=== PATIENT | male | born 1965 | race Caucasian/White ===

== ENCOUNTER → 2018-01-30 08:31 | Outpatient (CLI) | payer OTHER, SELFPAY ==
[2018-01-30 08:51] LABS: Basophils % 0.4 % (0.1-2.0); Eosinophils # 0.1 K/mm3 (0.0-0.4); Eosinophils % 1.5 % (0.1-12.0); Hematocrit 43.9 % (42.0-52.0); Hemoglobin 14.1 g/dL (14.1-18.0); Lymphocytes # 1.4 K/mm3 (0.7-4.5); Mean Corpuscular HGB Conc 32.1 g/dL (31.8-35.4); Mean Corpuscular Hemoglobin 28.7 pg (27.0-31.2); Mean Corpuscular Volume 89.6 fl (80-94); Mean Platelet Volume 7.7 fl (7.4-10.4); Monocytes # 0.4 K/mm3 (0.1-1.0); Monocytes % 6.4 % (1.7-9.3); Neutrophils # 4.2 K/mm3 (1.8-7.8); Neutrophils % 68.7 % (37.0-80.0); Platelet Count 350 K/mm3 (142-424); White Blood Count 6.1 K/mm3 (4.8-10.8)
[2018-01-30 09:35] LABS: Alanine Aminotransferase 38 U/L (12-78); Albumin Level 3.9 gm/dL (3.4-5.0); Albumin/Globulin Ratio 1.1 (1.1-1.8); Alkaline Phosphatase 102 U/L (46-116); Anion Gap 12.3 mEq/L (5-15); Aspartate Amino Transferase 19 U/L (15-37); Bilirubin,Total 1.1 mg/dL (0.2-1.0); Blood Urea Nitrogen 12 mg/dL (7-18); Calcium 9.1 mg/dL (8.5-10.1); Carbon Dioxide 29 mmol/L (21.0-32.0); Chloride 106 mmol/L (98-107); Creatinine,Serum 1.05 mg/dL (0.70-1.30); Estimated Glomerular Filt Rate 74 ml/min (>60); GFR (African American) 89 ML/MIN (>60); Globulin 3.4 gm/dl (1.3-3.2); Glucose 105 mg/dL (74-106); Potassium 4.3 mmoL/L (3.5-5.1); Sodium 143 mmol/L (136-145); Total Protein,Serum 7.3 gm/dL (6.4-8.2)
== END ==
PROVIDERS: PCP Family Medicine; Visit Provider Dermatology
DX: L13.0 Dermatitis herpetiformis (principal); Z79.899 Other long term (current) drug therapy
CPT/HCPCS: 36415; 80053; 85025

== ENCOUNTER → 2018-07-12 07:49 | Outpatient (CLI) | payer OTHER, SELFPAY ==
[2018-07-12 08:09] LABS: Basophils % 0.3 % (0.1-2.0); Eosinophils # 0.1 K/mm3 (0.0-0.4); Eosinophils % 1.4 % (0.1-12.0); Hematocrit 42.7 % (42.0-52.0); Hemoglobin 13.6 g/dL (14.1-18.0); Lymphocytes # 1.2 K/mm3 (0.7-4.5); Lymphocytes % 21.8 K/mm3 (10-50); Mean Corpuscular HGB Conc 31.8 g/dL (31.8-35.4); Mean Corpuscular Volume 91.1 fl (80-94); Mean Platelet Volume 7.3 fl (7.4-10.4); Monocytes # 0.4 K/mm3 (0.1-1.0); Monocytes % 7.6 % (1.7-9.3); Neutrophils # 3.7 K/mm3 (1.8-7.8); Neutrophils % 68.8 % (37.0-80.0); Platelet Count 340 K/mm3 (142-424); Red Blood Count 4.69 M/mm3 (4.60-6.20); Red Cell Distribution Width 13.5 % (11.5-17.5); White Blood Count 5.3 K/mm3 (4.8-10.8)
[2018-07-12 08:23] LABS: Hemoglobin A1C 5.3 % (0.0-7.0)
[2018-07-12 09:24] LABS: Alanine Aminotransferase 29 U/L (12-78); Albumin Level 3.5 gm/dL (3.4-5.0); Alkaline Phosphatase 101 U/L (46-116); Anion Gap 10.6 mEq/L (5-15); Aspartate Amino Transferase 12 U/L (15-37); Bilirubin,Total 1.1 mg/dL (0.2-1.0); Blood Urea Nitrogen 11 mg/dL (7-18); Calcium 8.9 mg/dL (8.5-10.1); Carbon Dioxide 31 mmol/L (21.0-32.0); Chloride 105 mmol/L (98-107); Chol/HDL Ratio 4.9 (1-3.5); Cholesterol 167 mg/dL (140-200); Creatinine,Serum 1.16 mg/dL (0.70-1.30); Estimated Glomerular Filt Rate 66 ml/min (>60); GFR (African American) 79 ML/MIN (>60); Globulin 3.4 gm/dl (1.3-3.2); Glucose 101 mg/dL (74-106); HDL Cholesterol 34 mg/dL (27-67); LDL Cholesterol 95 mg/dL (0-130); Potassium 4.6 mmoL/L (3.5-5.1); Sodium 142 mmol/L (136-145); Total Protein,Serum 6.9 gm/dL (6.4-8.2); Triglycerides 192 mg/dL (30-200); VLDL Cholesterol 38 mg/dL (0-40)
== END ==
PROVIDERS: PCP Family Medicine; Visit Provider Dermatology
DX: I10 Essential (primary) hypertension (principal); E78.5 Hyperlipidemia, unspecified; R73.9 Hyperglycemia, unspecified
CPT/HCPCS: 36415; 80053; 80061; 83036; 85025

== ENCOUNTER → 2018-08-19 11:38 | Outpatient (CLI) | payer OTHER, SELFPAY ==
--- NOTE | 2018-08-19 11:42 | XR_ITS ---
XR chest 2V HISTORY: ITS.REASON: LT LUNG CRACKLES ORDERING PHYSICIAN: FREDY Adkins PATIENT AGE: 53 years COMPARISON: 08/21/2014 FINDINGS: The cardiomediastinal silhouette and pulmonary vascularity are within normal limits. Increased density is present in the right middle lobe consistent with pneumonia. No effusions. IMPRESSION: Right middle lobe pneumonia
== END ==
PROVIDERS: PCP Family Medicine; Visit Provider Physician Assistant
DX: R09.89 Other specified symptoms and signs involving the circulatory and respiratory systems (principal)
CPT/HCPCS: 71046

== ENCOUNTER → 2018-08-28 08:51 | Outpatient (CLI) | payer OTHER, SELFPAY ==
--- NOTE | 2018-08-28 08:57 | XR_ITS ---
XR chest 2V HISTORY: ITS.REASON: pneumonia of right middle lobe to infectious organism ORDERING PHYSICIAN: FREDY Adkins PATIENT AGE: 53 years Technique: PA lateral chest COMPARISON: PA and lateral chest 08/19/2018 FINDINGS: Lungs are clear with no active disease. The pulmonary infiltrate seen at the right base 08/19/2018 mainly involving RML has shown clearing and near complete resolution. The cardiomediastinal silhouette and pulmonary vascularity are within normal limits. The lungs are clear without infiltrates, suspicious nodules, or pleural effusions. No acute bony abnormalities. IMPRESSION: . Lungs appear clear . The right middle lobe infiltrate is shown interval clearing and near complete resolution. No new findings
== END ==
PROVIDERS: PCP Family Medicine; Visit Provider Physician Assistant
DX: J18.1 Lobar pneumonia, unspecified organism (principal)
CPT/HCPCS: 71046

== ENCOUNTER → 2018-09-23 15:34 | Outpatient (CLI) | payer OTHER, SELFPAY ==
--- NOTE | 2018-09-23 15:59 | MR_ITS ---
MR shoulder RT wo con No comparisons HISTORY: Right shoulder pain with limited range of motion ORDERING PHYSICIAN: FREDY Adkins PATIENT AGE: 53 years TECHNIQUE: Routine multiplanar multiecho sequences are performed without contrast. FINDINGS: Hypertrophic changes are present at the acromioclavicular joint with small inferior spur causing some mild impingement upon the musculotendinous junction of the supraspinatus. There is mild thickening of the supraspinatus tendon with increased T2 signal. There appears to be a partial tear along the posterior and distal aspect of the supraspinatus tendon at the insertion on the greater tuberosity. A full-thickness tear is not present. There is mild thickening of the infraspinatus tendon as well with no evidence of tear. The subscapularis and teres minor tendons are intact. Bicipital tendon is in place. There is also suspected SLAP lesion of the glenoid labrum. This could be confirmed with MR arthrography. No other significant anomalies are evident. No fracture or dislocation evident IMPRESSION: 1. Acromioclavicular arthropathy with mild impingement upon the musculotendinous junction of the supraspinatus muscle and tendon 2. Partial tear of the distal and posterior aspect of the supraspinatus tendon with tendinopathy/tendinosis of both supraspinatus and infraspinatus tendons. No full-thickness tear evident 3. Increased T2 signal at the base of the superior glenoid labrum is somewhat irregular appearance suspicious for a SLAP lesion which can be confirmed with MR arthrography if clinically warranted
== END ==
PROVIDERS: PCP Family Medicine; Visit Provider Physician Assistant
DX: M25.511 Pain in right shoulder (principal)
CPT/HCPCS: 73221

== ENCOUNTER → 2018-10-07 09:09 | Outpatient (CLI) | payer OTHER, SELFPAY ==
--- NOTE | 2018-10-07 09:12 | XR_ITS ---
XR shoulder RT min 2V Ordering Physician: Jyotsna Manriquez MD Patient Age: 53 years: Male HISTORY: ITS.REASON: axillary, scapula and ap views. Patient states his tendon tear right shoulder. TECHNIQUE: 3 view right shoulder: Axillary view, Y view, AP Internal rotation view COMPARISON :MRI right shoulder 09/23/2018 FINDINGS . Only very minimal AC joint arthropathy on today's plain film. There seems to be more pronounced arthropathy at AC joint on recent MRI. The minimal intimal joint is unremarkable. Humeral head and neck appear normal and character in density. The Y view shows normal relationship between humeral head and glenoid.. Today's axillary view is limited appear the patient had difficulty in positioning with axillary view performed in sitting position, unable to lift arm. IMPRESSION....... Minimal AC joint arthropathy on plain film . Glenohumeral joint intact
== END ==
PROVIDERS: PCP Family Medicine; Visit Provider Orthopaedic Surgery
DX: M25.511 Pain in right shoulder (principal)
CPT/HCPCS: 73030

== ENCOUNTER → 2018-11-29 07:55 | Outpatient (POV) | payer OTHER, SELFPAY | PROVIDERS: Visit Provider Specialist | DX: M67.911 Unspecified disorder of synovium and tendon, right shoulder (principal); M79.601 Pain in right arm | CPT/HCPCS: 95886; 95908 ==

== ENCOUNTER → 2018-12-23 07:52 | Outpatient (CLI) | payer OTHER, SELFPAY ==
[2018-12-23 09:17] LABS: Basophils % 0.4 % (0.1-2.0); Eosinophils # 0.1 K/mm3 (0.0-0.4); Eosinophils % 1.8 % (0.1-12.0); Hematocrit 42.2 % (42.0-52.0); Hemoglobin 13.7 g/dL (14.1-18.0); Lymphocytes # 1.6 K/mm3 (0.7-4.5); Lymphocytes % 28.3 % (10-50); Mean Corpuscular HGB Conc 32.5 g/dL (31.8-35.4); Mean Corpuscular Hemoglobin 29.2 pg (27.0-31.2); Mean Corpuscular Volume 89.7 fl (80-94); Mean Platelet Volume 7.8 fl (7.4-10.4); Monocytes # 0.4 K/mm3 (0.1-1.0); Monocytes % 7.7 % (1.7-9.3); Neutrophils # 3.4 K/mm3 (1.8-7.8); Neutrophils % 61.8 % (37.0-80.0); Platelet Count 339 K/mm3 (142-424); Red Blood Count 4.71 M/mm3 (4.60-6.20); Red Cell Distribution Width 13.8 % (11.5-17.5); White Blood Count 5.5 K/mm3 (4.8-10.8)
[2018-12-23 12:18] LABS: Alanine Aminotransferase 30 U/L (12-78); Albumin Level 3.5 gm/dL (3.4-5.0); Albumin/Globulin Ratio 1.1 (1.1-1.8); Alkaline Phosphatase 90 U/L (46-116); Anion Gap 15.4 mEq/L (5-15); Aspartate Amino Transferase 18 U/L (15-37); Bilirubin,Total 0.8 mg/dL (0.2-1.0); Blood Urea Nitrogen 12 mg/dL (7-18); Calcium 9.2 mg/dL (8.5-10.1); Carbon Dioxide 26 mmol/L (21.0-32.0); Chloride 106 mmol/L (98-107); Creatinine,Serum 1.14 mg/dL (0.70-1.30); Estimated Glomerular Filt Rate 67 ml/min (>60); GFR (African American) 81 ML/MIN (>60); Globulin 3.3 gm/dl (1.3-3.2); Glucose 106 mg/dL (74-106); Potassium 4.4 mmoL/L (3.5-5.1); Sodium 143 mmol/L (136-145); Total Protein,Serum 6.8 gm/dL (6.4-8.2)
== END ==
PROVIDERS: Visit Provider Dermatology
DX: L13.0 Dermatitis herpetiformis (principal); Z79.899 Other long term (current) drug therapy
CPT/HCPCS: 36415; 80053; 85025

== ENCOUNTER → 2018-12-24 12:44 | Outpatient (POV) | payer OTHER, SELFPAY | PROVIDERS: Visit Provider Specialist | DX: M67.911 Unspecified disorder of synovium and tendon, right shoulder (principal) ==

== ENCOUNTER 2018-12-27 10:00 | Outpatient (RCR) | payer OTHER, SELFPAY ==
--- NOTE | 2018-10-13 11:52 | HMH.OTOPEV ---
OT Inpatient Evaluation Rehab OT Outpatient Eval Start: 10/13/18 11:36 Freq: Status: Active Protocol: Document 10/13/18 11:36 RMTAMAR (Rec: 10[facility]13[facility]18 11:52 [id number] Electronically Signed By Nasra Singleton OT 10/13/18 11:36 Outpatient Therapy Subjective History Subjective History Pt is a 53 year old male who reports to therapy for initial evaluation to right shoulder. Pt injured shoulder on September 17, 2018 when he reached into the bed of the truck and his shoulder popped and he began having pain. Pt has had an MRI where he was diagnosed with a partical RTC tear of the supraspinatus and a possible SLAP tear. Pt demonstrates with a significant decline in AROM and strength at right shoulder . Pt also complains of constant pain. When patient moves are in flexion or abduction, he has severe winging of the scapula (right side). Pt will continue to be seen twice a week in order to address all deficits. Chief Complaint Pain Weakness Symptom Type Ache Throb Sharp Dull Stabbing Burning Symptoms Relieved By Nothing Symptoms Aggravated By Physical Activity Lifting Prior Functional Limitations None Current Functional Limitations Reaching Lifting Housework Dressing Sleeping Recreation Activity Symptom Description Constant and Continuous Level of pain today (0-10) 6 Pain scale - at its best (0-10) 3 Pain scale - at its worst (0-10) 10 Shoulder/Elbow Eval Shoulder Objective Measurements Shoulder ROM Right Shoulder ROM Limitations Pain Shoulder Abduction Active Range of 80 degrees Motion (degrees) Shoulder Abduction Passive Range of 90 degrees Motion (degrees) Shoulder Flexion Active Range of Motion 65 degrees
--- NOTE | 2018-11-15 10:54 | HMH.RHREAS ---
Rehab Reassessment Rehab OP Re-assessment Start: 11/15/18 10:38 Freq: Status: Active Protocol: Document 11/15/18 10:39 RMARSHALL (Rec: 11/15/18 10:54 [id number] Electronically Signed By Nasra Singleton OT 11/15/18 10:39 Rehab Re-assessment Subjective Subjective It still doesn't look right in the back. Objective Objective Notes Pt returned to therapy today after being at work for 30 days. Pt was given a large HEP to continue while being at work. Pt reports he was faithful with completing the exercises daily. Today pt engaged in right RTC strengthening, parascapular strengthening, and scapular stabilization. AROM/AAROM exercises were also completed. Pt received IFC e-stim to right shoulder and ice to decrease pain. Assessment Progress Assessment Slower Than Expected Assessment Notes Pt's AROM and strength at right shoulder has improved significantly since initial evaluation. However, pt's severe winging of the scapula remains the same. This is the most concerning aspect of patient to therapist. Pt does return to the doctor this coming to be re- evaluated. Pt did voice his frustration and wants the winging to be fixed. Pt also explained that his pain has improved since initial evaluation as well. Current AROM at right shoulder Flex: 125 Abd: 120 ER: 55 IR: 65 Current MMT at Right shoulder Flex: 4+ Abd: 4+ ER: 4+ IR: 4+ Patient goals met N/A Goals Not Met AROM and MMT Revised Goals AROM right Shoulder Goals Flex: 160
== END 2018-12-27 10:05 | disposition home or self-care (01) ==
LOC: OT 10:00
PROVIDERS: Visit Provider Orthopaedic Surgery
DX: M25.511 Pain in right shoulder (principal)
CPT/HCPCS: 97014; 97110; 97140; 97164; 97166; G0283

== ENCOUNTER → 2018-12-30 11:56 | Outpatient (CLI) | payer OTHER, SELFPAY | PROVIDERS: Visit Provider Orthopaedic Surgery | DX: M75.110 Incomplete rotator cuff tear or rupture of unspecified shoulder, not specified as traumatic (principal) | CPT/HCPCS: 36415; 82565; 84520 ==

== ENCOUNTER → 2018-12-30 13:30 | Outpatient (CLI) | payer OTHER, SELFPAY ==
[2018-12-30 12:15] LABS: Blood Urea Nitrogen 9 mg/dL (7-18); Creatinine,Serum 1.12 mg/dL (0.70-1.30); Estimated Glomerular Filt Rate 68 ml/min (>60); GFR (African American) 82 ML/MIN (>60)
== END ==
PROVIDERS: PCP Family Medicine; Visit Provider Orthopaedic Surgery
DX: Z01.818 Encounter for other preprocedural examination (principal); M75.110 Incomplete rotator cuff tear or rupture of unspecified shoulder, not specified as traumatic
CPT/HCPCS: 36415; 82565; 84520

== ENCOUNTER → 2019-01-03 09:41 | Outpatient (CLI) | payer OTHER, SELFPAY ==
--- NOTE | 2019-01-03 09:41 | MR_ITS ---
MR chest wo/w con CLINICAL INDICATION: Pain, ringing of scapula ITS.REASON: shoulder pain ORDERING PHYSICIAN: Jyotsna Manriquez MD PATIENT AGE: 53 years Comparison: None TECHNIQUE: Multiplanar multiecho sequences are performed without and with contrast FINDINGS: The spinal nerves exiting from C4 to C8 appear symmetric without enhancement or mass. Brachial plexus has an unremarkable appearance. No axillary mass, abnormal fluid collection, or other significant anomalies evident. No adenopathy. IMPRESSION: Unremarkable MRI of the brachial plexus
== END ==
PROVIDERS: PCP Family Medicine; Visit Provider Orthopaedic Surgery
DX: M75.110 Incomplete rotator cuff tear or rupture of unspecified shoulder, not specified as traumatic (principal); M95.8 Other specified acquired deformities of musculoskeletal system
CPT/HCPCS: 71552; A9576

== ENCOUNTER → 2019-01-05 07:39 | Outpatient (CLI) | payer OTHER, SELFPAY ==
[2019-01-05 09:19] LABS: Alanine Aminotransferase 32 U/L (12-78); Albumin Level 3.7 gm/dL (3.4-5.0); Albumin/Globulin Ratio 1.1 (1.1-1.8); Alkaline Phosphatase 96 U/L (46-116); Anion Gap 11.6 mEq/L (5-15); Aspartate Amino Transferase 15 U/L (15-37); Bilirubin,Total 0.8 mg/dL (0.2-1.0); Blood Urea Nitrogen 10 mg/dL (7-18); Calcium 9.2 mg/dL (8.5-10.1); Carbon Dioxide 29 mmol/L (21.0-32.0); Chloride 106 mmol/L (98-107); Chol/HDL Ratio 5.2 (1-3.5); Cholesterol 166 mg/dL (140-200); Creatinine,Serum 1.11 mg/dL (0.70-1.30); Estimated Glomerular Filt Rate 69 ml/min (>60); GFR (African American) 83 ML/MIN (>60); Globulin 3.4 gm/dl (1.3-3.2); Glucose 109 mg/dL (74-106); HDL Cholesterol 32 mg/dL (27-67); LDL Cholesterol 93 mg/dL (0-130); Potassium 4.6 mmoL/L (3.5-5.1); Sodium 142 mmol/L (136-145); Total Protein,Serum 7.1 gm/dL (6.4-8.2); Triglycerides 206 mg/dL (30-200); VLDL Cholesterol 41 mg/dL (0-40)
== END ==
PROVIDERS: Visit Provider Family Medicine
DX: I10 Essential (primary) hypertension (principal); E78.5 Hyperlipidemia, unspecified
CPT/HCPCS: 36415; 80053; 80061

== ENCOUNTER → 2019-06-28 08:13 | Outpatient (CLI) | payer OTHER, SELFPAY ==
[2019-06-28 08:53] LABS: Basophils % 0.4 % (0.1-2.0); Eosinophils # 0.1 K/mm3 (0.0-0.4); Eosinophils % 1.8 % (0.1-12.0); Hematocrit 43.6 % (42.0-52.0); Hemoglobin 13.8 g/dL (14.1-18.0); Lymphocytes # 1.4 K/mm3 (0.7-4.5); Mean Corpuscular HGB Conc 31.6 g/dL (31.8-35.4); Mean Corpuscular Hemoglobin 28.8 pg (27.0-31.2); Mean Corpuscular Volume 91.2 fl (80-94); Mean Platelet Volume 7.5 fl (7.4-10.4); Monocytes # 0.4 K/mm3 (0.1-1.0); Monocytes % 7.7 % (1.7-9.3); Neutrophils # 3.7 K/mm3 (1.8-7.8); Neutrophils % 66.1 % (37.0-80.0); Platelet Count 377 K/mm3 (142-424); Red Blood Count 4.78 M/mm3 (4.60-6.20); Red Cell Distribution Width 13.4 % (11.5-17.5); White Blood Count 5.6 K/mm3 (4.8-10.8)
[2019-06-28 10:00] LABS: Alanine Aminotransferase 35 U/L (12-78); Albumin Level 3.8 gm/dL (3.4-5.0); Albumin/Globulin Ratio 1.2 (1.1-1.8); Alkaline Phosphatase 77 U/L (46-116); Anion Gap 12.8 mEq/L (5-15); Aspartate Amino Transferase 19 U/L (15-37); Bilirubin,Total 0.9 mg/dL (0.2-1.0); Blood Urea Nitrogen 10 mg/dL (7-18); Calcium 9.1 mg/dL (8.5-10.1); Carbon Dioxide 30 mmol/L (21.0-32.0); Chloride 106 mmol/L (98-107); Creatinine,Serum 1.16 mg/dL (0.70-1.30); Estimated Glomerular Filt Rate 65 ml/min (>60); GFR (African American) 79 ML/MIN (>60); Globulin 3.1 gm/dl (1.3-3.2); Glucose 101 mg/dL (74-106); Potassium 4.8 mmoL/L (3.5-5.1); Sodium 144 mmol/L (136-145); Total Protein,Serum 6.9 gm/dL (6.4-8.2)
== END ==
PROVIDERS: Visit Provider Dermatology
DX: L13.0 Dermatitis herpetiformis (principal)
CPT/HCPCS: 36415; 80053; 85025

== ENCOUNTER → 2019-10-14 07:58 | Outpatient (CLI) | payer OTHER, SELFPAY ==
--- NOTE | 2019-10-14 08:02 | CA_ITS ---
APPROVED REPORT Family Centered Specialist: CT Laterality: Bilateral Study Quality: Good Indications: Dizziness and Vertigo Risk Factors Hypertension: Hyperlipidemia Doppler Spectral Velocity Analysis dICA (R) 69.30/24.40 cm/s dICA (L) 96.30/38.50 cm/s Adan (R) 93.10/36.00 cm/s Adan (L) 83.80/35.60 cm/s pICA (R) 72.70/27.30 cm/s pICA (L) 95.40/41.40 cm/s dCCA (R) 80.90/21.20 cm/s dCCA (L) 77.10/23.10 cm/s pCCA (R) 154.60/39.00 cm/s pCCA (L) 136.90/37.40 cm/s Vert (R) 48.10/17.10 cm/s Vert (L) 48.10/14.40 cm/s Conclusion Duplex evaluation demonstrates stenosis of the right proximal internal carotid artery <20% with PSV <140 cm/sec, EDV <100 cm/sec, and IC/CC Ratio <4.0. Duplex evaluation demonstrates stenosis of the left proximal internal carotid artery in the range of 20-49% with PSV <140 cm/sec, EDV <100 cm/sec, and IC/CC Ratio <4.0. Duplex evaluation demonstrates antegrade flow of the bilateral Vertebral Arteries. Electronically signed by : Rickey Castaneda MD 10/14/2019 16:42:51
== END ==
PROVIDERS: PCP Family Medicine; Visit Provider Physician Assistant
DX: R42 Dizziness and giddiness (principal)
CPT/HCPCS: 93880

== ENCOUNTER → 2019-12-16 07:35 | Outpatient (CLI) | payer OTHER, SELFPAY ==
[2019-12-16 07:48] LABS: Basophils % 0.5 % (0.1-2.0); Eosinophils # 0.1 K/mm3 (0.0-0.4); Hematocrit 41.4 % (42.0-52.0); Hemoglobin 13.3 g/dL (14.1-18.0); Lymphocytes # 1.6 K/mm3 (0.7-4.5); Mean Corpuscular HGB Conc 32.1 g/dL (31.8-35.4); Mean Corpuscular Volume 90.2 fl (80-94); Mean Platelet Volume 7.6 fl (7.4-10.4); Monocytes # 0.5 K/mm3 (0.1-1.0); Monocytes % 7.7 % (1.7-9.3); Neutrophils # 3.7 K/mm3 (1.8-7.8); Neutrophils % 62.9 % (37.0-80.0); Platelet Count 332 K/mm3 (142-424); Red Blood Count 4.59 M/mm3 (4.60-6.20); Red Cell Distribution Width 13.5 % (11.5-17.5); White Blood Count 5.9 K/mm3 (4.8-10.8)
[2019-12-16 08:18] LABS: Chloride 104 mmol/L (98-107); Potassium 4.5 mmoL/L (3.5-5.1); Sodium 142 mmol/L (136-145)
[2019-12-16 08:21] LABS: Alanine Aminotransferase 22 U/L (12-78); Albumin/Globulin Ratio 1.4 (1.1-1.8); Alkaline Phosphatase 74 U/L (38-126); Anion Gap 13.5 mEq/L (5-15); Aspartate Amino Transferase 24 U/L (17-59); Blood Urea Nitrogen 13 mg/dl (9-20); Calcium 9.2 mg/dl (8.4-10.2); Carbon Dioxide 29 mmol/L (22.0-30.0); Estimated Glomerular Filt Rate 69 ml/min (>60); GFR (African American) 84 ML/MIN (>60); Globulin 2.8 g/dL (1.3-3.2); Glucose 115 mg/dl (74-100); Total Protein,Serum 6.8 g/dl (6.3-8.2)
== END ==
PROVIDERS: Visit Provider Dermatology
DX: L13.0 Dermatitis herpetiformis (principal); Z79.899 Other long term (current) drug therapy
CPT/HCPCS: 36415; 80053; 85025

== ENCOUNTER → 2020-06-29 08:24 | Outpatient (CLI) | payer OTHER, SELFPAY ==
[2020-06-29 08:45] LABS: Basophils # 0.1 K/mm3 (0-0.2); Basophils % 0.6 % (0.1-2.0); Eosinophils # 0.2 K/mm3 (0.0-0.4); Eosinophils % 2.2 % (0.1-12.0); Hematocrit 46.4 % (42.0-52.0); Lymphocytes # 1.5 K/mm3 (0.7-4.5); Lymphocytes % 20.2 % (10-50); Mean Corpuscular HGB Conc 32.4 g/dL (31.8-35.4); Mean Corpuscular Hemoglobin 30.6 pg (27.0-31.2); Mean Corpuscular Volume 94.5 fl (80-94); Mean Platelet Volume 7.6 fl (7.4-10.4); Monocytes # 0.5 K/mm3 (0.1-1.0); Monocytes % 6.3 % (1.7-9.3); Neutrophils # 5.1 K/mm3 (1.8-7.8); Neutrophils % 70.7 % (37.0-80.0); Platelet Count 350 K/mm3 (142-424); Red Blood Count 4.91 M/mm3 (4.60-6.20); Red Cell Distribution Width 13.7 % (11.5-17.5); White Blood Count 7.2 K/mm3 (4.8-10.8)
[2020-06-29 10:01] LABS: Chloride 103 mmol/L (98-107); Potassium 5.1 mmoL/L (3.5-5.1); Sodium 141 mmol/L (136-145)
[2020-06-29 10:04] LABS: Alanine Aminotransferase 29 U/L (12-78); Albumin Level 4.2 g/dl (3.5-5.0); Albumin/Globulin Ratio 1.4 (1.1-1.8); Alkaline Phosphatase 88 U/L (38-126); Anion Gap 13.1 mEq/L (5-15); Aspartate Amino Transferase 26 U/L (17-59); Bilirubin,Total 1.1 mg/dl (0.2-1.3); Blood Urea Nitrogen 11 mg/dl (9-20); Calcium 9.9 mg/dl (8.4-10.2); Carbon Dioxide 30 mmol/L (22.0-30.0); Estimated Glomerular Filt Rate 69 ml/min (>60); GFR (African American) 84 ML/MIN (>60); Glucose 118 mg/dl (74-100); Total Protein,Serum 7.2 g/dl (6.3-8.2)
== END ==
PROVIDERS: Visit Provider Dermatology
DX: L13.0 Dermatitis herpetiformis (principal); Z79.899 Other long term (current) drug therapy
CPT/HCPCS: 36415; 80053; 85025

== ENCOUNTER → 2020-07-23 11:09 | Outpatient (CLI) | payer OTHER, SELFPAY ==
[2020-07-23 12:57] LABS: Basophils # 0.1 K/mm3 (0-0.2); Basophils % 0.5 % (0.1-2.0); Eosinophils # 0.2 K/mm3 (0.0-0.4); Eosinophils % 1.3 % (0.1-12.0); Hematocrit 44.1 % (42.0-52.0); Lymphocytes # 2.2 K/mm3 (0.7-4.5); Lymphocytes % 14.9 % (10-50); Mean Corpuscular HGB Conc 31.7 g/dL (31.8-35.4); Mean Corpuscular Hemoglobin 29.7 pg (27.0-31.2); Mean Corpuscular Volume 93.6 fl (80-94); Mean Platelet Volume 7.8 fl (7.4-10.4); Neutrophils # 11.2 K/mm3 (1.8-7.8); Neutrophils % 76.3 % (37.0-80.0); Platelet Count 390 K/mm3 (142-424); Red Blood Count 4.71 M/mm3 (4.60-6.20); Red Cell Distribution Width 13.2 % (11.5-17.5); White Blood Count 14.7 K/mm3 (4.8-10.8)
== END ==
PROVIDERS: PCP Family Medicine; Visit Provider Family Medicine
DX: Z03.818 Encounter for observation for suspected exposure to other biological agents ruled out (principal)
CPT/HCPCS: 36415; 85025; 87275; 87276; U0003

== ENCOUNTER → 2020-09-05 08:01 | Outpatient (CLI) | payer OTHER, SELFPAY ==
[2020-09-05 09:21] LABS: Basophils % 0.5 % (0.1-2.0); Eosinophils # 0.1 K/mm3 (0.0-0.4); Eosinophils % 1.4 % (0.1-12.0); Hematocrit 46.3 % (42.0-52.0); Hemoglobin 14.9 g/dL (14.1-18.0); Lymphocytes # 1.6 K/mm3 (0.7-4.5); Lymphocytes % 22.4 % (10-50); Mean Corpuscular HGB Conc 32.1 g/dL (31.8-35.4); Mean Corpuscular Hemoglobin 29.5 pg (27.0-31.2); Mean Corpuscular Volume 92.1 fl (80-94); Mean Platelet Volume 9.8 fl (7.4-10.4); Monocytes # 0.4 K/mm3 (0.1-1.0); Monocytes % 6.1 % (1.7-9.3); Neutrophils % 69.5 % (37.0-80.0); Platelet Count 430 K/mm3 (142-424); Red Blood Count 5.03 M/mm3 (4.60-6.20); Red Cell Distribution Width 15.9 % (11.5-17.5); White Blood Count 7.2 K/mm3 (4.8-10.8)
[2020-09-05 13:31] LABS: Alanine Aminotransferase 32 U/L (12-78); Albumin Level 4.4 g/dl (3.5-5.0); Albumin/Globulin Ratio 1.5 (1.1-1.8); Alkaline Phosphatase 92 U/L (38-126); Anion Gap 14.8 mEq/L (5-15); Aspartate Amino Transferase 26 U/L (17-59); Blood Urea Nitrogen 16 mg/dl (9-20); Calcium 9.7 mg/dl (8.4-10.2); Carbon Dioxide 29 mmol/L (22.0-30.0); Chloride 103 mmol/L (98-107); Cholesterol 191 mg/dl (140-200); Estimated Glomerular Filt Rate 57 ml/min (>60); GFR (African American) 69 ML/MIN (>60); Glucose 104 mg/dl (74-100); HDL Cholesterol 38 mg/dl (40-60); Potassium 4.8 mmoL/L (3.5-5.1); Sodium 142 mmol/L (136-145); Total Protein,Serum 7.4 g/dl (6.3-8.2); Triglycerides 210 mg/dl (30-150); VLDL Cholesterol 42 mg/dL (0-40)
[2020-09-05 13:42] LABS: Direct LDL Cholesterol 108.13 mg/dL (100-129)
[2020-09-05 13:48] LABS: 25-OH Vitamin D, Total 21.3 ng/mL (30-100)
[2020-09-05 14:00] LABS: Prostate Specific Ag Screen 0.1 ng/ml (0.0-4.0)
== END ==
PROVIDERS: Visit Provider Family Medicine
DX: I10 Essential (primary) hypertension (principal); E78.5 Hyperlipidemia, unspecified; E53.8 Deficiency of other specified B group vitamins; E55.9 Vitamin D deficiency, unspecified; Z12.5 Encounter for screening for malignant neoplasm of prostate
CPT/HCPCS: 36415; 80053; 80061; 82306; 85025; G0103

== ENCOUNTER → 2021-01-15 07:43 | Outpatient (CLI) | payer OTHER, SELFPAY ==
[2021-01-15 08:31] LABS: Basophils % 0.8 % (0.1-2.0); Eosinophils # 0.1 K/mm3 (0.0-0.4); Eosinophils % 2.4 % (0.1-12.0); Hematocrit 43.4 % (42.0-52.0); Hemoglobin 14.1 g/dL (14.1-18.0); Lymphocytes # 1.4 K/mm3 (0.7-4.5); Lymphocytes % 27.4 % (10-50); Mean Corpuscular HGB Conc 32.5 g/dL (31.8-35.4); Mean Corpuscular Hemoglobin 29.5 pg (27.0-31.2); Mean Corpuscular Volume 90.7 fl (80-94); Mean Platelet Volume 7.7 fl (7.4-10.4); Monocytes # 0.4 K/mm3 (0.1-1.0); Monocytes % 7.3 % (1.7-9.3); Neutrophils # 3.1 K/mm3 (1.8-7.8); Platelet Count 340 K/mm3 (142-424); Red Blood Count 4.78 M/mm3 (4.60-6.20); Red Cell Distribution Width 13.9 % (11.5-17.5)
[2021-01-15 08:47] LABS: Chloride 105 mmol/L (98-107); Sodium 139 mmol/L (136-145)
[2021-01-15 08:49] LABS: Blood Urea Nitrogen 12 mg/dl (9-20); Cholesterol 204 mg/dl (140-200); Estimated Glomerular Filt Rate 69 ml/min (>60); GFR (African American) 83 ML/MIN (>60); Triglycerides 114 mg/dl (30-150); VLDL Cholesterol 23 mg/dL (0-40)
[2021-01-15 08:50] LABS: Alanine Aminotransferase 18 U/L (12-78); Albumin Level 4.2 g/dl (3.5-5.0); Albumin/Globulin Ratio 1.6 (1.1-1.8); Alkaline Phosphatase 95 U/L (38-126); Aspartate Amino Transferase 19 U/L (17-59); Bilirubin,Total 1.1 mg/dl (0.2-1.3); Calcium 9.5 mg/dl (8.4-10.2); Carbon Dioxide 30 mmol/L (22.0-30.0); Chol/HDL Ratio 5.2 (1-3.5); Globulin 2.7 g/dL (1.3-3.2); Glucose 110 mg/dl (74-100); HDL Cholesterol 39 mg/dl (40-60); Total Protein,Serum 6.9 g/dl (6.3-8.2)
[2021-01-15 09:00] LABS: Direct LDL Cholesterol 130.73 mg/dL (100-129)
== END ==
PROVIDERS: Dermatology; Visit Provider Family Medicine
DX: L13.0 Dermatitis herpetiformis (principal); E78.5 Hyperlipidemia, unspecified
CPT/HCPCS: 36415; 80053; 80061; 85025

== ENCOUNTER → 2021-06-13 20:07 | Outpatient (CLI) | payer OTHER, SELFPAY | PROVIDERS: Visit Provider Nurse Practitioner Family | DX: Z20.822 Contact with and (suspected) exposure to COVID-19 (principal) | CPT/HCPCS: U0003 ==

== ENCOUNTER → 2021-06-15 07:28 | Outpatient (CLI) | payer OTHER, SELFPAY ==
[2021-06-15 08:17] LABS: Basophils % 0.4 % (0.1-2.0); Eosinophils # 0.1 K/mm3 (0.0-0.4); Eosinophils % 1.4 % (0.1-12.0); Hematocrit 42.1 % (42.0-52.0); Hemoglobin 13.4 g/dL (14.1-18.0); Lymphocytes # 1.4 K/mm3 (0.7-4.5); Lymphocytes % 21.7 % (10-50); Mean Corpuscular HGB Conc 31.8 g/dL (31.8-35.4); Mean Corpuscular Hemoglobin 29.9 pg (27.0-31.2); Mean Corpuscular Volume 94.1 fl (80-94); Mean Platelet Volume 8.7 fl (7.4-10.4); Monocytes # 0.4 K/mm3 (0.1-1.0); Neutrophils # 4.5 K/mm3 (1.8-7.8); Neutrophils % 70.6 % (37.0-80.0); Platelet Count 404 K/mm3 (142-424); Red Blood Count 4.47 M/mm3 (4.60-6.20); Red Cell Distribution Width 13.9 % (11.5-17.5); White Blood Count 6.4 K/mm3 (4.8-10.8)
[2021-06-15 10:06] LABS: Alanine Aminotransferase 29 U/L (12-78); Albumin/Globulin Ratio 1.4 (1.1-1.8); Alkaline Phosphatase 76 U/L (38-126); Aspartate Amino Transferase 24 U/L (17-59); Bilirubin,Total 0.7 mg/dl (0.2-1.3); Blood Urea Nitrogen 11 mg/dl (9-20); Calcium 9.3 mg/dl (8.4-10.2); Carbon Dioxide 29 mmol/L (22.0-30.0); Chloride 105 mmol/L (98-107); Chol/HDL Ratio 4.9 (1-3.5); Cholesterol 151 mg/dl (140-200); Estimated Glomerular Filt Rate 77 ml/min (>60); GFR (African American) 93 ML/MIN (>60); Globulin 2.9 g/dL (1.3-3.2); Glucose 103 mg/dl (74-100); HDL Cholesterol 31 mg/dl (40-60); Sodium 145 mmol/L (136-145); Total Protein,Serum 6.9 g/dl (6.3-8.2); Triglycerides 100 mg/dl (30-150); VLDL Cholesterol 20 mg/dL (0-40)
[2021-06-15 10:16] LABS: Direct LDL Cholesterol 96.98 mg/dL (100-129)
== END ==
PROVIDERS: Dermatology; Visit Provider Family Medicine
DX: I10 Essential (primary) hypertension (principal); E78.5 Hyperlipidemia, unspecified; L13.0 Dermatitis herpetiformis; Z79.899 Other long term (current) drug therapy
CPT/HCPCS: 36415; 80053; 80061; 85025

== ENCOUNTER → 2021-08-16 20:08 | Outpatient (CLI) | payer OTHER, SELFPAY | PROVIDERS: Visit Provider Nurse Practitioner Family | DX: Z20.822 Contact with and (suspected) exposure to COVID-19 (principal); U07.1 COVID-19 | CPT/HCPCS: C9803; U0003; U0005 ==

== ENCOUNTER 2021-08-21 09:54 | Outpatient (CLI) | payer OTHER, SELFPAY ==
[2021-08-21] VITALS (7 sets, daily range): BP systolic 129–145; BP diastolic 68–82; PULSE 78–102; RESP 16–20; TEMP 37.4–37.7; O2SAT 93–96
== END 2021-08-21 14:04 | disposition home or self-care (01) ==
LOC: COVID.OUT 09:55
PROVIDERS: PCP Family Medicine; Visit Provider Family Medicine
DX: U07.1 COVID-19 (principal); Z23 Encounter for immunization
CPT/HCPCS: 96365

== ENCOUNTER 2021-11-06 12:45 | Emergency (ER) | payer OTHER, SELFPAY ==
--- NOTE | 2021-11-06 12:42 | ECG_ITS ---
APPROVED REPORT Exam: Resting ECG HR:75 bpm ECG Measurements Heart Rate 75 AXES ID 168 P 49 QRSd 98 QRS -8 QT 382 T 53 QTc 411 Conclusion SINUS RHYTHM SEPTAL MYOCARDIAL INFARCTION , OF INDETERMINATE AGE [40+ ms Q WAVE IN V1/V2] ABNORMAL ECG UNCONFIRMED REPORT Electronically signed by : Mingo García MD 11/11/2021 17:34:44
[2021-11-06 12:46] VITALS: BP 136/80; PULSE 81; RESP 18; TEMP 36.7; O2SAT 96; BMI 31.2
[2021-11-06 13:00] VITALS: BMI 31.2
--- NOTE | 2021-11-06 13:01 | XR_ITS ---
FINAL REPORT TECHNIQUE: Chest PA & Lateral CLINICAL HISTORY: chest pain COMPARISON: August 28, 2018 FINDINGS: 2 views of the chest were performed. The heart size is normal. The mediastinum is within normal limits. The lungs are underinflated. There are chronic changes at the lung bases. There are no pleural effusions. There is no pneumothorax. The bony thorax appears intact. IMPRESSION: No acute cardiopulmonary process. Reviewed, Interpreted and Dictated by Eddie Wright MD Transcribed by Masha Saldana Authenticated by Eddie Wright MD on 11/06/2021 02:18:06 PM [facility]
--- NOTE | 2021-11-06 13:09 | PC.NURSE ---
pt in xray
[2021-11-06 13:13] LABS: Basophils # 0.1 K/mm3 (0-0.2); Basophils % 1.9 % (0.1-2.0); Eosinophils # 0.1 K/mm3 (0.0-0.4); Eosinophils % 1.3 % (0.1-12.0); Hematocrit 46.2 % (42.0-52.0); Hemoglobin 14.7 g/dL (14.1-18.0); Lymphocytes # 1.8 K/mm3 (0.7-4.5); Lymphocytes % 26.9 % (10-50); Mean Corpuscular HGB Conc 31.8 g/dL (31.8-35.4); Mean Corpuscular Hemoglobin 30.2 pg (27.0-31.2); Mean Platelet Volume 7.9 fl (7.4-10.4); Monocytes # 0.5 K/mm3 (0.1-1.0); Monocytes % 6.8 % (1.7-9.3); Neutrophils # 4.2 K/mm3 (1.8-7.8); Platelet Count 438 K/mm3 (142-424); Red Blood Count 4.86 M/mm3 (4.60-6.20); White Blood Count 6.7 K/mm3 (4.8-10.8)
[2021-11-06 13:14] LABS: Chloride 104 mmol/L (98-107); Sodium 138 mmol/L (136-145)
[2021-11-06 13:15] LABS: Potassium 4.6 mmoL/L (3.5-5.1)
[2021-11-06 13:17] LABS: Blood Urea Nitrogen 12 mg/dl (9-20); Creatinine Clearance Estimated 129 mL/min (50-200); Estimated Glomerular Filt Rate 77 ml/min (>60); GFR (African American) 93 ML/MIN (>60)
[2021-11-06 13:18] LABS: Anion Gap 11.6 mEq/L (5-15); Calcium 9.1 mg/dl (8.4-10.2); Carbon Dioxide 27 mmol/L (22.0-30.0); Glucose 114 mg/dl (74-100)
[2021-11-06 13:31] LABS: Troponin I < 0.01 ng/ml (0.00-0.034)
--- NOTE | 2021-11-06 13:51 | HMH.EDGENADL ---
ED Disposition Clinical Impression: Atypical chest pain Disposition: Home, Self-Care Condition on Discharge: Good Instructions: DI for Atypical Chest Pain Additional Instructions: Additional instructions for CHEST PAIN: See your physician tomorrow morning as scheduled. Return immediately if worsening chest pain, vomiting, shortness of breath, fever, coughing of blood. Referrals: Gregory Jeff MD [Primary Care Provider] - - Critical Care Critical Care Time: No Attestation: On 11/06/21, the high probability of a clinically significant, sudden or life threatening deterioration of the following system(s) required my full and direct attention, intervention and personal management. The time I documented below is in addition to time spent performing reported procedures but includes the following listed in this critical care notation. Medical Decision Making - Trevor Inquiry Pt receiving controlled substance: No Vital Signs: 11/06/21 12:46 Temperature 98.0 F Temperature Source Oral Pulse Rate [Right Radial] 81 Respiratory Rate 18 Blood Pressure [Right Arm] 136/80 Blood Pressure Mean [Right Arm] 98 Blood Pressure Source [Right Arm] Automatic Cuff Blood Pressure Position [Right Arm] Sitting 02 Sat by Pulse Oximetry 96 Oxygen Delivery Method Room Air - Lab Data Lab Results 11/06/21 12:53: WBC 6.7, RBC 4.86, Hgb 14.7, Hct 46.2, MCV 95.0 H, MCH 30.2, MCHC 31.8, RDW 15.0, Plt Count 438 H, MPV 7.9, Neut % (Auto) 63.0, Lymph % (Auto) 26.9, [place] % (Auto) 6.8, Eos % (Auto) 1.3, Baso % (Auto) 1.9, Neut # (Auto) 4.2, Lymph # (Auto) 1.8, [place] # (Auto) 0.5, Eos # (Auto) 0.1, Baso # (Auto) 0.1 11/06/21 12:53: Sodium 138, Potassium 4.6, Chloride 104, Carbon Dioxide 27, Anion Gap 11.6, BUN 12, Creatinine 1.00, Estimated Creat Clear 129, Estimated GFR 77, Est GFR ( Amer) 93, Glucose 114 H, Calcium 9.1, Troponin I < 0.01 Result diagrams: 11/06/21 12:53 11/06/21 12:53 Orders (Tests/Meds): ED MEDICATIONS Discontinued Medications Generic Name Dose Route Start Last Admin Trade Name Daryl PRN Reason Stop Dose Admin Aspirin 324 mg 11/06/21 13:01 11/06/21 13:15 Aspirin 81mg Chewable Tablet PO 11/06/21 13:02 324 mg ONCE ONE Administration ORDERS Category Date Time Status Troponin I Q3H Lab 11/06/21 16:15 Ordered Troponin I Q3H Lab 11/06/21 19:15 Ordered - Radiology Data #1 Image(s): Chest Image Reviewed: Yes I reviewed the patient's radiology image, Yes I have reviewed radiologist's interpretation Preliminary Findings: Normal/NAD FINAL REPORT TECHNIQUE: Chest PA & Lateral CLINICAL HISTORY: chest pain COMPARISON: August 28, 2018 FINDINGS: 2 views of the chest were performed. The heart size is normal. The mediastinum is within normal limits. The lungs are underinflated. There are chronic changes at the lung bases. There are no pleural effusions. There is no pneumothorax. The bony thorax appears intact. IMPRESSION: No acute cardiopulmonary process. Reviewed, Interpreted and Dictated by Eddie Wright MD Transcribed by Masha Saldana Authenticated by Eddie Wright MD on 11/06/2021 02:18:06 PM [facility] - ECG Data Tracing #1 EKG interpreted by Didier Garcia MD: Rhythm: sinus Rate: 75 [place]: normal Ectopy: none Conduction: normal ST Segment Changes: none T Wave Changes: none Q Waves: Septal No evidence of acute ischemia or injury No prior EKGs available for comparison. - MO Score for Non-Stemi Age of Patient: 50-59 years old Heart Rate: 70-89 bpm Systolic Blood Pressure: 120-139 mmhg Serum Creatinine: 0.80-1.19 mg/dl CHF [place] Class: I-No CHF Other Risk Factors: None Non-Stemi Risk Score: 91 Medical Decision Narrative: Heart Pathway Score is: 3 Low Risk Recommended approach: Repeat troponin and if negative outpatient follow-up I recommended a second troponin at 3 hours, but the patient declines. Stat
[2021-11-06 14:27] VITALS: BP 134/70; PULSE 77; RESP 18; TEMP 36.7; O2SAT 98
== END 2021-11-06 14:27 | disposition home or self-care (01) ==
PROVIDERS: Emergency Provider Emergency Medicine; PCP Family Medicine
DX: R07.89 Other chest pain (principal); K21.9 Gastro-esophageal reflux disease without esophagitis; E78.5 Hyperlipidemia, unspecified; I10 Essential (primary) hypertension
CPT/HCPCS: 71046; 80048; 84484; 85025; 93005; 99283

== ENCOUNTER → 2021-11-11 06:12 | Outpatient (CLI) | payer OTHER, SELFPAY ==
--- NOTE | 2021-11-11 | CA_ITS ---
APPROVED REPORT Exam: Pharmacologic Technologist: Jackelin Lopez Ht: 6 ft 3 in Wt: 250 lbs BSA: 2.41 m2 HR: 65 bpm BP: 130/75 mmHg Indications: Precordial chest pain Medical History Medications: Amlodipine,,,,, Omeprazole,,,,, Atorvastatin,,,,, Ramipril,,,,, DApsone,,,,, Stress Test Details Test: LEXISCAN HR Resting HR: 71 bpm Max Heart Rate (APMHR): 162.815273 bpm Max HR Achieved: 94 bpm Target HR (85% APMHR): 137.295324 bpm % of APMHR: 58.02 Recovery HR: 73 bpm BP Resting BP: 130.0/75.0 mmHg Max BP: 141.0/78.0 mmHg Recovery BP: 128.0/73.0 mmHg ECG Resting ECG: Sinus rhythm Clinical Exercise duration: 04:00 min Highest Stage Achieved: Exercise capacity: 1.0 METs Stress ECG Conclusion Lexiscan portion complete. Patient didn't have any complaints during test. Symptoms: No chest pain or shortness of breath during peak infusion. Arrhythmias/Ectopy: No ectopy ST-T Changes: Less than 1.[address] depression Conclusion: Images to follow Test Summary RECOVERY 03:51 . . 78 . 128/ 73 . . REST 04:37 . . 71 . 130/ 75 . . Stage 1 . . . . . . . Myoview Injected Stage 1 01:00 . . 90 . . . . Stage 2 01:00 . . 90 . 125/ 73 . . Stage 3 01:00 . . 83 . 141/ 78 . . Stage 4 01:00 . . 78 . 132/ 77 . Stop exercise at 04:00 RECOVERY 01:00 . . 76 . 129/ 76 . . RECOVERY 02:00 . . 72 . 129/ 76 . . RECOVERY 03:00 . . 72 . 128/ 73 . . RECOVERY 03:51 . . 78 . 128/ 73 . . Electronically signed by : Sameer Melvin MD 11/11/2021 20:58:41
--- NOTE | 2021-11-11 06:29 | NM_ITS ---
APPROVED REPORT Exam: Nuclear Stress Test Indication: chest pain..palpitations Patient Location: Outpatient Stress Tech: Jackelin Lopez [place] Tech:CELSO Andres RT(R)(N) Ht: 6 ft 3 in Wt: 250 lbs HR: 65 bpm BP: 130/75 mmHg BSA: 2.41 m2 BMI: 31.2 History: chest pain..palpitations Procedure: Patient received a 0.4 mg of intravenous Lexiscan, resting heart rate 65 bpm, resting blood pressure 130/75 mmHg, with Lexiscan maximum heart rate achived was 93 bpm which is Less than 85 % of the maximum predicted heart rate and blood pressure was 125/73 mmHg. With Lexiscan, patient denied any complaint of chest pain. Electrocardiogram Resting electrocardiogram showed sinus rhythm, with Lexiscan there is less than 1.[address] segment depression noted from the baseline EKG. The EKG portion of the Lexiscan is nondiagnostic. Cardiac Stress and Resting SPECT Images: Cardiac Stress and Resting SPECT images were obtained using technetium 99m Myoview 32.0 mCi stress and 10.39 mCi at rest. Gated SPECT for analysis of segmental wall motion and calculation of the ejection fraction also done. Prone images were also obtained. Cardiac stress and resting SPECT images show uniform myocardial activity without segmental perfusion abnormality, computer derived ejection fraction is 68% with no regional wall motion abnormality, right ventricle is normal size and contractility. Conclusion: 1. The EKG portion of the Lexiscan is nondiagnostic. 2. No scintigraphic evidence of reversible ischemia seen, computer derived ejection fraction is 68% with no regional wall motion abnormality, right ventricle is normal size and contractility. 3. Normal Lexiscan Myoview study. Electronically signed by : Sameer Melvin MD 11/11/2021 21:06:04
== END ==
LOC: RAD 06:14
PROVIDERS: PCP Family Medicine; Visit Provider Family Medicine
DX: R07.2 Precordial pain (principal)
CPT/HCPCS: 78452; 93017; A9502; J2785

== ENCOUNTER → 2022-01-02 07:36 | Outpatient (CLI) | payer OTHER, SELFPAY ==
[2022-01-02 08:23] LABS: Basophils # 0.1 K/mm3 (0-0.2); Basophils % 0.9 % (0.1-2.0); Eosinophils # 0.1 K/mm3 (0.0-0.4); Eosinophils % 1.3 % (0.1-12.0); Hemoglobin 14.9 g/dL (14.1-18.0); Lymphocytes # 1.5 K/mm3 (0.7-4.5); Lymphocytes % 26.7 % (10-50); Mean Corpuscular HGB Conc 31.6 g/dL (31.8-35.4); Mean Corpuscular Hemoglobin 29.5 pg (27.0-31.2); Mean Corpuscular Volume 93.3 fl (80-94); Mean Platelet Volume 8.1 fl (7.4-10.4); Monocytes # 0.4 K/mm3 (0.1-1.0); Monocytes % 7.4 % (1.7-9.3); Neutrophils # 3.7 K/mm3 (1.8-7.8); Neutrophils % 63.8 % (37.0-80.0); Platelet Count 428 K/mm3 (142-424); Red Blood Count 5.04 M/mm3 (4.60-6.20); Red Cell Distribution Width 13.9 % (11.5-17.5); White Blood Count 5.8 K/mm3 (4.8-10.8)
[2022-01-02 09:18] LABS: Alanine Aminotransferase 19 U/L (12-78); Albumin Level 4.3 g/dl (3.5-5.0); Albumin/Globulin Ratio 1.5 (1.1-1.8); Alkaline Phosphatase 75 U/L (38-126); Aspartate Amino Transferase 24 U/L (17-59); Bilirubin,Total 1.4 mg/dl (0.2-1.3); Blood Urea Nitrogen 9 mg/dl (9-20); Calcium 9.3 mg/dl (8.4-10.2); Carbon Dioxide 30 mmol/L (22.0-30.0); Chloride 105 mmol/L (98-107); Estimated Glomerular Filt Rate 77 ml/min (>60); GFR (African American) 93 ML/MIN (>60); Globulin 2.9 g/dL (1.3-3.2); Glucose 104 mg/dl (74-100); Sodium 139 mmol/L (136-145); Total Protein,Serum 7.2 g/dl (6.3-8.2)
== END ==
LOC: LAB 07:37
PROVIDERS: Visit Provider Dermatology
DX: L13.0 Dermatitis herpetiformis (principal); Z79.899 Other long term (current) drug therapy
CPT/HCPCS: 36415; 80053; 85025

== ENCOUNTER → 2022-05-28 07:21 | Outpatient (CLI) | payer OTHER, SELFPAY ==
[2022-05-28 08:50] LABS: Chloride 106 mmol/L (98-107)
[2022-05-28 08:51] LABS: Potassium 4.5 mmoL/L (3.5-5.1); Sodium 141 mmol/L (136-145)
[2022-05-28 08:54] LABS: Alanine Aminotransferase 22 U/L (12-78); Albumin Level 4.4 g/dl (3.5-5.0); Albumin/Globulin Ratio 1.5 (1.1-1.8); Alkaline Phosphatase 87 U/L (38-126); Aspartate Amino Transferase 26 U/L (17-59); Bilirubin,Total 0.8 mg/dl (0.2-1.3); Blood Urea Nitrogen 15 mg/dl (9-20); Calcium 9.6 mg/dl (8.4-10.2); Chol/HDL Ratio 4.6 (1-3.5); Cholesterol 170 mg/dl (140-200); Estimated Glomerular Filt Rate 69 ml/min (>60); GFR (African American) 83 ML/MIN (>60); Globulin 2.9 g/dL (1.3-3.2); Glucose 112 mg/dl (74-100); HDL Cholesterol 37 mg/dl (40-60); Total Protein,Serum 7.3 g/dl (6.3-8.2); Triglycerides 150 mg/dl (30-150); VLDL Cholesterol 30 mg/dL (0-40)
[2022-05-28 09:09] LABS: Hemoglobin A1C 5.1 % (4.0-6.0)
[2022-05-28 15:04] LABS: Anion Gap 10.5 mEq/L (5-15); Carbon Dioxide 29 mmol/L (22.0-30.0)
[2022-05-29 08:52] LABS: Direct LDL Cholesterol 101 mg/dL (100-129)
== END ==
PROVIDERS: PCP Family Medicine; Visit Provider Family Medicine
DX: I10 Essential (primary) hypertension (principal); E78.5 Hyperlipidemia, unspecified; R73.01 Impaired fasting glucose
CPT/HCPCS: 36415; 80053; 80061; 83036

== ENCOUNTER → 2022-06-13 07:32 | Outpatient (CLI) | payer OTHER, SELFPAY ==
[2022-06-13 08:15] LABS: Basophils % 0.6 % (0.1-2.0); Eosinophils # 0.1 K/mm3 (0.0-0.4); Eosinophils % 1.5 % (0.1-12.0); Hematocrit 44.2 % (42.0-52.0); Hemoglobin 13.3 g/dL (14.1-18.0); Lymphocytes # 1.5 K/mm3 (0.7-4.5); Lymphocytes % 21.1 % (10-50); Mean Corpuscular HGB Conc 30.1 g/dL (31.8-35.4); Mean Corpuscular Hemoglobin 29.6 pg (27.0-31.2); Mean Corpuscular Volume 98.2 fl (80-94); Mean Platelet Volume 8.2 fl (7.4-10.4); Monocytes # 0.5 K/mm3 (0.1-1.0); Neutrophils # 4.9 K/mm3 (1.8-7.8); Neutrophils % 69.8 % (37.0-80.0); Platelet Count 369 K/mm3 (142-424); Red Cell Distribution Width 14.1 % (11.5-17.5)
[2022-06-13 09:43] LABS: Chloride 107 mmol/L (98-107); Potassium 4.5 mmoL/L (3.5-5.1); Sodium 142 mmol/L (136-145)
[2022-06-13 09:46] LABS: Alanine Aminotransferase 18 U/L (12-78); Albumin Level 4.1 g/dl (3.5-5.0); Albumin/Globulin Ratio 1.5 (1.1-1.8); Alkaline Phosphatase 76 U/L (38-126); Anion Gap 10.5 mEq/L (5-15); Aspartate Amino Transferase 28 U/L (17-59); Bilirubin,Total 0.8 mg/dl (0.2-1.3); Blood Urea Nitrogen 14 mg/dl (9-20); Calcium 9.2 mg/dl (8.4-10.2); Carbon Dioxide 29 mmol/L (22.0-30.0); Estimated Glomerular Filt Rate 77 ml/min (>60); GFR (African American) 93 ML/MIN (>60); Globulin 2.8 g/dL (1.3-3.2); Glucose 114 mg/dl (74-100); Total Protein,Serum 6.9 g/dl (6.3-8.2)
== END ==
PROVIDERS: PCP Family Medicine; Visit Provider Dermatology
DX: L13.0 Dermatitis herpetiformis (principal); Z79.899 Other long term (current) drug therapy
CPT/HCPCS: 36415; 80053; 85025

== ENCOUNTER → 2022-12-15 07:29 | Outpatient (CLI) | payer OTHER, SELFPAY ==
[2022-12-15 08:19] LABS: Alanine Aminotransferase 18 U/L (12-78); Albumin Level 4.2 g/dl (3.5-5.0); Albumin/Globulin Ratio 1.6 (1.1-1.8); Alkaline Phosphatase 67 U/L (38-126); Anion Gap 8.8 mEq/L (5-15); Aspartate Amino Transferase 23 U/L (17-59); Blood Urea Nitrogen 9 mg/dl (9-20); Calcium 8.9 mg/dl (8.4-10.2); Carbon Dioxide 30 mmol/L (22.0-30.0); Chloride 106 mmol/L (98-107); Chol/HDL Ratio 4.8 (1-3.5); Cholesterol 181 mg/dl (140-200); Estimated Glomerular Filt Rate 76 ml/min (>60); GFR (African American) 93 ML/MIN (>60); Globulin 2.7 g/dL (1.3-3.2); Glucose 113 mg/dl (74-100); HDL Cholesterol 38 mg/dl (40-60); Potassium 3.8 mmoL/L (3.5-5.1); Sodium 141 mmol/L (136-145); Total Protein,Serum 6.9 g/dl (6.3-8.2); Triglycerides 165 mg/dl (30-150); VLDL Cholesterol 33 mg/dL (0-40)
[2022-12-15 08:29] LABS: Hemoglobin A1C 4.6 % (4.0-6.0)
[2022-12-15 08:32] LABS: Direct LDL Cholesterol 112.73 mg/dL (100-129)
== END ==
LOC: LAB 07:30
PROVIDERS: PCP Family Medicine; Visit Provider Family Medicine
DX: I10 Essential (primary) hypertension (principal); E78.5 Hyperlipidemia, unspecified; R73.9 Hyperglycemia, unspecified
CPT/HCPCS: 36415; 80053; 80061; 83036

== ENCOUNTER → 2023-01-02 07:25 | Outpatient (CLI) | payer OTHER, SELFPAY ==
[2023-01-02 07:52] LABS: Basophils # 0.1 K/mm3 (0-0.2); Basophils % 0.7 % (0.1-2.0); Eosinophils # 0.1 K/mm3 (0.0-0.4); Eosinophils % 1.9 % (0.1-12.0); Hematocrit 43.8 % (42.0-52.0); Hemoglobin 14.1 g/dL (14.1-18.0); Lymphocytes # 1.7 K/mm3 (0.7-4.5); Lymphocytes % 23.2 % (10-50); Mean Corpuscular HGB Conc 32.3 g/dL (31.8-35.4); Mean Corpuscular Hemoglobin 29.6 pg (27.0-31.2); Mean Corpuscular Volume 91.8 fl (80-94); Mean Platelet Volume 7.9 fl (7.4-10.4); Monocytes # 0.5 K/mm3 (0.1-1.0); Monocytes % 6.5 % (1.7-9.3); Neutrophils # 4.8 K/mm3 (1.8-7.8); Neutrophils % 67.8 % (37.0-80.0); Platelet Count 391 K/mm3 (142-424); Red Blood Count 4.77 M/mm3 (4.60-6.20); Red Cell Distribution Width 13.7 % (11.5-17.5); White Blood Count 7.1 K/mm3 (4.8-10.8)
[2023-01-02 08:24] LABS: Alanine Aminotransferase 20 U/L (12-78); Albumin Level 4.2 g/dl (3.5-5.0); Albumin/Globulin Ratio 1.6 (1.1-1.8); Alkaline Phosphatase 79 U/L (38-126); Anion Gap 10.2 mEq/L (5-15); Aspartate Amino Transferase 24 U/L (17-59); Bilirubin,Total 0.8 mg/dl (0.2-1.3); Blood Urea Nitrogen 12 mg/dl (9-20); Calcium 8.7 mg/dl (8.4-10.2); Carbon Dioxide 29 mmol/L (22.0-30.0); Chloride 104 mmol/L (98-107); Estimated Glomerular Filt Rate 76 ml/min (>60); GFR (African American) 93 ML/MIN (>60); Globulin 2.7 g/dL (1.3-3.2); Glucose 109 mg/dl (74-100); Potassium 4.2 mmoL/L (3.5-5.1); Sodium 139 mmol/L (136-145); Total Protein,Serum 6.9 g/dl (6.3-8.2)
== END ==
LOC: LAB 07:26
PROVIDERS: PCP Family Medicine; Visit Provider Dermatology
DX: L13.0 Dermatitis herpetiformis (principal); Z79.899 Other long term (current) drug therapy
CPT/HCPCS: 36415; 80053; 85025

== ENCOUNTER 2023-01-15 09:42 | Day surgery (SDC) | payer OTHER, SELFPAY ==
[2023-01-07 13:02] VITALS: BMI 33.1
[2023-01-15 10:24] VITALS: BP 153/70; PULSE 70; RESP 20; TEMP 36.9; O2SAT 20
--- NOTE | 2023-01-15 11:10 | P.PN_ITS ---
[facility] Disclaimer: The information contained in this section may have been updated after the patient was seen, as this information can be updated by other users. Medical History History of gastroesophageal reflux (GERD) Hyperlipidemia Hypertension Surgical History History of ankle surgery Hx of left knee surgery Hx of right knee surgery Hx of shoulder surgery Family History Other Family history of cancer Family history of diabetes mellitus type II Family history of hypertension Family history of hypothyroidism Family history of myocardial infarction Family history of stroke Social History Smoking Status: Former smoker how long ago did patient quit smokin years alcohol intake: never substance use type: denies use current occupational status: employed Travel in the last 8 weeks: None household members: spouse housing: house marital status: education level: college current occupational exposures/hazards: Yes caffeine: Yes special teresa needs: No agree to transfusion: No do you feel safe at home: Yes victim of physical abuse: No victim of emotional abuse: No victim of sexual abuse: No would you like helpful sources: No [facility] Anesthesia Checklist Patient Identification Patient Identification: Arm Band and Verbal (Name & ) Structural Data Admitted From: Home Planned Operative Procedure/s: Colonoscopy Consent for Planned Operative Procedure(s) Verified: Yes NPO Status Verified Time NPO: 00:00 Airway Assessment C-Spine Mobility Assessed: Yes TMJ Mobility Assessed: Yes Dentition: Good Dentition Neurological Assessment Level of Consciousness: Awake Hx Seizures: No Numbness or tingling in extremities: No Anesthesia Plan Anesthesia Risk discussed: Yes Anesthesia Plan: Verified ASA Class: II Anesthesia Type: MAC
[2023-01-15 11:13] VITALS: O2SAT 97
--- NOTE | 2023-01-15 11:24 | HMH.SCOPE ---
Procedure: Date: 01/15/23 Patient Date of :: 1965 Procedure Performed:: Screening colonoscopy Indications:: Screening for colorectal cancer, celiac disease Performing Provider:: Paresh Marquez MD Referring Provider:: Gregory Jeff MD Sedation:: Propofol Procedure:: After placing the patient in the left lateral decubitus position, the colonoscopy was gently inserted into the rectum and under direct visualization advanced to the cecum which was identified by transillumination in the right lower quadrant, identification of the ileocecal valve, appendiceal orifice, and cecal strap. Color, texture, mucosa, and anatomy of the colon were carefully examined with the scope. Findings:: Anal canal: normal Rectum: normal Sigmoid colon: normal without polyps or inflammatory changes Descending colon: normal without polyps or inflammatory changes Splenic flexure: normal Transverse colon: normal without polyps or inflammatory changes Hepatic flexure: normal Ascending colon: normal without polyps or inflammatory changes Cecum: normal Terminal ileum: not visualized Impression: Normal colonoscopy Recommendations:: Follow up examination in about TEN years or so, sooner if clinically indicated. Schedule EGD and small bowel biopsies for evaluation of celiac disease. Complications:: None Estimated blood obtained (mL): 0
[2023-01-15 11:25] VITALS: BP 117/72; PULSE 71; RESP 16; TEMP 36.1; O2SAT 95
[2023-01-15 11:35] VITALS: BP 123/71; PULSE 68; RESP 16; O2SAT 96
--- NOTE | 2023-01-15 11:42 | SUR.PHASEII ---
Notified Elise GARNICA of need for patient to be scheduled for EGD per Dr. Chacon. Pt aware that someone will be contacting him.
[2023-01-15 11:45] VITALS: BP 122/73; PULSE 68; RESP 18; O2SAT 97
== END 2023-01-15 11:50 | disposition home or self-care (01) ==
PROVIDERS: PCP Family Medicine; Visit Provider Internal Medicine Gastroenterology
PROC: 0DJD8ZZ Inspection of Lower Intestinal Tract, Via Natural or Artificial Opening Endoscopic (ICD-10-PCS; CPT 45378; principal; 2023-01-15 11:00)
DX: Z12.11 Encounter for screening for malignant neoplasm of colon (principal); Z79.899 Other long term (current) drug therapy
CPT/HCPCS: 45378

== ENCOUNTER 2023-02-26 08:10 | Day surgery (SDC) | payer OTHER, SELFPAY ==
[2023-02-19 14:02] VITALS: BMI 32.5
[2023-02-26 08:43] VITALS: BP 157/63; PULSE 57; RESP 18; TEMP 36.9; O2SAT 96
[2023-02-26 09:18] VITALS: O2SAT 96
[2023-02-26 09:32] VITALS: BP 150/75; PULSE 70; RESP 18; TEMP 36.2; O2SAT 91
[2023-02-26 09:42] VITALS: BP 126/75; PULSE 68; RESP 18; TEMP 36.2; O2SAT 98
[2023-02-26 09:52] VITALS: BP 132/76; PULSE 63; RESP 18; TEMP 36.2; O2SAT 94
--- NOTE | 2023-02-26 10:05 | HMH.SCOPE ---
Procedure: Date: 02/26/23 Patient Date of :: 1965 Procedure Performed:: Diagnostic EGD Indications:: Evaluation for celiac disease Performing Provider:: Paresh Marquez MD Referring Provider:: Gregory Jeff Sedation:: Propofol Procedure:: The gastroscope was gently passed through the incisoral orifice into the oral cavity and under direct visualization the esophagus was intubated. The endoscope was passed down the esophagus, through the stomach, and into the duodenum. Color, texture, mucosa, and anatomy of the esophagus, stomach, and duodenum were carefully examined with the scope. Findings:: Oropharynx: normal Esophagus: normal EG Junction: intact at 40 cm Cardia: normal Fundus: normal Body: normal Antrum: normal Duodenal bulb: normal Duodenum (second and third portion): normal, multiple biopsies obtained Impression: Visually normal EGD Specimens:: Small bowel Recommendations:: Follow up with PCP Complications:: None Estimated blood obtained (mL): 0
[2023-02-26 10:10] VITALS: BP 134/78; PULSE 60; RESP 18; TEMP 36.2; O2SAT 97
== END 2023-02-26 10:10 | disposition home or self-care (01) ==
PROVIDERS: PCP Family Medicine; Visit Provider Internal Medicine Gastroenterology
PROC: 0DJ08ZZ Inspection of Upper Intestinal Tract, Via Natural or Artificial Opening Endoscopic (ICD-10-PCS; CPT 43235; principal; 2023-02-26 09:30)
DX: K21.9 Gastro-esophageal reflux disease without esophagitis (principal); Z79.899 Other long term (current) drug therapy
CPT/HCPCS: 43239; J2704

== ENCOUNTER → 2023-06-04 07:11 | Outpatient (CLI) | payer OTHER, SELFPAY ==
[2023-06-04 09:01] LABS: Chloride 103 mmol/L (98-107); Potassium 4.7 mmoL/L (3.5-5.1); Sodium 139 mmol/L (136-145)
[2023-06-04 09:04] LABS: Alanine Aminotransferase 20 U/L (12-78); Albumin Level 3.9 g/dl (3.5-5.0); Albumin/Globulin Ratio 1.3 (1.1-1.8); Alkaline Phosphatase 82 U/L (38-126); Anion Gap 11.7 mEq/L (5-15); Aspartate Amino Transferase 19 U/L (17-59); Bilirubin,Total 0.9 mg/dl (0.2-1.3); Blood Urea Nitrogen 17 mg/dl (9-20); Carbon Dioxide 29 mmol/L (22.0-30.0); Cholesterol 197 mg/dl (140-200); Estimated Glomerular Filt Rate 76 ml/min (>60); GFR (African American) 93 ML/MIN (>60); Globulin 3.1 g/dL (1.3-3.2); Triglycerides 137 mg/dl (30-150); VLDL Cholesterol 27 mg/dL (0-40)
[2023-06-04 09:05] LABS: Calcium 9.5 mg/dl (8.4-10.2); Chol/HDL Ratio 5.1 (1-3.5); Glucose 97 mg/dl (74-100); HDL Cholesterol 39 mg/dl (40-60)
[2023-06-04 09:15] LABS: Direct LDL Cholesterol 124.56 mg/dL (100-129)
[2023-06-04 09:53] LABS: Prostate Specific Ag Screen 0.2 ng/ml (0.0-4.0)
== END ==
PROVIDERS: PCP Family Medicine; Visit Provider Family Medicine
DX: I10 Essential (primary) hypertension (principal); E78.5 Hyperlipidemia, unspecified; Z12.5 Encounter for screening for malignant neoplasm of prostate
CPT/HCPCS: 36415; 80053; 80061; G0103

== ENCOUNTER → 2023-08-03 07:26 | Outpatient (CLI) | payer OTHER, SELFPAY ==
[2023-08-03 07:45] LABS: Basophils % 0.4 % (0.1-2.0); Eosinophils # 0.2 K/mm3 (0.0-0.4); Eosinophils % 2.2 % (0.1-12.0); Hematocrit 43.7 % (42.0-52.0); Hemoglobin 14.8 g/dL (14.1-18.0); Lymphocytes # 1.5 K/mm3 (0.7-4.5); Lymphocytes % 21.6 % (10-50); Mean Corpuscular HGB Conc 33.9 g/dL (31.8-35.4); Mean Corpuscular Hemoglobin 32.3 pg (27.0-31.2); Mean Corpuscular Volume 95.5 fl (80-94); Mean Platelet Volume 8.1 fl (7.4-10.4); Monocytes # 0.4 K/mm3 (0.1-1.0); Neutrophils # 4.8 K/mm3 (1.8-7.8); Neutrophils % 69.8 % (37.0-80.0); Platelet Count 384 K/mm3 (142-424); Red Blood Count 4.58 M/mm3 (4.60-6.20); Red Cell Distribution Width 14.5 % (11.5-17.5); White Blood Count 6.9 K/mm3 (4.8-10.8)
[2023-08-03 08:14] LABS: Chloride 105 mmol/L (98-107); Sodium 141 mmol/L (136-145)
[2023-08-03 08:15] LABS: Potassium 4.5 mmoL/L (3.5-5.1)
[2023-08-03 08:17] LABS: Alanine Aminotransferase 21 U/L (12-78); Alkaline Phosphatase 67 U/L (38-126); Aspartate Amino Transferase 23 U/L (17-59); Bilirubin,Total 1.2 mg/dl (0.2-1.3); Blood Urea Nitrogen 13 mg/dl (9-20); Estimated Glomerular Filt Rate 68 ml/min (>60); GFR (African American) 83 ML/MIN (>60)
[2023-08-03 08:18] LABS: Albumin Level 4.3 g/dl (3.5-5.0); Albumin/Globulin Ratio 1.6 (1.1-1.8); Anion Gap 10.5 mEq/L (5-15); Calcium 9.1 mg/dl (8.4-10.2); Carbon Dioxide 30 mmol/L (22.0-30.0); Globulin 2.7 g/dL (1.3-3.2); Glucose 113 mg/dl (74-100)
== END ==
PROVIDERS: PCP Family Medicine; Visit Provider Dermatology
DX: L13.0 Dermatitis herpetiformis (principal); Z79.899 Other long term (current) drug therapy
CPT/HCPCS: 36415; 80053; 85025

== ENCOUNTER 2023-11-30 07:32 | Outpatient (CLI) | payer OTHER, SELFPAY ==
[2023-11-30 08:11] LABS: Basophils % 0.3 % (0.1-2.0); Eosinophils # 0.1 K/mm3 (0.0-0.4); Eosinophils % 0.9 % (0.1-12.0); Hematocrit 43.6 % (42.0-52.0); Hemoglobin 14.5 g/dL (14.1-18.0); Lymphocytes # 1.8 K/mm3 (0.7-4.5); Lymphocytes % 22.5 % (10-50); Mean Corpuscular HGB Conc 33.2 g/dL (31.8-35.4); Mean Corpuscular Hemoglobin 30.5 pg (27.0-31.2); Mean Platelet Volume 8.7 fl (7.4-10.4); Monocytes # 0.6 K/mm3 (0.1-1.0); Monocytes % 7.6 % (1.7-9.3); Neutrophils # 5.6 K/mm3 (1.8-7.8); Neutrophils % 68.6 % (37.0-80.0); Platelet Count 366 K/mm3 (142-424); Red Blood Count 4.74 M/mm3 (4.60-6.20); Red Cell Distribution Width 15.3 % (11.5-17.5); White Blood Count 8.1 K/mm3 (4.8-10.8)
[2023-11-30 09:02] LABS: Alanine Aminotransferase 18 U/L (12-78); Albumin/Globulin Ratio 1.4 (1.1-1.8); Alkaline Phosphatase 74 U/L (38-126); Anion Gap 9.5 mEq/L (5-15); Aspartate Amino Transferase 22 U/L (17-59); Bilirubin,Total 0.8 mg/dl (0.2-1.3); Blood Urea Nitrogen 12 mg/dl (9-20); Calcium 9.2 mg/dl (8.4-10.2); Carbon Dioxide 29 mmol/L (22.0-30.0); Chloride 107 mmol/L (98-107); Chol/HDL Ratio 7.9 (1-3.5); Cholesterol 212 mg/dl (140-200); Estimated Glomerular Filt Rate 76 ml/min (>60); GFR (African American) 92 ML/MIN (>60); Globulin 2.8 g/dL (1.3-3.2); Glucose 104 mg/dl (74-100); HDL Cholesterol 27 mg/dl (40-60); Potassium 4.5 mmoL/L (3.5-5.1); Sodium 141 mmol/L (136-145); Total Protein,Serum 6.8 g/dl (6.3-8.2); Triglycerides 165 mg/dl (30-150); VLDL Cholesterol 33 mg/dL (0-40)
[2023-11-30 09:13] LABS: Direct LDL Cholesterol 131.79 mg/dL (100-129)
[2023-11-30 09:20] LABS: 25-OH Vitamin D, Total 20.3 ng/mL (30-100)
== END 2023-11-30 23:59 ==
PROVIDERS: PCP Family Medicine; Visit Provider Family Medicine
DX: I10 Essential (primary) hypertension (principal); E78.5 Hyperlipidemia, unspecified; E55.9 Vitamin D deficiency, unspecified
CPT/HCPCS: 36415; 80053; 80061; 82306; 85025

== ENCOUNTER 2023-12-29 09:52 | Outpatient (CLI) | payer OTHER, SELFPAY ==
--- NOTE | 2023-12-29 09:58 | XR_ITS ---
FINAL REPORT CLINICAL HISTORY: COUGH, states burning sensation in chest COMPARISON: 11/06/2021 FINDINGS: Two views of the chest were obtained. The heart size and pulmonary vascularity are within normal limits. The mediastinum is normal. No acute pulmonary abnormality is identified. There is no pneumothorax. The bony thorax is intact. IMPRESSION: No active cardiopulmonary disease. Reviewed, Interpreted and Dictated by Allan Unger III, MD Transcribed by Thelma Bhat Authenticated and [facility]
== END 2023-12-29 23:59 ==
LOC: RAD 09:53
PROVIDERS: PCP Family Medicine; Visit Provider Family Medicine
DX: R05.8 Other specified cough (principal); R63.4 Abnormal weight loss
CPT/HCPCS: 71046

== ENCOUNTER 2024-01-28 07:23 | Outpatient (CLI) | payer OTHER, SELFPAY ==
[2024-01-28 08:01] LABS: Basophils # 0.1 K/mm3 (0-0.2); Basophils % 0.9 % (0.1-2.0); Eosinophils # 0.1 K/mm3 (0.0-0.4); Eosinophils % 1.6 % (0.1-12.0); Hematocrit 44.9 % (42.0-52.0); Hemoglobin 14.2 g/dL (14.1-18.0); Lymphocytes # 1.5 K/mm3 (0.7-4.5); Lymphocytes % 27.3 % (10-50); Mean Corpuscular HGB Conc 31.6 g/dL (31.8-35.4); Mean Corpuscular Hemoglobin 30.5 pg (27.0-31.2); Mean Corpuscular Volume 96.6 fl (80-94); Mean Platelet Volume 8.1 fl (7.4-10.4); Monocytes # 0.4 K/mm3 (0.1-1.0); Monocytes % 6.9 % (1.7-9.3); Neutrophils # 3.5 K/mm3 (1.8-7.8); Neutrophils % 63.3 % (37.0-80.0); Platelet Count 280 K/mm3 (142-424); Red Blood Count 4.65 M/mm3 (4.60-6.20); Red Cell Distribution Width 15.2 % (11.5-17.5); White Blood Count 5.6 K/mm3 (4.8-10.8)
[2024-01-28 08:33] LABS: Chloride 107 mmol/L (98-107); Sodium 143 mmol/L (136-145)
[2024-01-28 08:34] LABS: Potassium 4.8 mmoL/L (3.5-5.1)
[2024-01-28 08:36] LABS: Alanine Aminotransferase 16 U/L (12-78); Alkaline Phosphatase 72 U/L (38-126); Aspartate Amino Transferase 25 U/L (17-59); Bilirubin,Total 1.1 mg/dl (0.2-1.3); Blood Urea Nitrogen 10 mg/dl (9-20); Estimated Glomerular Filt Rate 76 ml/min (>60); GFR (African American) 92 ML/MIN (>60)
[2024-01-28 08:37] LABS: Albumin Level 3.8 g/dl (3.5-5.0); Albumin/Globulin Ratio 1.4 (1.1-1.8); Anion Gap 7.8 mEq/L (5-15); Calcium 9.3 mg/dl (8.4-10.2); Carbon Dioxide 33 mmol/L (22.0-30.0); Globulin 2.7 g/dL (1.3-3.2); Glucose 105 mg/dl (74-100); Total Protein,Serum 6.5 g/dl (6.3-8.2)
== END 2024-01-28 23:59 | disposition home or self-care (01) ==
LOC: LAB 07:24
PROVIDERS: PCP Family Medicine; Visit Provider Dermatology
DX: L13.0 Dermatitis herpetiformis (principal); Z79.899 Other long term (current) drug therapy
CPT/HCPCS: 36415; 80053; 85025

== ENCOUNTER 2024-03-29 07:06 | Outpatient (CLI) | payer OTHER, SELFPAY ==
--- NOTE | 2024-03-29 07:40 | MR_ITS ---
FINAL REPORT TECHNIQUE: Multiplanar MR without contrast CLINICAL HISTORY: LEFT SIDED SCIATICA hip pain nki COMPARISON: None FINDINGS: Sagittal images show normal vertebral height. There is mild retrolisthesis of L5 on S1. Remaining alignment is normal. Marrow signal pattern is unremarkable. T12-L1: Mild annular disc bulge. Facet arthropathy. Mild central canal stenosis. L1-2: Unremarkable L2-3: Mild annular disc bulge and facet arthropathy. Mild central canal stenosis. L3-4: Mild annular disc bulge and facet arthropathy. Mild central canal stenosis. L4-5: Mild to moderate annular disc bulge. Mild facet arthropathy. Borderline central canal stenosis. Mild bilateral neuroforaminal narrowing. L5-S1: Moderate annular disc bulge with mild facet arthropathy. Moderate to severe bilateral neuroforaminal narrowing and lateral recess stenosis. IMPRESSION: Moderate degenerative changes with significant lateral recess stenosis and neuroforaminal narrowing at L5-S1. Reviewed, Interpreted and Dictated by Morelia Suarez MD Transcribed by Ning Aranda Authenticated and . [facility]
== END 2024-03-29 23:59 | disposition home or self-care (01) ==
LOC: RAD 07:07
PROVIDERS: PCP Family Medicine; Visit Provider Family Medicine
DX: M54.42 Lumbago with sciatica, left side (principal); M51.36 Other intervertebral disc degeneration, lumbar region; G89.29 Other chronic pain
CPT/HCPCS: 72148

== ENCOUNTER 2024-07-25 08:00 | Outpatient (RCR) | payer OTHER, SELFPAY | END 2024-07-25 23:59 | disposition home or self-care (01) | LOC: PT 08:00 | PROVIDERS: Visit Provider Orthopaedic Surgery | DX: M43.16 Spondylolisthesis, lumbar region (principal) | CPT/HCPCS: 97012; 97014; 97110; 97140; 97163; 97164; 97530; G0283 ==

== ENCOUNTER 2024-07-29 07:36 | Outpatient (CLI) | payer OTHER, SELFPAY ==
[2024-07-29 08:09] LABS: Basophils % 0.5 % (0.1-2.0); Eosinophils # 0.1 K/mm3 (0.0-0.4); Eosinophils % 1.7 % (0.1-12.0); Hematocrit 47.2 % (42.0-52.0); Hemoglobin 15.6 g/dL (14.1-18.0); Lymphocytes # 1.8 K/mm3 (0.7-4.5); Lymphocytes % 25.6 % (10-50); Mean Corpuscular HGB Conc 33.1 g/dL (31.8-35.4); Mean Corpuscular Hemoglobin 32.2 pg (27.0-31.2); Mean Corpuscular Volume 97.1 fl (80-94); Mean Platelet Volume 7.9 fl (7.4-10.4); Monocytes # 0.6 K/mm3 (0.1-1.0); Monocytes % 8.2 % (1.7-9.3); Neutrophils # 4.5 K/mm3 (1.8-7.8); Neutrophils % 63.9 % (37.0-80.0); Platelet Count 344 K/mm3 (142-424); Red Blood Count 4.86 M/mm3 (4.60-6.20); Red Cell Distribution Width 15.3 % (11.5-17.5); White Blood Count 7.1 K/mm3 (4.8-10.8)
== END 2024-07-29 23:59 | disposition home or self-care (01) ==
LOC: LAB 07:38
PROVIDERS: PCP Family Medicine; Visit Provider Dermatology
DX: L13.0 Dermatitis herpetiformis (principal); Z79.899 Other long term (current) drug therapy
CPT/HCPCS: 36415; 85025

== ENCOUNTER 2024-08-08 07:30 | Outpatient (CLI) | payer OTHER, SELFPAY ==
[2024-08-08 08:57] LABS: Albumin Level 4.1 g/dl (3.5-5.0); Chloride 105 mmol/L (98-107); Sodium 142 mmol/L (136-145)
[2024-08-08 08:58] LABS: Potassium 4.2 mmoL/L (3.5-5.1)
[2024-08-08 09:00] LABS: Alanine Aminotransferase 18 U/L (12-78); Albumin/Globulin Ratio 1.5 (1.1-1.8); Alkaline Phosphatase 72 U/L (38-126); Anion Gap 11.2 mEq/L (5-15); Aspartate Amino Transferase 25 U/L (17-59); Blood Urea Nitrogen 10 mg/dl (9-20); Carbon Dioxide 30 mmol/L (22.0-30.0); Estimated Glomerular Filt Rate 76 ml/min (>60); GFR (African American) 92 ML/MIN (>60); Globulin 2.8 g/dL (1.3-3.2); Total Protein,Serum 6.9 g/dl (6.3-8.2)
[2024-08-08 09:01] LABS: Calcium 9.1 mg/dl (8.4-10.2); Glucose 110 mg/dl (74-100)
== END 2024-08-08 23:59 | disposition home or self-care (01) ==
LOC: LAB 07:31
PROVIDERS: PCP Family Medicine; Visit Provider Dermatology
DX: L13.0 Dermatitis herpetiformis (principal); Z79.899 Other long term (current) drug therapy
CPT/HCPCS: 36415; 80053

== ENCOUNTER 2025-01-26 07:27 | Outpatient (CLI) | payer OTHER, SELFPAY ==
--- OUTSIDE RECORDS SUMMARY | 2025-01-26 07:30 | XMS_ITS | Encounter Summary ---
Author Name [facility] [place] [facility] Address [address] [place] [address] Care Team Providers Care Wharf Hand Name Role Phone CHARLOTTE BRANHAM Primary Care Provider Unavailab le Insurance Providers: All historical and current Section Date Range: From patient's date of to the date document was created. This section includes the names of all active insurance providers for the patient. Insurance Provider Type of Coverage Plan Name Start of Policy Coverage End of Policy Coverage Group Number Member ID Insurance Provider's Telephone Number Policy Clarke's Name Patient's Relationship to Policy Clarke KISHANFRANKLIN ([id number]) PRESCRIPT ION [id number] Oct 12, 2018 [id number] SUJEY MCHUGH ANGELIKA PATIENT [facility] POINT [facility] SERVICE [facility] Oct 12, 2018 [id number] ALBERT MCHUGH SPOUSE [facility] POINT OF SERVICE [facility] Oct 12, 2018 [id number] ALBERT MCHUGH SPOUSE Selected Encounter This section includes the information on record at [place] for the Encounter. Date/Time Encounter Type Encounter Description Reason Pro vider Source Jul 22, 2024 10:28 AM Outpatient Encounter ORTHO/JOINT SURG IHE Encounter Template Text not used by [place] Plan of Treatment: Future Appointments (+ 6 months) and Future Tests (+/- 45 days) The Plan of Treatment section includes future care activities for the patient from all [place] treatmentfacilities. This section includes future appointments and future orders which are active, pending or scheduled. Future Appointments This section includes appointments that were scheduled to occur 6 months from the date of the Encounter, up to a maximum of 20 appointments. The data comes from all [place] treatment facilities. Appointment Date/Time Appointment Type Appointme nt Facility Name Aug 23, 2024 09:30 AM AMBULATORY - [facility]GERY [facility] Oct 19, 2024 09:30 AM AMBULATORY - MEDICINE [facility] Oct 24, 2024 09:00 AM AMBULATORY - NONE [place] [facility] Oct 25, 2024 01:40 PM [facility] Nov 15, 2024 01:00 PM [facility] Dec 20, 2024 09:30 AM AM[facility]ATORY - SURGERY [place] [facility] Encounter Notes: All associated encounter notes This section contains the clinical notes associated to the Encounter. Date/Time Encounter Note(s) Provider Source Jul 22, 2024 10:28 AM LETTERS: LOCAL TITLE: SPECIALTY CONTACT LETTER STANDARD TITLE: LETTERS DATE OF NOTE: JUL 22, 2024@10:28 ENTRY DATE: JUL 22, 2024@10:29:05 AUTHOR: ELIDA SCHMITT EXP COSIGNER: URGENCY: STATUS: COMPLETED [facility] [address] [place] [address] Mr. CUONG MCHUGH [address] [id number] JUL 22, 2024 Dear CUONG MCHUGH, We have been unable to contact you by telephone to schedule an appointment in our Orthopedics clinic. Your health and well-being are important to us. Please call us at or . Select Option #2 and then #3. We look forward to hearing from you soon. Sincerely yours, Orthopedics [facility]
--- OUTSIDE RECORDS SUMMARY | 2025-01-26 07:30 | XMS_ITS | Encounter Summary ---
Author Name [facility] Organization [facility] Address [address] [place] [address] Care Team Providers Care Code Official Name Role Phone AGUSTINACHARLOTTE CARRASQUILLO Primary Care Provider Unavailab le Insurance Providers: [...] Clarke's Name Patient's Relationship to Policy Clarke NAVNEET ([id number]) PRESCRIPT ION [id number] 1 Oct 12, 2018 [id number] LOLITASUJEY CARNEY PATIENT [facility] Oct 12, 2018 [id number] [phone] ALBERT COBIAN SPOUSE [facility] Oct 12, 2018 [id number] ALBERT COBIAN SPOUSE Selected Encounter This section includes the information on record at [place] for the Encounter. Date/Time Encounter Type Encounter Description Reason Provider Source Oct 25, 2024 01:40 PM OFFICE O/P EST LOW 20 MIN ORTHO/JOINT SURG ICD-10-CM M17.11 Unilateral primary osteoarthritis, right knee KARINA HOOPER Martin Encounter Template Text not used by [place] Assessments - Encounter Diagnoses This section includes the primary and secondary diagnoses documented for the Encounter. Date/Time Primary/Secondary Diagnosis Diagnosis Name Provider Source Nov 01, 2024 11:40 AM PRIMARY Unilateral primary osteoarthritis, right knee KARINA HOOPER [facility] Nov 01, 2024 11:40 AM SECONDARY Unilateral primary osteoarthritis, left knee KARINA HOOPER [facility] Plan of Treatment: Future Appointments (+ 6 months) and Future Tests (+/- 45 days) The Plan of Treatment section includes future care activities [facility] the [facility] This section includes future appointments and future orders which are active, pending or scheduled. Future Appointments This section includes appointments that were scheduled to occur 6 months from the date of the Encounter, up to a maximum of 20 appointments. The data comes from all [place] treatment facilities. Appointment Date/Time Appointment Type Appointme nt Facility Name Nov 15, 2024 01:00 PM AMBULATORY - NONE [facility] Dec 20, 2024 09:30 AM [facility] Lab Results: +/- 30 days of the encounter This section includes the Chemistry and Hematology Lab Results on record with [place] for the patient. Radiology Reports and Pathology Reports are provided separately, in subsequent sections. Lab Results This section contains the Chemistry/Hematology Results that were resulted 30 days before or 30 daysafter the date of the Encounter. Date/Time Source Result Type Result - Unit Interpretation Reference Range Specimen Type Comment Oct 19, 2024 10:08 AM [facility] GLYCOHEMOGLOBIN BLOOD Specimen Type: BLOOD Comment: [facility] guidelines for A1c interpretation: Glycemic control targets are based on Shared Decision Making between clinicians and patients. Criteria used to establish an A1c target recommendation can be found at https://www.wy.g ov/qualityandpat ientsafety/ and include the use of result accuracy and precision(CV) of the A1c tests clinicians utilize at their own sites of practice. Values obtained from A1C measurements can vary. For typical A1C assays, a reported value of 7.0 could actually be between 6.72 and 7.28 if measured by a reference method. A reported value of 9.0 could actually be between 8.73 and 9.27. Ref: https://ngsp.org /CAPdata.asp. The in-house xiao qu wu you[employer] D-100 analyzer has a historical CV <= 2%. Contact the laboratory for further performance characteristics of this assay. Ordering Provider: CHARLOTTE BRANHAM Report Released Date/Time: Oct 19, 2024 09:50 AM Reporting Lab: [address] [address] Performing Lab: [address] [address] GLYCOHEMOGLOBIN 4.4 4.4-6.4 Oct 19, 2024 10:08 AM [facility] LIPID PROFILE PLASMA Specimen Type: PLASM A Comment: Vitamin B12 test may not yield results when protein level of sample is too elevated. Estimated Glomerular Filtration Rate (eGFR) calculated using the 2020 Chronic Kidney Disease-Epidemiology (CKD-EPI) Collaboration creatinine equation; units of measure are mL/min/1.73 m2. Results are only valid for adults (>=18 years) whose serum creatinine is in a steady state. eGFR calculations are not valid for patients with acute kidney injury and for patients on dialysis. Creatinine-based estimates of kidney function may also be inaccurate in patients with reduced creatinine generation due to decreased muscle mass (e.g., malnutrition, severe hypoalbuminemia, sarcopenia, chronic neuromuscular disease, amputations, severe heart failure or liver disease) and in patients with increased creatinine generation due to increased muscle mass (e.g., muscle builders, anabolic steroids) or increased dietary intake. As drug clearance is proportional to total GFR and not GFR indexed to body surface area (BSA), in individuals with a BSA substantially different than 1.73 m2, drug dosing should be based on the reported eGFR value de-indexed from BSA by multiplying by the individual's BSA and dividing by 1.73. CKD is diagnosed based on abnormalities of kidney structure or function, present for >3 months, with implications for health and disease. CKD is classified and staged based on cause, eGFR and albuminuria (quantified as urine albumin to creatinine ratio). An eGFR >60 mL/min/1.73 m2 in the absence of increased urine albumin excretion or structural abnormalities does not represent CKD. eGFR CKD Interpretation (mL/min/1.73 m2) stage >=90 G1 Normal 60-89 G2 Mild decrease 45-59 G3A Mild to moderate decrease 30-44 G3B Moderate to severe decrease 15-29 G4 Severe decrease <15 G5 Kidney failure Ordering Provider: CHARLOTTE BRANHAM Report Released Date/Time: Oct 19, 2024 09:50 AM Reporting Lab: [address] [address] Performing Lab: [address] [address] CHOLESTEROL 234 mg/dL H 0-199 TRIGLYCERIDE 135 mg/dL 0-149 HDL CHOLESTEROL 48 mg/dL 40-69 DIRECT LDL CHOL. 189 mg/dL H 0-100 Oct 19, 2024 10:08 AM [facility] 25-OH VITAMIN D SERUM Specime n Type: SERUM Comment: The National Institutes of Health (NIH) recommendations state: <12 ng/mL - Deficient 20 - 50 ng/mL - Optimal Levels - adequate for most people. >50 ng/mL - Increased risk of hypercalciuria/other health problems - clinical correlation is required. These reference ranges represent clinical decision values rather than population-based reference values. Ordering Provider: CHARLOTTE BRANHAM Report Released Date/Time: Oct 19, 2024 09:50 AM Reporting Lab: [address] [address] Performing Lab: [address] [address] 25-OH VITAMIN D 19.9 ng/mL L 20.0-50.0 Oct 19, 2024 10:08 AM [facility] B12 VITAMIN PLASMA Specimen Type: PLASM A Comment: Vitamin B12 test may not yield results when protein level of sample is too elevated. Estimated Glomerular Filtration Rate (eGFR) calculated using the 2020 Chronic Kidney Disease-Epidemiology (CKD-EPI) Collaboration creatinine equation; units of measure are mL/min/1.73 m2. Results are only valid for adults (>=18 years) whose serum creatinine is in a steady state. eGFR calculations are not valid for patients with acute kidney injury and for patients on dialysis. Creatinine-based estimates of kidney function may also be inaccurate in patients with reduced creatinine generation due to decreased muscle mass (e.g., malnutrition, severe hypoalbuminemia, sarcopenia, chronic neuromuscular disease, amputations, severe heart failure or liver disease) and in patients with increased creatinine generation due to increased muscle mass (e.g., muscle builders, anabolic steroids) or increased dietary intake. As drug clearance is proportional to total GFR and not GFR indexed to body surface area (BSA), in individuals with a BSA substantially different than 1.73 m2, drug dosing should be based on the reported eGFR value de-indexed from BSA by multiplying by the individual's BSA and dividing by 1.73. CKD is diagnosed based on abnormalities of kidney structure or function, present for >3 months, with implications for health and disease. CKD is classified and staged based on cause, eGFR and albuminuria (quantified as urine albumin to creatinine ratio). An eGFR >60 mL/min/1.73 m2 in the absence of increased urine albumin excretion or structural abnormalities does not represent CKD. eGFR CKD Interpretation (mL/min/1.73 m2) stage >=90 G1 Normal 60-89 G2 Mild decrease 45-59 G3A Mild to moderate decrease 30-44 G3B Moderate to severe decrease 15-29 G4 Severe decrease <15 G5 Kidney failure Ordering Provider: CHARLOTTE BRANHAM Report Released Date/Time: Oct 19, 2024 09:50 AM Reporting Lab: [address] [address] Performing Lab: [address] [address] B12 VITAMIN 264 pg/mL 213-816 Oct 19, 2024 10:08 AM [facility] TSH PLASMA Specimen Type: PLASM A Comment: Vitamin B12 test may not yield results when protein level of sample is too elevated. Estimated Glomerular Filtration Rate (eGFR) calculated using the 2020 Chronic Kidney Disease-Epidemiology (CKD-EPI) Collaboration creatinine equation; units of measure are mL/min/1.73 m2. Results are only valid for adults (>=18 years) whose serum creatinine is in a steady state. eGFR calculations are not valid for patients with acute kidney injury and for patients on dialysis. Creatinine-based estimates of kidney function may also be inaccurate in patients with reduced creatinine generation due to decreased muscle mass (e.g., malnutrition, severe hypoalbuminemia, sarcopenia, chronic neuromuscular disease, amputations, severe heart failure or liver disease) and in patients with increased creatinine generation due to increased muscle mass (e.g., muscle builders, anabolic steroids) or increased dietary intake. As drug clearance is proportional to total GFR and not GFR indexed to body surface area (BSA), in individuals with a BSA substantially different than 1.73 m2, drug dosing should be based on the reported eGFR value de-indexed from BSA by multiplying by the individual's BSA and dividing by 1.73. CKD is diagnosed based on abnormalities of kidney structure or function, present for >3 months, with implications for health and disease. CKD is classified and staged based on cause, eGFR and albuminuria (quantified as urine albumin to creatinine ratio). An eGFR >60 mL/min/1.73 m2 in the absence of increased urine albumin excretion or structural abnormalities does not represent CKD. eGFR CKD Interpretation (mL/min/1.73 m2) stage >=90 G1 Normal 60-89 G2 Mild decrease 45-59 G3A Mild to moderate decrease 30-44 G3B Moderate to severe decrease 15-29 G4 Severe decrease <15 G5 Kidney failure Ordering Provider: CHARLOTTE BRANHAM Report Released Date/Time: Oct 19, 2024 09:50 AM Reporting Lab: [address] [address] Performing Lab: [address] [address] TSH 2.0362 m[IU]/mL 0.3500-4.9400 Oct 19, 2024 10:08 AM [facility] PLASMA Specimen Type: PLASM A Comment: Vitamin B12 test may not yield results when protein level of sample is too elevated. Estimated Glomerular Filtration Rate (eGFR) calculated using the 2020 Chronic Kidney Disease-Epidemiology (CKD-EPI) Collaboration creatinine equation; units of measure are mL/min/1.73 m2. Results are only valid for adults (>=18 years) whose serum creatinine is in a steady state. eGFR calculations are not valid for patients with acute kidney injury and for patients on dialysis. Creatinine-based estimates of kidney function may also be inaccurate in patients with reduced creatinine generation due to decreased muscle mass (e.g., malnutrition, severe hypoalbuminemia, sarcopenia, chronic neuromuscular disease, amputations, severe heart failure or liver disease) and in patients with increased creatinine generation due to increased muscle mass (e.g., muscle builders, anabolic steroids) or increased dietary intake. As drug clearance is proportional to total GFR and not GFR indexed to body surface area (BSA), in individuals with a BSA substantially different than 1.73 m2, drug dosing should be based on the reported eGFR value de-indexed from BSA by multiplying by the individual's BSA and dividing by 1.73. CKD is diagnosed based on abnormalities of kidney structure or function, present for >3 months, with implications for health and disease. CKD is classified and staged based on cause, eGFR and albuminuria (quantified as urine albumin to creatinine ratio). An eGFR >60 mL/min/1.73 m2 in the absence of increased urine albumin excretion or structural abnormalities does not represent CKD. eGFR CKD Interpretation (mL/min/1.73 m2) stage >=90 G1 Normal 60-89 G2 Mild decrease 45-59 G3A Mild to moderate decrease 30-44 G3B Moderate to severe decrease 15-29 G4 Severe decrease <15 G5 Kidney failure Ordering Provider: CHARLOTTE BRANHAM Report Released Date/Time: Oct 19, 2024 09:50 AM Reporting Lab: [address] [address] Performing Lab: [address] [address] CREATININE 1.19 mg/dL 0.72-1.25 UREA NITROGEN 9 mg/dL 9-25 GLUCOSE 93 mg/dL 74-100 SODIUM 140 mmol/L 136-145 POTASSIUM 4.0 mmol/L 3.5-5.1 CHLORIDE 105 mmol/L 98-107 CO2 27 mmol/L 22-29 CALCIUM 9.8 mg/dL 8.4-10.2 TOTAL PROTEIN 7.6 g/dL 6.4-8.3 ALBUMIN 4.2 g/dL 3.5-5.2 TOTAL BILIRUBIN 1.1 mg/dL 0.2-1.2 AST 14 U/L 5-34 ALT 14 U/L 0-55 ANION GAP 8 meq/L 3-19 ALK PHOS 87 U/L 40-150 eGFR (CKD-EPI) 69 Oct 19, 2024 10:08 AM [facility] CBC/PLT BLOOD Specimen Type: BLOOD No comment entered. Ordering Provider: CHARLOTTE BRANHAM Report Released Date/Time: Oct 19, 2024 09:50 AM Reporting Lab: [address] [address] Performing Lab: [address] [address] WBC 9.4 10*3/uL 5.0-10.0 RBC 4.78 10*6/uL 4.6-6.2 HGB 14.6 g/dL 14.0-18.0 HCT 45.0 42.0-52.0 MCV 94.1 fL H 80.0-94.0 MCH 30.5 pg 27.0-31.0 MCHC 32.4 g/dL 32.0-36.0 PLT 391 10*3/uL 150-450 MPV 9.9 fL 9.0-13.1 RDW 15.2 11.0-16.0 NRBC 0.0 0.0-0.0 Radiology Reports: +/- 30 days of the encounter Radiology Reports For cases when an order for radiology services may have been completed prior to the date of the Encounter, the report list includes the Radiology Reports that were completed up to 30 days before dateof the Encounter. For cases when an order for radiology services may have been completed after the date of the Encounter, the report list also includes the Radiology Reports that were completed up to30 days after date of the Encounter. The data comes from all [facility] facilities. Date/Time Radiology Report Provider Source Nov 15, 2024 12:44 PM FLUORO UP TO 1 MICHAEL R (ANGIO): CUONG COBIAN [id number] -1965 M Exm Date: NOV 15, 2024@12:44 Req Phys: ROMAN DUMONT Loc: [facility] ORTHO/FOLLOW-UP CD (Req'g Img Loc: ANGIO/NEURO/INTERVENTIONAL Service: [place] [address] (Case [id number] COMPLETE) FLUORO UP TO 1 HOUR (ANGIO) (ANI Detailed) CPT:65663 Proc Modifiers : RIGHT Reason for Study: Right knee pain Clinical History: Report Status: Verified Date Reported: Date Verified: NOV 16, 2024 Professional Services Manager E-Sig: Report: See Impression. Impression: This procedure was performed by Ortho Service and was NOT reported or reviewed by [place] Radiology Staff. Please see Ortho CPRS Notes or consult response for final reporting or exam information. Primary Diagnostic Code: Primary Interpreting Staff: PHYS OTHER THAN [place] RADIOL, Staff Physician Verified by emt i/85 for PHYS OTHER THAN [facility] RADIOL /[facility] RADIOLOGIST,PHYS OTHER THAN [facility] Oct 25, 2024 01:45 PM KNEE-RIGHT 2 VIEWS : CUONG COBIAN [id number] -1965 M Exm Date: OCT 25, 2024@13:45 Req Phys: KARINA HOOPER Loc: [facility] ORTHO/FOLLOW-UP CD (Req'g Img Loc: CDD RADIOLOGY Service: [place] [address] (Case [id number] COMPLETE) KNEE-RIGHT 2 VIEWS (RAD Detailed) CPT:72186 Reason for Study: pain Clinical History: Report Status: Verified Date Reported: OCT 25, 2024 Date Verified: OCT 25, 2024 Professional Services Manager E-Sig: Report: Right knee. Right knee shows a large exostosis anterior femur at the upper patellofemoral junction. Large bony outgrowth extends superiorly from the patellofemoral junction. The bony outgrowth also seen of the patella both superiorly and inferiorly. Smaller exostosis posteriorly of the femur, posteriorly of the tibia. Frontal view of the knee joint shows marked narrowing medially. The patellofemoral junction by the bony outgrowth. Impression: Multiple exostosis around the right knee especially femur and the upper patellofemoral junction. Marked joint space narrowing medially. Primary Diagnostic Code: NO ALERT REQUIRED Primary Interpreting Staff: JEISON GLASS, RADIOLOGIST Verified by emt i/85 for JEISON GLASS /JEISON STUART-[facility] Oct 25, 2024 01:45 PM KNEE-LEFT 4 OR MOR E VIEWS: CUONG COBIAN [id number] -1965 M Exm Date: OCT 25, 2024@13:45 Req Phys: KARINA HOOPER E Pat Loc: [facility] ORTHO/FOLLOW-UP CD (Req'g Img Loc: CDD RADIOLOGY Service: [place] [address] (Case [id number] COMPLETE) KNEE-LEFT 4 OR MORE VIEWS (RAD Detailed) CPT:13554 Reason for Study: pain Clinical History: Report Status: Verified Date Reported: OCT 25, 2024 Date Verified: OCT 25, 2024 Professional Services Manager E-Sig: Report: Left knee. Marked joint space narrowing medially. Complete loss of joint space with bone to bone contact. Large bony spurs and/or exostosis. Bony outgrowth seen especially patellofemoral junction superiorly. There is also a horizontal ossification or flabella however not seen in the lateral view. May represent loose body lateral knee joint region. Impression: As above. Marked degenerative change and bony outgrowth and exostoses including patellofemoral junction. Marked joint space narrowing medially. Primary Diagnostic Code: NO ALERT REQUIRED Primary Interpreting Staff: JEISON GLASS, RADIOLOGIST Verified by emt i/85 for JEISON GLASS /JEISON STUART-[facility] Encounter Notes: All associated encounter notes This section contains the clinical notes associated to the Encounter. Date/Time Encounter Note(s) Provider Source Nov 02, 2024 12:09 PM ADDENDUM: LOCAL TITLE: Addendum STANDARD TITLE: ADDENDUM DATE OF NOTE: NOV 02, 2024@12:09:27 ENTRY DATE: NOV 02, 2024@12:09:29 AUTHOR: KYA MAHONEY COSIGNER: URGENCY: STATUS: COMPLETED HAS please add patient to the X-RAY/SPECIAL PROCEDURES/NC schedule for 11/15/24 @ 1300 (30 Minute Schedule Block). This appointment is for a Right Knee GNB. /kristopher/ KYA MAHONEY Signed: 11/02/2024 12:10 Receipt Acknowledged By: 11/02/2024 14:39 /es/ Leittia Martins Advanced Hand Embroiderer --- Original Document --- 11/02/24 ORTHOPEDIC SURGERY TELEPHONE CARE NOTE: Phone jose to provide him with date and time of his right knee GNB with Dr. Dumont on November 08, 2024 at 13:00. HIPPA appropriate message left at this time. A letter will be generated and sent to the . /kristopher/ Odell Reeves ENT/Head & Neck Outpatient surgery onsite case manager Signed: 11/02/2024 08:38 11/02/2024 ADDENDUM STATUS: COMPLETED Vetran returned phone call and prefers 2024 for his knee injection explained we can accomadate this request. Letter generated and mailed to . Communicated to Deena in radilogy of date change. /mckay Reeves ENT/Head & Neck Outpatient surgery onsite case manager Signed: 11/02/2024 09:07 KYA MAHONEY-[facility] Nov 02, 2024 09:03 AM PHYSICIAN LETTERS: LOCAL TITLE: Surgery Patient Letter STANDARD TITLE: PHYSICIAN LETTERS DATE OF NOTE: NOV 02, 2024@09:03 ENTRY DATE: NOV 02, 2024@09:04:04 AUTHOR: ODELL REEVES COSIGNER: URGENCY: STATUS: COMPLETED [facility] [address] [place] [address] NOV 02, 2024 Mr. CUONG COBIAN [address] [id number] Dear Mr. CUONG COBIAN: Your injection with Dr Dumont had been scheduled for: November 15, 2024 at 13:00. Please report to RADIOLOGY upon arrival to the hospital and check in at the RADIOLOGY desk. YOU MAY TAKE YOUR MEDICATIONS PRESCRIBED. YOU MAY EAT A LIGHT BREAKFAST. FOR QUESTIONS, please call the ORTHOPEDIC CLINIC AT: [phone] EXT [phone] or EXT [phone]. Sincerely, /mckay Reeves ENT/Head & Neck Outpatient surgery onsite case manager Patient Record Number [id number] Surgical Service ODELL REEVES-[facility] Nov 02, 2024 08:38 AM PHYSICIAN LETTERS: LOCAL TITLE: Surgery Patient Letter STANDARD TITLE: PHYSICIAN LETTERS DATE OF NOTE: NOV 02, 2024@08:38 ENTRY DATE: NOV 02, 2024@08:38:24 AUTHOR: ODELL REEVES EXP COSIGNER: URGENCY: STATUS: COMPLETED [facility] [address] [place] [address] NOV 02, 2024 Guido COBIAN [address] [place] [address] Dear Guido COBIAN: Your injection with Dr Dumont had been scheduled for: 2024 at 13:00. Please report to RADIOLOGY upon arrival to the hospital and check in at the RADIOLOGY desk. YOU MAY TAKE YOUR MEDICATIONS PRESCRIBED. YOU MAY EAT A LIGHT BREAKFAST. FOR QUESTIONS, please call the ORTHOPEDIC CLINIC AT: [phone] EXT [phone] or EXT [phone]. Sincerely, /mckay Reeves ENT/Head & Neck Outpatient surgery onsite case manager Patient Record Number [id number] Surgical Service ODELL REEVES-D [facility] Nov 02, 2024 08:36 AM ORTHOPEDIC SURGERY TELEPHONE ENCOUNTER NOTE: LOCAL TITLE: ORTHOPEDIC SURGERY TELEPHONE CARE NOTE STANDARD TITLE: ORTHOPEDIC SURGERY TELEPHONE ENCOUNTER NOTE DATE OF NOTE: NOV 02, 2024@08:36 ENTRY DATE: NOV 02, 2024@08:36:34 AUTHOR: ODELL REEVES EXP COSIGNER: URGENCY: STATUS: COMPLETED ORTHOPEDIC SURGERY TELEPHONE CARE NOTE Has ADDENDA Phone jose to provide him with date and time of his right knee GNB with Dr. Dumont on November 08, 2024 at 13:00. HIPPA appropriate message left at this time. A letter will be generated and sent to the . /mckay Reeves ENT/Head & Neck Outpatient surgery onsite case manager Signed: 11/02/2024 08:38 11/02/2024 ADDENDUM STATUS: COMPLETED Luisatran returned phone call and prefers 2024 for his knee injection explained we can accomadate this request. Letter generated and mailed to . Communicated to Deena in radilogy of date change. /kristopher/ Odell Reeves ENT/Head & Neck Outpatient surgery onsite case manager Signed: 11/02/2024 09:07 11/02/2024 ADDENDUM STATUS: COMPLETED HAS please add patient to the X-RAY/SPECIAL PROCEDURES/NC schedule for 11/15/24 @ 1300 (30 Minute Schedule Block). This appointment is for a Right Knee GNB. /es/ KYA MAHONEY Signed: 11/02/2024 12:10 Receipt Acknowledged By: * AWAITING SIGNATURE * LETITIA MARTINS JOAN K [place] Oct 25, 2024 02:32 PM ORTHOPEDIC SURGERY NOTE: LOCAL TITLE: ORTHOPEDIC CLINIC PHYSICIAN NOTE STANDARD TITLE: ORTHOPEDIC SURGERY NOTE DATE OF NOTE: OCT 25, 2024@14:32 ENTRY DATE: OCT 25, 2024@14:32:44 AUTHOR: KARINA HOOPER COSIGNER: URGENCY: STATUS: COMPLETED Nursing Screening Note reviewed: PAIN: 8 (10/25/2024 13:24) Presenting problems and reason for visit: Bilateral knee pain History: 10/25/2024 Mr. Cobian is a 59-year-old, White, male, here today for follow-up of bilateral knee pain. He reports his right knee is worse than his left but reports 8 out of 10 pain in both knees at this current time. He recently did undergo intra-articular corticosteroid injection by Dr. Julia DO into the bilateral knees on 09/01/2024 with roughly 1 month of benefit. Patient was referred to our clinic for discussion of potential total knee arthroplasty. 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 He does reports instability within his knees as well as chronic pain. He does have history of arthroscopies bilateral knees. He reports no numbness or tingling. He reports the pain is worse going from a seated position to standing and prolonged ambulation with dull achy sensation. Patient is here to consider other options for his bilateral knee osteoarthritis. Exam:Exam:Physical Examination General: no acute distress, comfortable Body habitus: Overweight Vitals reviewed in chart Vascular: 2+ pulses symmetric. Neurologic: Sensation to light touch intact distally Dermatologic: no signs or symptoms of infection or DVT Rash: none Incisions: none Gait: Antalgic Assistive device: None Musculoskeletal Exam: Bilateral knee exam Alignment:7 degree varus alignment, partially correctable ROM: Bilateral: 5-118 Effusion: None, Popliteal Cyst: None TTP: Joint line tenderness: Global, Pes bursa tenderness: None Meniscus Testing: Finn: Medial, Thessalys: Medial bilateral Collaterals: Stable 0 and 30 deg Cruciate Testing: Branden??s test: Neg, Posterior drawer: Neg Patellar Testing: tracking: Normal, Patellar grind: Positive pain and crepitus Extensor mechanism intact, no defect Hip flexion/EHL/FHL/TA/GCS: intact BILATERAL hip Negative straight leg raise Normal ROM No pain with ER/IR of hip ROS: 14 point review of systems complete and negative except for as mentioned in HPI X-ray findings: Weightbearing 4 view x-ray obtained 10/25/2024 shows bilateral tricompartmental knee osteoarthritis with notable varus deformity. End-stage osteoarthritis present. No evidence of fracture or dislocation. Impression:Bilateral tricompartmental knee osteoarthritis Treatment plan/Follow-up treatment and patient instructions:Long discussion today with Mr. Cobian regarding his bilateral knee osteoarthritis. Patient would likely benefit from total knee arthroplasty, however, he is unable to have this performed at this time. He did discuss additional treatment options including genicular nerve block, ablation, genicular arterial embolization, and continue injections. Due to lack of pain relief from injection, do not believe this will be beneficial going forward. Did discuss with Dr. Dumont, will proceed forward with a right knee genicular nerve block under fluoroscopy. If he does for relief from this procedure, he will be a candidate for ablation. If no relief, may discuss potential referral for geniculate arterial embolization or total knee arthroplasty at that time. All question and concerns were addressed at this time. Patient will be notified for appointment for genicular nerve block. /kristopher/ [facility] FREDY-Sara Signed: 10/25/2024 14:37 KARINA HOOPER-[facility] Oct 25, 2024 01:30 PM SURGERY NURSING NO TE: LOCAL TITLE: SURGERY CLINIC INTAKE NOTE STANDARD TITLE: SURGERY NURSING NOTE DATE OF NOTE: OCT 25, 2024@13:30 ENTRY DATE: OCT 25, 2024@13:30:09 AUTHOR: SAUD DOS SANTOSIGNER: URGENCY: STATUS: COMPLETED The patient was given a list of his/her medications, instructed to review and discuss any changes or problems with their provider. Patient advised to carry a list of current medications and any allergies with them in the event of emergency situations. Allergies: local and remote PERCOCET No Remote Allergy/ADR Data available for this patient Medication Reconciliation MRR1 - Med Reconciliation INCLUDED IN THIS LIST: Alphabetical list of active outpatient prescriptions dispensed from this [place] (local) and dispensed from another [place] or [facility] facility (remote) as well as inpatient orders (local pending and active), local clinic medications, locally documented non-VA medications, and local prescriptions that have or been discontinued in the past 90 days. Non-VA Meds Last Documented On: Oct 19, 2024 NOTE The display of VA prescriptions dispensed from another [place] or [facility] facility (remote) is limited to active outpatient prescription entries matched to National Drug File at the originating site and may not include some items such as investigational drugs, compounds, etc. NOT INCLUDED IN THIS LIST: Medications self-entered by the patient into personal health records (i.e. [facility]) are NOT included in this list. Non-VA medications documented outside this [place], remote inpatient orders (regardless of status) and remote clinic medications are NOT included in this list. The patient and provider must always discuss medications the patient is taking, regardless of where the medication was dispensed or obtained. Non-VA AMLODIPINE BESYLATE 10MG TAB TAKE ONE TABLET BY MOUTH DAILY Patient wants to buy from Non-[place] pharmacy. Medication prescribed by Non-VA provider. Private primary care Indication: FOR BLOOD PRESSURE/HEART OUTPT CARBAMIDE PEROXIDE 6.5% OTIC/+EAR BULB (Status = Active) INSTILL 2 DROPS IN BOTH EARS TWICE A DAY FOR EAR WAX REMOVAL -ALLOW DROPS TO REMAIN IN EAR FOR AT LEAST 15 MINUTES. FLUSH EAR WITH WARM WATER USING BULB EAR SYRINGE. Rx# [id number] Last Released: 10/20/24 Qty/Days Supply: Rx Expiration Date: 11/18/24 Refills Remainin Indication: FOR EAR WAX REMOVAL Non-VA DAPSONE 25MG TAB TAKE ONE TABLET BY MOUTH DAILY Patient wants to buy from Non-[place] pharmacy. Medication prescribed by Non-VA provider. Private dermatology Indication: FOR INFECTION OUTPT NAPROXEN 500MG TAB (Status = Active) TAKE ONE TABLET BY MOUTH TWICE A DAY FOR PAIN/INFLAMMATION -TAKE WITH FOOD OR MILK Rx# [id number] Last Released: 10/24/24 Qty/Days Supply: Rx Expiration Date: 10/20/25 Refills Remainin Indication: FOR PAIN/INFLAMMATION Non-VA RAMIPRIL 10MG CAP TAKE 2 CAPSULES BY MOUTH Patient wants to buy from Non-[place] pharmacy. Medication prescribed by Non-VA provider. Private AFTER MEALS Indication: FOR BLOOD PRESSURE/HEART Non-VA ROSUVASTATIN CA TAB 20MG TAKE ONE TABLET BY MOUTH AT BEDTIME Patient wants to buy from Non-[place] pharmacy. Medication prescribed by Non-VA provider. Private primary care Indication: FOR CHOLESTEROL SUPPLIES /kristopher/ SAUD DOS SANTOS [facility] [employer] Signed: 10/25/2024 13:30 SAUD DOS SANTOS-[facility]
--- OUTSIDE RECORDS SUMMARY | 2025-01-26 07:30 | XMS_ITS | Encounter Summary ---
Author Name [facility] Address [address] [place] [id number] Care Team Providers Care Information Management Officer Name Role Phone CHARLOTTE BRANHAM Primary Care [...] Clarke's Name Patient's Relationship to Policy Clarke [place] ([id number]) PRESCRIPT ION [id number] Oct 12, 2018 [id number] SUJE[address] MCHUGH ANGELIKA PATIENT [facility] Oct 12, 2018 [id number] [phone] ALBERT MCHUGH SPOUSE [facility] Oct 12, 2018 [id number] ALBERT MCHUGH SPOUSE Selected Encounter This section includes the information on record at [facility] for the Encounter. Date/Time Encounter Type Encounter Description Reason Pro vider Source Dec 20, 2024 09:33 AM Outpatient Encounter EVENT (HISTORICAL) [facility] Encounter Template Text not used by [facility] Social History: Smoking Status (Most current) and Tobacco Use (All prior to encounter date) This section includes the most current, and the historical, smoking and tobacco- related health factors from the [place] facility where the Encounter took place. Current Smoking Status This section includes the most current smoking, or tobacco-related health factor, from the [place] facility where the Encounter took place. Date/Time Current Smoking Status Comment Carmelita farias Oct 19, 2024 09:30 AM VA-TOBACCO USE FOR [employer] C[employer]ARETTES [facility] Tobacco Use History This section includes a history of the smoking, or tobacco-related health factors, that were collected on or before the date of the Encounter. The data comes from the [place] facility where the Encounter took place. Date/Time Smoking Status/Tobacco Use Comment Anthony gonzalez Oct 19, 2024 09:30 AM VA-TOBACCO USE FOR [employer] CIGARETTES [facility] Dec 19, 2022 11:00 AM VA-TOBACCO FORMER USER [facility] Dec 19, 2022 11:00 AM VA-TOBACCO QUIT 15 YRS OR MORE [facility]
--- OUTSIDE RECORDS SUMMARY | 2025-01-26 07:30 | XMS_ITS | Continuity of Care Document ---
Author Name [facility] Organization [facility] Care Team Providers Care Filemaker Developer Name Role Phone [facility] Unavailable Unavailable Problems Combined list of problems from [facility] and [facility] facilities. It does not include entries that were removed or entered in error. Problem Status Onset Date Problem Type Date of Resolution Comments Source Chronic pain syndrome Active Condition [facility] Essential hypertension Active Condition [facility] Exposure to potentially hazardous substance [facility] Exposure to potentially hazardous substance ([facility] [id number]) Active Condition [facility] Gastroesophageal reflux disease Active Condition [facility] Hyperlipidemia Active Condition [facility] Low back pain [facility] Non-celiac gluten sensitivity Active Condition [facility] Obesity Active Condition [facility] Right knee pain Active Condition [facility] TON [facility] Tinnitus Active Condition [facility] Diagnosis: ICD-10-CM M25.569 Pain in unspecified knee Active Diagnosis [facility] Diagnosis: ICD-10-CM M54.50 Low back pain, unspecified Active [facility] Diagnosis: ICD-10-CM M17.11 Unilateral primary osteoarthritis, right knee Active Diagnosis [facility] Diagnosis: ICD-10-CM M25.562 Pain in left knee Active Diagnosis [facility] Diagnosis: ICD-10-CM M25.561 Pain in right knee Active Diagnosis [facility] Medications Combined list of outpatient medications from [facility] and [facility] facilities.Medications provided include 1) outpatient medications from the last 15 months, and 2) patient-reported medications. Medication Details Route Status Patient Instructions Prescription Expires Prescription Number Last Dispense Date Ordering Provider Order Date Order Qty Source AMLODIPINE BESYLATE 10MG TAB TAKE ONE TABLET BY MOUTH DAILY ORAL ACTIVE CHARLOTTE BRANHAM H 2022 [place] [facility] CARBAMIDE PEROXIDE 6.5%/GLYCER IN SOLN,OTIC INSTILL 2 DROPS IN BOTH EARS TWICE A DAY FOR EAR WAX REMOVAL -ALLOW DROPS TO REMAIN IN EAR FOR AT LEAST 15 MINUTES. FLUSH EAR WITH WARM WATER USING BULB EAR SYRINGE. AURICU LAR (OTIC) 11/18/2024 [id number] MELODY BRANHAMMY Vicki 2024 15 [place] [facility] DAPSONE 25MG TAB TAKE ONE TABLET BY MOUTH DAILY ORAL ACTIVE YONASCHARLOTTE Vicki 2024 [place] [facility] NAPROXEN 500MG TAB TAKE ONE TABLET BY MOUTH TWICE A DAY FOR PAIN/INF LAMMATIO N -TAKE WITH FOOD OR MILK ORAL ACTIVE 10/20/2025 [id number] MELODY BRANHAMMY Vicki 2024 60 [place] [facility] RAMIPRIL 10MG CAP TAKE 2 CAPSULES BY MOUTH ORAL ACTIVE MELODY BRANHAMMY Vicki 2022 [place] [facility] ROSUVASTATI N CA 20MG TAB TAKE ONE TABLET BY MOUTH AT BEDTIME ORAL ACTIVE YONASCHARLOTTE Vicki [facility] Allergies, Adverse Reactions, Alerts Combined list of allergies from [facility] facilities. It does not include entries that were removed or entered in error. Substance Category Reaction Severity Reaction type Status Date Reported Comments Source PERCOCET Propensity to adverse reactions to drug (finding) Headache MODERATE active 3 [facility] Immunizations Combined list of available immunizations from the [facility] and Veterans Affairs facilities. Immunization Series Date Given Administered By Site Reaction Lot Number CVX Code Drug Rn Traveling Status Comments Source TDAP 2 2016 115 complet ed HISTORICA L INFORMATI ON - FROM OTHER REGISTRY, [place] [facility] TD (ADULT), 2 LF TETANUS TOXOID, PRESERVATIVE FREE, ADSORBED 1 1996 09 complet ed HISTORICA L INFORMATI ON - FROM OTHER REGISTRY, [place] [facility] Results Combined list of recent chemistry, hematology and other laboratory results from [facility] and [facility], ranging from 15 months to all on record, depending upon the facility. Order Name Results Value Reference Range Date Interpretation Specimen Comments Source GLYCOHEMO GLOBIN HEMOGLOBIN A1C/HEMOGLO BIN.TOTAL IN BLOOD BY HPLC 4.4 4.4 - 6.4 10/19 Specimen Type: BLOOD Comment: [facility] guidelines for A1c interpretat ion: Glycemic control targets are based on Shared Decision Making between clinicians and patients. Criteria used to establish an A1c target recommendat ion can be found at https://www .va.gov/blue lityandpati entsafety/ and include the use of result accuracy and precision(C V) of the A1c tests clinicians utilize at their own sites of practice. Values obtained from A1C measurement s can vary. For typical A1C assays, a reported value of 7.0 could actually be between 6.72 and 7.28 if measured by a reference method. A reported value of 9.0 could actually be between 8.73 and 9.27. Ref: https://ngs p.org/CAPda ta.asp. The in-house [employer] D-100 analyzer has a historical CV <= 2%. Contact the laboratory for further performance characteris tics of this assay. Ordering Provider: Jorje BRANHAM Report Released Date/Time: Oct 19, 2024 09:50 AM Reporting Lab: [address] [address] Performing Lab: [address] [address] [facility] LIPID PROFILE CHOLESTEROL [MASS/VOLUM E] IN SERUM OR PLASMA 234 mg/dL 0 - 199 10/19 H Specimen Type: PLASMA Comment: Vitamin B12 test may not yield results when protein level of sample is too elevated. Estimated Glomerular Filtration Rate (eGFR) calculated using the 2020 Chronic Kidney Disease-Epi demiology (CKD-EPI) Collaborati on creatinine equation; units of measure are mL/min/1.73 m2. Results are only valid for adults (>=18 years) whose serum creatinine is in a steady state. eGFR calculation s are not valid for patients with acute kidney injury and for patients on dialysis. Creatinine- based estimates of kidney function may also be inaccurate in patients with reduced creatinine generation due to decreased muscle mass (e.g., malnutritio n, severe hypoalbumin emia, sarcopenia, chronic neuromuscul ar disease, amputations , severe heart failure or liver disease) and in patients with increased creatinine generation due to increased muscle mass (e.g., muscle builders, anabolic steroids) or increased dietary intake. As drug clearance is proportiona l to total GFR and not GFR indexed to body surface area (BSA), in individuals with a BSA substantial ly different than 1.73 m2, drug dosing should be based on the reported eGFR value de-indexed from BSA by multiplying by the individual' s BSA and dividing by 1.73. CKD is diagnosed based on abnormaliti es of kidney structure or function, present for >3 months, with implication s for health and disease. CKD is classified and staged based on cause, eGFR and albuminuria (quantified as urine albumin to creatinine ratio). An eGFR >60 mL/min/1.73 m2 in the absence of increased urine albumin excretion or structural abnormaliti es does not represent CKD. eGFR CKD Interpretat ion (mL/min/1.7 3 m2) stage >=90 G1 Normal 60-89 G2 Mild decrease 45-59 G3A Mild to moderate decrease 30-44 G3B Moderate to severe decrease 15-29 G4 Severe decrease <15 G5 Kidney failure Ordering Provider: Jorje BRANHAM Report Released Date/Time: Oct 19, 2024 09:50 AM Reporting Lab: [facility] [address] [address] Performing Lab: [facility] [address] [address] [facility] LIPID PROFILE TRIGLYCERID E [MASS/VOLUM E] IN SERUM OR PLASMA 135 mg/dL 0 - 149 10/19 Specimen Type: PLASMA Comment: Vitamin B12 test may not yield results when protein level of sample is too elevated. Estimated Glomerular Filtration Rate (eGFR) calculated using the 2020 Chronic Kidney Disease-Epi demiology (CKD-EPI) Collaborati on creatinine equation; units of measure are mL/min/1.73 m2. Results are only valid for adults (>=18 years) whose serum creatinine is in a steady state. eGFR calculation s are not valid for patients with acute kidney injury and for patients on dialysis. Creatinine- based estimates of kidney function may also be inaccurate in patients with reduced creatinine generation due to decreased muscle mass (e.g., malnutritio n, severe hypoalbumin emia, sarcopenia, chronic neuromuscul ar disease, amputations , severe heart failure or liver disease) and in patients with increased creatinine generation due to increased muscle mass (e.g., muscle builders, anabolic steroids) or increased dietary intake. As drug clearance is proportiona l to total GFR and not GFR indexed to body surface area (BSA), in individuals with a BSA substantial ly different than 1.73 m2, drug dosing should be based on the reported eGFR value de-indexed from BSA by multiplying by the individual' s BSA and dividing by 1.73. CKD is diagnosed based on abnormaliti es of kidney structure or function, present for >3 months, with implication s for health and disease. CKD is classified and staged based on cause, eGFR and albuminuria (quantified as urine albumin to creatinine ratio). An eGFR >60 mL/min/1.73 m2 in the absence of increased urine albumin excretion or structural abnormaliti es does not represent CKD. eGFR CKD Interpretat ion (mL/min/1.7 3 m2) stage >=90 G1 Normal 60-89 G2 Mild decrease 45-59 G3A Mild to moderate decrease 30-44 G3B Moderate to severe decrease 15-29 G4 Severe decrease <15 G5 Kidney failure Ordering Provider: Jorje BRANHAM Report Released Date/Time: Oct 19, 2024 09:50 AM Reporting Lab: [facility] [address] [address] Performing Lab: [facility] [address] [address] [facility] LIPID PROFILE CHOLESTEROL IN HDL [MASS/VOLUM E] IN SERUM OR PLASMA 48 mg/dL 40 - 69 10/19 Specimen Type: PLASMA Comment: Vitamin B12 test may not yield results when protein level of sample is too elevated. Estimated Glomerular Filtration Rate (eGFR) calculated using the 2020 Chronic Kidney Disease-Epi demiology (CKD-EPI) Collaborati on creatinine equation; units of measure are mL/min/1.73 m2. Results are only valid for adults (>=18 years) whose serum creatinine is in a steady state. eGFR calculation s are not valid for patients with acute kidney injury and for patients on dialysis. Creatinine- based estimates of kidney function may also be inaccurate in patients with reduced creatinine generation due to decreased muscle mass (e.g., malnutritio n, severe hypoalbumin emia, sarcopenia, chronic neuromuscul ar disease, amputations , severe heart failure or liver disease) and in patients with increased creatinine generation due to increased muscle mass (e.g., muscle builders, anabolic steroids) or increased dietary intake. As drug clearance is proportiona l to total GFR and not GFR indexed to body surface area (BSA), in individuals with a BSA substantial ly different than 1.73 m2, drug dosing should be based on the reported eGFR value de-indexed from BSA by multiplying by the individual' s BSA and dividing by 1.73. CKD is diagnosed based on abnormaliti es of kidney structure or function, present for >3 months, with implication s for health and disease. CKD is classified and staged based on cause, eGFR and albuminuria (quantified as urine albumin to creatinine ratio). An eGFR >60 mL/min/1.73 m2 in the absence of increased urine albumin excretion or structural abnormaliti es does not represent CKD. eGFR CKD Interpretat ion (mL/min/1.7 3 m2) stage >=90 G1 Normal 60-89 G2 Mild decrease 45-59 G3A Mild to moderate decrease 30-44 G3B Moderate to severe decrease 15-29 G4 Severe decrease <15 G5 Kidney failure Ordering Provider: Jorje BRANHAM Report Released Date/Time: Oct 19, 2024 09:50 AM Reporting Lab: [facility] [address] [facility] [address] Performing Lab: [facility] [address] [facility] [address] [facility] LIPID PROFILE CHOLESTEROL IN LDL [MASS/VOLUM E] IN SERUM OR PLASMA BY DIRECT ASSAY 189 mg/dL 0 - 100 10/19 H Specimen Type: PLASMA Comment: Vitamin B12 test may not yield results when protein level of sample is too elevated. Estimated Glomerular Filtration Rate (eGFR) calculated using the 2020 Chronic Kidney Disease-Epi demiology (CKD-EPI) Collaborati on creatinine equation; units of measure are mL/min/1.73 m2. Results are only valid for adults (>=18 years) whose serum creatinine is in a steady state. eGFR calculation s are not valid for patients with acute kidney injury and for patients on dialysis. Creatinine- based estimates of kidney function may also be inaccurate in patients with reduced creatinine generation due to decreased muscle mass (e.g., malnutritio n, severe hypoalbumin emia, sarcopenia, chronic neuromuscul ar disease, amputations , severe heart failure or liver disease) and in patients with increased creatinine generation due to increased muscle mass (e.g., muscle builders, anabolic steroids) or increased dietary intake. As drug clearance is proportiona l to total GFR and not GFR indexed to body surface area (BSA), in individuals with a BSA substantial ly different than 1.73 m2, drug dosing should be based on the reported eGFR value de-indexed from BSA by multiplying by the individual' s BSA and dividing by 1.73. CKD is diagnosed based on abnormaliti es of kidney structure or function, present for >3 months, with implication s for health and disease. CKD is classified and staged based on cause, eGFR and albuminuria (quantified as urine albumin to creatinine ratio). An eGFR >60 mL/min/1.73 m2 in the absence of increased urine albumin excretion or structural abnormaliti es does not represent CKD. eGFR CKD Interpretat ion (mL/min/1.7 3 m2) stage >=90 G1 Normal 60-89 G2 Mild decrease 45-59 G3A Mild to moderate decrease 30-44 G3B Moderate to severe decrease 15-29 G4 Severe decrease <15 G5 Kidney failure Ordering Provider: Jorje BRANHAM Report Released Date/Time: Oct 19, 2024 09:50 AM Reporting Lab: [address] [address] Performing Lab: [address] [address] [facility] 25-OH VITAMIN D 25-HYDROXYV ITAMIN D3 [MASS/VOLUM E] IN SERUM OR PLASMA 19.9 ng/mL 20.0 - 50.0 10/19 L Specimen Type: SERUM Comment: The National Institutes of Health (NIH) recommendat ions state: <12 ng/mL - Deficient 20 - 50 ng/mL - Optimal Levels - adequate for most people. >50 ng/mL - Increased risk of hypercalciu [place]/other health problems - clinical correlation is required. These reference ranges represent clinical decision values rather than population- based reference values. Ordering Provider: Jorje BRANHAM Report Released Date/Time: Oct 19, 2024 09:50 AM Reporting Lab: [address] [address] Performing Lab: [address] [address] [facility] B12 VITAMIN COBALAMIN (VITAMIN B12) [MASS/VOLUM E] IN SERUM OR PLASMA 264 pg/mL 213 - 816 10/19 Specimen Type: PLASMA Comment: Vitamin B12 test may not yield results when protein level of sample is too elevated. Estimated Glomerular Filtration Rate (eGFR) calculated using the 2020 Chronic Kidney Disease-Epi demiology (CKD-EPI) Collaborati on creatinine equation; units of measure are mL/min/1.73 m2. Results are only valid for adults (>=18 years) whose serum creatinine is in a steady state. eGFR calculation s are not valid for patients with acute kidney injury and for patients on dialysis. Creatinine- based estimates of kidney function may also be inaccurate in patients with reduced creatinine generation due to decreased muscle mass (e.g., malnutritio n, severe hypoalbumin emia, sarcopenia, chronic neuromuscul ar disease, amputations , severe heart failure or liver disease) and in patients with increased creatinine generation due to increased muscle mass (e.g., muscle builders, anabolic steroids) or increased dietary intake. As drug clearance is proportiona l to total GFR and not GFR indexed to body surface area (BSA), in individuals with a BSA substantial ly different than 1.73 m2, drug dosing should be based on the reported eGFR value de-indexed from BSA by multiplying by the individual' s BSA and dividing by 1.73. CKD is diagnosed based on abnormaliti es of kidney structure or function, present for >3 months, with implication s for health and disease. CKD is classified and staged based on cause, eGFR and albuminuria (quantified as urine albumin to creatinine ratio). An eGFR >60 mL/min/1.73 m2 in the absence of increased urine albumin excretion or structural abnormaliti es does not represent CKD. eGFR CKD Interpretat ion (mL/min/1.7 3 m2) stage >=90 G1 Normal 60-89 G2 Mild decrease 45-59 G3A Mild to moderate decrease 30-44 G3B Moderate to severe decrease 15-29 G4 Severe decrease <15 G5 Kidney failure Ordering Provider: Jorje BRANHAM Report Released Date/Time: Oct 19, 2024 09:50 AM Reporting Lab: [facility] [address] [address] Performing Lab: [facility] G[facility] [address] [address] [facility] TSH THYROTROPIN [UNITS/VOLU ME] IN SERUM OR PLASMA 2.0362 m[IU]/ mL 0.3500 - 4.9400 10/19 Specimen Type: PLASMA Comment: Vitamin B12 test may not yield results when protein level of sample is too elevated. Estimated Glomerular Filtration Rate (eGFR) calculated using the 2020 Chronic Kidney Disease-Epi demiology (CKD-EPI) Collaborati on creatinine equation; units of measure are mL/min/1.73 m2. Results are only valid for adults (>=18 years) whose serum creatinine is in a steady state. eGFR calculation s are not valid for patients with acute kidney injury and for patients on dialysis. Creatinine- based estimates of kidney function may also be inaccurate in patients with reduced creatinine generation due to decreased muscle mass (e.g., malnutritio n, severe hypoalbumin emia, sarcopenia, chronic neuromuscul ar disease, amputations , severe heart failure or liver disease) and in patients with increased creatinine generation due to increased muscle mass (e.g., muscle builders, anabolic steroids) or increased dietary intake. As drug clearance is proportiona l to total GFR and not GFR indexed to body surface area (BSA), in individuals with a BSA substantial ly different than 1.73 m2, drug dosing should be based on the reported eGFR value de-indexed from BSA by multiplying by the individual' s BSA and dividing by 1.73. CKD is diagnosed based on abnormaliti es of kidney structure or function, present for >3 months, with implication s for health and disease. CKD is classified and staged based on cause, eGFR and albuminuria (quantified as urine albumin to creatinine ratio). An eGFR >60 mL/min/1.73 m2 in the absence of increased urine albumin excretion or structural abnormaliti es does not represent CKD. eGFR CKD Interpretat ion (mL/min/1.7 3 m2) stage >=90 G1 Normal 60-89 G2 Mild decrease 45-59 G3A Mild to moderate decrease 30-44 G3B Moderate to severe decrease 15-29 G4 Severe decrease <15 G5 Kidney failure Ordering Provider: Jorje BRANHAM Report Released Date/Time: Oct 19, 2024 09:50 AM Reporting Lab: [facility] [address] [address] Performing Lab: [facility] G[facility] [address] [address] [facility] PANEL 5 CREATININE [MASS/VOLUM E] IN SERUM OR PLASMA 1.19 mg/dL 0.72 - 1.25 10/19 Specimen Type: PLASMA Comment: Vitamin B12 test may not yield results when protein level of sample is too elevated. Estimated Glomerular Filtration Rate (eGFR) calculated using the 2020 Chronic Kidney Disease-Epi demiology (CKD-EPI) Collaborati on creatinine equation; units of measure are mL/min/1.73 m2. Results are only valid for adults (>=18 years) whose serum creatinine is in a steady state. eGFR calculation s are not valid for patients with acute kidney injury and for patients on dialysis. Creatinine- based estimates of kidney function may also be inaccurate in patients with reduced creatinine generation due to decreased muscle mass (e.g., malnutritio n, severe hypoalbumin emia, sarcopenia, chronic neuromuscul ar disease, amputations , severe heart failure or liver disease) and in patients with increased creatinine generation due to increased muscle mass (e.g., muscle builders, anabolic steroids) or increased dietary intake. As drug clearance is proportiona l to total GFR and not GFR indexed to body surface area (BSA), in individuals with a BSA substantial ly different than 1.73 m2, drug dosing should be based on the reported eGFR value de-indexed from BSA by multiplying by the individual' s BSA and dividing by 1.73. CKD is diagnosed based on abnormaliti es of kidney structure or function, present for >3 months, with implication s for health and disease. CKD is classified and staged based on cause, eGFR and albuminuria (quantified as urine albumin to creatinine ratio). An eGFR >60 mL/min/1.73 m2 in the absence of increased urine albumin excretion or structural abnormaliti es does not represent CKD. eGFR CKD Interpretat ion (mL/min/1.7 3 m2) stage >=90 G1 Normal 60-89 G2 Mild decrease 45-59 G3A Mild to moderate decrease 30-44 G3B Moderate to severe decrease 15-29 G4 Severe decrease <15 G5 Kidney failure Ordering Provider: Jorje BRANHAM Report Released Date/Time: Oct 19, 2024 09:50 AM Reporting Lab: [facility] [address] [address] Performing Lab: [facility] G[facility] [address] [phone] [facility] PANEL 5 UREA NITROGEN [MASS/VOLUM E] IN SERUM OR PLASMA 9 mg/dL 10/19 Specimen Type: PLASMA Comment: Vitamin B12 test may not yield results when protein level of sample is too elevated. Estimated Glomerular Filtration Rate (eGFR) calculated using the 2020 Chronic Kidney Disease-Epi demiology (CKD-EPI) Collaborati on creatinine equation; units of measure are mL/min/1.73 m2. Results are only valid for adults (>=18 years) whose serum creatinine is in a steady state. eGFR calculation s are not valid for patients with acute kidney injury and for patients on dialysis. Creatinine- based estimates of kidney function may also be inaccurate in patients with reduced creatinine generation due to decreased muscle mass (e.g., malnutritio n, severe hypoalbumin emia, sarcopenia, chronic neuromuscul ar disease, amputations , severe heart failure or liver disease) and in patients with increased creatinine generation due to increased muscle mass (e.g., muscle builders, anabolic steroids) or increased dietary intake. As drug clearance is proportiona l to total GFR and not GFR indexed to body surface area (BSA), in individuals with a BSA substantial ly different than 1.73 m2, drug dosing should be based on the reported eGFR value de-indexed from BSA by multiplying by the individual' s BSA and dividing by 1.73. CKD is diagnosed based on abnormaliti es of kidney structure or function, present for >3 months, with implication s for health and disease. CKD is classified and staged based on cause, eGFR and albuminuria (quantified as urine albumin to creatinine ratio). An eGFR >60 mL/min/1.73 m2 in the absence of increased urine albumin excretion or structural abnormaliti es does not represent CKD. eGFR CKD Interpretat ion (mL/min/1.7 3 m2) stage >=90 G1 Normal 60-89 G2 Mild decrease 45-59 G3A Mild to moderate decrease 30-44 G3B Moderate to severe decrease 15-29 G4 Severe decrease <15 G5 Kidney failure Ordering Provider: Jorje BRANHAM Report Released Date/Time: Oct 19, 2024 09:50 AM Reporting Lab: [facility] [address] [address] Performing Lab: [facility] [address] [facility] [address] [facility] PANEL 5 GLUCOSE [MASS/VOLUM E] IN SERUM OR PLASMA 93 mg/dL 74 - 100 10/19 Specimen Type: PLASMA Comment: Vitamin B12 test may not yield results when protein level of sample is too elevated. Estimated Glomerular Filtration Rate (eGFR) calculated using the 2020 Chronic Kidney Disease-Epi demiology (CKD-EPI) Collaborati on creatinine equation; units of measure are mL/min/1.73 m2. Results are only valid for adults (>=18 years) whose serum creatinine is in a steady state. eGFR calculation s are not valid for patients with acute kidney injury and for patients on dialysis. Creatinine- based estimates of kidney function may also be inaccurate in patients with reduced creatinine generation due to decreased muscle mass (e.g., malnutritio n, severe hypoalbumin emia, sarcopenia, chronic neuromuscul ar disease, amputations , severe heart failure or liver disease) and in patients with increased creatinine generation due to increased muscle mass (e.g., muscle builders, anabolic steroids) or increased dietary intake. As drug clearance is proportiona l to total GFR and not GFR indexed to body surface area (BSA), in individuals with a BSA substantial ly different than 1.73 m2, drug dosing should be based on the reported eGFR value de-indexed from BSA by multiplying by the individual' s BSA and dividing by 1.73. CKD is diagnosed based on abnormaliti es of kidney structure or function, present for >3 months, with implication s for health and disease. CKD is classified and staged based on cause, eGFR and albuminuria (quantified as urine albumin to creatinine ratio). An eGFR >60 mL/min/1.73 m2 in the absence of increased urine albumin excretion or structural abnormaliti es does not represent CKD. eGFR CKD Interpretat ion (mL/min/1.7 3 m2) stage >=90 G1 Normal 60-89 G2 Mild decrease 45-59 G3A Mild to moderate decrease 30-44 G3B Moderate to severe decrease 15-29 G4 Severe decrease <15 G5 Kidney failure Ordering Provider: Jorje BRANHAM Report Released Date/Time: Oct 19, 2024 09:50 AM Reporting Lab: [facility] [address] [phone] Performing Lab: [facility] [address] [address] [facility] PANEL 5 SODIUM [MOLES/VOLU ME] IN SERUM OR PLASMA 140 mmol/L 136 - 145 10/19 Specimen Type: PLASMA Comment: Vitamin B12 test may not yield results when protein level of sample is too elevated. Estimated Glomerular Filtration Rate (eGFR) calculated using the 2020 Chronic Kidney Disease-Epi demiology (CKD-EPI) Collaborati on creatinine equation; units of measure are mL/min/1.73 m2. Results are only valid for adults (>=18 years) whose serum creatinine is in a steady state. eGFR calculation s are not valid for patients with acute kidney injury and for patients on dialysis. Creatinine- based estimates of kidney function may also be inaccurate in patients with reduced creatinine generation due to decreased muscle mass (e.g., malnutritio n, severe hypoalbumin emia, sarcopenia, chronic neuromuscul ar disease, amputations , severe heart failure or liver disease) and in patients with increased creatinine generation due to increased muscle mass (e.g., muscle builders, anabolic steroids) or increased dietary intake. As drug clearance is proportiona l to total GFR and not GFR indexed to body surface area (BSA), in individuals with a BSA substantial ly different than 1.73 m2, drug dosing should be based on the reported eGFR value de-indexed from BSA by multiplying by the individual' s BSA and dividing by 1.73. CKD is diagnosed based on abnormaliti es of kidney structure or function, present for >3 months, with implication s for health and disease. CKD is classified and staged based on cause, eGFR and albuminuria (quantified as urine albumin to creatinine ratio). An eGFR >60 mL/min/1.73 m2 in the absence of increased urine albumin excretion or structural abnormaliti es does not represent CKD. eGFR CKD Interpretat ion (mL/min/1.7 3 m2) stage >=90 G1 Normal 60-89 G2 Mild decrease 45-59 G3A Mild to moderate decrease 30-44 G3B Moderate to severe decrease 15-29 G4 Severe decrease <15 G5 Kidney failure Ordering Provider: Jorje BRANHAM Report Released Date/Time: Oct 19, 2024 09:50 AM Reporting [facility]: [facility] [address] [address] Performing Lab: [facility] [address] [address] [facility] PANEL 5 POTASSIUM [MOLES/VOLU ME] IN SERUM OR PLASMA 4.0 mmol/L 3.5 - 5.1 10/19 Specimen Type: PLASMA Comment: Vitamin B12 test may not yield results when protein level of sample is too elevated. Estimated Glomerular Filtration Rate (eGFR) calculated using the 2020 Chronic Kidney Disease-Epi demiology (CKD-EPI) Collaborati on creatinine equation; units of measure are mL/min/1.73 m2. Results are only valid for adults (>=18 years) whose serum creatinine is in a steady state. eGFR calculation s are not valid for patients with acute kidney injury and for patients on dialysis. Creatinine- based estimates of kidney function may also be inaccurate in patients with reduced creatinine generation due to decreased muscle mass (e.g., malnutritio n, severe hypoalbumin emia, sarcopenia, chronic neuromuscul ar disease, amputations , severe heart failure or liver disease) and in patients with increased creatinine generation due to increased muscle mass (e.g., muscle builders, anabolic steroids) or increased dietary intake. As drug clearance is proportiona l to total GFR and not GFR indexed to body surface area (BSA), in individuals with a BSA substantial ly different than 1.73 m2, drug dosing should be based on the reported eGFR value de-indexed from BSA by multiplying by the individual' s BSA and dividing by 1.73. CKD is diagnosed based on abnormaliti es of kidney structure or function, present for >3 months, with implication s for health and disease. CKD is classified and staged based on cause, eGFR and albuminuria (quantified as urine albumin to creatinine ratio). An eGFR >60 mL/min/1.73 m2 in the absence of increased urine albumin excretion or structural abnormaliti es does not represent CKD. eGFR CKD Interpretat ion (mL/min/1.7 3 m2) stage >=90 G1 Normal 60-89 G2 Mild decrease 45-59 G3A Mild to moderate decrease 30-44 G3B Moderate to severe decrease 15-29 G4 Severe decrease <15 G5 Kidney failure Ordering Provider: Jorje BRANHAM Report Released Date/Time: Oct 19, 2024 09:50 AM Reporting Lab: [facility] [address] [address] Performing Lab: [facility] [address] [address] [facility] PANEL 5 CHLORIDE [MOLES/VOLU ME] IN SERUM OR PLASMA 105 mmol/L 98 - 107 10/19 Specimen Type: PLASMA Comment: Vitamin B12 test may not yield results when protein level of sample is too elevated. Estimated Glomerular Filtration Rate (eGFR) calculated using the 2020 Chronic Kidney Disease-Epi demiology (CKD-EPI) Collaborati on creatinine equation; units of measure are mL/min/1.73 m2. Results are only valid for adults (>=18 years) whose serum creatinine is in a steady state. eGFR calculation s are not valid for patients with acute kidney injury and for patients on dialysis. Creatinine- based estimates of kidney function may also be inaccurate in patients with reduced creatinine generation due to decreased muscle mass (e.g., malnutritio n, severe hypoalbumin emia, sarcopenia, chronic neuromuscul ar disease, amputations , severe heart failure or liver disease) and in patients with increased creatinine generation due to increased muscle mass (e.g., muscle builders, anabolic steroids) or increased dietary intake. As drug clearance is proportiona l to total GFR and not GFR indexed to body surface area (BSA), in individuals with a BSA substantial ly different than 1.73 m2, drug dosing should be based on the reported eGFR value de-indexed from BSA by multiplying by the individual' s BSA and dividing by 1.73. CKD is diagnosed based on abnormaliti es of kidney structure or function, present for >3 months, with implication s for health and disease. CKD is classified and staged based on cause, eGFR and albuminuria (quantified as urine albumin to creatinine ratio). An eGFR >60 mL/min/1.73 m2 in the absence of increased urine albumin excretion or structural abnormaliti es does not represent CKD. eGFR CKD Interpretat ion (mL/min/1.7 3 m2) stage >=90 G1 Normal 60-89 G2 Mild decrease 45-59 G3A Mild to moderate decrease 30-44 G3B Moderate to severe decrease 15-29 G4 Severe decrease <15 G5 Kidney failure Ordering Provider: Jorje BRANHAM Report Released Date/Time: Oct 19, 2024 09:50 AM Reporting Lab: [facility] [address] [address] Performing Lab: [facility] [address] [phone] [facility] PANEL 5 CARBON DIOXIDE, TOTAL [MOLES/VOLU ME] IN SERUM OR PLASMA 27 mmol/L - 10/19 Specimen Type: PLASMA Comment: Vitamin B12 test may not yield results when protein level of sample is too elevated. Estimated Glomerular Filtration Rate (eGFR) calculated using the 2020 Chronic Kidney Disease-Epi demiology (CKD-EPI) Collaborati on creatinine equation; units of measure are mL/min/1.73 m2. Results are only valid for adults (>=18 years) whose serum creatinine is in a steady state. eGFR calculation s are not valid for patients with acute kidney injury and for patients on dialysis. Creatinine- based estimates of kidney function may also be inaccurate in patients with reduced creatinine generation due to decreased muscle mass (e.g., malnutritio n, severe hypoalbumin emia, sarcopenia, chronic neuromuscul ar disease, amputations , severe heart failure or liver disease) and in patients with increased creatinine generation due to increased muscle mass (e.g., muscle builders, anabolic steroids) or increased dietary intake. As drug clearance is proportiona l to total GFR and not GFR indexed to body surface area (BSA), in individuals with a BSA substantial ly different than 1.73 m2, drug dosing should be based on the reported eGFR value de-indexed from BSA by multiplying by the individual' s BSA and dividing by 1.73. CKD is diagnosed based on abnormaliti es of kidney structure or function, present for >3 months, with implication s for health and disease. CKD is classified and staged based on cause, eGFR and albuminuria (quantified as urine albumin to creatinine ratio). An eGFR >60 mL/min/1.73 m2 in the absence of increased urine albumin excretion or structural abnormaliti es does not represent CKD. eGFR CKD Interpretat ion (mL/min/1.7 3 m2) stage >=90 G1 Normal 60-89 G2 Mild decrease 45-59 G3A Mild to moderate decrease 30-44 G3B Moderate to severe decrease 15-29 G4 Severe decrease <15 G5 Kidney failure Ordering Provider: Jorje BRANHAM Report Released Date/Time: Oct 19, 2024 09:50 AM Reporting Lab: [facility] [address] [address] Performing Lab: [facility] [address] [address] [facility] PANEL 5 CALCIUM [MASS/VOLUM E] IN SERUM OR PLASMA 9.8 mg/dL 8.4 - 10.2 10/19 Specimen Type: PLASMA Comment: Vitamin B12 test may not yield results when protein level of sample is too elevated. Estimated Glomerular Filtration Rate (eGFR) calculated using the 2020 Chronic Kidney Disease-Epi demiology (CKD-EPI) Collaborati on creatinine equation; units of measure are mL/min/1.73 m2. Results are only valid for adults (>=18 years) whose serum creatinine is in a steady state. eGFR calculation s are not valid for patients with acute kidney injury and for patients on dialysis. Creatinine- based estimates of kidney function may also be inaccurate in patients with reduced creatinine generation due to decreased muscle mass (e.g., malnutritio n, severe hypoalbumin emia, sarcopenia, chronic neuromuscul ar disease, amputations , severe heart failure or liver disease) and in patients with increased creatinine generation due to increased muscle mass (e.g., muscle builders, anabolic steroids) or increased dietary intake. As drug clearance is proportiona l to total GFR and not GFR indexed to body surface area (BSA), in individuals with a BSA substantial ly different than 1.73 m2, drug dosing should be based on the reported eGFR value de-indexed from BSA by multiplying by the individual' s BSA and dividing by 1.73. CKD is diagnosed based on abnormaliti es of kidney structure or function, present for >3 months, with implication s for health and disease. CKD is classified and staged based on cause, eGFR and albuminuria (quantified as urine albumin to creatinine ratio). An eGFR >60 mL/min/1.73 m2 in the absence of increased urine albumin excretion or structural abnormaliti es does not represent CKD. eGFR CKD Interpretat ion (mL/min/1.7 3 m2) stage >=90 G1 Normal 60-89 G2 Mild decrease 45-59 G3A Mild to moderate decrease 30-44 G3B Moderate to severe decrease 15-29 G4 Severe decrease <15 G5 Kidney failure Ordering Provider: Jorje BRANHAM Report Released Date/Time: Oct 19, 2024 09:50 AM Reporting Lab: [facility] [address] [address] Performing Lab: [facility] [address] [address] [facility] PANEL 5 PROTEIN [MASS/VOLUM E] IN SERUM OR PLASMA 7.6 g/dL 6.4 - 8.3 10/19 Specimen Type: PLASMA Comment: Vitamin B12 test may not yield results when protein level of sample is too elevated. Estimated Glomerular Filtration Rate (eGFR) calculated using the 2020 Chronic Kidney Disease-Epi demiology (CKD-EPI) Collaborati on creatinine equation; units of measure are mL/min/1.73 m2. Results are only valid for adults (>=18 years) whose serum creatinine is in a steady state. eGFR calculation s are not valid for patients with acute kidney injury and for patients on dialysis. Creatinine- based estimates of kidney function may also be inaccurate in patients with reduced creatinine generation due to decreased muscle mass (e.g., malnutritio n, severe hypoalbumin emia, sarcopenia, chronic neuromuscul ar disease, amputations , severe heart failure or liver disease) and in patients with increased creatinine generation due to increased muscle mass (e.g., muscle builders, anabolic steroids) or increased dietary intake. As drug clearance is proportiona l to total GFR and not GFR indexed to body surface area (BSA), in individuals with a BSA substantial ly different than 1.73 m2, drug dosing should be based on the reported eGFR value de-indexed from BSA by multiplying by the individual' s BSA and dividing by 1.73. CKD is diagnosed based on abnormaliti es of kidney structure or function, present for >3 months, with implication s for health and disease. CKD is classified and staged based on cause, eGFR and albuminuria (quantified as urine albumin to creatinine ratio). An eGFR >60 mL/min/1.73 m2 in the absence of increased urine albumin excretion or structural abnormaliti es does not represent CKD. eGFR CKD Interpretat ion (mL/min/1.7 3 m2) stage >=90 G1 Normal 60-89 G2 Mild decrease 45-59 G3A Mild to moderate decrease 30-44 G3B Moderate to severe decrease 15-29 G4 Severe decrease <15 G5 Kidney failure Ordering Provider: Jorje BRANHAM Report Released Date/Time: Oct 19, 2024 09:50 AM Reporting Lab: [facility] [address] [phone] Performing Lab: [facility] [address] [address] [facility] PANEL 5 ALBUMIN [MASS/VOLUM E] IN SERUM OR PLASMA 4.2 g/dL 3.5 - 5.2 10/19 Specimen Type: PLASMA Comment: Vitamin B12 test may not yield results when protein level of sample is too elevated. Estimated Glomerular Filtration Rate (eGFR) calculated using the 2020 Chronic Kidney Disease-Epi demiology (CKD-EPI) Collaborati on creatinine equation; units of measure are mL/min/1.73 m2. Results are only valid for adults (>=18 years) whose serum creatinine is in a steady state. eGFR calculation s are not valid for patients with acute kidney injury and for patients on dialysis. Creatinine- based estimates of kidney function may also be inaccurate in patients with reduced creatinine generation due to decreased muscle mass (e.g., malnutritio n, severe hypoalbumin emia, sarcopenia, chronic neuromuscul ar disease, amputations , severe heart failure or liver disease) and in patients with increased creatinine generation due to increased muscle mass (e.g., muscle builders, anabolic steroids) or increased dietary intake. As drug clearance is proportiona l to total GFR and not GFR indexed to body surface area (BSA), in individuals with a BSA substantial ly different than 1.73 m2, drug dosing should be based on the reported eGFR value de-indexed from BSA by multiplying by the individual' s BSA and dividing by 1.73. CKD is diagnosed based on abnormaliti es of kidney structure or function, present for >3 months, with implication s for health and disease. CKD is classified and staged based on cause, eGFR and albuminuria (quantified as urine albumin to creatinine ratio). An eGFR >60 mL/min/1.73 m2 in the absence of increased urine albumin excretion or structural abnormaliti es does not represent CKD. eGFR CKD Interpretat ion (mL/min/1.7 3 m2) stage >=90 G1 Normal 60-89 G2 Mild decrease 45-59 G3A Mild to moderate decrease 30-44 G3B Moderate to severe decrease 15-29 G4 Severe decrease <15 G5 Kidney failure Ordering Provider: Jorje BRANHAM Report Released Date/Time: Oct 19, 2024 09:50 AM Reporting Lab: [facility] [address] [phone] Performing Lab: [facility] [address] [address] [facility] PANEL 5 BILIRUBIN.T OTAL [MASS/VOLUM E] IN SERUM OR PLASMA 1.1 mg/dL 0.2 - 1.2 10/19 Specimen Type: PLASMA Comment: Vitamin B12 test may not yield results when protein level of sample is too elevated. Estimated Glomerular Filtration Rate (eGFR) calculated using the 2020 Chronic Kidney Disease-Epi demiology (CKD-EPI) Collaborati on creatinine equation; units of measure are mL/min/1.73 m2. Results are only valid for adults (>=18 years) whose serum creatinine is in a steady state. eGFR calculation s are not valid for patients with acute kidney injury and for patients on dialysis. Creatinine- based estimates of kidney function may also be inaccurate in patients with reduced creatinine generation due to decreased muscle mass (e.g., malnutritio n, severe hypoalbumin emia, sarcopenia, chronic neuromuscul ar disease, amputations , severe heart failure or liver disease) and in patients with increased creatinine generation due to increased muscle mass (e.g., muscle builders, anabolic steroids) or increased dietary intake. As drug clearance is proportiona l to total GFR and not GFR indexed to body surface area (BSA), in individuals with a BSA substantial ly different than 1.73 m2, drug dosing should be based on the reported eGFR value de-indexed from BSA by multiplying by the individual' s BSA and dividing by 1.73. CKD is diagnosed based on abnormaliti es of kidney structure or function, present for >3 months, with implication s for health and disease. CKD is classified and staged based on cause, eGFR and albuminuria (quantified as urine albumin to creatinine ratio). An eGFR >60 mL/min/1.73 m2 in the absence of increased urine albumin excretion or structural abnormaliti es does not represent CKD. eGFR CKD Interpretat ion (mL/min/1.7 3 m2) stage >=90 G1 Normal 60-89 G2 Mild decrease 45-59 G3A Mild to moderate decrease 30-44 G3B Moderate to severe decrease 15-29 G4 Severe decrease <15 G5 Kidney failure Ordering Provider: Jorje BRANHAM Report Released Date/Time: Oct 19, 2024 09:50 AM Reporting Lab: [facility] [address] [address] Performing Lab: [facility] [address] [address] [facility] PANEL 5 ASPARTATE AMINOTRANSF ERASE [ENZYMATIC ACTIVITY/VO LUME] IN SERUM OR PLASMA 14 U/L 5 - 34 10/19 Specimen Type: PLASMA Comment: Vitamin B12 test may not yield results when protein level of sample is too elevated. Estimated Glomerular Filtration Rate (eGFR) calculated using the 2020 Chronic Kidney Disease-Epi demiology (CKD-EPI) Collaborati on creatinine equation; units of measure are mL/min/1.73 m2. Results are only valid for adults (>=18 years) whose serum creatinine is in a steady state. eGFR calculation s are not valid for patients with acute kidney injury and for patients on dialysis. Creatinine- based estimates of kidney function may also be inaccurate in patients with reduced creatinine generation due to decreased muscle mass (e.g., malnutritio n, severe hypoalbumin emia, sarcopenia, chronic neuromuscul ar disease, amputations , severe heart failure or liver disease) and in patients with increased creatinine generation due to increased muscle mass (e.g., muscle builders, anabolic steroids) or increased dietary intake. As drug clearance is proportiona l to total GFR and not GFR indexed to body surface area (BSA), in individuals with a BSA substantial ly different than 1.73 m2, drug dosing should be based on the reported eGFR value de-indexed from BSA by multiplying by the individual' s BSA and dividing by 1.73. CKD is diagnosed based on abnormaliti es of kidney structure or function, present for >3 months, with implication s for health and disease. CKD is classified and staged based on cause, eGFR and albuminuria (quantified as urine albumin to creatinine ratio). An eGFR >60 mL/min/1.73 m2 in the absence of increased urine albumin excretion or structural abnormaliti es does not represent CKD. eGFR CKD Interpretat ion (mL/min/1.7 3 m2) stage >=90 G1 Normal 60-89 G2 Mild decrease 45-59 G3A Mild to moderate decrease 30-44 G3B Moderate to severe decrease 15-29 G4 Severe decrease <15 G5 Kidney failure Ordering Provider: Jorje BRANHAM Report Released Date/Time: Oct 19, 2024 09:50 AM Reporting Lab: [address] [phone] Performing Lab: [address] [address] [facility] PANEL 5 ALANINE AMINOTRANSF ERASE [ENZYMATIC ACTIVITY/VO LUME] IN SERUM OR PLASMA 14 U/L 0 - 55 10/19 Specimen Type: PLASMA Comment: Vitamin B12 test may not yield results when protein level of sample is too elevated. Estimated Glomerular Filtration Rate (eGFR) calculated using the 2020 Chronic Kidney Disease-Epi demiology (CKD-EPI) Collaborati on creatinine equation; units of measure are mL/min/1.73 m2. Results are only valid for adults (>=18 years) whose serum creatinine is in a steady state. eGFR calculation s are not valid for patients with acute kidney injury and for patients on dialysis. Creatinine- based estimates of kidney function may also be inaccurate in patients with reduced creatinine generation due to decreased muscle mass (e.g., malnutritio n, severe hypoalbumin emia, sarcopenia, chronic neuromuscul ar disease, amputations , severe heart failure or liver disease) and in patients with increased creatinine generation due to increased muscle mass (e.g., muscle builders, anabolic steroids) or increased dietary intake. As drug clearance is proportiona l to total GFR and not GFR indexed to body surface area (BSA), in individuals with a BSA substantial ly different than 1.73 m2, drug dosing should be based on the reported eGFR value de-indexed from BSA by multiplying by the individual' s BSA and dividing by 1.73. CKD is diagnosed based on abnormaliti es of kidney structure or function, present for >3 months, with implication s for health and disease. CKD is classified and staged based on cause, eGFR and albuminuria (quantified as urine albumin to creatinine ratio). An eGFR >60 mL/min/1.73 m2 in the absence of increased urine albumin excretion or structural abnormaliti es does not represent CKD. eGFR CKD Interpretat ion (mL/min/1.7 3 m2) stage >=90 G1 Normal 60-89 G2 Mild decrease 45-59 G3A Mild to moderate decrease 30-44 G3B Moderate to severe decrease 15-29 G4 Severe decrease <15 G5 Kidney failure Ordering Provider: Jorje BRANHAM Report Released Date/Time: Oct 19, 2024 09:50 AM Reporting Lab: [facility] [place] [address] [place] [phone] Performing Lab: [facility] [address] [phone] [facility] PANEL 5 ANION GAP 3 IN SERUM OR PLASMA 8 meq/L 3 - 19 10/19 Specimen Type: PLASMA Comment: Vitamin B12 test may not yield results when protein level of sample is too elevated. Estimated Glomerular Filtration Rate (eGFR) calculated using the 2020 Chronic Kidney Disease-Epi demiology (CKD-EPI) Collaborati on creatinine equation; units of measure are mL/min/1.73 m2. Results are only valid for adults (>=18 years) whose serum creatinine is in a steady state. eGFR calculation s are not valid for patients with acute kidney injury and for patients on dialysis. Creatinine- based estimates of kidney function may also be inaccurate in patients with reduced creatinine generation due to decreased muscle mass (e.g., malnutritio n, severe hypoalbumin emia, sarcopenia, chronic neuromuscul ar disease, amputations , severe heart failure or liver disease) and in patients with increased creatinine generation due to increased muscle mass (e.g., muscle builders, anabolic steroids) or increased dietary intake. As drug clearance is proportiona l to total GFR and not GFR indexed to body surface area (BSA), in individuals with a BSA substantial ly different than 1.73 m2, drug dosing should be based on the reported eGFR value de-indexed from BSA by multiplying by the individual' s BSA and dividing by 1.73. CKD is diagnosed based on abnormaliti es of kidney structure or function, present for >3 months, with implication s for health and disease. CKD is classified and staged based on cause, eGFR and albuminuria (quantified as urine albumin to creatinine ratio). An eGFR >60 mL/min/1.73 m2 in the absence of increased urine albumin excretion or structural abnormaliti es does not represent CKD. eGFR CKD Interpretat ion (mL/min/1.7 3 m2) stage >=90 G1 Normal 60-89 G2 Mild decrease 45-59 G3A Mild to moderate decrease 30-44 G3B Moderate to severe decrease 15-29 G4 Severe decrease <15 G5 Kidney failure Ordering Provider: Jorje BRANHAM Report Released Date/Time: Oct 19, 2024 09:50 AM Reporting Lab: [facility] [address] [address] Performing Lab: [facility] [address] [address] [facility] PANEL 5 ALKALINE PHOSPHATASE [ENZYMATIC ACTIVITY/VO LUME] IN SERUM OR PLASMA 87 U/L 40 - 150 10/19 Specimen Type: PLASMA Comment: Vitamin B12 test may not yield results when protein level of sample is too elevated. Estimated Glomerular Filtration Rate (eGFR) calculated using the 2020 Chronic Kidney Disease-Epi demiology (CKD-EPI) Collaborati on creatinine equation; units of measure are mL/min/1.73 m2. Results are only valid for adults (>=18 years) whose serum creatinine is in a steady state. eGFR calculation s are not valid for patients with acute kidney injury and for patients on dialysis. Creatinine- based estimates of kidney function may also be inaccurate in patients with reduced creatinine generation due to decreased muscle mass (e.g., malnutritio n, severe hypoalbumin emia, sarcopenia, chronic neuromuscul ar disease, amputations , severe heart failure or liver disease) and in patients with increased creatinine generation due to increased muscle mass (e.g., muscle builders, anabolic steroids) or increased dietary intake. As drug clearance is proportiona l to total GFR and not GFR indexed to body surface area (BSA), in individuals with a BSA substantial ly different than 1.73 m2, drug dosing should be based on the reported eGFR value de-indexed from BSA by multiplying by the individual' s BSA and dividing by 1.73. CKD is diagnosed based on abnormaliti es of kidney structure or function, present for >3 months, with implication s for health and disease. CKD is classified and staged based on cause, eGFR and albuminuria (quantified as urine albumin to creatinine ratio). An eGFR >60 mL/min/1.73 m2 in the absence of increased urine albumin excretion or structural abnormaliti es does not represent CKD. eGFR CKD Interpretat ion (mL/min/1.7 3 m2) stage >=90 G1 Normal 60-89 G2 Mild decrease 45-59 G3A Mild to moderate decrease 30-44 G3B Moderate to severe decrease 15-29 G4 Severe decrease <15 G5 Kidney failure Ordering Provider: Jorje BRANHAM Report Released Date/Time: Oct 19, 2024 09:50 AM Reporting Lab: [facility] [address] [address] Performing Lab: [facility] [address] [address] [facility] PANEL 5 GLOMERULAR FILTRATION RATE/1.73 SQ M.PREDICTED [VOLUME RATE/AREA] IN SERUM, PLASMA OR BLOOD BY CREATININE- BASED FORMULA (CKD-EPI 2020) 69 10/19 Specimen Type: PLASMA Comment: Vitamin B12 test may not yield results when protein level of sample is too elevated. Estimated Glomerular Filtration Rate (eGFR) calculated using the 2020 Chronic Kidney Disease-Epi demiology (CKD-EPI) Collaborati on creatinine equation; units of measure are mL/min/1.73 m2. Results are only valid for adults (>=18 years) whose serum creatinine is in a steady state. eGFR calculation s are not valid for patients with acute kidney injury and for patients on dialysis. Creatinine- based estimates of kidney function may also be inaccurate in patients with reduced creatinine generation due to decreased muscle mass (e.g., malnutritio n, severe hypoalbumin emia, sarcopenia, chronic neuromuscul ar disease, amputations , severe heart failure or liver disease) and in patients with increased creatinine generation due to increased muscle mass (e.g., muscle builders, anabolic steroids) or increased dietary intake. As drug clearance is proportiona l to total GFR and not GFR indexed to body surface area (BSA), in individuals with a BSA substantial ly different than 1.73 m2, drug dosing should be based on the reported eGFR value de-indexed from BSA by multiplying by the individual' s BSA and dividing by 1.73. CKD is diagnosed based on abnormaliti es of kidney structure or function, present for >3 months, with implication s for health and disease. CKD is classified and staged based on cause, eGFR and albuminuria (quantified as urine albumin to creatinine ratio). An eGFR >60 mL/min/1.73 m2 in the absence of increased urine albumin excretion or structural abnormaliti es does not represent CKD. eGFR CKD Interpretat ion (mL/min/1.7 3 m2) stage >=90 G1 Normal 60-89 G2 Mild decrease 45-59 G3A Mild to moderate decrease 30-44 G3B Moderate to severe decrease 15-29 G4 Severe decrease <15 G5 Kidney failure Ordering Provider: Jorje BRANHAM Report Released Date/Time: Oct 19, 2024 09:50 AM Reporting Lab: [place] [phone] Performing Lab: [place] [phone] [facility] CBC/PLT LEUKOCYTES [#/VOLUME] IN BLOOD BY AUTOMATED COUNT 9.4 10*3/u L 5.0 - 10.0 10/19 Specimen Type: BLOOD No comment entered. Ordering Provider: Jorje BRANHAM Report Released Date/Time: Oct 19, 2024 09:50 AM Reporting Lab: [address] [address] Performing Lab: [place] [phone] [facility] CBC/PLT ERYTHROCYTE S [#/VOLUME] IN BLOOD BY AUTOMATED COUNT 4.78 10*6/u L 4.6 - 6.2 10/19 Specimen Type: BLOOD No comment entered. Ordering Provider: Jorje BRANHAM Report Released Date/Time: Oct 19, 2024 09:50 AM Reporting Lab: [place] [address] Performing Lab: [address] CBC/PLT HEMOGLOBIN [MASS/VOLUM E] IN BLOOD 14.6 g/dL 14.0 - 18.0 10/19 Specimen Type: BLOOD No comment entered. Ordering Provider: Jorje BRANHAM Report Released Date/Time: Oct 19, 2024 09:50 AM Reporting Lab: [place] [address] Performing Lab: [address] CBC/PLT HEMATOCRIT [VOLUME FRACTION] OF BLOOD BY AUTOMATED COUNT 45.0 42.0 - 52.0 10/19 Specimen Type: BLOOD No comment entered. Ordering Provider: Jorje BRANHAM Report Released Date/Time: Oct 19, 2024 09:50 AM Reporting Lab: [place] [address] Performing Lab: [address] CBC/PLT MCV [ENTITIC VOLUME] BY AUTOMATED COUNT 94.1 fL 80.0 - 94.0 10/19 H Specimen Type: BLOOD No comment entered. Ordering Provider: Jorje BRANHAM Report Released Date/Time: Oct 19, 2024 09:50 AM Reporting Lab: [place] [address] Performing Lab: [place] [phone] [place] [address] CBC/PLT MCH [ENTITIC MASS] BY AUTOMATED COUNT 30.5 pg 27.0 - 31.0 10/19 Specimen Type: BLOOD No comment entered. Ordering Provider: Jorje BRANHAM Report Released Date/Time: Oct 19, 2024 09:50 AM Reporting Lab: [place] [address] Performing Lab: [place] [phone] CBC/PLT MCHC [MASS/VOLUM E] BY AUTOMATED COUNT 32.4 g/dL 32.0 - 36.0 10/19 Specimen Type: BLOOD No comment entered. Ordering Provider: Jorje BRANHAM Report Released Date/Time: Oct 19, 2024 09:50 AM Reporting Lab: [place] [address] Performing Lab: [address] CBC/PLT PLATELETS [#/VOLUME] IN BLOOD 391 10*3/u L 150 - 450 10/19 Specimen Type: BLOOD No comment entered. Ordering Provider: Jorje BRANHAM Report Released Date/Time: Oct 19, 2024 09:50 AM Reporting Lab: [place] [address] Performing Lab: [address] CBC/PLT PLATELET MEAN VOLUME [ENTITIC VOLUME] IN BLOOD 9.9 fL 9.0 - 13.1 10/19 Specimen Type: BLOOD No comment entered. Ordering Provider: Jorje BRANHAM Report Released Date/Time: Oct 19, 2024 09:50 AM Reporting Lab: [place] [address] Performing Lab: [address] CBC/PLT ERYTHROCYTE DISTRIBUTIO N WIDTH [ENTITIC VOLUME] BY AUTOMATED COUNT 15.2 11.0 - 16.0 10/19 Specimen Type: BLOOD No comment entered. Ordering Provider: Jorje BRANHAM Report Released Date/Time: Oct 19, 2024 09:50 AM Reporting Lab: [place] [address] [address] Performing Lab: JESSICA [address] [address] [facility] CBC/PLT NUCLEATED ERYTHROCYTE S/100 ERYTHROCYTE S IN BLOOD 0.0 0.0 - 0.0 10/19 Specimen Type: BLOOD No comment entered. Ordering Provider: Jorje BRANHAM Report Released Date/Time: Oct 19, 2024 09:50 AM Reporting Lab: JESSICA [address] [address] Performing Lab: JESSICA [address] [address] [facility] Vital Signs Combined list of inpatient and outpatient Vital Signs from Department of Defense and Veterans Affairs, ranging from 12 months to all on record, depending upon the facility. Vital Sign Value Date Comments Source SYSTOLIC BLOOD PRESSURE 116 10/25/2024 13:24:00 [facility] DIASTOLIC BLOOD PRESSURE 77 10/25/2024 13:24:00 [facility] WEIGHT 250.0 10/25/2024 13:24:00 [facility] BMI 31 kg/m2 10/25/2024 13:24:00 [facility] PAIN 8 10/25/2024 13:24:00 [facility] TEMPERATURE 97.7 10/25/2024 13:24:00 RADHA ABDILULA [facility] PULSE 73 10/25/2024 13:24:00 [facility] SYSTOLIC BLOOD PRESSURE 118 10/19/2024 09:11:36 [facility] DIASTOLIC BLOOD PRESSURE 73 10/19/2024 09:11:36 [facility] PULSE OXIMETRY 95 10/19/2024 09:11:36 [facility] 256 10/19/2024 09:11:36 [facility] BMI 32 kg/m2 10/19/2024 09:11:36 [facility] PAIN 7 10/19/2024 09:11:36 ROSI HERNÁNDEZ [facility] TEMPERATURE 96.9 10/19/2024 09:11:36 RADHA HILTON [facility] PULSE 91 10/19/2024 09:11:36 ROSI FOREIGN [facility] Encounters Combined list of: 1) Encounters from Department of [facility] facilities going backup to the last 18 months, not all OR inpatient encounters are included; 2) Encounters from the Department of [facility] facilities going backup to 280 months. Location Location Details Encounter Type Encounter Number Reason For Visit Attending Provider ADM Date DC Date Status Disposition Source [facility] Outpatient Encounter [id number] 08/12 [place] [facility] Outpatient Encounter [id number] 08/17 [place] [facility] Outpatient Encounter [id number] 08/17 [place] [facility] OFFICE O/P NEW LOW 30-44 MIN [id number] Diagnos is: ICD-10- CM M25.562 Pain in left knee AMINTAJUN Gilliland W 09/25 [place] [facility] Outpatient Encounter [id number] 09/25 [place] [facility] Outpatient Encounter [id number] 09/25 [place] OFFICE O/P EST MOD 30 MIN [id number] Diagnos is: ICD-10- CM M54.50 Low back pain, unspeci fied CHARLOTTE BRANHAM 11/05 [place] [facility] SELF-MGMT EDUC & TRAIN 1 [place] [id number] Diagnos is: ICD-10- CM M25.569 Pain in unspeci fied knee ISAEL PORTER 11/05 [place] [facility] Outpatient Encounter [id number] 11/09 [place] [facility] Outpatient Encounter [id number] 11/17 [place] [facility] Outpatient Encounter [id number] 12/03 [place] [facility] OFFICE O/P EST MOD 30 MIN [id number] Diagnos is: ICD-10- CM M25.561 Pain in right knee PELLANT,RI CK A 12/17 [place] [facility] Outpatient Encounter [id number] 12/17 [place] [facility] Outpatient Encounter [id number] 04/01 [place] OFFICE O/P EST MOD 30 MIN [id number] Diagnos is: ICD-10- CM M25.562 Pain in left knee PELLANT,RI CK A 04/22 [place] [facility] Outpatient Encounter [id number] 07/18 [place] [facility] Outpatient Encounter [id number] 07/22 [place] [facility] OFFICE O/P EST MOD 30 MIN [id number] Diagnos is: ICD-10- CM M17.11 Unilate ral primary osteoar thritis , right knee PELLANT,RI CK A 11/12 /2024 [place] OFFICE O/P EST MOD 30 MIN [id number] Diagnos is: ICD-10- CM M54.50 Low back pain, unspeci fied CHARLOTTE BRANHAM H 10/19 [place] [facility] Outpatient Encounter [id number] 10/19 [place] [facility] Outpatient Encounter [id number] 10/24 [place] OFFICE O/P EST LOW 20 MIN [id number] Diagnos is: ICD-10- CM M17.11 Unilate ral primary osteoar thritis , right knee SANDIE KARINA E 10/25 [place] [facility] Outpatient Encounter [id number] 10/27 [place] [facility] Outpatient Encounter [id number] 10/27 [place] [facility] Outpatient Encounter [id number] 10/28 [place] [facility] Outpatient Encounter [id number] 11/08 [place] [facility] Outpatient Encounter [id number] 11/15 [place] [facility] Outpatient Encounter [id number] 12/07 [place] [facility] PH1 ASSMT&MGMT NQHP 5-10 [id number] Diagnos is: ICD-10- CM M54.50 Low back pain, unspeci fied COSME TOPETE M 12/07 [place] [facility] OFFICE O/P EST MOD 30 MIN [id number] Diagnos is: ICD-10- CM M25.569 Pain in unspeci fied knee PELLANT,RI CK A 12/20 [place] Outpatient Encounter [id number] 12/20 [place] [facility] Outpatient Encounter [id number] 01/25 [place] Social History Combined list of available smoking, tobacco, and other social history from Department of Defense and [facility] Affairs facilities. Social History Type Response Date Comment Sourc e Tobacco smoking status SCIS VA-TOBACCO USE FORMER CIGARETTES 10/19/2024 [facility] of [facility] OTHER [facility] 10/19/2024 [facility] History of tobacco use OR-TOBACCO FORMER USER 12/19/2022 [facility]
--- OUTSIDE RECORDS SUMMARY | 2025-01-26 07:30 | XMS_ITS ---
Author Name [facility] [place] Organization [facility] [place] Address [address] [place] [address] Care Team Providers Care Pusher Operator Name Role Phone AGUSTINACHARLOTTE CARRASQUILLO Primary Care [...] Name Patient's Relationship to Policy Clarke NAVNEET ([id number]) PRESCRIPT ION [id number] 1 Oct 12, 2018 [id number] [phone] LOLITASUJEY CARNEY PATIENT [facility] Oct 12, 2018 [id number] ALBERT MCHUGH SPOUSE [facility] Oct 12, 2018 [id number] [phone] [id number] ALBERT MCHUGH SPOUSE Selected Encounter This section includes the information on record at [place] for the Encounter. Date/Time Encounter Type Encounter Description Reason Pro vider Source Nov 08, 2024 03:58 PM Outpatient Encounter ADMIN PAT ACTIVTIES (MASNONCT) IHE Encounter Template Text not used by [place] Plan of Treatment: Future Appointments (+ 6 months) and Future Tests (+/- 45 days) The Plan of Treatment section includes future care activities for the patient from all [place] treatmentfacilities. This section includes future appointments and future orders which are active, pending or scheduled. Future Appointments This section includes appointments that were scheduled to occur 6 months from the date of the Encounter, up to a maximum of 20 appointments. The data comes from all [place] treatment facilities. Appointment Date/Time Appointment Type Appointme nt Facility Name Nov 15, 2024 01:00 PM AMBULATORY - NONE [facility] Dec 20, 2024 09:30 AM [facility] - SURGERY [facility] Lab Results: +/- 30 days of the encounter This section includes the Chemistry and Hematology Lab Results on record with [place] for the patient. Radiology Reports and Pathology Reports are provided separately, in subsequent sections. Lab Results This section contains the Chemistry/Hematology Results that were resulted 30 days before or 30 daysafter the date of the Encounter. Date/Time Source Result Type Result - Unit Interpretation Reference Range Specimen Type Comment Oct 19, 2024 10:08 AM [facility] GLYCOHEMOGLOBIN BLOOD Specimen Type: BLOOD Comment: [facility] guidelines for A1c interpretation: Glycemic control targets are based on Shared Decision Making between clinicians and patients. Criteria used to establish an A1c target recommendation can be found at https://www.ks. ov/qualityandpat ientsafety/ and include the use of [...] and 9.27. Ref: https://ngsp.org /CAPdata.asp. The in-house [employer] D-100 analyzer has a historical CV <= 2%. Contact the laboratory for further performance characteristics of this assay. Ordering Provider: CHARLOTTE BRANHAM Report Released Date/Time: Oct 19, 2024 09:50 AM Reporting Lab: [address] [address] Performing Lab: [address] [address] GLYCOHEMOGLOBIN 4.4 4.4-6.4 Oct 19, 2024 10:08 AM [facility] LIPID PROFILE PLASMA Specimen Type: PLASM [...] Oct 19, 2024 09:50 AM Reporting Lab: [address] [address] Performing Lab: [address] [address] CHOLESTEROL 234 mg/dL H 0-199 TRIGLYCERIDE 135 mg/dL 0-149 HDL CHOLESTEROL 48 mg/dL 40-69 DIRECT LDL CHOL. 189 mg/dL H 0-100 Oct 19, 2024 10:08 AM [facility] 25-OH VITAMIN D SERUM Specime n [...] Oct 19, 2024 09:50 AM Reporting Lab: [address] [address] Performing Lab: [address] [address] 25-OH VITAMIN D 19.9 ng/mL L 20.0-50.0 Oct 19, 2024 10:08 AM [facility] B12 VITAMIN PLASMA Specimen Type: PLASM [...] Oct 19, 2024 09:50 AM Reporting Lab: [address] [address] Performing Lab: [address] [address] B12 VITAMIN 264 pg/mL 213-816 Oct 19, 2024 10:08 AM [facility] TSH PLASMA Specimen Type: PLASM A Comment: [...] Oct 19, 2024 09:50 AM Reporting Lab: [address] [address] Performing Lab: [address] [address] TSH 2.0362 m[IU]/mL 0.3500-4.9400 Oct 19, 2024 10:08 AM [facility] PANEL 5 PLASMA Specimen Type: PLASM A [...] Oct 19, 2024 09:50 AM Reporting Lab: [address] [address] Performing Lab: [address] [address] CREATININE 1.19 mg/dL 0.72-1.25 UREA NITROGEN 9 [...] (CKD-EPI) 69 Oct 19, 2024 10:08 AM [facility] CBC/PLT BLOOD Specimen Type: BLOOD No comment entered. Ordering Provider: CHARLOTTE BRANHAM Report Released Date/Time: Oct 19, 2024 09:50 AM Reporting Lab: [address] [address] Performing Lab: [address] [address] WBC 9.4 10*3/uL 5.0-10.0 RBC 4.78 10*6/uL [...] the Encounter. The data comes from all [place] treatment facilities. Date/Time Radiology Report Provider Source Nov 15, 2024 12:44 PM FLUORO UP TO 1 MICHAEL R (ANGIO): CUONG MCHUGH [id number] -1965 M Exm Date: NOV 15, 2024@12:44 Req Phys: ROMAN SHRESTHA Loc: [facility] ORTHO/FOLLOW-UP CD (Req'g Img Loc: ANGIO/NEURO/INTERVENTIONAL Service: [place] [address] (Case [id number] COMPLETE) FLUORO UP TO 1 HOUR (ANGIO) (ANI Detailed) CPT:27260 Proc Modifiers : RIGHT Reason for Study: Right knee pain Clinical History: Report Status: Verified Date Reported: Date Verified: NOV 16, 2024 Corporate Controller E-Sig: Report: See Impression. Impression: This procedure was performed by Ortho Service and was NOT reported or reviewed by [place] Radiology Staff. Please see Ortho CPRS Notes or consult response for final reporting or exam information. Primary Diagnostic Code: Primary Interpreting Staff: PHYS OTHER THAN [place] RADIOL, Staff Physician Verified by channel process supervisor for PHYS OTHER THAN [place] RADIOL /[facility] RADIOLOGIST,PHYS OTHER THAN [facility] Oct 25, 2024 01:45 PM KNEE-RIGHT 2 VIEWS : CUONG MCHUGH [id number] -1965 M Exm Date: OCT 25, 2024@13:45 Req Phys: KARINA HOOPER Loc: [facility] ORTHO/FOLLOW-UP CD (Req'g Img Loc: CDD RADIOLOGY Service: [place] [address] (Case [id number] COMPLETE) KNEE-RIGHT 2 VIEWS (RAD Detailed) CPT:67369 Reason for Study: pain Clinical History: Report Status: Verified Date Reported: OCT 25, 2024 Date Verified: OCT 25, 2024 Corporate Controller E-Sig: Report: Right knee. Right knee shows [...] Interpreting Staff: JEISON GLASS, RADIOLOGIST Verified by channel process supervisor for JEISON GLASS /JEISON [facility] Oct 25, 2024 01:45 PM KNEE-LEFT 4 OR MOR E VIEWS: CUONG MCHUGH [id number] -1965 M Exm Date: OCT 25, 2024@13:45 Req Phys: HOOPERKARINA E Pat Loc: [facility] ORTHO/FOLLOW-UP CD (Req'g Img Loc: CDD RADIOLOGY Service: [place] [address] (Case [id number] COMPLETE) KNEE-LEFT 4 OR MORE VIEWS (RAD Detailed) CPT:12969 Reason for Study: pain Clinical History: Report Status: Verified Date Reported: OCT 25, 2024 Date Verified: OCT 25, 2024 Corporate Controller E-Sig: Report: Left knee. Marked joint space [...] Interpreting Staff: JEISON GLASS, RADIOLOGIST Verified by channel process supervisor for JEISON GLASS [facility] Encounter Notes: All associated encounter notes This section contains the clinical notes associated to the Encounter. Date/Time Encounter Note(s) Provider Source February 26, 2023 03:59 PM NONVA NOTE: LOCAL TITLE: OUTSIDE MEDICAL RECORD-OTHER STANDARD TITLE: NONVA NOTE DATE OF NOTE: FEBRUARY 26, 2023@15:59 ENTRY DATE: NOV 08, 2024@15:59:13 AUTHOR: ARY DOMINIQUE EXP COSIGNER: URGENCY: STATUS: COMPLETED The scanned image may be viewed in [employer]. /[email or web address]/ ARY DOMINIQUE ELDER ASSISTANT Signed: 11/08/2024 15:59 ARY DOMINIQUEMERIT HEALTH RIVER OAKSSonido [facility]
--- OUTSIDE RECORDS SUMMARY | 2025-01-26 07:30 | XMS_ITS | Encounter Summary ---
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 Date/Time Encounter Type Encounter Description Reason Provider Source Dec 20, 2024 09:30 AM OFFICE O/P EST MOD 30 MIN ORTHO/JOINT SURG ICD-10-CM M25.569 Pain in unspecified knee ROMAN SHRESTHA E Encounter Template Text not used by [place] Assessments - Encounter Diagnoses This section includes the primary and secondary diagnoses documented for the Encounter. Date/Time Primary/Secondary Diagnosis Diagnosis Name Provider Source Dec 20, 2024 09:38 AM PRIMARY Pain in unspecified knee ROMAN SHRESTHA-[facility] Encounter Notes: All associated encounter notes This section contains the clinical notes associated to the Encounter. Date/Time Encounter Note(s) Provider Source Dec 20, 2024 09:30 AM ORTHOPEDIC SURGERY ATTENDING NOTE: LOCAL TITLE: ORTHOPEDIC CLINIC ATTENDING PHYSICIAN NOTE STANDARD TITLE: ORTHOPEDIC SURGERY ATTENDING NOTE DATE OF NOTE: DEC 20, 2024@09:30 ENTRY DATE: DEC 20, 2024@09:34:20 AUTHOR: ROMAN SHRESTHA EXP COSIGNER: URGENCY: STATUS: COMPLETED [id number] RE:_ORTHO SERVICE Nursing Screening Note reviewed: NO PAIN: 6/10 on a Numeric Rating Scale[NRS] (12/20/2024) Presenting problems and reason for visit: Knee pain HISTORY: 59-year-old returns to clinic [RTC] with longstanding history of bilateral knee pain. was last seen, by me, in the clinic on 08/23/2024 with bilateral knee pain. 's pain was predominantly on the right side. He received bilateral knee Intra-Articular [IA] Corticosteroid Injection [CSI]. This did not help significantly in the right he then was seen in the [facility] in October to be evaluated for Right Total Knee Arthroplasty [TKA]. [facility] thought patient would be a candidate for TKA but was not ready to move forward at that time. They recommended diagnostic/therapeutic genicular nerve block [GNB] for which patient had on 11/15/2024, by me. RTC today reporting the right knee is now doing much better than the left knee. He reports at least 50% reduction in his overall pain complaints in his right knee and states that it is tolerable since that shot. With regards to his left knee pain complaints he reports at least 50% reduction of his overall pain complaints since the CSI back in August. It has just been starting to wear off. ROS: 11 point ROS was reviewed on CPRS cover sheet. Pertinent positives and/or negatives as per HPI. Osteoarthritis; chronic low back pain; simple Obesity [BMI>30 kg/m?]; GERD WORK-UP: No New Imaging XR_ORTHO KNEE-BILATERAL_[09/25/2023] Severe bilateral tricompartmental osteoarthritis. Severe bilateral medial component joint space narrowing. [Interpreted by Yarelis Maldonado MD] Procedure[s]: 11/15/2024: KNEE-RT GNB (FLUOROSCOPY) 08/23/2024: KNEE-BL IA CSI 04/22/2024: KNEE-BL IA CSI 12/18/2023: KNEE-BL IA CSI 09/25/2023: KNEE-BL IA CSI THERAPY: No recent NEUROMUSCULOSKELETAL EXAM [NMSE]: General: AOx3 NAD/NVI Cardiovascular: No significant peripheral edema Musculoskeletal: BUE/BLE active Range Of Motion [AROM]/manual muscle testing [MMT] was within functional limits [WFL] ASSESSMENT: Bilateral knee pain Bilateral knee osteoarthritis Simple Obesity [BMI>29.99 kg/m?] DISCUSSION[MDM]: -Patient's old records, previous notes, imaging studies were independently reviewed -59-year-old RTC for interval follow-up after multiple injections on his knees bilaterally. -Right Knee_doing well S/P GNB will continue with conservative management on that front. -Left Knee_status post IA CSI back in August we will repeat injection today. -We will also be continuing with Conservative Management [CM], Activity Modification [AM] and Home Exercise Program [HEP]. -As far as follow-up is concerned we will try to put a follow-up appointment out 4 months -The above care and treatment options were discussed at length with the including risk, complications, benefits and alternatives PLAN: -See Comments/Recommendations Above. -C/W CM -Left knee IA CSI today -RTC x 4 months for interval follow-up PROCEDURE:_LEFT KNEE Intra-Articular [IA] Corticosteroid Injection [CSI] Prior to procedure, the operative/procedure team members verbally confirmed: Correct patient identity (2 identifiers) Correct operation/procedure to be performed Correct operative/procedure site/side Correct VERBAL CONSENT Correct position Correct imaging labeled and displayed Correct implant(s) available, if applicable Special equipment available, if applicable Allergies confirmed Large joints: Injection site prepped per ortho protocol. 4 ml Lidocaine (1%) 4 ml Marcaine (0.25%) 2 ml Kenalog (40 mg/mL) DO JEANA Bai [facility] Dept of Orthopedics Interventional PM&R [Dictated and reviewed but not read with Parcel] /kristopher/ ROMAN SHRESTHA Signed: 12/20/2024 09:38 ROMAN SHRESTHA-[facility]
--- OUTSIDE RECORDS SUMMARY | 2025-01-26 07:30 | XMS_ITS | Data Portability ---
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 He will try to work as much on scapular retraction and stabilization as he can and avoid the overhead positioning. He will see me back in 3 months. [email or web address] Not available 05/02/2019 10:26:15 Plan of Treatment Reminders Order Date Submit Date Provider Last Modified By Organization Details Last Modified Time Details Appointments FOLLOW UP DAK 2024 09:30A M AMINTA BRAVO MD Not available Not available Not available Lab CBC w/ auto diff 2024 025 [facility], [address], [address], 01/25/2025 12:47:40 CMP, serum or plasma 2024 025 [email or web address] [facility], [address] [facility] [address], [place], [address], 01/25/2025 12:47:40 CMP, serum or plasma 2023 024 [facility], [address] [place] [address], [phone], 08/08/2024 10:29:43 CBC w/ diff 2023 024 [facility], [address] [place], [address], 07/29/2024 09:22:22 CMP, serum or plasma 2023 024 [facility], [address] [place], [address], 01/28/2024 09:08:27 Referral None recorded . Procedures None recorded . Surgeries None recorded . Imaging None recorded . Medication Orders None recorded . Patient TargetsNo targets recorded. Patient Instructions Encounter Date Encounter Id Patient Instructions Last Modified By Organization Details Last Modified Time 05/02/2019 [id number] We reviewed the EMG, which showed the long thoracic nerve problem and I think this is his major issue. We discussed the implications. I think he does show some reinnervation. He does have more strength than he had before, so hopefully he will continue making progress along this line. We did discuss briefly the muscle transfers, if there is a need for this. He will return to see me in another 3 months. [email or web address] Not available 05/02/2019 10:26:16 01/25/2025 [id number] Recommended returning to clinic in 4 months for fu [email or web address] Not available 01/25/2025 08:54:47 Reason for Referral None Reported. Results Created Date Observation Date Name Description Value Unit Range Abnormal Flag Note LastModifiedBy Organization Detail LastModifiedTime 04/24/2004/22/2019 nerve condu ction study /EMG, upper extre mity (PROC ) No observ ation record ed. [email or web address] Pavan Marquez MD [address] [place], [address], 04/27/2019 11:51:26 Result Notes None recorded. Procedures Surgical History Date Name Laterality Status Provider Name and Address Organization Details Recorded Time 01/27/20 24 DAK - Cryo AK completed Casandra Myers [facility] 01/27/2024 11:27:29 04/22/20 19 Electromyography (EMG) with Nerve Conduction Study (NCV) completed Kelly Lerner (Nicky) [facility] 04/22/2019 10:47:27 Imaging Results Imaging Date Name Status LastModified by Organiz ation Details LastModified Time 04/22/2019 nerve conduction study/EMG, upper extremity (PROC) completed [email or web address] Pavan Marquez MD [address] [place], [address], 04/27/2019 11:51:26 Procedure Notes None recorded. Medical Equipment None Reported. Allergies Allergen ID Allergen Name Allergen Category Reaction Reaction Severity Criticality Documentation Date Start Date Code Code System Note Provider Name and Address Organization Details Recorded Time 319557 acetamino phen / oxycodone medicatio n headache Not available Not available 04/18/2019 53692 3 RxNorm [facility] Noemi [facility] 9 13:35:06 Medications Name Sig Start Date Stop Date Status Note LastModified by Organization Details LastModified Time Medrol (Epifanio) 4 mg tablets in a dose pack use as directed 05/02 completed Not Available Not Available Not Available dapsone 25 mg tablet Take 1 tablet every day by oral route. 2023 active Not Available Not Available Not Avai lable atorvastati n active Not Available Not Available Not Available naproxen active Not Available Not Avai lable Not Available amlodipine active Not Available Not Av ailable Not Available dapsone 01/25 completed Not Available Not Available Not Available Altace active Not Available Not Availa ble Not Available Vitals Date Recorded Body height Body mass index (BMI) Body weight Systolic blood pressure Diastolic blood pressure Provider Name and Address Organization Details Last Updated DateTime 05/02/2019 190.5 cm 32.5 kg/m2 556215.0 2 g 140 mm[Hg] 82 mm[Hg] Camille [facility] 9 08:25:58 Date Recorded Body height Body mass index (BMI) Body weight Provider Name and Address Organization Details Last Updated DateTime 01/27/2024 190.5 cm 32.5 kg/m2 852432.02 g Jody Anthony [facility] 01/27/2024 11:13:21 Social History Question Answer Notes LastModified by Organizat ion Details LastModified Time Tobacco Smoking Status Former Smoker Camillesadi Franklin [facility] 04/18/2019 13:39:56 What Is Your Level Of Alcohol Consumption? Occasional Information not available 01/27/2024 What Was The Date Of Your Most Recent Tobacco Screening? 05/02/2019 [id number] Information not available 11/29/2019 Sex: Unknown Functional Status None recorded. Mental Status None recorded. Family History Nothing Reported. Medical History Condition Response Allergies/Hayfever N Anxiety/Depression N Thyroid Disease N Squamous Cell Carcinoma N Heart Conditions Y Migraines N COPD N Pneumonia Y Anesthesia Complications N Diabetes N Rheumatic Fever N Seizures/Epilepsy N Arthritis N Tuberculosis N Cancer N Stroke N Melanoma N Asthma N Blood Thinners N Basal Cell Carcinoma N Sleep Apnea N High Cholesterol N Skin Cancer N Liver Disease N Hypertension N Osteoporosis N Kidney Disease N Past Encounters Encounter ID Performer Location Encounter Start Date Encounter Closed Date Diagnosis/Indication Diagnosis SNOMED-CT Code Diagnosis ICD10 Code Diagnosis Note [id number] Aren Rodrigezcandice [facility] [address] [place] [address] 04/18/2019 13:07:02 04/18/2019 16:36:14 Long thoracic nerve injury 403503236 S24.3XXA [id number] Kelly (Era) [place] [facility] [address] [place] [address] 04/22/2019 09:20:51 04/22/2019 11:07:58 Long thoracic nerve injury 946645478 S24.3XXA Pain of ri ght shoulder joint 0289223420 9825541 M25.759 [id number] W ALISSON LEE MD [facility] [address] [place] [address] 05/02/2019 08:20:47 05/02/2019 08:58:03 Long thoracic nerve injury 416087503 S24.3XXA [id number] AMINTA BRAVO MD [place] [address] [place] [address] 01/27/2024 10:34:00 01/29/2024 14:00:07 Dermatitis herpetiformis 448975339 L13.0 Z79.899 Nature of the dx was explainedD oing well Colonoscop y was clear per patient and celiac labs were negative Dapsone is a systemic medication that is used for a variety of dermatolog ic conditions . Will need CBC with diff and CMP monitoring at various intervals during treatment. Initially, will need CBC weekly x 4 weeks, then every other week for 8 weeks, then a CBC and CMP every 3-4 months thereafter . Pt denies SOB, infections , neuropathy , bleeding, rash, fatigue, headaches. Call if developing any of these symptoms. Take Vitamin E 800 IU daily. Cimetidine 400 mg TID can help with side effects as well, but often has medication interactio ns. Will send in Dapsone 25 mg qd 5R pending labs PT will call in 1 week if not hearing regarding labs Melanocyti c nevus of face [id number] D22.39 Benign appearing nevi noted on exam. Reassured. Monitor for changes and call us for appt if changing or worrisome. Recommende d daily SPF 30 (or higher) broad-spec trum sunscreen usage with re-applica tion every 2 hours, as well as sun protection measures, including wide-brimm ed hats, wearing of protective clothing, and avoidance of sun during peak hours of the day 10 am - 4 pm. Avoid tanning beds as these can increase chances of all 3 main types of skin cancers. Seborrheic keratosis 394 241528 L82.1 Seborrheic keratosis are benign but may be cosmetical ly bothersome . Cosmetic removal with liquid nitrogen is an option. This may leave discolorat ion, or the SK may persist or recur at the treatment site. Solar lentigo 09199337 L 81.4 - Benign brown spots - Sun-induce d Actinic keratosis 001251 007 L57.0 Actinic keratoses are precancero us lesions that may progress to squamous cell carcinoma if untreated. UV light and genetics may increase risk. Treated lesions should blister, scab over, and heal within a few weeks. If treated lesion(s) does not resolve within 1-2 months, patient agrees to follow up for re-evaluat ion. [id number] AMINTA BRAVO MD [address] [address] 07/27/2024 09:59:56 07/27/2024 11:42:17 Dermatitis herpetiformis 889970621 L13.0 Z79.899 Nature of the dx was explainedD oing well Colonoscop y was clear per patient and celiac labs were negative Cont gluten free diet Dapsone is a systemic medication that is used for a variety of dermatolog ic conditions . Will need CBC with diff and CMP monitoring at various intervals during treatment. Initially, will need CBC weekly x 4 weeks, then every other week for 8 weeks, then a CBC and CMP every 3-4 months thereafter . Pt denies SOB, infections , neuropathy , bleeding, rash, fatigue, headaches. Call if developing any of these symptoms. Take Vitamin E 800 IU daily. Cimetidine 400 mg TID can help with side effects as well, but often has medication interactio ns. Will send in Dapsone 25 mg qd 5R pending labs PT will call in 1 week if not hearing regarding labs [id number] AMINTA BRAVO MD [address] [address] 01/25/2025 08:13:06 01/25/2025 09:00:38 Dermatitis herpetiformis 935952239 L13.0 Z79.899 Nature of the dx was explainedD oing well. Pt reports flares when not on medication s Colonoscop y was clear per patient and celiac labs were negative Discussed gluten free diet. Dapsoneis a systemic medication that is used for a variety of dermatolog ic conditions . Will need CBC with diff and CMP monitoring at various intervals during treatment. Initially, will need CBC weekly x 4 weeks, then every other week for 8 weeks, then a CBC and CMP every 3-4 months thereafter .Pt denies SOB, infections , neuropathy , bleeding, rash, fatigue, headaches. Call if developing any of these symptoms. Pt does have trouble walking but has lower back/knee issues Take Vitamin E 800 IU daily. Cimetidine 400 mg TID can help with side effects as well, but often has medication interactio ns. Will send in Dapsone 25 mg qd 5R pending labs PT will call in 1 week if not hearing regarding labs Health Concerns Section Related Observation LastModified by Organization Detai ls LastModified Time None Recorded Concern Status LastModified by Organization Details LastModified Time None Recorded Advance Directives Directive None Recorded Payers Encounter Date Sequence Insurance Name Policy Number Policy Clarke Covered Member ID Clarke Member ID Guarantor Name 04/22/2019 1 [facility] [id number] Nadia Cobian [id number] Floyd Cobian 05/02/2019 1 [id number] Nadia Cobian [id number] Floyd Cobian 01/27/2024 1 [facility] [id number] Nadia Cobian [id number] Floyd Cobian 07/27/2024 1 UMR [id number] Nadia Cobian [id number] Floyd Cobian 01/25/2025 1 UMR [id number] Nadia Cobian [id number] Floyd Cobian Notes Date Note Type Note Provider Name and Address Organization Details Recorded Time 05/02/2019 text/html Since last being seen, he feels like there has been some improvement. He has a little bit of soreness, but no severe pain. He is having a little bit of a neuro dermatitis type rash down his arm. He says this is bothering him some, but does not bother him all the time. He has ability to go overhead, but he does not have much strength in the overhead positioning. Talat LEE MD [address] [place] [address], [phone], [facility] 05/02/2019 12:35:03 01/27/2024 text/html Patient is here for a refill of Dapsone 25mg. Dapsone still keeps pt clear, happy with results AMINTA BRAVO MD [address] [place] [address], [phone], [facility] 01/27/2024 12:35:30 07/27/2024 text/html Patient is here for dermatitis herpetiformis f/u Location: face and armsDuration: 6 mo f/uTreatments: dapsone 25 mgReports: no flare ups, dapsone working well AMINTA BRAVO MD [address] [place] [address], [phone], [facility] 07/27/2024 12:29:26 01/25/2025 text/html Patient is here for dermatitis herpetiformis f/u Location: face and armsDuration: 6 mo f/uTreatments: dapsone 25 mgReports: working well, no flare ups AMINTA BRAVO MD [address] [place] [address], [phone], [facility] 01/25/2025 12:32:41
--- OUTSIDE RECORDS SUMMARY | 2025-01-26 07:30 | XMS_ITS ---
Author Name [facility] [place] [facility] [place] [facility] [place] Address [address] [place] [address] Care Team Providers Care Law Enforcement Instructor Name Role Phone YONASCHARLOTTE Primary Care Provider Unavailab le Insurance Providers: [...] Name Patient's Relationship to Policy Clarke NAVNEET ([id number]) PRESCRIPT ION [id number] 1 Oct 12, 2018 [id number] [phone] LOLITASUJEY CARNEY PATIENT [facility] Oct 12, 2018 [id number] ALBERT MCHUGH SPOUSE [facility] Oct 12, 2018 [id number] [phone] ALBERT MCHUGH SPOUSE Selected Encounter This section includes the information on record at [place] for the Encounter. Date/Time Encounter Type Encounter Description Reason Pro vider Source Apr 01, 2024 11:46 AM Outpatient Encounter ADMIN PAT ACTIVTIES (MASNONCT) IHE Encounter Template Text not used by [place] Plan of Treatment: Future Appointments (+ 6 months) and Future Tests (+/- 45 days) The Plan of Treatment section includes future care activities for the patient from all [place] [facility]. This section includes future appointments and future orders which are active, pending or scheduled. Future Appointments This section includes appointments that were scheduled to occur 6 months from the date of the Encounter, up to a maximum of 20 appointments. The data comes from all [place] treatment facilities. Appointment Date/Time Appointment Type Appointme nt Facility Name Apr 22, 2024 09:00 AM AMBULATORY - SURGERY [facility] Aug 23, 2024 09:30 AM AMBULATORY - SURGERY [facility] Encounter Notes: All associated encounter notes This section contains the clinical notes associated to the Encounter. Date/Time Encounter Note(s) Provider Source Apr 01, 2024 11:46 AM TELEPHONE ENCOUNTE R NOTE: LOCAL TITLE: TELEPHONE CARE NOTE STANDARD TITLE: TELEPHONE ENCOUNTER NOTE DATE OF NOTE: APR 01, 2024@11:46 ENTRY DATE: APR 01, 2024@11:46:48 AUTHOR: EVER SUBRAMANIAN EXP COSIGNER: URGENCY: STATUS: COMPLETED Patient calling to schedule/reschedule specialty appointment - Transferred to Centralized Scheduling. Clinic: becca /kristopher/ EVER SUBRAMANIAN Clinical Call Center [facility] Signed: 04/01/2024 11:47 EVER SUBRAMANIAN-[facility]
--- OUTSIDE RECORDS SUMMARY | 2025-01-26 07:30 | XMS_ITS | Encounter Summary ---
Author Name [facility] [place] [facility] [place] Address [address] [place] [id number] Care Team Providers Care Applications Processor Name Role Phone CHARLOTTE BRANHAM Primary Care [...] Name Patient's Relationship to Policy Clarke NAVNEET ([id number]) PRESCRIPT ION [id number] 1 Oct 12, 2018 [id number] SUJEY MCHUGH PATIENT [facility] Oct 12, 2018 [id number] [phone] ALBERT MCHUGH SPOUSE [facility] Oct 12, 2018 [id number] ALBERT MCHUGH SPOUSE Selected Encounter This section includes the information on record at CT for the Encounter. Date/Time Encounter Type Encounter Description Reason Provider Source Dec 07, 2024 03:39 PM PH1 ASSMT&MGMT NQHP 5-10 TELEPHONE PRIMARY CARE ICD-10-CM M54.50 Low back pain, unspecified PAOLO BURGERN Eber Martin Encounter Template Text not used by CT Assessments - Encounter Diagnoses This section includes the primary and secondary diagnoses documented for the Encounter. Date/Time Primary/Secondary Diagnosis Diagnosis Name Provider Source Dec 07, 2024 03:39 PM PRIMARY Low back pain, unspecified EFREMCOSME Velázquez [facility] Plan of Treatment: Future Appointments (+ 6 months) and Future Tests (+/- 45 days) The Plan of Treatment section includes future care activities for the patient [facility] This section includes future appointments and future orders which are active, pending or scheduled. Future Appointments This section includes appointments that were scheduled to occur 6 months from the date of the Encounter, up to a maximum of 20 appointments. The data comes from all [place] treatment facilities. Appointment Date/Time Appointment Type Appointme nt Facility Name Dec 20, 2024 09:30 AM AMBULATORY - SURGERY [facility] Social History: Smoking Status (Most current) and Tobacco Use (All prior to encounter date) This section includes the most current, and the historical, smoking and tobacco- related health factors from the CT facility where the Encounter took place. Current Smoking Status This section includes the most current smoking, or tobacco-related health factor, from the [place] facility where the Encounter took place. Date/Time Current Smoking Status Comment Carmelita farias Oct 19, 2024 09:30 AM VA-TOBACCO USE FOR [employer] CIGARETTES [facility] Tobacco Use History This section includes a history of the smoking, or tobacco-related health factors, that were collected on or before the date of the Encounter. The data comes from the [place] facility where the Encounter took place. 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 The data comes from all CT treatment facilities. Date/Time Radiology Report Provider Source Nov 15, 2024 12:44 PM FLUORO UP TO 1 MICHAEL R (ANGIO): CUONG MCHUGH [id number] -[id number] M Exm Date: NOV 15, 2024@12:44 Req Phys: FADYROMAN Pat Loc: [facility] ORTHO/FOLLOW-UP CD (Req'g Img Loc: ANGIO/NEURO/INTERVENTIONAL Service: [place] [address] (Case [id number] COMPLETE) FLUORO UP TO 1 HOUR (ANGIO) (ANI Detailed) CPT:72752 Proc Modifiers : RIGHT Reason for Study: Right knee pain Clinical History: Report Status: Verified Date Reported: Date Verified: NOV 16, 2024 Quality Assurance Test Program Manager E-Sig: Report: See Impression. Impression: This procedure was performed by Ortho Service and was NOT reported or reviewed by CT Radiology Staff. Please see Ortho CPRS Notes or consult response for final reporting or exam information. Primary Diagnostic Code: Primary Interpreting Staff: PHYS OTHER THAN CT RADIOL, Staff Physician Verified by 3d specialist for PHYS OTHER THAN CT RADIOL /[facility] RADIOLOGIST,PHYS OTHER THAN [facility] Encounter Notes: All associated encounter notes This section contains the clinical notes associated to the Encounter. Date/Time Encounter Note(s) Provider Source Dec 07, 2024 03:39 PM PRIMARY CARE TELEP ALDO ENCOUNTER NOTE: LOCAL TITLE: Pc Telephone Care Note STANDARD TITLE: PRIMARY CARE TELEPHONE ENCOUNTER NOTE DATE OF NOTE: DEC 07, 2024@15:39 ENTRY DATE: DEC 07, 2024@15:39:21 AUTHOR: COSME BURGER EXP COSIGNER: URGENCY: STATUS: COMPLETED Contacted and verified patient (name,ssn) regarding 12/07/24 Scheduling Admin Pt called requesting call back regarding approved visits for Chiropractor, stated only 8 visits are approved when approved him for 12. Reviewed with patient that [facility] chiropractor will need to fill out RFS for additional services. They need to submit medical justification as to why they are asking for additional visit. Patient also state they are suggesting massage therapy. Explained to patient that they can submit the RFS for that as well. patient verbalized understanding. States he will call the chiropractor office. /kristopher/ Cosme Burger RN utility arborist Signed: 12/07/2024 15:45 COSME BURGER [facility]
--- OUTSIDE RECORDS SUMMARY | 2025-01-26 07:30 | XMS_ITS | Encounter Summary ---
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 Date/Time Encounter Type Encounter Description Reason Provider Source Oct 19, 2024 09:30 AM OFFICE O/P EST MOD 30 MIN PRIMARY CARE/MEDICINE ICD-10-CM M54.50 Low back pain, unspecified NGUYENDON,TAMM Y H IHE Encounter Template Text not used by [place] Assessments - Encounter Diagnoses This section includes the primary and secondary diagnoses documented for the Encounter. Date/Time Primary/Secondary Diagnosis Diagnosis Name Provider Source Oct 19, 2024 01:54 PM PRIMARY Low back pain, unspecified NGUYENDON,TAMM Y H [facility] Oct 19, 2024 01:54 PM SECONDARY Chronic pain syndrome NGUYENDON,TAMM Y H [facility] Oct 19, 2024 01:54 PM SECONDARY Essential (primary) hypertension NGUYENDON,MELODYM Y H [facility] Oct 19, 2024 01:54 PM SECONDARY Gastro-esophageal reflux disease without esophagitis NGUYENDON,TAMM Y H [facility] Oct 19, 2024 01:54 PM SECONDARY Hyperlipidemia, unspecified NGUYENDON,TAMM Y H [facility] Oct 19, 2024 01:54 PM SECONDARY Obesity, unspecified NGUYENDON,TAMM Y H [facility] Oct 19, 2024 01:54 PM SECONDARY Pain in right knee NGUYENDON,TAMM Y H [facility] Oct 19, 2024 01:54 PM SECONDARY Tinnitus, bilateral NGUYENDON,TAMM Y H [facility] Plan of Treatment: Future Appointments (+ 6 months) and Future Tests (+/- 45 days) The Plan of Treatment section includes future care activities for the patient from all [place] [facility]. This section includes future appointments and future orders which are active, pending or scheduled. Future Appointments This section includes appointments that were scheduled to occur 6 months from the date of the Encounter, up to a maximum of 20 appointments. The data comes from all [place] treatment facilities. Appointment Date/Time Appointment Type Appointme nt Facility Name Oct 24, 2024 09:00 AM AMBULATORY - NONE [place] [facility] Oct 25, 2024 01:40 PM AMBULATORY - SURGERY [place] [facility] Nov 15, 2024 01:00 PM AMBULATORY - NONE [place] Dec 20, 2024 09:30 AM AMBULATORY - SURGERY [place]I HERNÁNDEZ [facility] Lab Results: +/- 30 days of the encounter This section includes the Chemistry and Hematology Lab Results on record with [place] for the patient. Radiology Reports and Pathology Reports are provided separately, in subsequent sections. Lab Results This section contains the Chemistry/Hematology Results that were resulted 30 days before or 30 daysafter the date of the Encounter. Date/Time Source Result Type Result - Unit Interpretation Reference Range Specimen Type Comment Oct 19, 2024 10:08 AM [facility] GLYCOHEMOGLOBIN BLOOD Specimen Type: BLOOD Comment: [facility] guidelines for A1c interpretation: Glycemic control targets are based on Shared Decision Making between clinicians and patients. Criteria used to establish an A1c target recommendation can be found at https://www.id. ov/qualityandpat ientsafety/ and include the use of [...] and 9.27. Ref: https://ngsp.org /CAPdata.asp. The in-house Dang Le-Fantex D-100 analyzer has a historical CV <= 2%. Contact the laboratory for further performance characteristics of this assay. Ordering Provider: CHARLOTTE BRANHAM Report Released Date/Time: Oct 19, 2024 09:50 AM Reporting Lab: [address] [address] Performing Lab: [address] [address] GLYCOHEMOGLOBIN 4.4 4.4-6.4 Oct 19, 2024 10:08 AM [facility] LIPID PROFILE PLASMA Specimen Type: PLASM [...] Oct 19, 2024 09:50 AM Reporting Lab: [address] [address] Performing Lab: [address] [address] CHOLESTEROL 234 mg/dL H 0-199 TRIGLYCERIDE 135 mg/dL 0-149 HDL CHOLESTEROL 48 mg/dL 40-69 DIRECT LDL CHOL. 189 mg/dL H 0-100 Oct 19, 2024 10:08 AM [facility] 25-OH VITAMIN D SERUM Specime n [...] Oct 19, 2024 09:50 AM Reporting Lab: [address] [address] Performing Lab: [address] [address] 25-OH VITAMIN D 19.9 ng/mL L 20.0-50.0 Oct 19, 2024 10:08 AM [facility] B12 VITAMIN PLASMA Specimen Type: PLASM A [...] Oct 19, 2024 09:50 AM Reporting Lab: [address] [address] Performing Lab: [address] [address] B12 VITAMIN 264 pg/mL 213-816 Oct 19, 2024 10:08 AM [facility] PLASMA Specimen Type: PLASM A Comment: [...] Oct 19, 2024 09:50 AM Reporting Lab: [address] [address] Performing Lab: [address] [address] TSH 2.0362 m[IU]/mL 0.3500-4.9400 Oct 19, 2024 10:08 AM [facility] PANEL 5 PLASMA Specimen Type: PLASM A [...] Oct 19, 2024 09:50 AM Reporting Lab: [address] [address] Performing Lab: [address] [address] CREATININE 1.19 mg/dL 0.72-1.25 UREA NITROGEN 9 [...] (CKD-EPI) 69 Oct 19, 2024 10:08 AM [facility] CBC/PLT BLOOD Specimen Type: BLOOD No comment entered. Ordering Provider: CHARLOTTE BRANHAM Report Released Date/Time: Oct 19, 2024 09:50 AM Reporting Lab: [address] [address] Performing Lab: [address] [address] WBC 9.4 10*3/uL 5.0-10.0 RBC 4.78 10*6/uL 4.6-6.2 HGB 14.6 g/dL 14.0-18.0 HCT 45.0 42.0-52.0 MCV 94.1 fL H 80.0-94.0 MCH 30.5 pg 27.0-31.0 MCHC 32.4 g/dL 32.0-36.0 PLT 391 10*3/uL 150-450 MPV 9.9 fL 9.0-13.1 RDW 15.2 11.0-16.0 NRBC 0.0 0.0-0.0 Vital Signs: All taken on the encounter date This section contains inpatient and outpatient Vital Signs collected on the date of the Encounter. Date/Time Temperature Pulse Blood Pressure Respiratory Rate SP02 Pain Height Weight Body Mass Index Source Oct 19, 2024 09:11 AM 96.9 91 118/73 95 7 256 32 [place] [facility] Social History: Smoking Status (Most current) and Tobacco Use (All prior to encounter date) This section includes the most current, and the historical, smoking and tobacco- related health factors from the [place] facility where the Encounter took place. Current Smoking Status This section includes the most current smoking, or tobacco-related health factor, from the [place] facility where the Encounter took place. Date/Time Current Smoking Status Comment Carmelita farias Oct 19, 2024 09:30 AM VA-TOBACCO USE FOR NORMAN CIGARETTES [facility] Tobacco Use History This section includes a history of the smoking, or tobacco-related health factors, that were collected on or before the date of the Encounter. The data comes from the [place] facility where the Encounter took place. Date/Time Smoking Status/Tobacco Use Comment F lisa Oct 19, 2024 09:30 AM VA-TOBACCO USE FOR NORMAN CIGARETTES [facility] Dec 19, 2022 11:00 AM VA-TOBACCO FORMER USER [facility] Dec 19, 2022 11:00 AM VA-TOBACCO QUIT 15 YRS OR MORE [facility] Radiology Reports: +/- 30 days of the [...] the Encounter. The data comes from all [place] treatment facilities. Date/Time Radiology Report Provider Source Nov 15, 2024 12:44 PM FLUORO UP TO 1 MICHAEL R (ANGIO): CUONG MCHUGH [id number] -1965 M Exm Date: NOV 15, 2024@12:44 Req Phys: ROMAN SHRESTHA Loc: [facility] ORTHO/FOLLOW-UP CD (Req'g Img Loc: ANGIO/NEURO/INTERVENTIONAL Service: [place] [address] (Case [id number] COMPLETE) FLUORO UP TO 1 HOUR (ANGIO) (ANI Detailed) CPT:37990 Proc Modifiers : RIGHT Reason for Study: Right knee pain Clinical History: Report Status: Verified Date Reported: Date Verified: NOV 16, 2024 Tester Armature Or Fields E-Sig: Report: See Impression. Impression: This procedure was performed by Ortho Service and was NOT reported or reviewed by [place] Radiology Staff. Please see Ortho CPRS Notes or consult response for final reporting or exam information. Primary Diagnostic Code: Primary Interpreting Staff: PHYS OTHER THAN [place] RADI[facility], Staff Physician Verified by starcher and tenter range feeder for PHYS OTHER THAN [place] RADI[facility] /[facility] RADIOLOGIST,PHYS OTHER THAN [facility] Oct 25, 2024 01:45 PM KNEE-RIGHT 2 VIEWS : CUONG MCHUGH [id number] -1965 M Exm Date: OCT 25, 2024@13:45 Req Phys: KARINA HOOPER Loc: [facility]THO/FOLLOW-UP CD (Req'g Img Loc: CDD RADIOLOGY Service: [place] [address] (Case [id number] COMPLETE) KNEE-RIGHT 2 VIEWS (RAD Detailed) CPT:77812 Reason for Study: pain Clinical History: Report Status: Verified Date Reported: OCT 25, 2024 Date Verified: OCT 25, 2024 Tester Armature Or Fields E-Sig: Report: Right knee. Right knee shows [...] Code: NO ALERT REQUIRED Primary Interpreting Staff: CECILIO VALENTIN Verified by starcher and tenter range feeder for [facility] Oct 25, 2024 01:45 PM KNEE-LEFT 4 OR MOR E VIEWS: CUONG MCHUGH [id number] -1965 M Exm Date: OCT 25, 2024@13:45 Req Phys: KARINA HOOPER Loc: [facility] ORTHO/FOLLOW-UP CD (Req'g Img Loc: CDD RADIOLOGY Service: [place] [address] (Case [id number] COMPLETE) KNEE-LEFT 4 OR MORE VIEWS (RAD Detailed) CPT:04669 Reason for Study: pain Clinical History: Report Status: Verified Date Reported: OCT 25, 2024 Date Verified: OCT 25, 2024 Tester Armature Or Fields E-Sig: Report: Left knee. Marked joint space [...] Code: NO ALERT REQUIRED Primary Interpreting Staff: CECILIO VALENTIN Verified by starcher and tenter range feeder for [facility] GL[facility] Encounter Notes: All associated encounter notes This section contains the clinical notes associated to the Encounter. Date/Time Encounter Note(s) Provider Source Oct 24, 2024 02:10 PM PRIMARY CARE LETTERS: LOCAL TITLE: PC LETTER STANDARD TITLE: PRIMARY CARE LETTERS DATE OF NOTE: OCT 24, 2024@14:10 ENTRY DATE: OCT 24, 2024@14:10:25 AUTHOR: CHARLOTTE BRANHAM COSIGNER: URGENCY: STATUS: COMPLETED Mr. CUONG MCHUGH [address] [address] I WANT TO INFORM YOU OF THE FOLLOWING TEST RESULTS: Specimen: [facility] [id number] Specimen Collection Date: Oct 19, 2024@10:08 Test name Result units Ref. range Site Code 25-OH VITAMIN D 19.9 L ng/mL 20.0 - 50.0 [6033] Comment: The National Institutes of Health (NIH) recommendations state: <12 ng/mL - Deficient 20 - 50 ng/mL - Optimal Levels - adequate for most people. >50 ng/mL - Increased risk of hypercalciuria/other health problems - clinical correlation is required. These reference ranges represent clinical decision values rather than population-based reference values. Specimen Collection Date: Oct 19, 2024@10:08 Test name Result units Ref. range Site Code CHOLESTEROL 234 H mg/dL 0 - 199 [6033] Eval: The National Cholesterol Education Program (NCEP)-III Guidelines Eval: recommends obtaining a complete lipoprotein profile after a 9 to 12 hour Eval: fast. Following are the Adult Treatment Panel III (ATP III) risk Eval: categories: Eval: Eval: TOTAL CHOLESTEROL: Eval: <200 mg/dl Desirable Eval: 201 - 239 mg/dl Borderline High Eval: =>240 mg/dl High TRIGLYCERIDE 135 mg/dL 0 - 149 [6033] Eval: TRIGLYCERIDES: Eval: <150 mg/dl Normal Eval: 150 - 199 mg/dl Borderline High Eval: >= 200 mg/dl High HDL CHOLESTEROL 48 mg/dL 40 - 69 [6033] Eval: HDL CHOLESTEROL: Eval: <40 mg/dL Low Eval: =>60 mg/dL High DIRECT LDL CHOL. 189 H mg/dL 0 - 100 [6033] Eval: <100 Optimal or Desirable Eval: 100-159 Borderline High Eval: >160 High SODIUM 140 mmol/L 136 - 145 [6033] POTASSIUM 4.0 mmol/L 3.5 - 5.1 [6033] CHLORIDE 105 mmol/L 98 - 107 [6033] CO2 27 mmol/L 22 - 29 [6033] ANION GAP 8.0 mEq/L 3 - 19 [6033] GLUCOSE 93 mg/dL 74 - 100 [6033] UREA NITROGEN 9 mg/dL 9 - 25 [6033] CREATININE 1.19 mg/dL 0.72 - 1.25 [6033] eGFR (CKD-EPI) 69 SEE EVAL [6033] CALCIUM 9.8 mg/dL 8.4 - 10.2 [6033] TOTAL PROTEIN 7.6 g/dL 6.4 - 8.3 [6033] ALBUMIN 4.2 g/dL 3.5 - 5.2 [6033] TOTAL BILIRUBIN 1.1 mg/dL 0.2 - 1.2 [6033] AST 14 U/L 5 - 34 [6033] ALT 14 U/L 0 - 55 [6033] ALK PHOS 87 U/L 40 - 150 [6033] B12 VITAMIN 264 pg/mL 213 - 816 [6033] TSH 2.0362 mIU/mL 0.3500 - 4.9400 [6033] = Specimen: BLOOD. GLY [id number] Specimen Collection Date: Oct 19, 2024@10:08 Test name Result units Ref. range Site Code GLYCOHEMOGLOBIN 4.4 % 4.4 - 6.4 [6033] Comment: [facility] guidelines for A1c interpretation: Glycemic control targets are based on Shared Decision Making between clinicians and patients. Criteria used to establish an A1c target recommendation can be found at https://www.va.gov/qualitya ndpatientsafety/ and include the use of result accuracy and precision(CV) of the A1c tests clinicians utilize at their own sites of practice. Values obtained from A1C measurements can vary. For typical A1C assays, a reported value of 7.0 could actually be between 6.72 and 7.28 if measured by a reference method. A reported value of 9.0 could actually be between 8.73 and 9.27. Ref: https://ngsp.org/CAPdata.as p. The in-house Dang Le-Fantex D-100 analyzer has a historical CV <= 2%. Contact the laboratory for further performance characteristics of this assay. Specimen: BLOOD. PARAMJIT [id number] Specimen Collection Date: Oct 19, 2024@10:08 Test name Result units Ref. range Site Code WBC 9.4 K/cmm 5.0 - 10.0 [6033] RBC 4.78 M/cmm 4.6 - 6.2 [6033] HGB 14.6 g/dL 14.0 - 18.0 [6033] HCT 45.0 % 42.0 - 52.0 [6033] MCV 94.1 H fL 80.0 - 94.0 [6033] MCH 30.5 pg 27.0 - 31.0 [6033] MCHC 32.4 g/dL 32.0 - 36.0 [6033] RDW 15.2 % 11.0 - 16.0 [6033] PLT 391 K/cmm 150 - 450 [6033] MPV 9.9 fL 9.0 - 13.1 [6033] NRBC 0.0 % 0.0 - 0.0 [6033] Labs okay except for cholesterol panel is not at goal/I would recommend increasing Crestor to 40 mg a day-please let your private primary care physician be aware of the labs -Vitamin D levels are also low/please make sure you are taking D3 supplementation 2000 units a day Please call us if you have questions or problems. Sincerely, /kristopher/ CHARLOTTE BRANHAM STAFF PHYSICIAN/PRIMARY CARE Patient Record Number [id number] CHARLOTTE BRANHAM [facility] Oct 24, 2024 02:09 PM MEDICATION MGT NOTE: LOCAL TITLE: OUTPATIENT ESSENTIAL MEDICATION LIST FOR REVIEW (EM STANDARD TITLE: MEDICATION MGT NOTE DATE OF NOTE: OCT 24, 2024@14:09 ENTRY DATE: OCT 24, 2024@14:09:50 AUTHOR: CHARLOTTE BRANHAM EXP COSIGNER: URGENCY: STATUS: COMPLETED Review of medications include: Patient allergies (Remote and Local) and active and pending prescriptions dispensed from this [place] (local) and dispensed from another [place] or [facility] facility (remote and pending) as well as local inpatient orders (pending and active) and clinic medications (IMOs), locally documented non-VA medications and local prescriptions that have or been discontinued in the past 90 days. With the exception of Allergies, if a category is not listed below, it means there were no relevant medications for the patient. ALLERGIES: PERCOCET No Remote Allergy/ADR Data available for this patient ACTIVE OUTPATIENT MEDICATIONS LOCAL/REMOTE CARBAMIDE PEROXIDE 6.5% OTIC/+EAR BULB Directions: INSTILL 2 DROPS IN BOTH EARS TWICE A DAY FOR EAR WAX REMOVAL -ALLOW DROPS TO REMAIN IN EAR FOR AT LEAST 15 MINUTES. FLUSH EAR WITH WARM WATER USING BULB EAR SYRINGE. Quantity: 15 for 30 days Issued: 10/19/24 Filled: 10/19/24 Expires: 11/18/24 Refills: 0 Status: ACTIVE NAPROXEN 500MG TAB Directions: TAKE ONE TABLET BY MOUTH TWICE A DAY FOR PAIN/INFLAMMATION -TAKE WITH FOOD OR MILK Quantity: 60 for 30 days Issued: 10/19/24 Filled: 10/19/24 Expires: 10/20/25 Refills: 5 Status: ACTIVE No remote medications found. PENDING OUTPATIENT MEDICATIONS (LOCAL/REMOTE): No local medications found. No remote medications found. ACTIVE NONVA MEDICATIONS (LOCAL): AMLODIPINE BESYLATE 10MG TAB Directions: 10MG MOUTH DAILY Status: ACTIVE DAPSONE 25MG TAB Directions: 25MG MOUTH DAILY Status: ACTIVE RAMIPRIL 10MG CAP Directions: 20MG MOUTH Status: ACTIVE ROSUVASTATIN CA TAB 20MG Directions: 20MG MOUTH AT BEDTIME Status: ACTIVE OUTPATIENT MEDICATIONS (LOCAL)WITHIN 90 DAYS: No local medications found. DISCONTINUED OUTPATIENT MEDICATIONS (LOCAL) WITHIN 90 DAYS: No local medications found. CLINIC MEDICATIONS (LOCAL): No local medications found. /kristopher/ CHARLOTTE BRANHAM STAFF PHYSICIAN/PRIMARY CARE Signed: 10/24/2024 14:09 CHARLOTTE BRANHAM [facility] Oct 19, 2024 09:37 AM INTERNAL MEDICINE ATTENDING NOTE: LOCAL TITLE: MEDICINE ATTENDING PHYSICIAN NOTE STANDARD TITLE: INTERNAL MEDICINE ATTENDING NOTE DATE OF NOTE: OCT 19, 2024@09:37 ENTRY DATE: OCT 19, 2024@09:37:28 AUTHOR: CHARLOTTE BRANHAM EXP COSIGNER: URGENCY: STATUS: COMPLETED MEDICINE ATTENDING PHYSICIAN NOTE Has ADDENDA age:59WHITE sex:MALE cc: Low back pain unspecified pmh: Active problems - Computerized Problem List is the source for the followin. Exposure to potentially hazardous substance ([facility] [id number]) 2. Low back pain 3. Right knee pain 4. Obesity 5. Hyperlipidemia 6. Essential hypertension 7. Non-celiac gluten sensitivity 8. Tinnitus 9. Chronic pain syndrome 10. Gastroesophageal reflux disease 11. Exposure to potentially hazardous substance ECHO - NONE FOUND Past surgical history: -Status post left shoulder arthroscopic surgery -Status post right ankle reconstruction -Status post left knee arthroscopy x2-meniscal disease/ cleaning cartilage in 1997 and in 1999 -Status post right knee arthroscopy x1 for same reason allergies:PERCOCET ros: constitutional: neg eyes: neg ent/mouth: neg pulm: neg cv: neg gi: neg gu: neg ms: Chronic low back pain level 7/10 -Would like to restart career developer -No bowel bladder incontinence No recent injury -Understands he needs to lose weight -Would like to have massage therapy-this can be obtained through career developer -For some reason he only had 6 visits in the [facility] -He should have 12 -Chronic intermittent sciatic pain down both sides of his legs -Declining muscle relaxants-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 -Naproxen is working well for him skin/breast: neg neuro: neg psych: neg endocrine: neg hem/lymph: neg SERVICE sh: No smoking/no alcohol/no illicit drugs -+ [employer]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 -/3 children fh: Mother at 73 years old-secondary to liver cirrhosis/no known alcoholism Father- at 49 years old/liver cirrhosis/positive alcoholism CONNECTED % - 80 DS - Disabilities Eligibility: SERVICE CONNECTED 50% to 100% VERIFIED Total S/C %: 80 PARALYSIS OF SCIATIC NERVE 10% S/C 2ND DEGREE LINDO 0% S/C 2ND DEGREE LINDO 0% S/C LIMITED FLEXION OF KNEE 30% S/C TINNITUS 10% S/C LUMBOSACRAL OR CERVICAL STRAIN 40% S/C PARALYSIS OF ANTERIOR CRURAL NERVE 10% S/C LIMITED FLEXION OF KNEE 30% S/C Active Outpatient Medications (including Supplies): Active Non-VA Medications Status 1) Non-VA ACETAMINOPHEN 325MG TAB 650MG MOUTH EVERY 6 HOURS ACTIVE NEEDED Indication: FOR PAIN 2) Non-VA AMLODIPINE BESYLATE 10MG TAB 10MG MOUTH DAILY ACTIVE Indication: FOR BLOOD PRESSURE/HEART 3) Non-VA DAPSONE 25MG TAB 25MG MOUTH DAILY ACTIVE Indication: FOR INFECTION 4) Non-VA NAPROXEN NA 220MG TAB 220MG MOUTH TWICE A DAY ACTIVE Indication: FOR PAIN/INFLAMMATION 5) Non-VA OMEPRAZOLE 20MG EC CAP 20MG MOUTH ONCE A DAY 30 ACTIVE MINUTES BEFORE A MEAL Indication: FOR STOMACH 6) Non-VA RAMIPRIL 10MG CAP 20MG MOUTH ACTIVE Indication: FOR BLOOD PRESSURE/HEART 7) Non-VA ROSUVASTATIN CA TAB 20MG 20MG MOUTH AT BEDTIME ACTIVE Indication: FOR CHOLESTEROL hpi: #1. ms: Chronic low back pain level 7/10 -Would like to restart career developer -No bowel bladder incontinence -No recent injury -Understands he needs to lose weight -Would like to have massage therapy-this can be obtained through career developer (Case [id number] COMPLETE)SPINE LUMBOSACRAL MIN 2 VIEWS (RAD Detailed) CPT:50811 Reason for Study: eval for chronic lbp Clinical History: eval for djd Report Status: Verified Date Reported: NOV 05, 2023 Date Verified: NOV 05, 2023 Tester Armature Or Fields E-Sig: Report: Exam: 3 radiographic views of the lumbosacral spine. Date: November 05, 2023 History:Pain Comparison:No similar exam for comparison Findings: No acute fracture. Multilevel facet arthrosis and multilevel degenerative disc disease worse at L5-S1. Grade 1 retrolisthesis of L5. Chronic mild compression at T12. Impression: No acute fracture. Multilevel facet arthrosis and multilevel degenerative disc disease worse at L5-S1. Grade 1 retrolisthesis of L5. Chronic mild compression at T12. 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 Essential hypertension-stable on ramipril and amlodipine per private PC/no need for further intervention -Blood pressures at goal -No shortness of breath or chest pain 3. Tinnitus-he would like full ear examination/audiology-to be scheduled exam: vss afeb pleasant MALE in nad/obese 118/73 (10/19/2024 09:11)91 (10/19/2024 09:11)16 (11/05/2023 10:33)96.9 F [36.1 C] (10/19/2024 09:11) 95% (10/19/2024 09:11) VITAL SIGNS SELECTED Measurement DT WEIGHT LB(KG)[BMI] 10/19/2024 09:11 256(116.12)[32*] 11/05/2023 10:33 265(120.20)[33*] 09/25/2023 08:51 263.0(119.29)[33*] 12/19/2022 11:00 274.2(124.38)[35*] NERUO- A&O x4; CN II-XII intact grossly PSYCH- appropriate mood and affect/oriented to time and place and person skin-no rash or lesions eyes: nl conjunctivae and lids/perrl ent: no preauricle or tragal tenderness -Right TM-occluded with hard cerumen -Left TM with minimal cerumen/visualization of the TM is clear/no erythema neck supple w/o la/no thyromegaly pulm ctab/no wheezing/no rales or crackles cv-rrr w/o m,r,g/no carotid bruits abd-soft nt/no rebound tenderness/good bs/no hsm/no masses or hernia ext-no cce/all 4 extremities w/o edema bilaterally jose manuel: MS: gait and station is abnormal, no erythema or swelling, no instability, nl strength and tone of surrounding muscles -Back-decreased range of motion with flexion/extension/lateral rotation/positive lumbosacral tenderness Straight leg test bilaterally is 30 degrees No data available PANEL 1 - NONE FOUND PANEL 2 - NONE FOUND No data available aic: Z GLYCOHEMOGLOBIN (HPLC) - NONE FOUND tsh: ____ psa: ____ No data available for: 25-OH VITAMIN D NONE FOUND a/p #1. Low back pain unspecified-stable/requeste d to restart hypoactive care/consult entered -Can receive massage therapy also as a consult from the chiropractor -Declined muscle relaxants -Continue naproxen -Needs weight loss 2. Obesity unspecified-stable/needs aggressive dietary changes and exercise 3. Right knee pain-stable/continue CSI per orthopedics-review recommendations August 23, 2024 4. Chronic pain syndrome-stable/review #1, #3 -Continue Tylenol as needed bcub-fkb-xbitwez 5. Hyperlipidemia unspecified-stable/continue statin per private PC/order fast lipid profile and LFTs 6. Essential hypertension-stable/continu e amlodipine/ramipril per private PC/order panel 1 -Blood pressures at goal 7. Gastroesophageal reflux disease without esophagitis-stable/continue PPI as needed 8. Tinnitus bilaterally-stable/audiolog y to be scheduled/Debrox ordered to clean his cerumen 9.preventive health care-immunizations are up to date I spent 39 minutes with the patient -Colonoscopy at 57 years old-reported normal at [facility]/repeat in 2032: normal-will obtain records - The Outpatient Essential Medication List for review (EMLR) was reviewed with the patient/caregiver and the patient was provided an updated reconciled medication list- - Discrepancies were corrected or sent to the ordering provider to correct Review of medications include: Patient allergies (Remote and Local) and active and pending prescriptions dispensed from this [place] (local) and dispensed from another [place] or [place] facility (remote and pending) as well as local inpatient orders (pending and active) and clinic medications (IMOs), locally documented non-VA medications and local prescriptions that have or been discontinued in the past 90 days. With the exception of Allergies, if a category is not listed below, it means there were no relevant medications for the patient. - ( ) [place]/caregiver refused a copy of EMLR ( ) /caregiver refused a copy of EMLR and stated they will maintain their own list ( ) [place]/caregiver was handed a copy of EMLR at todays visit ( X ) [place]/caregiver requests copy of EMLR to be mailed to them at their address (verify address on file) ( ) [place]/caregiver requests copy of EMLR to be sent to them via Secure Messaging (must have [employer] account) Patient declined need for HIV testing/or STD testing/no risk factors per patient ( ) Patient has naloxone kit, ( x ) naloxone kit not indicated The /caregiver verbalized understanding of the topics covered/discussed in today's visit. /caregiver were given the opportunity to ask questions to the MD. RTC: October 09, 2025/follow-up labs /kristopher/ CHARLOTTE BRANHAM STAFF PHYSICIAN/PRIMARY CARE Signed: 10/19/2024 13:54 10/28/2024 ADDENDUM STATUS: COMPLETED - Received outside records dated 02/26/2023 from [facility] Chief complaint: Eval for celiac disease Procedure: 02/26/2023 Diagnostic EGD Gastroscope was gently passed through the incisural orifice into the oral cavity and under direct visualization the esophagus was intubated. The endoscopt was passed down the esophagus, through the stomach, and into duodenum. Color texture mucosa and anatomy of the esophagus, stomach and duodenum were carefully examined with the scope. Normal Visualized normal EGD Follow-up with PCP Pathology report: Small bowel biopsy: Duodenal mucosa with no significant histologic abnormality No evidence of dysplasia or carcinoma or villous atrophy Procedure January 15, 2023/colonoscopy Indication: Screening Findings: Normal without polyps Recommendation repeat in 10 years Colonoscopy GAP Reminder: Recommendations are needed in the clinical reminder system following the patient's most recent colorectal cancer screening/surveillance test (Colonoscopy, Sigmoidoscopy or CT Colonography) Colonoscopy reminder set 8 years from OCT 28, 2024. /kristopher/ CHARLOTTE BRANHAM STAFF PHYSICIAN/PRIMARY CARE Signed: 10/28/2024 16:06 MELODY BRANHAMMARY ANN [facility] Oct 19, 2024 09:12 AM PRIMARY CARE NURSING NOTE: LOCAL TITLE: Pc Health Tech/contract post office clerk Note STANDARD TITLE: PRIMARY CARE NURSING NOTE DATE OF NOTE: OCT 19, 2024@09:12 ENTRY DATE: OCT 19, 2024@09:12:40 AUTHOR: JOE LUNDBERGIGNER: URGENCY: STATUS: COMPLETED The patient was given a list of his current medications, instructed to review and discuss any changes or problems with their provider. Patient advised to carry a list of current medications and any allergies with them in the event of emergency situations. Yes - /Caregiver verbalized understanding of topics discussed and education provided Provider notified of elevated B/P >/= 140/90. Not Applicable Alcohol Use Screen (AUDIT-C): Alcohol Screen: SCREEN FOR ALCOHOL (AUDIT-C) An alcohol screening test (AUDIT-C) was negative (score=2). 1. How often did you have a drink containing alcohol in the past year? Consider a drink to be a 12 ounce can or bottle of regular beer, 8 ounces of malt liquor, a 5 ounce glass of table wine, or a 1.5 ounce shot of liquor (like scotch, gin, or vodka). Two to four times a month 2. How many drinks containing alcohol did you have on a typical day when you were drinking in the past year? One or two drinks 3. How often did you have six or more drinks on one occasion in the past year? Never COVID-19 Immunization: Refused Moderna Monovalent COVID-19 vaccine Immunization: COVID-19 (MODERNA), MRNA, LNP-S, PF, 50 MCG/0.5 ML (AGES 12+ YEARS) Refusal Reason: PATIENT DECISION Patient refuses all immunization(s) in the COVID-19 group Date Documented: 10/19/24 09:13 Depression Screening: Perform PHQ-2 A PHQ-2 screen was performed. The score was 0 which is a negative screen for depression. Over the past two weeks, how often have you been bothered by the following problems? 1. Little interest or pleasure in doing things Not at all 2. Feeling down, depressed, or hopeless Not at all Homelessness/Food Insecurity Screen: In the past 2 months, have you been living in stable housing that you own, rent, or stay in as part of a household? Yes - Living in stable housing. Are you worried or concerned that in the next 2 months you may NOT have stable housing that you own, rent, or stay in as part of a household? No - Not worried about housing near future The [place] reports the following: Within the past 12 months, you worried whether your food would run out before you got money to buy more. Never true Within the past 12 months, the food you bought just didn't last and you didn't have money to get more. Never true Influenza Immunization: Deferral / Refusal The patient declines to receive the recommended dose of seasonal influenza vaccine. Immunization: INFLUENZA, UNSPECIFIED FORMULATION Refusal Reason: PATIENT DECISION Patient refuses all immunization(s) in the FLU group Date Documented: 10/19/24 09:14 Sexual Orientation: The patient thinks of their sexual orientation as: Straight or Heterosexual Learning Readiness Assessment: Preferred language for discussing health care Irish CONCUR WITH PREVIOUSLY DOCUMENTED ASSESSMENT RESPONSE Herpes Zoster (Shingles) Vaccine: The patient declines to receive the recommended dose of zoster (shingles) vaccine. Immunization: ZOSTER RECOMBINANT Refusal Reason: PATIENT DECISION Patient refuses all immunization(s) in the ZOSTER group Date Documented: 10/19/24 09:15 PTSD Screening: PC-PTSD-5 A PTSD screening test (PC-PTSD-5) was negative (score=2). IN THE PAST MONTH, have you ever had any experience that was so frightening, horrible or traumatic. For example: A serious accident or fire a physical or sexual assault or abuse An earthquake or flood A war Seeing someone be killed or seriously injured Having a loved one through homicide or suicide 1. Have you ever experienced this kind of event? YES 2. Had nightmares about the event(s) or thought about the event(s) when you did not want to? NO 3. Tried hard not to think about the event(s) or went out of your way to avoid situations that reminded you of the event(s)? YES 4. Been constantly on guard, watchful, or easily startled? YES 5. Era numb or detached from people, activities, or your surroundings? NO 6. Era guilty or unable to stop blaming yourself or others for the event(s) or any problems the event(s) may have caused? NO Suicide Screen: C-SSRS Screening Hibbs Suicide Severity Rating Scale (C-SSRS) screener 1. Over the past month, have you wished you were or wished you could go to sleep and not wake up? No 2. Over the past month, have you had any actual thoughts of killing yourself? No 3. Over the past month, have you been thinking about how you might do this? Response not required due to responses to other questions. 4. Over the past month, have you had these thoughts and had some intention of acting on them? Response not required due to responses to other questions. 5. Over the past month, have you started to work out or worked out the details of how to kill yourself? Response not required due to responses to other questions. 6. If yes, at any time in the past month did you intend to carry out this plan? Response not required due to responses to other questions. 7. In your lifetime, have you ever done anything, started to do anything, or prepared to do anything to end your life (for example, collected pills, obtained a gun, gave away valuables, went to the roof but didn't jump)? No 8. If YES, was this within the past 3 months? Response not required due to responses to other questions. Tobacco Use Screening: The patient is a former cigarette smoker. The patient has never used other types of tobacco. /kristopher/ JOE LUNDBERG LPN L P N Signed: 10/19/2024 09:17 JOE LUNDBERG [facility]
--- OUTSIDE RECORDS SUMMARY | 2025-01-26 07:30 | XMS_ITS ---
Author Name [facility] [place] Address [address] [place] [address] Care Team Providers Care Weight Loss Consultant Name Role Phone AGUSTINACHARLOTTE CARRASQUILLO Primary Care [...] Name Patient's Relationship to Policy Clarke NAVNEET ([id number]) PRESCRIPT ION [id number] 1 Oct 12, 2018 [id number] [phone] LOLITASUJEY CARNEY PATIENT UMR POINT OF SERVICE [facility] Oct 12, 2018 [id number] ALBERT MCHUGH SPOUSE UMR POINT OF SERVICE [facility] Oct 12, 2018 [id number] [phone] ALBERT MCHUGH SPOUSE Selected Encounter This section includes the information on record at [place] for the Encounter. Date/Time Encounter Type Encounter Description Reason Pro vider Source Oct 19, 2024 10:04 AM Outpatient Encounter ADMIN PAT ACTIVTIES (MASNONCT) IHE Encounter Template Text not used by [place] Plan of Treatment: Future Appointments (+ 6 months) and Future Tests (+/- 45 days) The Plan of Treatment section includes future care activities for the patient from all [place] treatmentfauc medical center. This section includes future appointments and future [...] 24, 2024 09:00 AM AMBULATORY - NONE [facility] Oct 25, 2024 01:40 PM AMBULATORY - SURGERY [facility] Nov 15, 2024 01:00 PM AMBULATORY - NONE [facility] Dec 20, 2024 09:30 AM AMBULATORY - SURGERY [facility] Lab Results: +/- 30 days of the encounter This section includes the Chemistry and Hematology Lab Results on record with [place] for the patient. Radiology Reports and Pathology Reports are provided separately, in subsequent sections. Lab Results This section contains the Chemistry/Hematology Results that were resulted 30 days before or 30 daysafter the date of the Encounter. Date/Time Source Result Type Result - Unit Interpretation Reference Range Specimen Type Comment Oct 19, 2024 10:08 AM [facility] GLYCOHEMOGLOBIN BLOOD Specimen Type: BLOOD Comment: [place] guidelines for A1c interpretation: Glycemic control targets are based on Shared Decision Making between clinicians and patients. Criteria used to establish an A1c target recommendation can be found at https://www.la.g ov/qualityandpat ientsafety/ and include the use of [...] and 9.27. Ref: https://ngsp.org /CAPdata.asp. The in-house valuescope D-100 analyzer has a historical CV <= 2%. Contact the laboratory for further performance characteristics of this assay. Ordering Provider: CHARLOTTE BRANHAM Report Released Date/Time: Oct 19, 2024 09:50 AM Reporting Lab: [address] [address] Performing Lab: [address] [address] GLYCOHEMOGLOBIN 4.4 4.4-6.4 Oct 19, 2024 10:08 AM [facility] LIPID PROFILE PLASMA Specimen Type: PLASM [...] 19, 2024 09:50 AM Reporting Lab: [address] [address] Performing Lab: [address] [address] CHOLESTEROL 234 mg/dL H 0-199 TRIGLYCERIDE 135 mg/dL 0-149 HDL CHOLESTEROL 48 mg/dL 40-69 DIRECT LDL CHOL. 189 mg/dL H 0-100 Oct 19, 2024 10:08 AM [facility] 25-OH VITAMIN D SERUM Specime n [...] 19, 2024 09:50 AM Reporting Lab: [address] [address] Performing Lab: [place] [id number] 25-OH VITAMIN D 19.9 ng/mL L 20.0-50.0 Oct 19, 2024 10:08 AM [facility] B12 VITAMIN PLASMA Specimen Type: PLASM [...] 19, 2024 09:50 AM Reporting Lab: [address] [address] Performing Lab: [address] [address] B12 VITAMIN 264 pg/mL 213-816 Oct 19, 2024 10:08 AM [facility] TSH PLASMA Specimen Type: PLASM A [...] 19, 2024 09:50 AM Reporting Lab: [address] [address] Performing Lab: [address] [address] TSH 2.0362 m[IU]/mL 0.3500-4.9400 Oct 19, 2024 10:08 AM [facility] PAN[facility] 5 PLASMA Specimen Type: PLASM A [...] 19, 2024 09:50 AM Reporting Lab: [address] [address] Performing Lab: [address] [address] CREATININE 1.19 mg/dL 0.72-1.25 UREA NITROGEN 9 [...] (CKD-EPI) 69 Oct 19, 2024 10:08 AM [facility] CBC/PLT BLOOD Specimen Type: BLOOD No comment entered. Ordering Provider: CHARLOTTE BRANHAM Report Released Date/Time: Oct 19, 2024 09:50 AM Reporting Lab: [address] [address] Performing Lab: [address] [address] WBC 9.4 10*3/uL 5.0-10.0 RBC 4.78 10*6/uL [...] the Encounter. The data comes from all [place] treatment facilities. Date/Time Radiology Report Provider Source Nov 15, 2024 12:44 PM FLUORO UP TO 1 MICHAEL R (ANGIO): CUONG MCHUGH [id number] -1965 M Exm Date: NOV 15, 2024@12:44 Req Phys: ROMAN SHRESTHA Pat Loc: [facility] ORTHO/FOLLOW-UP CD (Req'g Img Loc: ANGIO/NEURO/INTERVENTIONAL Service: [place] [address] (Case [id number] COMPLETE) FLUORO UP TO 1 HOUR (ANGIO) (ANI Detailed) CPT:54071 Proc Modifiers : RIGHT Reason for Study: Right knee pain Clinical History: Report Status: Verified Date Reported: Date Verified: NOV 16, 2024 Straw Baler E-Sig: Report: See Impression. Impression: This procedure was performed by Ortho Service and was NOT reported or reviewed by [place] Radiology Staff. Please see Ortho CPRS Notes or consult response for final reporting or exam information. Primary Diagnostic Code: Primary Interpreting Staff: PHYS OTHER THAN [place] RADIOL, Staff Physician Verified by assistant credit manager for PHYS OTHER THAN [place] RADIOL /[facility] RADIOLOGIST,PHYS OTHER THAN [facility] Oct 25, 2024 01:45 PM KNEE-RIGHT 2 VIEWS : CUONG MCHUGH [id number] -1965 M Exm Date: OCT 25, 2024@13:45 Req Phys: KARINA HOOPER Pat Loc: [facility] ORTHO/FOLLOW-UP CD (Req'g Img Loc: CDD RADIOLOGY Service: [place] [address] (Case [id number] COMPLETE) KNEE-RIGHT 2 VIEWS (RAD Detailed) CPT:31830 Reason for Study: pain Clinical History: Report Status: Verified Date Reported: OCT 25, 2024 Date Verified: OCT 25, 2024 Straw Baler E-Sig: Report: Right knee. Right knee shows [...] Interpreting Staff: JEISON GLASS, RADIOLOGIST Verified by assistant credit manager for JEISON GLASS /JEISON STUARTSonido [facility] Oct 25, 2024 01:45 PM KNEE-LEFT 4 OR MOR E VIEWS: CUONG MCHUGH [id number] -1965 M Exm Date: OCT 25, 2024@13:45 Req Phys: HOOPER,KARINA E Pat Loc: [facility] ORTHO/FOLLOW-UP CD (Req'g Img Loc: CDD RADIOLOGY Service: [place] [address] (Case [id number] COMPLETE) KNEE-LEFT 4 OR MORE VIEWS (RAD Detailed) CPT:49231 Reason for Study: pain Clinical History: Report Status: Verified Date Reported: OCT 25, 2024 Date Verified: OCT 25, 2024 Straw Baler E-Sig: Report: Left knee. Marked joint space [...] Interpreting Staff: JEISON GLASS, RADIOLOGIST Verified by assistant credit manager for JEISON GLASS /JEISON STUARTPARK [facility] Encounter Notes: All associated encounter notes This section contains the clinical notes associated to the Encounter. Date/Time Encounter Note(s) Provider Source Oct 19, 2024 10:04 AM PRIMARY CARE ADMIN ISTRATIVE NOTE: LOCAL TITLE: PC ADMINISTRATIVE NOTE STANDARD TITLE: PRIMARY CARE ADMINISTRATIVE NOTE DATE OF NOTE: OCT 19, 2024@10:04 ENTRY DATE: OCT 19, 2024@10:04:40 AUTHOR: RANJIT VENEGAS EXP COSIGNER: URGENCY: STATUS: COMPLETED Appointment Scheduled at [facility] requested date and time 11/07/2024 08:30 [facility] ORR-2 LD At 's request /es/ RANJIT VENEGAS Advanced Wort Extractor Signed: 10/19/2024 10:05 RANJIT VENEGAS-Sonido [facility]
--- OUTSIDE RECORDS SUMMARY | 2025-01-26 07:30 | XMS_ITS ---
Author Name [place] Address [address] [place] [address] Care Team Providers Care Alumina Refinery Operator Name Role Phone AGUSTINACHARLOTTE CARRASQUILLO Primary [...] Name Patient's Relationship to Policy Clarke NAVNEET ([id number]) PRESCRIPT ION [id number] 1 Oct 12, 2018 [id number] LOLITASUJEY CARNEY PATIENT UMR POINT OF SERVICE [facility] Oct 12, 2018 [id number] ALBERT MCHUGH SPOUSE UMR POINT OF SERVICE [facility] Oct 12, 2018 [id number] ALBERT MCHUGH SPOUSE Selected Encounter This section includes the information on record at [place] for the Encounter. Date/Time Encounter Type Encounter Description Reason Pro vider Source Oct 24, 2024 08:52 AM Outpatient Encounter ADMIN PAT ACTIVTIES (MASNONCT) IHE Encounter Template Text not used by [place] Plan of Treatment: Future Appointments (+ 6 months) and Future Tests (+/- 45 days) The Plan of Treatment section includes future care activities for the patient from all [place] [facility]. This section includes future appointments and future orders which are active, pending or scheduled. Future Appointments This section includes appointments that were scheduled to occur 6 months from the date of the Encounter, up to a maximum of 20 appointments. The data comes from all [place] treatment facilities. Appointment Date/Time Appointment Type Appointme nt Facility Name Oct 25, 2024 01:40 PM AMBULATORY - SURGERY [facility] Nov 15, 2024 01:00 PM [facility] NONE [facility] Dec 20, 2024 09:30 AM AMBULATORY - SURGERY [facility] Lab Results: +/- 30 days of the encounter This section includes the Chemistry and Hematology Lab Results on record with [place] for the patient. Radiology Reports and Pathology Reports are provided separately, in subsequent sections. Lab Results This section contains the Chemistry/Hematology Results that were resulted 30 days before or 30 daysafter the date of the Encounter. Date/Time Source Result Type Result - Unit Interpretation Reference Range Specimen Type Comment Oct 19, 2024 10:08 AM [facility] GLYCOHEMOGLOBIN BLOOD Specimen Type: BLOOD Comment: [place] guidelines for A1c interpretation: Glycemic control targets are based on Shared Decision Making between clinicians and patients. Criteria used to establish an A1c target recommendation can be found at https://www.mn.g ov/qualityandpat ientsafety/ and include the use of [...] and 9.27. Ref: https://ngsp.org /CAPdata.asp. The in-house [employer]right[employer] D-100 analyzer has a historical CV <= 2%. Contact the laboratory for further performance characteristics of this assay. Ordering Provider: CHARLOTTE BRANHAM Report Released Date/Time: Oct 19, 2024 09:50 AM Reporting Lab: [address] [address] Performing Lab: [address] [address] GLYCOHEMOGLOBIN 4.4 4.4-6.4 Oct 19, 2024 10:08 AM [facility] LIPID PROFILE PLASMA Specimen Type: PLASM A [...] Oct 19, 2024 09:50 AM Reporting Lab: [address] [address] Performing Lab: [address] [address] CHOLESTEROL 234 mg/dL H 0-199 TRIGLYCERIDE 135 mg/dL 0-149 HDL CHOLESTEROL 48 mg/dL 40-69 DIRECT LDL CHOL. 189 mg/dL H 0-100 Oct 19, 2024 10:08 AM [facility] 25-OH VITAMIN D SERUM Specime n Type: [...] Oct 19, 2024 09:50 AM Reporting Lab: [address] [address] Performing Lab: [address] [address] 25-OH VITAMIN D 19.9 ng/mL L 20.0-50.0 Oct 19, 2024 10:08 AM [facility] B12 VITAMIN PLASMA Specimen Type: PLASM A [...] Oct 19, 2024 09:50 AM Reporting Lab: [address] [address] Performing Lab: [address] [address] B12 VITAMIN 264 pg/mL 213-816 Oct 19, 2024 10:08 AM [facility] TSH PLASMA Specimen Type: PLASM A Comment: [...] Oct 19, 2024 09:50 AM Reporting Lab: [address] [address] Performing Lab: [address] [address] TSH 2.0362 m[IU]/mL 0.3500-4.9400 Oct 19, 2024 10:08 AM [facility] PANEL 5 PLASMA Specimen Type: PLASM A [...] Oct 19, 2024 09:50 AM Reporting Lab: [address] [address] Performing Lab: [address] [address] CREATININE 1.19 mg/dL 0.72-1.25 UREA NITROGEN 9 [...] (CKD-EPI) 69 Oct 19, 2024 10:08 AM [facility] CBC/PLT BLOOD Specimen Type: BLOOD No comment entered. Ordering Provider: CHARLOTTE BRANHAM Report Released Date/Time: Oct 19, 2024 09:50 AM Reporting Lab: [address] [address] Performing Lab: [address] [address] WBC 9.4 10*3/uL 5.0-10.0 RBC 4.78 10*6/uL [...] the Encounter. The data comes from all [place] treatment facilities. Date/Time Radiology Report Provider Source Nov 15, 2024 12:44 PM FLUORO UP TO 1 MICHAEL R (ANGIO): CUONG MCHUGH [id number] -1965 M Exm Date: NOV 15, 2024@12:44 Req Phys: ROMAN SHRESTHA Pat Loc: [facility] ORTHO/FOLLOW-UP CD (Req'g Img Loc: ANGIO/NEURO/INTERVENTIONAL Service: [place] [address] (Case [id number] COMPLETE) FLUORO UP TO 1 HOUR (ANGIO) (ANI Detailed) CPT:96862 Proc Modifiers : RIGHT Reason for Study: Right knee pain Clinical History: Report Status: Verified Date Reported: Date Verified: NOV 16, 2024 Machine Group Leader E-Sig: Report: See Impression. Impression: This procedure was performed by Ortho Service and was NOT reported or reviewed by [place] Radiology Staff. Please see Ortho CPRS Notes or consult response for final reporting or exam information. Primary Diagnostic Code: Primary Interpreting Staff: PHYS OTHER THAN [place] RADIOL, Staff Physician Verified by sample weaver for PHYS OTHER THAN [place] RADIOL /[facility] RADIOLOGIST,PHYS OTHER THAN [facility] Oct 25, 2024 01:45 PM KNEE-RIGHT 2 VIEWS : CUONG MCHUGH [id number] -1965 M Exm Date: OCT 25, 2024@13:45 Req Phys: KARINA HOOPER Loc: [facility] ORTHO/FOLLOW-UP CD (Req'g Img Loc: CDD RADIOLOGY Service: [place] [address] (Case [id number] COMPLETE) KNEE-RIGHT 2 VIEWS (RAD Detailed) CPT:22569 Reason for Study: pain Clinical History: Report Status: Verified Date Reported: OCT 25, 2024 Date Verified: OCT 25, 2024 Machine Group Leader E-Sig: Report: Right knee. Right knee shows [...] Interpreting Staff: JEISON GLASS, RADIOLOGIST Verified by sample weaver for JEISON GLASS / GLASS,JEISON MANUELSOUTHWEST MISSISSIPPI REGIONAL MEDICAL CENTERSonido [facility] Oct 25, 2024 01:45 PM KNEE-LEFT 4 OR MOR E VIEWS: CUONG MCHUGH [id number] -1965 M Exm Date: OCT 25, 2024@13:45 Req Phys: KARINA HOOPER Pat Loc: [facility] ORTHO/FOLLOW-UP CD (Req'g Img Loc: CDD RADIOLOGY Service: [place] [address] (Case [id number] COMPLETE) KNEE-LEFT 4 OR MORE VIEWS (RAD Detailed) CPT:64041 Reason for Study: pain Clinical History: Report Status: Verified Date Reported: OCT 25, 2024 Date Verified: OCT 25, 2024 Machine Group Leader E-Sig: Report: Left knee. Marked joint space [...] Interpreting Staff: JEISON GLASS, RADIOLOGIST Verified by sample weaver for JEISON GLASS /[facility] Encounter Notes: All associated encounter notes This section contains the clinical notes associated to the Encounter. Date/Time Encounter Note(s) Provider Source Oct 24, 2024 08:52 AM PRIMARY CARE ADMIN ISTRATIVE NOTE: LOCAL TITLE: PC ADMINISTRATIVE NOTE STANDARD TITLE: PRIMARY CARE ADMINISTRATIVE NOTE DATE OF NOTE: OCT 24, 2024@08:52 ENTRY DATE: OCT 24, 2024@08:52:46 AUTHOR: JACOBO EATON EXP COSIGNER: URGENCY: STATUS: COMPLETED [facility] and [facility] to PCP for review. /kristopher/ JACOBO EATON Advanced Flight Deck Officer Signed: 10/24/2024 08:53 Receipt Acknowledged By: 10/24/2024 09:11 /kristopher/ CHARLOTTE BRANHAM STAFF PHYSICIAN/PRIMARY CARE JACOBO EATON-ANA LUISAD [facility]
--- OUTSIDE RECORDS SUMMARY | 2025-01-26 07:30 | XMS_ITS ---
Author Name [facility] [place] Organization [facility] [place] Address [address] [place] [address] Care Team Providers Care Database Admin Name Role Phone AGUSTINACHARLOTTE CARRASQUILLO Primary Care [...] Name Patient's Relationship to Policy Clarke NAVNEET ([id number]) PRESCRIPT ION [id number] 1 Oct 12, 2018 [id number] LOLITASUJEY CARNEY PATIENT [facility] Oct 12, 2018 [id number] ALBERT MCHUGH SPOUSE [facility] Oct 12, 2018 [id number] [phone] ALBERT MCHUGH SPOUSE Selected Encounter This section includes the information on record at [place] for the Encounter. Date/Time Encounter Type Encounter Description Reason Pro vider Source Jan 25, 2025 10:58 AM Outpatient Encounter ADMIN PAT ACTIVTIES (MASNONCT) IHE Encounter Template Text not used by [facility] Encounter Notes: All associated encounter notes This section contains the clinical notes associated to the Encounter. Date/Time Encounter Note(s) Provider Source Jan 25, 2025 10:58 AM ADMINISTRATIVE NOT E: LOCAL TITLE: CCC: SCHEDULING ADMINISTRATION STANDARD TITLE: ADMINISTRATIVE NOTE DATE OF NOTE: JAN 25, 2025@10:58:42 ENTRY DATE: JAN 25, 2025@10:58:42 AUTHOR: YO ALEXANDER EXP COSIGNER: URGENCY: STATUS: COMPLETED Caller Verification Call Back Number: [phone] Emergency Contact: CHACHO MCHUGH Emergency Contact Caller/Recipient Relation to Patient: Self Caller Name: CUONG MCHUGH Administrative Administrative Note Reason: Other Administrative Note Comments: vinht called to speak with a PCMHI with PACT team, states some stuff happened in 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 Vet states he is not SI/HI at this time. Please call [facility] for f2f appt. IMPORTANT: This note was created by [facility] Clinical Contact Center staff. Please do not alert the staff member by adding them as a signer for future communications. Alerts are not monitored by this user. /kristopher/ YO ALEXANDER [facility] Clinical Call Center Signed: 01/25/2025 10:58 Receipt Acknowledged By: * AWAITING SIGNATURE * CATHIE PASTOR SANTANA R [place] [facility]
--- OUTSIDE RECORDS SUMMARY | 2025-01-26 07:30 | XMS_ITS ---
Author Name [facility] [place] [place] [facility] [place] Address [address] [place] [address] Care Team Providers Care Part Time Receptionist Name Role Phone YONASCHARLOTTE Primary Care Provider [...] Name Patient's Relationship to Policy Clarke NAVNEET ([id number]) PRESCRIPT ION [id number] 1 Oct 12, 2018 [id number] SUJEY MCHUGH ANGELIKA PATIENT [facility] Oct 12, 2018 [id number] [phone] ALBERT MCHUGH SPOUSE [facility] Oct 12, 2018 [id number] [phone] ALBERT MCHUGH SPOUSE Selected Encounter This section includes the information on record at [place] for the Encounter. Date/Time Encounter Type Encounter Description Reason Pro vider Source Dec 07, 2024 09:38 AM Outpatient Encounter ADMIN PAT ACTIVTIES (MASNONCT) IHE Encounter Template Text not used by [place] Plan of Treatment: Future Appointments (+ 6 months) and Future Tests (+/- 45 days) The Plan of Treatment section includes future care activities for the [facility] [place] [facility]. This section includes future appointments and future orders which are active, pending or scheduled. Future Appointments This section includes appointments that were scheduled to occur 6 months from the date of the Encounter, up to a maximum of 20 appointments. The data comes from all [facility] facilities. Appointment Date/Time Appointment Type Appointme nt Facility Name Dec 20, 2024 09:30 AM AMBULATORY - SURGERY [facility] Radiology Reports: +/- 30 days of [...] the Encounter. The data comes from all [facility]. Date/Time Radiology Report Provider Source Nov 15, 2024 12:44 PM FLUORO UP TO 1 MICHAEL R (ANGIO): CUONG MCHUGH [id number] -[id number] M Ex Date: NOV 15, 2024@12:44 Req Phys: ROMAN SHRESTHA Loc: [facility] ORTHO/FOLLOW-UP CD (Req'g Img Loc: ANGIO/NEURO/INTERVENTIONAL Service: [place] [address] (Case [id number] COMPLETE) FLUORO UP TO 1 HOUR (ANGIO) (ANI Detailed) CPT:01434 Proc Modifiers : RIGHT Reason for Study: Right knee pain Clinical History: Report Status: Verified Date Reported: Date Verified: NOV 16, 2024 Concrete Foreman E-Sig: Report: See Impression. Impression: This procedure was performed by Ortho Service and was NOT reported or reviewed by [place] Radiology Staff. Please see Ortho CPRS Notes or consult response for final reporting or exam information. Primary Diagnostic Code: Primary Interpreting Staff: PH[facility] OTHER THAN [facility], Staff Physician Verified by fuel oil clerk for PH[facility] OTHER THAN [facility] /[facility] RADIOLOGIST,PHYS OTHER THAN [place] Encounter Notes: All associated encounter notes This section contains the clinical notes associated to the Encounter. Date/Time Encounter Note(s) Provider Source Dec 07, 2024 09:38 AM ADMINISTRATIVE NOT E: LOCAL TITLE: CCC: SCHEDULING ADMINISTRATION STANDARD TITLE: ADMINISTRATIVE NOTE DATE OF NOTE: DEC 07, 2024@09:38:19 ENTRY DATE: DEC 07, 2024@09:38:20 AUTHOR: TORSTEN ROGER EXP COSIGNER: URGENCY: STATUS: COMPLETED CCC: SCHEDULING ADMINISTRATION Has ADDENDA Patient Demographics Patient Name: CUONG MCHUGH Patient Primary Phone: [phone] Patient Primary [address]: [address] [place] [address] Patient : 1965 Patient Age: 59 Call Back Number: [phone] Caller/Recipient Relation to Patient: Self Caller Name: CUONG MCHUGH Administrative Administrative Note Reason: Other Administrative Note Comments: Pt called requesting call back regarding approved visits for Chiropractor, stated only [address] visits are approved [address] Dr approved him for 12. IMPORTANT: This note was created by [facility] Clinical Contact Center staff. Please do not alert the staff member by adding them as a signer for future communications. Alerts are not monitored by this user. /kristopher/ TORSTEN ROGER Signed: 12/07/2024 09:38 Receipt Acknowledged By: 12/07/2024 15:38 /kristopher/ Elise Burger, RN biometric fingerprinting technician for MARIAA NAVA 12/07/2024 ADDENDUM STATUS: COMPLETED please see telephone care note 12/07/24 /mckay Burger RN biometric fingerprinting technician Signed: 12/07/2024 15:39 TORSTEN ROGER [facility]
[2025-01-26 08:08] LABS: Basophils % 0.3 % (0.1-2.0); Eosinophils # 0.1 K/mm3 (0.0-0.4); Eosinophils % 0.9 % (0.1-12.0); Hematocrit 42.3 % (42.0-52.0); Hemoglobin 13.8 g/dL (14.1-18.0); Lymphocytes # 1.4 K/mm3 (0.7-4.5); Lymphocytes % 20.6 % (10-50); Mean Corpuscular HGB Conc 32.6 g/dL (31.8-35.4); Mean Corpuscular Hemoglobin 31.2 pg (27.0-31.2); Mean Corpuscular Volume 95.7 fl (80-94); Mean Platelet Volume 10.2 fl (7.4-10.4); Monocytes # 0.8 K/mm3 (0.1-1.0); Monocytes % 11.8 % (1.7-9.3); Neutrophils # 4.3 K/mm3 (1.8-7.8); Neutrophils % 66.1 % (37.0-80.0); Nucleated Red Blood Cells # 0 10^3/uL; Nucleated Red Blood Cells % 0 %; Platelet Count 384 K/mm3 (142-424); Red Blood Count 4.42 M/mm3 (4.60-6.20); Red Cell Distribution Width 14.6 % (11.5-17.5); Red Cell Distribution Width-SD 51.1 fL; White Blood Count 6.5 K/mm3 (4.8-10.8)
[2025-01-26 08:34] LABS: Chloride 107 mmol/L (98-107); Sodium 142 mmol/L (136-145)
[2025-01-26 08:35] LABS: Potassium 5.1 mmoL/L (3.5-5.1)
[2025-01-26 08:37] LABS: Alanine Aminotransferase 16 U/L (12-78); Albumin/Globulin Ratio 1.3 (1.1-1.8); Alkaline Phosphatase 66 U/L (38-126); Anion Gap 14.1 mEq/L (5-15); Aspartate Amino Transferase 23 U/L (17-59); Bilirubin,Total 1.1 mg/dl (0.2-1.3); Blood Urea Nitrogen 14 mg/dl (9-20); Carbon Dioxide 26 mmol/L (22.0-30.0); Estimated Glomerular Filt Rate 86 ml/min (>60); GFR (African American) 104 ML/MIN (>60)
[2025-01-26 08:38] LABS: Glucose 87 mg/dl (74-100)
== END 2025-01-26 23:59 | disposition home or self-care (01) ==
LOC: LAB 07:29
PROVIDERS: PCP Family Medicine; Visit Provider Dermatology
DX: L13.0 Dermatitis herpetiformis (principal); Z79.899 Other long term (current) drug therapy
CPT/HCPCS: 36415; 80053; 85025

== ENCOUNTER 2025-05-08 07:04 | Outpatient (CLI) | payer OTHER, SELFPAY ==
--- OUTSIDE RECORDS SUMMARY | 2024-05-26 09:30 | XMS_ITS ---
Author Organization [facility] Address [address] [facility] [address] [place] [id number] Care Team Providers Care Mill Hand Plate Mill Name Role Phone Pedro Jeff Primary Care [...] Duration: 30 day(s) 05/26/2024 Active Vital Signs Blood pressure systolic 114 mm Hg 05/26/20 24 Blood pressure diastolic 64 mm Hg 024 Heart Rate 62 /min 05/26/2024 Height 75 in 05/26/2024 Weight 260.8 lbs 05/26/2024 BMI 32.59 kg/m2 05/26/2024 Encounters Encounter Location Date Provider Diagnosis [facility] [address] [facility] [address] [place] [phone] 05/26/2024 Pedro Jeff Left sided sciatica M54.32 [...] Up: 6 Months, Reason: Provider Name:Pedro Johnson, 05/09/2025 09:45:00 AM, [address] [facility], [address] , [place], [place], [id number], Progress Notes * YOHAN MCHUGHOB:1965 (59 yo M)Acc No.[id number]:05/26/2024 Progress Notes Patient: CUONG PRAJAPATI Provider: Pedro Jeff M.D. :1965 A ge:58 Y S ex:Male Date:05/26/2024 Address:[address], [place], [id number] Subjective: * Chief Complaints: * 1 . [...] * Surgical History: L T Shoulder Arthoscopy [id number], Colonoscopy, Normal- Dr. Anderson 2016. * Hospitalization/Major Diagno stic Procedure: B ack Injury- [facility] 11/2008, Chest Pain- [facility] 08/2014. * Family History: F [...] * Images: Billing Information: * Visit Code: 29141 Office Visit, Est Pt., Level 3. * Procedure Codes: * Electronic signature of Pedro Jeff MD on 05/08/2025 at 07:07 AM EDT Sign off status: Pending * Provider: Pedro Jeff M.D. Date: 0 05/26/2024 Generated for Gurpreet hood/Oswaldo/Diannitting on: 0 05/08/2025 07:07 AM EDT History and Physical Notes * Examination Category [...]
--- OUTSIDE RECORDS SUMMARY | 2024-08-30 09:45 | XMS_ITS ---
Author Organization [facility] Address [address] [place] [phone] Care Team Providers Care Loom Setter Fourdrinier Name Role Phone Pedro Jeff Primary Care [...] Duration: 10 day(s) 08/30/2024 Active Vital Signs Blood pressure systolic 108 mm Hg 08/30/20 24 Blood pressure diastolic 62 mm Hg 024 Heart Rate 76 /min 08/30/2024 Height 75 in 08/30/2024 Weight 263.4 lbs 08/30/2024 BMI 32.92 kg/m2 08/30/2024 Encounters Encounter Location Date Provider Diagnosis [facility] [address] [facility] [address] [facility] [address] [place] [phone] 08/30/2024 Pedro Jeff Acute bronchitis J20 .9 [...] Week, prn, Reas on: Provider Name:Pedro Johnson, 05/09/2025 09:45:00 AM, [address] [facility] [address] [facility], [address], [place], [id number], Progress Notes * YOHAN MCHUGHOB:1965 (59 yo M)Acc No.[id number]:08/30/2024 Progress Notes Patient: CUONG PRAJAPATI Provider: Pedro Jeff M.D. :1965 A ge:59 Y S ex:Male Date:08/30/2024 Address:[address] [place] [address], [place], [id number] Subjective: * Chief Complaints: * 1 . [...] * Surgical History: L T Shoulder Arthoscopy [id number], Colonoscopy, Normal- Dr. Anderson 2016. * Hospitalization/Major Diagno stic Procedure: B ack Injury- [facility] ER 11/2008, Chest Pain- [facility] 08/2014. * Family History: F ather: [...] * Procedure Codes: 9 47[address] [place], [address] CAPILLARY BLOOD DRAW, 28580 CBC WITH AUTO DIFF * Follow Up: 1 Week, prn * Images: Billing Information: * Visit Code: 83393 Office Visit, Est Pt., Level 3. * Procedure Codes: [address] [place]. [address] CAPILLARY BLOOD DRAW. 93848 CBC WITH AUTO DIFF. * Electronic signature of Pedro Jeff MD on 05/08/2025 at 07:05 AM EDT Sign off status: Pending * Provider: Pedro Jeff M.D. Date: 10/30/2023 Generated for Gurpreet hood/Oswaldo/eTzoësmitting on: 0 05/08/2025 07:05 AM EDT History and Physical Notes * HPI (History [...]
--- OUTSIDE RECORDS SUMMARY | 2024-11-17 09:30 | XMS_ITS ---
Author Organization [facility] Address [address] [facility] [address] [place] [phone] Care Team Providers Care Academic Intern Name Role Phone Pedro Jeff Primary Care Provider [phone] Allergies No Known Allergies REASON FOR VISIT [...] on ce a day Active Vital Signs Blood pressure systolic 126 mm Hg 11/17/19 25 Blood pressure diastolic 78 mm Hg 025 Heart Rate 65 /min 11/17/2024 Height 75 in 11/17/2024 Weight 261.8 lbs 11/17/2024 BMI 32.72 kg/m2 11/17/2024 Encounters Encounter Location Date Provider Diagnosis [facility] [address] [facility] [address] [place] [phone] 11/17/2024 Pedro Jeff Essential hypertensi on I10 [...] Name:Pedro Johnson, 05/09/2025 09:45:00 AM, [address], [address], [place], [place], [id number], Progress Notes * YOHAN MCHUGHOB:1965 (59 yo M)Acc No.[id number]:11/17/2024 Progress Notes Patient: CUONG PRAJAPATI Provider: Pedro Jeff M.D. :1965 A ge:59 Y S ex:Male Date:11/17/2024 Address:[address] [place] [address], [id number] Subjective: * Chief Complaints: * 1 . 6 months. * HPI: H PI: 59 year old male presents with c/o Patient is here today for?Pt is here today for a scheduled 6 month check up. Pt sts he is doing well and has no new concerns or complaints this time. He follows at the [facility] for back pain and knee pain and [...] * Surgical History: L T Shoulder Arthoscopy [id number], Colonoscopy, Normal- Dr. Anderson 2016. * Hospitalization/Major Diagno stic Procedure: B ack Injury- [facility] ER 11/2008, Chest Pain- [facility] ER 08/2014. * Family History: F [...] * Images: Billing Information: * Visit Code: 31007 Office Visit, Est Pt., Level 3. * Procedure Codes: 3074F SYST BP LT 130 MM HG. 3078F DIAST BP < 80 MM HG. * Electronic signature of Pedro Jeff MD on 05/08/2025 at 07:06 AM EDT Sign off status: Pending * Provider: Pedro Jeff M.D. Date: 0 11/17/2024 Generated for uGrpreet hood/Oswaldo/Diannitting on: 0 05/08/2025 07:06 AM EDT History and Physical Notes * [...]
--- OUTSIDE RECORDS SUMMARY | 2025-01-26 07:14 | XMS_ITS | Encounter Summary ---
Author Name [facility] Organization [facility] [place] Address [address] [place] [address] Care Team Providers Care Repatcher Name Role Phone FEBRUARY, ARANZA Primary Care Provider Unavailabl e Insurance Providers: All historical and current Section Date Range: From patient's date of to the date document was created. This section includes the names of all active insurance providers for the patient. Insurance Provider Type of Coverage Plan Name Start of Policy Coverage End of Policy Coverage Group Number Member ID Insurance Provider's Telephone Number Policy Clarke's Name Patient's Relationship to Policy Clarke [facility] ([id number]) PRESCRIPT ION [id number] Oct 12, 2018 [id number] [phone] SUJEY MCHUGH CKBell PATIENT [facility] Oct 12, 2018 [id number] [phone] ALBERT MCHUGH SPOUSE [facility] Oct 12, 2018 [id number] ALBERT MCHUGH SPOUSE Selected Encounter This section includes the information on record at [place] for the Encounter. Date/Time Encounter Type Encounter Description Reason Pro vider Source Jan 26, 2025 11:14 AM Outpatient Encounter ADMIN PAT ACTIVTIES (MASNONCT) IHE Encounter Template Text not used by [place] Plan of Treatment: Future Appointments (+ 6 months) and Future Tests (+/- 45 days) The Plan of Treatment section includes future care activities for the patient from all [place] treatmentfacilities. This section includes future appointments and future orders which are active, pending or scheduled. Future Appointments This section includes appointments that were scheduled to occur 6 months from the date of the Encounter, up to a maximum of 20 appointments. The data comes from all [place] treatment facilities. Appointment Date/Time Appointment Type Appointme nt Facility Name Jan 30, 2025 01:00 PM AMBULATORY [facility] February 15, 2025 01:00 PM AMB[facility]ORY [facility]RY [facility] March 10, 2025 01:30 PM AM[facility]ATORY [facility] May 08, 2025 07:00 AM [facility] - NONE [facility] May 09, 2025 02:30 PM [facility] - SURGERY [facility] [facility] Encounter Notes: All associated encounter notes This section contains the clinical notes associated to the Encounter. Date/Time Encounter Note(s) Provider Source Jan 26, 2025 12:29 PM ADDENDUM: LOCAL TITLE: Addendum STANDARD TITLE: ADDENDUM DATE OF NOTE: JAN 26, 2025@12:29:02 ENTRY DATE: JAN 26, 2025@12:29:03 AUTHOR: TOREY ELIZABETH EXP COSIGNER: URGENCY: STATUS: COMPLETED Current authorization is valid until 04/22/25. If patient has already used all visits, chiropractor will need to submit RFS and documentation supporting early renewal, however approval is not guaranteed. Thank you. /kristopher/ TOREY ELIZABETH APRN LICENSED NURSE PRACTITIONER Signed: 01/26/2025 12:29 Receipt Acknowledged By: 01/27/2025 08:12 /kristopher/ Elle Garcia [facility]-Pod 5 --- Original Document --- 01/26/25 COMMUNITY CARE-REQUEST FOR SERVICE NOTE: Request for Services (RFS) documentation has been scanned to [facility] Care Consult: COMMUNITY CARE-Chiropractic Consult No: . Date scanned: 01/26/2025 A Request for Service (RFS) form [id number] has been received which includes the following: Care Requested: [facility] RFS for Chiropractic ICD-10 Dx code: . Date [facility] received request: 01/25/2025 Date service required: TRE Requesting Community Provider Information: ARIS BRIAN [address] [place] [address] [address] [place] [phone] /kristopher/ Elle Garcia [facility] Care Dept., [facility] 5 Signed: 01/26/2025 11:15 Receipt Acknowledged By: 01/26/2025 12:29 /es/ TOREY ELIZABETH APRN LICENSED NURSE PRACTITIONER TOREY ELIZABETH-[facility] Jan 26, 2025 11:14 AM NONVA NOTE: LOCAL TITLE: COMMUNITY CARE-REQUEST FOR SERVICE NOTE STANDARD TITLE: NONVA NOTE DATE OF NOTE: JAN 26, 2025@11:14 ENTRY DATE: JAN 26, 2025@11:14:20 AUTHOR: ELLE GARCIA EXP COSIGNER: URGENCY: STATUS: COMPLETED COMMUNITY CARE-REQUEST FOR SERVICE NOTE Has ADDENDA Request for Services (RFS) documentation has been scanned to [facility] Care Consult: COMMUNITY CARE-Chiropractic Consult No: . Date scanned: 01/26/2025 A Request for Service (RFS) form [id number] has been received which includes the following: Care Requested: [facility] RFS for Chiropractic ICD-10 Dx code: . Date [facility] received request: 01/25/2025 Date service required: TRE Requesting Community Provider Information: ARIS BRIAN [address] [address] [address] [place] [phone] /kristopher/ Elle Garcia [facility] Signed: 01/26/2025 11:15 Receipt Acknowledged By: 01/26/2025 12:29 /kristopher/ TOREY ELIZABETH APRN LICENSED NURSE PRACTITIONER 01/26/2025 ADDENDUM STATUS: COMPLETED Current authorization is valid until 04/22/25. If patient has already used all visits, chiropractor will need to submit RFS and documentation supporting early renewal, however approval is not guaranteed. Thank you. /kristopher/ TOREY ELIZABETH APRN LICENSED NURSE PRACTITIONER Signed: 01/26/2025 12:29 Receipt Acknowledged By: * AWAITING SIGNATURE * ELLE GARCIA HEATHER N [place]
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
--- OUTSIDE RECORDS SUMMARY | 2025-01-30 12:55 | XMS_ITS | Encounter Summary ---
Author Name [facility] [place] Organization [place] Address [address] [place] [address] Care Team Providers Care Partridge Farmer Name Role Phone FEBRUARY, ARANZA Primary Care [...] Clarke's Name Patient's Relationship to Policy Clarke [facility] ([id number]) PRESCRIPT ION [id number] 1 Oct 12, 2018 [id number] [phone] SUJEY MCHUGH CKBell PATIENT [facility] Oct 12, 2018 [id number] [phone] ALBERT MCHUGH SPOUSE [facility] Oct 12, 2018 [id number] ALBERT MCHUGH SPOUSE Selected Encounter This section includes the information on record at [place] for the Encounter. Date/Time Encounter Type Encounter Description Reason Pro vider Source Jan 30, 2025 04:55 PM Outpatient Encounter ADMIN PAT ACTIVTIES (MASNONCT) IHE Encounter Template Text not used by [place] Plan of Treatment: Future Appointments (+ 6 months) and Future Tests (+/- 45 days) The Plan of Treatment section includes future care activities for the patient from all [place] treatmentfacilities. This section includes future appointments and future orders which are active, pending or scheduled. Future Appointments This section includes appointments that were scheduled to occur 6 months from the date of the Encounter, up to a maximum of 20 appointments. The data comes from all [place] treatment facilities. Appointment Date/Time Appointment Type Appointme nt Facility Name February 15, 2025 01:00 PM AMBULATORY - PS[facility]CHIATRY [facility] March 10, 2025 01:30 PM AMBULATORY - PS[facility]CHIATRY [facility] May 08, 2025 07:00 AM [facility] [place] [facility] May 09, 2025 02:30 PM [facility] [place] [facility] Encounter Notes: All associated encounter notes This section contains the clinical notes associated to the Encounter. Date/Time Encounter Note(s) Provider Source Jan 30, 2025 04:55 PM PRIMARY CARE ADMIN ISTRATIVE NOTE: LOCAL TITLE: PC ADMINISTRATIVE NOTE STANDARD TITLE: PRIMARY CARE ADMINISTRATIVE NOTE DATE OF NOTE: JAN 30, 2025@16:55 ENTRY DATE: JAN 30, 2025@16:55:30 AUTHOR: RANJIT VENEGAS EXP COSIGNER: URGENCY: STATUS: COMPLETED Appointment scheduled per Jan RTC 02/15/2025 13:00 JEANA [facility] PER ADDENDUM TO 01/30/25 [facility] INITIAL ASSESSMENT NOTE /kristopher/ RANJIT VENEGAS Advanced Auto Transmission Mechanic Signed: 01/30/2025 16:55 RANJIT VENEGAS-[facility]
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
--- OUTSIDE RECORDS SUMMARY | 2025-02-20 09:00 | XMS_ITS | Encounter Summary ---
Author Name [facility] [facility] [place] Address [address] [place] [address] Care Team Providers Care Security Ambassador Name Role Phone FEBRUARY, ARANZA Primary Care [...] Clarke's Name Patient's Relationship to Policy Clarke KISHANESSINGTON ([id number]) PRESCRIPT ION [id number] 1 Oct 12, 2018 [id number] [phone] SUJEY MCHUGH CKBell PATIENT [facility] POINT OF SERVICE [facility] Oct 12, 2018 [id number] ALBERT MCHUGH SPOUSE U[facility] POINT OF SERVICE [facility] Oct 12, 2018 [id number] ALBERT MCHUGH SPOUSE Selected Encounter This section includes the information on record at [place] for the Encounter. Date/Time Encounter Type Encounter Description Reason Pro vider Source February 20, 2025 01:00 PM Outpatient Encounter ADMIN PAT ACTIVTIES (MASNONCT) [...] 2025 01:30 PM [facility], [facility] 07:00 AM [facility] [place] [facility] May 09, 2025 02:30 PM AMBULATORY - SURGERY [facility] Encounter Notes: All associated encounter notes This section contains the clinical notes associated to the Encounter. Date/Time Encounter Note(s) Provider Source February 20, 2025 01:00 PM PRIMARY CARE ADMIN ISTRATIVE NOTE: LOCAL TITLE: PC ADMINISTRATIVE NOTE STANDARD TITLE: PRIMARY CARE ADMINISTRATIVE NOTE DATE OF NOTE: FEBRUARY 20, 2025@13:00 ENTRY DATE: FEBRUARY 20, 2025@13:00:37 AUTHOR: RANJIT VENEGAS EXP COSIGNER: URGENCY: STATUS: COMPLETED Appointment scheduled per February RTC 03/29/2025 08:30 [facility] APRN2 PER ADDENDUM TO 02/15/25 [facility] BATTERY FILLER MEDICATION CONSULTATION INITIAL ASSESSMENT NOTE /kristopher/ RANJIT VENEGAS Advanced Director Furniture Signed: 02/20/2025 13:00 RANJIT VENEGAS-D [facility]
--- OUTSIDE RECORDS SUMMARY | 2025-03-10 09:30 | XMS_ITS | Encounter Summary ---
Author Name [facility] [place] [place] Organization [facility] [place] Address [address] [place] [address] Care Team Providers Care Wire Frame Lampshade Maker Name Role Phone FEBRUARY, ARANZA Primary Care [...] Clarke's Name Patient's Relationship to Policy Clarke [facility] ([id number]) PRESCRIPT ION [id number] 1 Oct 12, 2018 [id number] SUJEY MCHUGH CKY PATIENT [facility] Oct 12, 2018 [id number] ALBERT MCHUGH GIE SPOUSE [facility] Oct 12, 2018 [id number] ALBERT MCHUGH GIE SPOUSE Selected Encounter This section includes the information on record at [place] for the Encounter. Date/Time Encounter Type Encounter Description Reason Provider Source March 10, 2025 01:30 PM PSYTX W PT 30 MINUTES [facility] INDIV ICD-10-CM F33.2 Major depressv disorder, recurrent severe w/o psych features LAYOJorjePEARLRaad Hernandez S IHE Encounter Template Text not used by [place] Assessments - Encounter Diagnoses This section includes the primary and secondary diagnoses documented for the Encounter. Date/Time Primary/Secondary Diagnosis Diagnosis Name Provider Source Mar 20, 2025 11:19 AM PRIMARY Major depressv disorder, recurrent severe w/o psych features JAIROSAWTMIRA I S [facility] Mar 20, 2025 11:19 AM SECONDARY Anxiety disorder, unspecified LAYOT,MIRA I S [facility] Plan of Treatment: Future Appointments (+ 6 months) and Future Tests (+/- 45 days) The Plan of Treatment section includes future care activities for the patient [facility] [place] [facility] This section includes future appointments and future orders which are active, pending or scheduled. Future Appointments This section includes appointments that were scheduled to occur 6 months from the date of the Encounter, up to a maximum of 20 appointments. The data comes from all [place] treatment [facility]. Appointment Date/Time Appointment Type Appointme nt Facility Name May 08, 2025 07:00 AM [place]ORY - NONE [place] [facility] May 09, 2025 02:30 PM AMBULATORY - SURGERY [place] [facility] Active, Pending, and Scheduled Orders This section includes a listing of several types of active, pending, and scheduled orders, including clinic medications orders, diagnostic test orders, procedure orders and consult orders; where the start date of the order is 45 days before the date of the Encounter or 45 days after the date of theEncounter. The data comes from all [place] treatment [facility]. Test Date/Time Test Type Test Details Facility Name Apr 21, 2025 04:05 PM Consult Order COMMUNITY [id number] Cons Molder Feeder's Choice [facility] Social History: Smoking Status (Most current) and Tobacco Use (All prior to encounter date) This section includes the most current, and the historical, smoking and tobacco- related health factors from the [place] facility where the Encounter took place. Current Smoking Status This section includes the most current smoking, or tobacco-related health factor, from the [place] facility where the Encounter took place. Date/Time Current Smoking Status Comment Carmelita farias Oct 19, 2024 09:30 AM VA-TOBACCO USE FOR [employer] C[employer]ETTES [facility] Tobacco Use History This section includes a history of the smoking, or tobacco-related health factors, that were collected on or before the date of the Encounter. The data comes from the [place] facility where the Encounter took place. Date/Time Smoking Status/Tobacco Use Comment Anthony gonzalez Oct 19, 2024 09:30 AM VA-TOBACCO USE FOR [employer] CIGARETTES [facility] Dec 19, 2022 11:00 AM VA-TOBACCO FORMER USER [facility] Dec 19, 2022 11:00 AM VA-TOBACCO QUIT 15 YRS OR MORE [facility] Encounter Notes: All associated encounter notes This section contains the clinical notes associated to the Encounter. Date/Time Encounter Note(s) Provider Source March 10, 2025 03:46 PM MENTAL HEALTH NOTE : LOCAL TITLE: [facility] FOLLOW UP MONITOR NOTE STANDARD TITLE: MENTAL HEALTH NOTE DATE OF NOTE: MARCH 10, 2025@15:46:10 ENTRY DATE: MARCH 10, 2025@15:46:10 AUTHOR: CATHIE PASTOR EXP COSIGNER: URGENCY: STATUS: COMPLETED These assessments were completed by CUONG MCHUGH via provider direct entry on 03/10/2025 1:30 PM. PATIENT HEALTH QUESTIONNAIRE-9 (PHQ-9) The patient reported some symptoms of depression; symptoms are not consistent with a major depressive episode. Patient reported being bothered by the following over the last 2 weeks: 1. Little interest or pleasure: Several Days 2. Feeling down, depressed or hopeless: Several Days 3. Trouble sleeping: Nearly every day 4. Tired, low energy: Nearly every day 5. Poor appetite, over-eating: Nearly every day 6. Feelings of failure, guilt: Not at all 7. Trouble concentrating: More than half the days 8. Motor retardation, agitation: More than half the days 9. Thoughts better off /hurting self: Not at all PHQ-9 total score = 15 1-4 = minimal symptoms 5-9= mild symptoms 10-14= moderate symptoms 15-19= moderately severe symptoms 20-27= severe depressive symptoms The patient stated that the depressive symptoms made it somewhat difficult to work, take care of things at home, or get along with others. PHQ-9 Total Score (past 180 days): 03/10/2025 15 01/30/2025 24 GENERAL ANXIETY DISORDER-7 (DORCAS-7) Patient reported being bothered by the following over the last two weeks: 1. Feeling nervous, anxious or on edge: More than half the days 2. Not being able to stop or control worrying: More than half the days 3. Worrying too much about different things: Nearly every day 4. Trouble relaxing: Nearly every day 5. Feeling restless (hard to sit still): More than half the days 6. Becoming easily annoyed or irritable: Nearly every day 7. Afraid as if something awful might happen: More than half the days DORCAS-7 total score = 17 0-4=minimal symptoms 5-9=mild symptoms 10-14=moderate symptoms 15-21=severe symptoms The patient stated that the anxiety symptoms made it somewhat difficult to work, take care of things at home, or get along with others. DORCAS-7 Total Score (past 180 days): 03/10/2025 17 01/30/2025 21 /kristopher/ Cathie Pastor, Ph.D. Licensed Psychologist - [facility] Signed: 03/10/2025 15:48 CATHIE PASTOR [facility] March 10, 2025 03:42 PM ADDENDUM: LOCAL TITLE: Addendum STANDARD TITLE: ADDENDUM DATE OF NOTE: MARCH 10, 2025@15:42:25 ENTRY DATE: MARCH 10, 2025@15:42:25 AUTHOR: CATHIE PASTOR EXP COSIGNER: URGENCY: STATUS: COMPLETED Please schedule with [facility]9 LD on 04/12/25 at 3:00pm, then block/move to [facility]#9 for same date/time. /es/ Cathie Pastor, Ph.D. Licensed Psychologist - [facility] Signed: 03/10/2025 15:43 Receipt Acknowledged By: 03/15/2025 07:25 /kristopher/ RANJIT VENEGAS Advanced Cat Skinner for JACOBO EATON --- Original Document --- 03/10/25 [facility] BRIEF THERAPY NOTE: PRIMARY CARE MENTAL HEALTH INTEGRATION ([facility]) CO-LOCATED COLLABORATIVE CARE FOLLOW UP NOTE [x] [id number] Date/Time: 03/10/25 at 1:30pm Length of Session (minutes): 30 Brief Therapy Session Number: 1 TYPE: [x]Individual [x]Scheduled === REASON FOR REFERRAL/CHIEF COMPLAINT: Anger Assessment and Review of Presenting Problem Risk Assessment (e.g., lethality, suicidality/homicidality): C-SSRS Screening [place]-Suicide Severity Rating Scale (C-SSRS Screener) 1. Over [...] required due to responses to other questions. reports no current homicidal ideation. Brief Mental Status Exam (as applicable) Appearance and Behavior: Appropriate Mood/Affect: Unremarkable Sensorium (orientation, memory, concentration): WNL Intellectual Functioning: Intact Thought Processes/Regulation: Logical/Linear [place] was reminded of the need to assess progress since last appointment and assess current status of presenting concern, which will be used to adjust treatment interventions if needed and inform primary care team of next steps. Measurement-Based Care: PHQ-9: Date Instrument Raw Trans Scale 01/30/2025 14:54 PHQ9 24 PHQ9 DORCAS-7: Date Instrument Raw Trans Scale 01/30/2025 14:54 DORCAS-7 21 Anxiety AUDIT-C: Date Instrument Raw Trans Scale 10/19/2024 09:30 AUDC 2 Total was administered the following self-report instruments to further assess identified area of concern and the use of these instruments to assist in guiding treatment planning and assess progress was discussed with the [place]. PHQ-9= 15, Moderately severe DORCAS-7= 17, Severe Pain Measure [place] did not report pain as a topic of concern today. Homework Review Discussed with progress on interventions agreed upon at last appointment. reported he has been taking Hydroxyzine as prescribed, but has not noticed a difference in his overall mood. He acknowledged it has helped him relax at times. Functional Assessment/Progress Toward Goals/Session Content -------- Discussed with [place] status of presenting problem and its impact on functioning and changes since the prior visit, including progress towards current goals. stated agitation and irritability continue to be a concern for him and the medication has been minimally helpful in taking the edge off . Scores on MBC reflect a decrease in symptom experience. He noted he can still become angry quickly and speak whatever is on my mind . Time was spent discussing ways to better manage anger via performing body scans, challenging negative thought patterns, and utilizing assertive language as opposed to aggression. [place] was encouraged to also incorporate mindfulness and breathing activities during work travel or when he is stopped in traffic as he highlighted these are the times anger is highest. Provisional Diagnosis/Diagnosis Per Chart Review Major Depressive Disorder, Recurrent, Severe Anxiety Disorder, Unspecified Intervention: Psychoeducation Skill Building/Skill Practice Relaxation Mindfulness Treatment Plan and Follow-up -- Patient Goals: Increase Enjoyable/Meaningful Activities, Challenge Negative Thoughts, Increase Relaxation Skills Homework/Handouts: Assertive communication Plans for Follow-up: Continue Brief [facility] with [facility] Provider Return to Clinic Follow-Up Appointment: 04/12/25 at 3:00pm via [facility] Visit Duration: 30 minutes Patient records have been reviewed. Informed/Reviewed with about resources in case of crisis including the [facility] Crisis Line number 988 or (press 1) and emergency room services. Outcome and recommendations will be discussed with the referring provider and other relevant PACT team members as needed. /kristopher/ Cathie Pastor, Ph.D. Licensed [facility] Signed: 03/10/2025 15:41 CATHIE PASTOR [facility] March 10, 2025 03:20 PM MENTAL HEALTH NOTE : LOCAL TITLE: [facility] BRIEF THERAPY NOTE STANDARD TITLE: MENTAL HEALTH NOTE DATE OF NOTE: MARCH 10, 2025@15:20 ENTRY DATE: MARCH 10, 2025@15:20:36 AUTHOR: CATHIE PASTOR EXP COSIGNER: URGENCY: STATUS: COMPLETED [facility] BRIEF THERAPY NOTE Has ADDENDA PRIMARY CARE MENTAL HEALTH INTEGRATION ([facility]) CO-LOCATED COLLABORATIVE CARE FOLLOW UP NOTE [x] [id number] Date/Time: 03/10/25 at 1:30pm Length of Session (minutes): 30 Brief Therapy Session Number: 1 TYPE: [x]Individual [x]Scheduled === REASON FOR REFERRAL/CHIEF COMPLAINT: Anger Assessment and Review of Presenting Problem Risk Assessment (e.g., lethality, suicidality/homicidality): C-SSRS Screening [place]-Suicide Severity Rating Scale (C-SSRS Screener) 1. Over [...] required due to responses to other questions. [place] reports no current homicidal ideation. Brief Mental Status Exam (as applicable) Appearance and Behavior: Appropriate Mood/Affect: Unremarkable Sensorium (orientation, memory, concentration): WNL Intellectual Functioning: Intact Thought Processes/Regulation: Logical/Linear [place] was reminded of the need to assess progress since last appointment and assess current status of presenting concern, which will be used to adjust treatment interventions if needed and inform primary care team of next steps. Measurement-Based Care: PHQ-9: Date Instrument Raw Trans Scale 01/30/2025 14:54 PHQ9 24 PHQ9 DORCAS-7: Date Instrument Raw Trans Scale 01/30/2025 14:54 DORCAS-7 21 Anxiety AUDIT-C: Date Instrument Raw Trans Scale 10/19/2024 09:30 AUDC 2 Total was administered the following self-report instruments to further assess identified area of concern and the use of these instruments to assist in guiding treatment planning and assess progress was discussed with the [place]. PHQ-9= 15, Moderately severe DORCAS-7= 17, Severe Pain Measure [place] did not report pain as a topic of concern today. Homework Review Discussed with [place] progress on interventions agreed upon at last appointment. [place] reported he has been taking Hydroxyzine as prescribed, but has not noticed a difference in his overall mood. He acknowledged it has helped him relax at times. Functional Assessment/Progress Toward Goals/Session Content -------- Discussed with status of presenting problem and its impact on functioning and changes since the prior visit, including progress towards current goals. [place] stated agitation and irritability continue to be a concern for him and the medication has been minimally helpful in taking the edge off . Scores on MBC reflect a decrease in symptom experience. He noted he can still become angry quickly and speak whatever is on my mind . Time was spent discussing ways to better manage anger via performing body scans, challenging negative thought patterns, and utilizing assertive language as opposed to aggression. [place] was encouraged to also incorporate mindfulness and breathing activities during work travel or when he is stopped in traffic as he highlighted these are the times anger is highest. Provisional Diagnosis/Diagnosis Per Chart Review Major Depressive Disorder, Recurrent, Severe Anxiety Disorder, Unspecified Intervention: Psychoeducation Skill Building/Skill Practice Relaxation Mindfulness Treatment Plan and Follow-up -- Patient Goals: Increase Enjoyable/Meaningful Activities, Challenge Negative Thoughts, Increase Relaxation Skills Homework/Handouts: Assertive communication Plans for Follow-up: Continue Brief Therapy with [facility] Provider Return to Clinic Follow-Up Appointment: 04/12/25 at 3:00pm via [facility] Visit Duration: 30 minutes Patient records have been reviewed. Informed/Reviewed with [place] about resources in case of crisis including the [facility] Crisis Line number 988 or (press 1) and emergency room services. Outcome and recommendations will be discussed with the referring provider and other relevant PACT team members as needed. /mckay Pastor, Ph.D. Licensed Psychologist - [facility] Signed: 03/10/2025 15:41 03/10/2025 ADDENDUM STATUS: COMPLETED Please schedule with [facility] LD on 04/12/25 at 3:00pm, then block/move to [facility] for same date/time. /es/ Cathie Pastor, Ph.D. Licensed Psychologist - [facility] Signed: 03/10/2025 15:43 Receipt Acknowledged By: * AWAITING SIGNATURE * JACOBO EATON KOURTNI S [facility]
--- OUTSIDE RECORDS SUMMARY | 2025-03-14 11:53 | XMS_ITS | Encounter Summary ---
Author Name [facility] [place] Organization [place] Address [address] [place] [address] Care Team Providers Care Protective Services Social Worker Name Role Phone FEBRUARY, ARANZA Primary Care [...] Clarke's Name Patient's Relationship to Policy Clarke [facility] ([id number]) PRESCRIPT ION [id number] 1 Oct 12, 2018 [id number] [phone] SUJEY MCHUGH CKBell PATIENT [facility] PO[facility] Oct 12, 2018 [id number] ALBERT MCHUGH SPOUSE UMR POINT OF SERVICE [facility] Oct 12, 2018 [id number] ALBERT MCHUGH SPOUSE Selected Encounter This section includes the information on record at [place] for the Encounter. Date/Time Encounter Type Encounter Description Reason Pro vider Source Mar 14, 2025 03:53 PM Outpatient Encounter ADMIN PAT ACTIVTIES (MASNONCT) [...] 20 appointments. [facility]. Appointment Date/Time Appointment Type Appointme nt Facility Name May 08, 2025 07:00 AM AMBULATORY - NONE [place] [facility] May 09, 2025 02:30 PM AMBULATORY - SURGERY [place] [facility] Active, Pending, and Scheduled Orders This section includes a listing of several types of active, pending, and scheduled orders, including clinic medications orders, diagnostic test orders, procedure orders and consult orders; where the start date of the order is 45 days before the date of the Encounter or 45 days after the date of theEncounter. The [facility] comes from all [facility] Test Date/Time Test Type Test Details Facility Name Apr 21, 2025 04:05 PM Consult Order COMMUNITY [id number] Cons Nurse Ortho's Choice [facility] Radiology Reports: +/- 30 days of [...] the Encounter. The [facility] comes from all [facility]. Date/Time Radiology Report Provider Source Apr 13, 2025 09:15 AM SPINE LUMBOSACRAL MIN 2 VIEWS: CUONG MCHUGH [id number] -[id number] M Exm Date: APR 13, 2025@09:15 Req Phys: ARANZA MCKEON Loc: JEANA PACT DELTA 16-2 (Req'g Loc Img Loc: [facility] RADIOLOGY Service: [place] [address] (Case [id number] COMPLETE)SPINE LUMBOSACRAL MIN 2 VIEWS (RAD Detailed) CPT:53438 Reason for Study: low back pain Clinical History: Report Status: Verified Date Reported: APR 14, 2025 Date Verified: APR 14, 2025 Food Adviser E-Sig: Report: SPINE LUMBOSACRAL MIN 2 VIEWS, 04/13/2025 9:21 AM EDT INDICATION: low back pain COMPARISON: None Impression: Vertebral body heights maintained without acute fracture. 8 mm anterolisthesis L4 on L5. Moderate L4-5 and L5-S1 degenerative disc and facet disease. Vascular calcifications. Mild colonic stool burden. Primary Diagnostic Code: NO ALERT REQUIRED Primary Interpreting Staff: DEBBY MIDDLETON, Staff Physician Verified by nurse sitter for DEBBY MIDDLETON /DEBBY JOHNSON [facility] Encounter Notes: All associated encounter notes This section contains the clinical notes associated to the Encounter. Date/Time Encounter Note(s) Provider Source Mar 14, 2025 03:53 PM PRIMARY CARE ADMIN ISTRATIVE NOTE: LOCAL TITLE: PC ADMINISTRATIVE NOTE STANDARD TITLE: PRIMARY CARE ADMINISTRATIVE NOTE DATE OF NOTE: MAR 14, 2025@15:53 ENTRY DATE: MAR 14, 2025@15:53:31 AUTHOR: RANJIT VENEGAS EXP COSIGNER: URGENCY: STATUS: COMPLETED Appointment scheduled per February RTC 04/12/2025 15:00 [facility]#9 PER ADDENDUM TO 03/10/25 [facility] BRIEF THERAPY NOTE /kristopher/ RANJIT VENEGAS Advanced Medical Record Librarian Signed: 03/14/2025 15:53 RANJIT VENEGAS-[facility]
--- OUTSIDE RECORDS SUMMARY | 2025-04-06 05:09 | XMS_ITS | Encounter Summary ---
Author Name [facility] [place] Organization [facility] [place] Address [address] [place] [address] Care Team Providers Care Asphalt Paving Superintendent Name Role Phone FEBRUARY, REEMA Primary Care Provider Unavailabl e Insurance Providers: [...] Clarke's Name Patient's Relationship to Policy Clarke [facility] ([id number]) PRESCRIPT ION [id number] 1 Oct 12, 2018 [id number] SUJEY MCHUGH PATIENT [facility] PO[facility]ICE [facility] Oct 12, 2018 [id number] [phone] ALBERT MCHUGH SPOUSE [facility] PO[facility]ICE [facility] Oct 12, 2018 [id number] [phone] ALBERT MCHUGH SPOUSE Selected Encounter This section includes the information on record at [place] for the Encounter. Date/Time Encounter Type Encounter Description Reason Pro vider Source Apr 06, 2025 09:09 AM Outpatient Encounter TELEPHONE TRIAGE IHE Encounter Template Text not used by [place] Plan of Treatment: Future Appointments (+ 6 months) and Future Tests (+/- 45 days) The Plan of Treatment section includes future care activities for the patient from all [place] [facility] This section includes future appointments and future orders which are active, pending or scheduled. Future Appointments This section includes appointments that were scheduled to occur 6 months from the date of the Encounter, up to a maximum of 20 appointments. The data comes from all [place] treatment facilities. Appointment Date/Time Appointment Type Appointme nt Facility Name May 08, 2025 07:00 AM [facility]ATORY - NONE [facility] [facility] May 09, 2025 02:30 PM AMBULATORY - SURGERY [place] [facility] Active, Pending, and Scheduled Orders This section includes a listing of several types of active, pending, and scheduled orders, including clinic medications orders, diagnostic test orders, procedure orders and consult orders; where the start date of the order is 45 days before the date of the Encounter or 45 days after the date of theEncounter. The data comes from all [facility]. Test Date/Time Test Type Test Details Facility Name Apr 21, 2025 04:05 PM Consult Order COMMUNITY [id number] Cons Cut Plug Packer's Choice [facility] Social History: Smoking Status (Most current) and Tobacco Use (All prior to encounter date) This section includes the most current, and the historical, smoking and tobacco- related health factors from the [place] facility where the Encounter took place. Current Smoking Status This section includes the most current smoking, or tobacco-related health factor, from the [place] facility where the Encounter took place. Date/Time Current Smoking Status Comment Carmelita ity Oct 19, 2024 09:30 AM VA-TOBACCO USE FOR NORMAN CIGARETTES [facility] Tobacco Use History This section includes a history of the smoking, or tobacco-related health factors, that were collected on or before the date of the Encounter. The data comes from the [place] facility where the Encounter took place. Date/Time Smoking Status/Tobacco Use Comment F acility Oct 19, 2024 09:30 AM VA-TOBACCO USE FOR NORMAN CIGARETTES [facility] Dec 19, 2022 11:00 AM VA-TOBACCO FORMER USER [facility] Dec 19, 2022 11:00 AM VA-TOBACCO QUIT 15 YRS OR MORE [facility] Radiology Reports: +/- 30 days of [...] the Encounter. The data comes from all [place] treatment facilities. Date/Time Radiology Report Provider Source Apr 13, 2025 09:15 AM SPINE LUMBOSACRAL MIN 2 VIEWS: CUONG MCHUGH [id number] -1965 M Exm Date: APR 13, 2025@09:15 Req Phys: FEBRUARYREEMA Loc: [facility] PACT DELTA 16-2 (Req'g Loc Img Loc: [facility] RADIOLOGY [place]: [place] [address] (Case [id number] COMPLETE)SPINE LUMBOSACRAL MIN 2 VIEWS (RAD Detailed) CPT:74516 Reason for Study: low back pain Clinical History: Report Status: Verified Date Reported: APR 14, 2025 Date Verified: APR 14, 2025 Pewter Finisher E-Sig: Report: SPINE LUMBOSACRAL MIN 2 VIEWS, 04/13/2025 9:21 AM EDT INDICATION: low back pain COMPARISON: None Impression: Vertebral body heights maintained without acute fracture. 8 mm anterolisthesis L4 on L5. Moderate L4-5 and L5-S1 degenerative disc and facet disease. Vascular calcifications. Mild colonic stool burden. Primary Diagnostic Code: NO ALERT REQUIRED Primary Interpreting Staff: DEBBY MIDDLETON, Staff Physician Verified by museum informatics specialist for DEBBY MIDDLETON /DEBBY JOHNSON [facility] Encounter Notes: All associated encounter notes This section contains the clinical notes associated to the Encounter. Date/Time Encounter Note(s) Provider Source Apr 06, 2025 09:09 AM RN PROGRESS NOTE: LOCAL TITLE: CCC: CLINICAL TRIAGE STANDARD TITLE: RN PROGRESS NOTE DATE OF NOTE: APR 06, 2025@09:09:10 ENTRY DATE: APR 06, 2025@09:09:11 AUTHOR: GAVIOTA CASTILLO COSIGNER: URGENCY: STATUS: COMPLETED CCC: CLINICAL TRIAGE Has ADDENDA Caller Verification Call Back Number: Caller/Recipient Relation to Patient: Self Caller Name: CUONG MCHUGH Emergency Contact: CHACHO MCHUGH MSA Screening Patient Stated Symptoms: Increase back pain x3wks Triage Summary Conducted triage/discussed symptoms Pain Score: 7 (Moderate to Severe Pain) Utilized the Triage Tool: Yes Chief Complaint: Back Pain Nurse's Recommendation / WHEN: Within 4 Hours Nurse's Recommendation / WHERE: [facility] Patient Disposition Patient/Caregiver agrees to plan of care: Yes Patient WHERE: Clinic/[facility] Patient WHEN: Within 4 Hours Nursing Plan and Disposition Referred Patient for In-Person Appt Other Other Description: in clinic Nurse Summary Nurse Summary: * Patient c/o mid to low back pain that radiates down the posterior aspect of bilateral legs to his feet x 3 seeks. He indicates a pain level of 7. He has been seeing a chiropractor which is not helping. He had Physical Therapy on his back in which didn't help. Denies fever, redness, edema, injury, leg weakness or numbness, loss of control of his bladder or bowel, groin numbness. System recommends that he be seen within next 8 hours. Offered EDNOW which he refused. [facility]. He would like to have another epidural done at the [place]. I will forward this message to his PCP for review. * Clinical Contact Center Codes Clinic/Location: [facility] PHONE [facility] RN DAYTIME Decision Support System Output: Triage Complete Triage Date: 04/06/2025, 09:02 AM Triage Note: Decision Support Tool Used: ClearTriage Patient ongoing mid to lower back pain that radiates down the posterior aspect of bilateral legs to his feet. His pain level if a 7. Protocol Used: Back Pain Protocol-Based Disposition: See Provider within 4 Hours Positive Triage Question: * [1] Pain radiates into the thigh or further down the leg AND [2] both legs Care Advice Discussed: * Reasons To Call Back - You become worse Negative Triage Questions: * Passed out (e.g., fainted, lost consciousness, blacked out and was not responding) * Shock suspected (e.g., cold/pale/clammy skin, too weak to stand, low BP, rapid pulse) * Sounds like a life-threatening emergency to the triager * [1] SEVERE back pain (e.g., excruciating) AND [2] sudden onset AND [3] age > 60 years * [1] SEVERE abdominal pain AND [2] present > 1 hour * [1] Unable to urinate (or only a few drops) > 4 hours AND [2] bladder feels very full (e.g., palpable bladder or strong urge to urinate) * [1] Loss of bladder or bowel control (urine or bowel incontinence; wetting self, leaking stool) AND [2] new-onset * Numbness in groin or rectal area (i.e., loss of sensation) * [1] Abdominal pain AND [2] age > 60 years * Weakness of a leg or foot (e.g., unable to bear weight, dragging foot) * Patient sounds very sick or weak to the triager * [1] SEVERE back pain (e.g., excruciating, unable to do any normal activities) AND [2] not improved 2 hours after pain medicine * [1] Fever > 100 F (37.8 C) AND [2] flank pain (e.g., in side of back, below ribs and above hip) * [1] Pain or burning with passing urine (urination) AND [2] flank (e.g., in side of back, below ribs and above hip) IMPORTANT: This note was created by [facility] Clinical Contact Center staff. Please do not alert the staff member by adding them as a signer for future communications. Alerts are not monitored by this user. /kristopher/ GAVIOTA CASTILLO, STATION INSTALLER AND REPAIRER MASTER ELECTRICIAN Signed: 04/06/2025 09:09 Receipt Acknowledged By: 04/06/2025 09:19 /es/ JEAN HagerN RN punching machine operator 04/06/2025 10:54 /es/ Reema Aguilar DO Physician 04/06/2025 ADDENDUM STATUS: COMPLETED [facility] f/u PCP ordered x-rays and plans to order MRI. /kristopher/ GAVIOTA CASTILLO STATION INSTALLER AND REPAIRER MASTER ELECTRICIAN Signed: 04/06/2025 13:[address] [facility]
--- OUTSIDE RECORDS SUMMARY | 2025-04-06 06:47 | XMS_ITS | Encounter Summary ---
Author Name [facility] [place] [facility] [place] Organization [place] Address [address] [place] [address] Care Team Providers Care [place] Machine Operator Name Role Phone FEBRUARY, ARANZA Primary Care [...] Clarke's Name Patient's Relationship to Policy Clarke [facility] ([id number]) PRESCRIPT ION [id number] 1 Oct 12, 2018 [id number] [phone] MCHUGHSUJEY PATIENT [facility] Oct 12, 2018 [id number] ALBERT MCHUGH SPOUSE U[facility] PO[facility] SERVICE [facility] Oct 12, 2018 [id number] ALBERT MCHUGH SPOUSE Selected Encounter This section includes the information on record at [place] for the Encounter. Date/Time Encounter Type Encounter Description Reason Pro vider Source Apr 06, 2025 10:47 AM Outpatient Encounter PRIMARY CARE/MEDICINE IHE Encounter Template Text not used by [place] Plan of Treatment: Future Appointments (+ 6 months) and Future Tests (+/- 45 days) The Plan of Treatment section includes future care activities for the patient from [facility] [place] [facility]. This section includes future appointments and future orders which are active, pending or scheduled. Future Appointments This section includes appointments that were scheduled to occur 6 months from the date of the Encounter, up to a maximum of 20 appointments. The data comes from all [place] treatment facilities. Appointment Date/Time Appointment Type Appointme nt Facility Name May 08, 2025 07:00 AM [facility]ATORY - [place]ONE [place] [facility] May 09, 2025 02:30 PM AMBULATORY - SURGERY [place] [facility] Active, Pending, and Scheduled Orders This section includes a listing of several types of active, pending, and scheduled orders, including clinic medications orders, diagnostic test orders, procedure orders and consult orders; where the start date of the order is 45 days before the date of the Encounter or 45 days after the date of theEncounter. The data comes from all [facility]. Test Date/Time Test Type Test Details Facility Name Apr 21, 2025 04:05 PM Consult Order COMMUNITY [id number] Cons Disability Representative's Choice [facility] Social History: Smoking Status (Most current) and Tobacco Use (All prior to encounter date) This section includes the most current, and the historical, smoking and tobacco- related health factors from the [place] facility where the Encounter took place. Current Smoking Status This section includes the most current smoking, or tobacco-related health factor, from the [place] facility where the Encounter took place. Date/Time Current Smoking Status Comment Facil ity Oct 19, 2024 09:30 AM VA-TOBACCO USE FOR NORMAN CIGARETTES [facility] Tobacco Use History This section includes a history of the smoking, or tobacco-related health factors, that were collected on or before the date of the Encounter. The data comes from the [place] facility where the Encounter took place. Date/Time Smoking Status/Tobacco Use Comment F acility Oct 19, 2024 09:30 AM VA-TOBACCO USE FOR NORMAN CIGARETTES [facility] Dec 19, 2022 11:00 AM VA-TOBACCO FORMER USER [facility] Dec 19, 2022 11:00 AM VA-TOBACCO QUIT 15 YRS OR MORE [facility] Radiology Reports: +/- 30 days of [...] the Encounter. The data comes from all [place] treatment facilities. Date/Time Radiology Report Provider Source Apr 13, 2025 09:15 AM SPINE LUMBOSACRAL MIN 2 VIEWS: CUONG MCHUGH [id number] -1965 M Exm Date: APR 13, 2025@09:15 Req Phys: FEBRUARYARANZA Pat Loc: [facility] PACT DELTA 16-2 (Req'g Loc Img Loc: [facility] RADIOLOGY Service: [place] [address] (Case [id number] COMPLETE)SPINE LUMBOSACRAL MIN 2 VIEWS (RAD Detailed) CPT:51093 Reason for Study: low back pain Clinical History: Report Status: Verified Date Reported: APR 14, 2025 Date Verified: APR 14, 2025 Field Secretary E-Sig: Report: SPINE LUMBOSACRAL MIN 2 VIEWS, 04/13/2025 9:21 AM EDT INDICATION: low back pain COMPARISON: None Impression: Vertebral body heights maintained without acute fracture. 8 mm anterolisthesis L4 on L5. Moderate L4-5 and L5-S1 degenerative disc and facet disease. Vascular calcifications. Mild colonic stool burden. Primary Diagnostic Code: NO ALERT REQUIRED Primary Interpreting Staff: DEBBY MIDDLETON, Staff Physician Verified by student life dean for DEBBY MIDDLETON /DEBBY JOHNSON [facility] Encounter Notes: All associated encounter notes This section contains the clinical notes associated to the Encounter. Date/Time Encounter Note(s) Provider Source Apr 17, 2025 08:12 AM ADDENDUM: LOCAL TITLE: Addendum STANDARD TITLE: ADDENDUM DATE OF NOTE: APR 17, 2025@08:12:30 ENTRY DATE: APR 17, 2025@08:12:31 AUTHOR: ARANZA MCKEON COSIGNER: URGENCY: STATUS: COMPLETED Please advise pt that the x-rays of his lumbar spine showed moderate arthritis changes at L4-5 and L5-S1. I have ordered an MRI of the lumbar spine for him. Once I have received and reviewed the report, we will contact him with results and I will enter a consult for lumbar spine epidural injections for him. Thank you. /mckay Mckeon DO Physician Signed: 04/17/2025 08:15 Receipt Acknowledged By: 04/18/2025 11:15 /CAROLE Castro RN deck hand --- Original Document --- 04/06/25 PC PROGRESS NOTE: Please advise pt that before I can enter a consult for epidural injections in his lower back, he will need updated imaging. I have ordered a lumbar spine x- ray. Once the x-ray has been completed, I will order an MRI of the lumbar spine. Ask him the MRI questions. After receiving and reviewing the MRI report, I will enter a consult for the [facility] clinic for a lumbar spine epidural injection. Thank you. /mckay Mckeon DO Physician Signed: 04/06/2025 10:54 Receipt Acknowledged By: 04/06/2025 11:43 /CAROLE Castro RN deck hand 04/06/2025 ADDENDUM STATUS: COMPLETED Advised of X-ray orders and cleared for MRI. agreeable to plan of care. /CAROLE Castro RN deck hand Signed: 04/06/2025 11:44 04/18/2025 ADDENDUM STATUS: UNSIGNED You may not VIEW this UNSIGNED Addendum. [facility] Apr 06, 2025 10:47 AM PRIMARY CARE NOTE: LOCAL TITLE: PC PROGRESS NOTE STANDARD TITLE: PRIMARY CARE NOTE DATE OF NOTE: APR 06, 2025@10:47 ENTRY DATE: APR 06, 2025@10:48:04 AUTHOR: ARANZA MCKEON EXP COSIGNER: URGENCY: STATUS: COMPLETED PC PROGRESS NOTE Has ADDENDA Please advise pt that before I can enter a consult for epidural injections in his lower back, he will need updated imaging. I have ordered a lumbar spine x- ray. Once the x-ray has been completed, I will order an MRI of the lumbar spine. Ask him the MRI questions. After receiving and reviewing the MRI report, I will enter a consult for the Anesthesia Interventional Pain Management clinic for a lumbar spine epidural injection. Thank you. /mckay Mckeon DO Physician Signed: 04/06/2025 10:54 Receipt Acknowledged By: 04/06/2025 11:43 /CAROLE Castro RN deck hand 04/06/2025 ADDENDUM STATUS: COMPLETED Advised of X-ray orders and cleared for MRI. [place] agreeable to plan of care. /CAROLE Castro RN deck hand Signed: 04/06/2025 11:44 04/17/2025 ADDENDUM STATUS: COMPLETED Please advise pt that the x-rays of his lumbar spine showed moderate arthritis changes at L4-5 and L5-S1. I have ordered an MRI of the lumbar spine for him. Once I have received and reviewed the report, we will contact him with results and I will enter a consult for lumbar spine epidural injections for him. Thank you. /mckay Mckeon DO Physician Signed: 04/17/2025 08:15 Receipt Acknowledged By: 04/18/2025 11:15 /CAROLE Castro RN deck hand 04/18/2025 ADDENDUM STATUS: COMPLETED See 04/18/2025 Telephone Care Note. /CAROLE Castro RN deck hand Signed: 04/18/2025 11:15 ARANZA MCKEON [facility]
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
--- OUTSIDE RECORDS SUMMARY | 2025-04-10 12:31 | XMS_ITS | Encounter Summary ---
Author Name [facility] [place] Address [address] [place] [address] Care Team Providers Care Electrical Research Engineer Name Role Phone FEBRUARY, ARANZA Primary Care [...] Clarke's Name Patient's Relationship to Policy Clarke KISHANLANGFORD ([id number]) PRESCRIPT ION [id number] 1 Oct 12, 2018 [id number] SUJEY MCHUGH PATIENT UMR POINT OF SERVICE [facility] Oct 12, 2018 [id number] ALBERT MCHUGH SPOUSE UMR POINT OF SERVICE [facility] HO Oct 12, 2018 [id number] ALBERT MCHUGH SPOUSE Selected Encounter This section includes the information on record at [place] for the Encounter. Date/Time Encounter Type Encounter Description Reason Pro vider Source Apr 10, 2025 04:31 PM Outpatient Encounter TELEPHONE MH IHE Encounter Template Text not used by [place] Plan of Treatment: Future Appointments (+ 6 months) and Future Tests (+/- 45 days) The Plan of Treatment section includes future care activities for the patient [facility] [place] [facility] This section includes future appointments and future orders which are active, pending or scheduled. Future Appointments This section includes appointments that were scheduled to occur 6 months from the date of the Encounter, up to a maximum of 20 appointments. The data comes from all [place] treatment facilities. Appointment Date/Time Appointment Type Appointme nt Facility Name May 08, 2025 07:00 AM AM[place]ULATORY - NONE [place] [facility] May 09, 2025 02:30 PM AMBULATORY - SURGERY [place] [facility] Active, Pending, and Scheduled Orders This section includes a listing of several types of active, pending, and scheduled orders, including clinic medications orders, diagnostic test orders, procedure orders and consult orders; where the start date of the order is 45 days before the date of the Encounter or 45 days after the date of theEncounter. The data comes from all [facility]. Test Date/Time Test Type Test Details Facility Name Apr 21, 2025 04:05 PM Consult Order COMMUNITY [id number] Cons Application Counselor's Choice [facility] Social History: Smoking Status (Most current) and Tobacco Use (All prior to encounter date) This section includes the most current, and the historical, smoking and tobacco- related health factors from the [place] facility where the Encounter took place. Current Smoking Status This section includes the most current smoking, or tobacco-related health factor, from the [place] facility where the Encounter took place. Date/Time Current Smoking Status Comment Carmelita ity Oct 19, 2024 09:30 AM VA-TOBACCO USE FOR NORMAN CIGARETTES [facility] Tobacco Use History This section includes a history of the smoking, or tobacco-related health factors, that were collected on or before the date of the Encounter. The data comes from the [place] facility where the Encounter took place. Date/Time Smoking Status/Tobacco Use Comment F acility Oct 19, 2024 09:30 AM VA-TOBACCO USE FOR NORMAN CIGARETTES [facility] Dec 19, 2022 11:00 AM VA-TOBACCO FORMER USER [facility] Dec 19, 2022 11:00 AM VA-TOBACCO QUIT 15 YRS OR MORE [facility] Radiology Reports: +/- 30 days of the [...] the Encounter. The data comes from all [place] treatment facilities. Date/Time Radiology Report Provider Source Apr 13, 2025 09:15 AM SPINE LUMBOSACRAL MIN 2 VIEWS: CUONG MCHUGH [id number] -1965 M Exm Date: APR 13, 2025@09:15 Req Phys: FEBRUARYARANZA [facility] (Req'g Loc Img Loc: [facility] RADIOLOGY Service: [place] [address] (Case [id number] COMPLETE)SPINE LUMBOSACRAL MIN 2 VIEWS (RAD Detailed) CPT:86626 Reason for Study: low back pain Clinical History: Report Status: Verified Date Reported: APR 14, 2025 Date Verified: APR 14, 2025 Dormitory Maid E-Sig: Report: SPINE LUMBOSACRAL MIN 2 VIEWS, 04/13/2025 9:21 AM EDT INDICATION: low back pain COMPARISON: None Impression: Vertebral body heights maintained without acute fracture. 8 mm anterolisthesis L4 on L5. Moderate L4-5 and L5-S1 degenerative disc and facet disease. Vascular calcifications. Mild colonic stool burden. Primary Diagnostic Code: NO ALERT REQUIRED Primary Interpreting Staff: DEBBY MIDDLETON, Staff Physician Verified by ancillary specialist for DEBBY MIDDLETON /DEBBY JOHSNON [facility] Encounter Notes: All associated encounter notes This section contains the clinical notes associated to the Encounter. Date/Time Encounter Note(s) Provider Source Apr 10, 2025 04:31 PM MENTAL HEALTH NOTE : LOCAL TITLE: [facility] TELEPHONE NOTE STANDARD TITLE: MENTAL HEALTH NOTE DATE OF NOTE: APR 10, 2025@16:31 ENTRY DATE: APR 10, 2025@16:31:28 AUTHOR: CATHIE PASTOR EXP COSIGNER: URGENCY: STATUS: COMPLETED [facility] TELEPHONE NOTE Has ADDENDA [facility] Staff was contacted to offer services and/or schedule for follow-up care within [facility] program. An appointment was scheduled for PCMIA services: Apr@15:30 [place] contacted Telephone Care to cancel appointment, call transferred. -Please CANCEL BY PATIENT [facility]#9 on 04/12/25 at 3:00pm. -Please reschedule with [facility]#9 LD on 04/25/25 at 3:30pm, then block/move to [facility]#9 for same date/time. /kristopher/ Cathie Pastor, Ph.D. Licensed Psychologist - [facility] Signed: 04/10/2025 16:34 Receipt Acknowledged By: 04/11/2025 11:48 /kristopher/ RAÚL HERNANDEZ Advanced Credit And Loan Collections Supervisor 04/11/2025 ADDENDUM STATUS: COMPLETED Date/Time: Thursday 3:30 PM [facility]: [facility]#9 Scheduled then moved and blocked per previous note. /kristopher/ RAÚL HERNANDEZ Advanced Credit And Loan Collections Supervisor Signed: 04/11/2025 11:49 CATHIE PASTOR [facility]
--- OUTSIDE RECORDS SUMMARY | 2025-04-18 07:14 | XMS_ITS | Encounter Summary ---
Author Name [facility] [place] Organization [place] Address [address] [place] [address] Care Team Providers Care Partner Marketing Intern Name Role Phone FEBRUARY, ARANZA Primary Care [...] Clarke's Name Patient's Relationship to Policy Clarke CARECARROLLTON ([id number]) PRESCRIPT ION [id number] 1 Oct 12, 2018 [id number] SUJEY MCHUGH CKY PATIENT UMR POINT OF SERVICE [facility] Oct 12, 2018 [id number] ALBERT MCHUGH SPOUSE UMR POINT OF SERVICE [facility] HO Oct 12, 2018 [id number] [phone] ALBERT MCHUGH PILLO SPOUSE Selected Encounter This section includes the information on record at [place] for the Encounter. Date/Time Encounter Type Encounter Description Reason Provider Source Apr 18, 2025 11:14 AM PH1 ASSMT&MGMT NQHP 5-10 TELEPHONE PRIMARY CARE ICD-10-CM M43.16 Spondylolisth esis, lumbar region DONA LAI [facility] Encounter Template Text not used by [place] Assessments - Encounter Diagnoses This section includes the primary and secondary diagnoses documented for the Encounter. Date/Time Primary/Secondary Diagnosis Diagnosis Name Provider Source Apr 18, 2025 11:14 AM PRIMARY Spondylolisthesi s, lumbar region DONA LAI [facility] Plan of Treatment: Future Appointments (+ 6 months) and Future Tests (+/- 45 days) The Plan of Treatment section includes future care activities for the patient from all [place] [facility] hospital. This section includes future appointments and future orders which are active, pending or scheduled. Future Appointments This section includes appointments that were scheduled to occur 6 months from the date of the Encounter, up to a maximum of 20 appointments. The data comes from all [place] treatment facilities. Appointment Date/Time Appointment Type Appointme nt Facility Name May 08, 2025 07:00 AM AM[place]ULATORY - NONE [place] [facility] May 09, 2025 02:30 PM AMBULATORY - SURGERY [place] [facility] Active, Pending, and Scheduled Orders This section includes a listing of several types of active, pending, and scheduled orders, including clinic medications orders, diagnostic test orders, procedure orders and consult orders; where the start date of the order is 45 days before the date of the Encounter or 45 days after the date of theEncounter. The data comes from all [place] treatment facilities. Test Date/Time Test Type Test Details Facility Name Apr 21, 2025 04:05 PM Consult Order COMMUNITY [id number] Cons [employer] Math Teacher's Choice [facility] Social History: Smoking Status (Most current) and Tobacco Use (All prior to encounter date) This section includes the most current, and the historical, smoking and tobacco- related health factors from the [place] facility where the Encounter took place. Current Smoking Status This section includes the most current smoking, or tobacco-related health factor, from the [place] facility where the Encounter took place. Date/Time Current Smoking Status Savi farias Oct 19, 2024 09:30 AM VA-TOBACCO USE FOR NORMAN CIGARETTES [facility] Tobacco Use History This section includes a history of the smoking, or tobacco-related health factors, that were collected on or before the date of the Encounter. The data comes from the [place] facility where the Encounter took place. Date/Time Smoking Status/Tobacco Use Comment Anthony gonzalez Oct 19, 2024 09:30 AM VA-TOBACCO USE FOR NORMAN CIGARETTES [facility] Dec 19, 2022 11:00 AM VA-TOBACCO FORMER USER [facility] Dec 19, 2022 11:00 AM VA-TOBACCO QUIT 15 YRS OR MORE [facility] Radiology Reports: +/- 30 days [...] the Encounter. The data comes from all [place] treatment facilities. Date/Time Radiology Report Provider Source Apr 13, 2025 09:15 AM SPINE LUMBOSACRAL MIN 2 VIEWS: CUONG MCHUGH [id number] -1965 M Exm Date: APR 13, 2025@09:15 Req Phys: ARANZA MCKEON Loc: [facility] PACT DELTA 16-2 (Req'g Loc Img Loc: [facility] RADIOLOGY Service: [place] [address] (Case [id number] COMPLETE)SPINE LUMBOSACRAL MIN 2 VIEWS (RAD Detailed) CPT:88049 Reason for Study: low back pain Clinical History: Report Status: Verified Date Reported: APR 14, 2025 Date Verified: APR 14, 2025 Shoe Planner E-Sig: Report: SPINE LUMBOSACRAL MIN 2 VIEWS, 04/13/2025 9:21 AM EDT INDICATION: low back pain COMPARISON: None Impression: Vertebral body heights maintained without acute fracture. 8 mm anterolisthesis L4 on L5. Moderate L4-5 and L5-S1 degenerative disc and facet disease. Vascular calcifications. Mild colonic stool burden. Primary Diagnostic Code: NO ALERT REQUIRED Primary Interpreting Staff: DEBBY MIDDLETON, Staff Physician Verified by preschool lead teacher for DEBBY MIDDLETON /DEBBY JOHNSON [facility] Encounter Notes: All associated encounter notes This section contains the clinical notes associated to the Encounter. Date/Time Encounter Note(s) Provider Source Apr 18, 2025 11:14 AM PRIMARY CARE TELEP ALDO ENCOUNTER NOTE: LOCAL TITLE: Pc Telephone Care Note STANDARD TITLE: PRIMARY CARE TELEPHONE ENCOUNTER NOTE DATE OF NOTE: APR 18, 2025@11:14 ENTRY DATE: APR 18, 2025@11:14:23 AUTHOR: DONA LAI EXP COSIGNER: URGENCY: STATUS: COMPLETED Contacted Mr. CUONG MCHUGH regarding PCP recommendations: Please advise pt that the x-rays of his lumbar spine showed moderate arthritis changes at L4-5 and L5-S1. I have ordered an MRI of the lumbar spine for him. Once I have received and reviewed the report, we will contact him with results and I will enter a consult for lumbar spine epidural injections for him. Thank you. __ states understanding. No further questions or concerns at this time. Agreeable to plan of care. identified using two identifiers (name, last four). Spent 5 minutes on the call. /kristopher/ JEAN HagerN RN finance vice president Signed: 04/18/2025 11:14 DONA LAI [facility]
--- OUTSIDE RECORDS SUMMARY | 2025-04-21 09:33 | XMS_ITS | Encounter Summary ---
Author Name [place] Organization [place] Address [address] [place] [address] Care Team Providers Care Regional Business Development Manager Name Role Phone FEBRUARY, REEMA Primary Care [...] Clarke's Name Patient's Relationship to Policy Clarke [facility] ([id number]) PRESCRIPT ION [id number] 1 Oct 12, 2018 [id number] [phone] SUJEY MCHUGH CKBell PATIENT UMR POINT OF SERVICE [facility] HO Oct 12, 2018 [id number] ALBERT MCHUGH SPOUSE UMR POINT OF SERVICE [facility] HO Oct 12, 2018 [id number] ALBERT MCHUGH SPOUSE Selected Encounter This section includes the information on record at [place] for the Encounter. Date/Time Encounter Type Encounter Description Reason Pro vider Source Apr 21, 2025 01:33 PM Outpatient Encounter ADMIN PAT ACTIVTIES (MASNONCT) IHE Encounter Template Text not used by [place] Plan of Treatment: Future Appointments (+ 6 months) and Future Tests (+/- 45 days) The Plan of Treatment section includes future care activities for the patient from all [place] treatmentfacilities. This section includes future appointments and future orders which are active, pending or scheduled. Future Appointments This section includes appointments that were scheduled to occur 6 months from the date of the Encounter, up to a maximum of 20 appointments. The data comes from all [facility]. Appointment Date/Time Appointment Type Appointme nt Facility Name May 08, 2025 07:00 AM AMBULATORY - NONE [place] [facility] May 09, 2025 02:30 PM AMBULATORY - SURGERY [place] [facility] Active, Pending, and Scheduled Orders This section includes a listing of several types of active, pending, and scheduled orders, including clinic medications orders, diagnostic test orders, procedure orders and consult orders; where the start date of the order is 45 days before the date of the Encounter or 45 days after the date of theEncounter. The data comes from all [facility]. Test Date/Time Test Type Test Details Facility Name Apr 21, 2025 04:05 PM Consult Order COMMUNITY [id number] Cons Media Strategist's Choice [facility] Radiology Reports: +/- 30 days of the [...] the Encounter. The data comes from all [facility]. Date/Time Radiology Report Provider Source Apr 13, 2025 09:15 AM SPINE LUMBOSACRAL MIN 2 VIEWS: CUONG MCHUGH [id number] -1965 M Exm Date: APR 13, 2025@09:15 Req Phys: REEMA MCKEON Loc: [facility] PACT DELTA 16-2 (Req'g Loc Img Loc: [facility] RADIOLOGY Service: [place] [address] (Case [id number] COMPLETE)SPINE LUMBOSACRAL MIN 2 VIEWS (RAD Detailed) CPT:80804 Reason for Study: low back pain Clinical History: Report Status: Verified Date Reported: APR 14, 2025 Date Verified: APR 14, 2025 Tire Manager E-Sig: Report: SPINE LUMBOSACRAL MIN 2 VIEWS, 04/13/2025 9:21 AM EDT INDICATION: low back pain COMPARISON: None Impression: Vertebral body heights maintained without acute fracture. 8 mm anterolisthesis L4 on L5. Moderate L4-5 and L5-S1 degenerative disc and facet disease. Vascular calcifications. Mild colonic stool burden. Primary Diagnostic Code: NO ALERT REQUIRED Primary Interpreting Staff: DEBBY MIDDLETON, Staff Physician Verified by corporate account executive for DEBBY MIDDLETON /DEBBY JOHNSON [facility] Encounter Notes: All associated encounter notes This section contains the clinical notes associated to the Encounter. Date/Time Encounter Note(s) Provider Source Apr 21, 2025 03:28 PM ADDENDUM: LOCAL TITLE: Addendum STANDARD TITLE: ADDENDUM DATE OF NOTE: APR 21, 2025@15:28:52 ENTRY DATE: APR 21, 2025@15:28:53 AUTHOR: ALDA BEAR EXP COSIGNER: URGENCY: STATUS: COMPLETED Please alert PCP. Thanks. /kristopher/ ALDA BEAR MD PRIMARY CARE PHYSICIAN Signed: 04/21/2025 15:29 Receipt Acknowledged By: 04/21/2025 15:38 /kristopher/ Letitia Martins Advanced Associate Sales Manager --- Original Document --- 04/21/25 CLERICAL/ADMIN NOTE: is choosing community care for the ordered MRI L SPINE W/O due to availability. Please enter community care consult for the ordered exam. Order has been placed on hold momentarily. Once consult request for CITC is placed please cancel original order. /mckay Martins Advanced Associate Sales Manager Signed: 04/21/2025 13:34 Receipt Acknowledged By: 04/21/2025 15:28 /mckay BEAR MD PRIMARY CARE PHYSICIAN * AWAITING SIGNATURE * CECILY PINK * AWAITING SIGNATURE * REEMA MCKEON RADHIKA C [place] Apr 21, 2025 01:33 PM ADMINISTRATIVE NOT E: LOCAL TITLE: CLERICAL/ADMIN NOTE STANDARD TITLE: ADMINISTRATIVE NOTE DATE OF NOTE: APR 21, 2025@13:33 ENTRY DATE: APR 21, 2025@13:33:53 AUTHOR: LETITIA MARTINS EXP COSIGNER: URGENCY: STATUS: COMPLETED CLERICAL/ADMIN NOTE Has ADDENDA Williams is choosing community care for the ordered MRI L SPINE W/O due to availability. Please enter community care consult for the ordered exam. Order has been placed on hold momentarily. Once consult request for CITC is placed please cancel original order. /mckay Martins Advanced Associate Sales Manager Signed: 04/21/2025 13:34 Receipt Acknowledged By: 04/21/2025 15:28 /mckay BEAR MD PRIMARY CARE PHYSICIAN 04/24/2025 14:59 /mckay PINK MRI & US Planning Analyst, [facility] 04/21/2025 16:05 /kristopher/ Reema Mckeon DO Physician 04/21/2025 ADDENDUM STATUS: COMPLETED Please alert PCP. Thanks. /kristopher/ ALDA BEAR MD PRIMARY CARE PHYSICIAN Signed: 04/21/2025 15:29 Receipt Acknowledged By: 04/21/2025 15:38 /mckay Martins Advanced Associate Sales Manager 04/21/2025 ADDENDUM STATUS: COMPLETED CITC MRI consult entered. /kristopher/ Reema Mckeon DO Physician Signed: 04/21/2025 16:06 04/24/2025 ADDENDUM STATUS: COMPLETED PT's 04/25/25 Appt has been scheduled per previous note and Inpatient Status. /kristopher/ RAÚL HERNANDEZ Advanced Associate Sales Manager Signed: 04/24/2025 14:22 LETITIA MARTINS-OBN [facility]
--- OUTSIDE RECORDS SUMMARY | 2025-04-24 10:06 | XMS_ITS | Encounter Summary ---
Author Name [place] Organization [place] Address [address] [place] [address] Care Team Providers Care Lot Technician Name Role Phone FEBRUARY, ARANZA Primary Care [...] Clarke's Name Patient's Relationship to Policy Clarke [facility] ([id number]) PRESCRIPT ION [id number] 1 Oct 12, 2018 [id number] [phone] SUJEY MCHUGH CKBell PATIENT UMR POINT OF SERVICE [facility] HO Oct 12, 2018 [id number] ALBERT MCHUGH SPOUSE UMR POINT OF SERVICE [facility] HO Oct 12, 2018 [id number] ALBERT MCHUGH SPOUSE Selected Encounter This section includes the information on record at [place] for the Encounter. Date/Time Encounter Type Encounter Description Reason Pro vider Source Apr 24, 2025 02:06 PM Outpatient Encounter ADMIN PAT ACTIVTIES (MASNONCT) IHE Encounter Template Text not used by [place] Plan of Treatment: Future Appointments (+ 6 months) and Future Tests (+/- 45 days) The Plan of Treatment section includes future care activities for the patient from all [place] treatmentfacilities. This section includes future appointments and future orders which are active, pending or scheduled. Future Appointments This section includes appointments that were scheduled to occur 6 months from the date of the Encounter, up to a maximum of 20 appointments. The data comes from all [facility]. Appointment Date/Time Appointment Type Appointme nt Facility Name May 08, 2025 07:00 AM AMBULATORY - NONE [place] [facility] May 09, 2025 02:30 PM AMBULATORY - SURGERY [place] [facility] Active, Pending, and Scheduled Orders This section includes a listing of several types of active, pending, and scheduled orders, including clinic medications orders, diagnostic test orders, procedure orders and consult orders; where the start date of the order is 45 days before the date of the Encounter or 45 days after the date of theEncounter. The data comes from all [facility]. Test Date/Time Test Type Test Details Facility Name Apr 21, 2025 04:05 PM Consult Order COMMUNITY [id number] Cons Vacuum Drier Tender's Choice [facility] Radiology Reports: +/- 30 days of [...] the Encounter. The data comes from all [facility]. Date/Time Radiology Report Provider Source Apr 13, 2025 09:15 AM SPINE LUMBOSACRAL MIN 2 VIEWS: CUONG MCHUGH [id number] -1965 M Exm Date: APR 13, 2025@09:15 Req Phys: ARANZA MCKEON Loc: [facility] PACT DELTA 16-2 (Req'g Loc Img Loc: [facility] RADIOLOGY Service: [place] [address] (Case [id number] COMPLETE)SPINE LUMBOSACRAL MIN 2 VIEWS (RAD Detailed) CPT:82390 Reason for Study: low back pain Clinical History: Report Status: Verified Date Reported: APR 14, 2025 Date Verified: APR 14, 2025 Diesel Service Journeyman E-Sig: Report: SPINE LUMBOSACRAL MIN 2 VIEWS, 04/13/2025 9:21 AM EDT INDICATION: low back pain COMPARISON: None Impression: Vertebral body heights maintained without acute fracture. 8 mm anterolisthesis L4 on L5. Moderate L4-5 and L5-S1 degenerative disc and facet disease. Vascular calcifications. Mild colonic stool burden. Primary Diagnostic Code: NO ALERT REQUIRED Primary Interpreting Staff: DEBBY MIDDLETON, Staff Physician Verified by oil operator for DEBBY MIDDLETON [facility] Encounter Notes: All associated encounter notes This section contains the clinical notes associated to the Encounter. Date/Time Encounter Note(s) Provider Source Apr 24, 2025 02:06 PM ADMINISTRATIVE NOT E: LOCAL TITLE: CCC: SCHEDULING ADMINISTRATION STANDARD TITLE: ADMINISTRATIVE NOTE DATE OF NOTE: APR 24, 2025@14:06:05 ENTRY DATE: APR 24, 2025@14:06:06 AUTHOR: TORSTEN ROGER COSIGNER: URGENCY: STATUS: COMPLETED Caller Verification Call Back Number: [phone] Emergency Contact: CHACHO MCHUGH Emergency Contact Caller/Recipient Relation to Patient: Self Caller Name: CUONG MCHUGH Administrative Administrative Note Reason: Other Administrative Note Comments: Pt called to cx appt for 04/25/25 due inpatient status, will call back when ready to r/s IMPORTANT: This note was created by [facility] Clinical Contact Center staff. Please do not alert the staff member by adding them as a signer for future communications. Alerts are not monitored by this user. /kristopher/ TORSTEN ROGER Signed: 04/24/2025 14:06 Receipt Acknowledged By: 04/24/2025 14:21 /kristopher/ RAÚL HERNANDEZ Advanced Head Men'S Golf Coach [facility]STEN ROGER[facility]
--- OUTSIDE RECORDS SUMMARY | 2025-05-06 20:02 | XMS_ITS | Continuity of Care Document ---
Author Name [facility] Organization [facility] Care Team Providers Care Divorce Attorney Name Role Phone [facility] Unavailable Unavailable Problems Combined list of problems from Department of Defense and Veterans Affairs facilities. It does not include entries that were removed or entered in error. Problem Status Onset Date Problem Type Date of Resolution Comments Source Degeneration of Lumbar Intervertebral Disc (SCT [id number]) Active Condition Apr 17, 2025 Entered By: ARANZA MCKEON Comment: 04/13/25 Lumbar spine x-rays -- 8 mm anterolisthesis L4 on L5; moderate degenerative changes at L4-5 and L5-S1 [facility] Essential hypertension Active Condition [facility] Exposure to potentially hazardous substance Active Condition [place] [facility] Exposure to potentially hazardous substance ([facility] [id number]) [facility] Gastroesophageal reflux disease Active Condition [facility] Hyperlipidemia Active [place] [facility] Lumbar Spondylolisthesis ([facility] [id number]) Active Condition Apr 17 Entered By: ARANZA MCKEON Comment: 04/13/25 Lumbar spine x-rays -- 8 mm anterolisthesis L4 on L5; moderate degenerative changes at L4-5 and L5-S1 [facility] Non-celiac gluten sensitivity Active Condition [facility] Tinnitus Active Condition [facility] Chronic pain syndrome Inactive Condition 04/17/2025 [facility] Low back pain Inactive Condition 04/17/2025 RADHA [facility]IL[facility] Obesity Inactive Condition 04/17/2025 [facility] Right knee pain Inactive Condition 04/17/2025 RASHIDA NADINE [facility] Diagnosis: ICD-10-CM M43.16 Spondylolisthesis, lumbar region Active Diagnosis [facility] Diagnosis: ICD-10-CM F33.2 Major depressv disorder, recurrent severe w/o psych features Active Diagnosis [facility] Diagnosis: ICD-10-CM F41.9 Anxiety disorder, unspecified Active Diagnosis [facility] Diagnosis: ICD-10-CM Z13.39 Encntr screen exam for other mental hlth and behavrl disord Active Diagnosis [facility] Diagnosis: ICD-10-CM M25.569 Pain in unspecified knee Active Diagnosis [facility] Diagnosis: ICD-10-CM M54.50 Low back pain, unspecified Active Diagnosis [facility] Diagnosis: ICD-10-CM M17.11 Unilateral primary osteoarthritis, right knee Active Diagnosis [facility] Diagnosis: ICD-10-CM M25.562 Pain in left knee Active [facility] Diagnosis: ICD-10-CM M25.561 Pain in right knee Active [facility] Medications Combined list of outpatient medications from Department of Defense and [facility] facilities.Medications provided include 1) outpatient medications from the last 15 months, and 2) patient-reported medications. Medication Details Route Status Patient Instructions Prescription Expires Prescription Number Last Dispense Date Ordering Provider Order Date Order Qty Source AMLODIPINE BESYLATE 10MG TAB TAKE ONE TABLET BY MOUTH DAILY ORAL ACTIVE CHARLOTTE BRANHAM 2022 [place] [facility] CARBAMIDE PEROXIDE 6.5%/GLYCER IN SOLN,OTIC INSTILL 2 DROPS IN BOTH EARS TWICE A DAY FOR EAR WAX REMOVAL -ALLOW DROPS TO REMAIN IN EAR FOR AT LEAST 15 MINUTES. FLUSH EAR WITH WARM WATER USING BULB EAR SYRINGE. AURICU LAR (OTIC) 11/18/2024 [id number] CHARLOTTE BRANHAM 2024 15 [place] [facility] DAPSONE 25MG TAB TAKE ONE TABLET BY MOUTH DAILY ORAL ACTIVE CHARL[place]TE BRANHAM 2024 [place] [facility] HYDROXYZINE HCL 25MG TAB TAKE 1 TABLET (25MG) BY MOUTH TWICE A DAY NEEDED FOR ANXIETY ORAL ACTIVE 08/03/2025 [id number] ADELINA POLO 2024 180 [place] [facility] HYDROXYZINE HCL 25MG TAB TAKE 1 TABLET (25MG) BY MOUTH TWICE A DAY NEEDED FOR ANXIETY ORAL DISCONT INUED 05/16/2025 [id number] 5 ADELINA POLO 2024 180 [place] [facility] NAPROXEN 500MG TAB TAKE ONE TABLET BY MOUTH TWICE A DAY FOR PAIN/INF LAMMATIO N -TAKE WITH FOOD OR MILK ORAL ACTIVE 10/20/2025 [id number] 5 NGUYENDON MELODYCHARLOTTE H 2024 60 [place] [facility] RAMIPRIL 10MG CAP TAKE 2 CAPSULES BY MOUTH ORAL ACTIVE NGUYENDON ,CHARLOTTE H 2022 [place] [facility] ROSUVASTATI N CA 20MG TAB TAKE ONE TABLET BY MOUTH AT BEDTIME ORAL ACTIVE NGUYENDON ,CHARLOTTE H 2022 [facility] Allergies, Adverse Reactions, Alerts Combined list of allergies from Department of Defense and Veterans Affairs facilities. It does not include entries that were removed or entered in error. Substance Category Reaction Severity Reaction type Status Date Reported Comments Source PERCOCET Propensity to adverse reactions to drug (finding) Headache MODERATE active 3 [facility] Immunizations Combined list of available immunizations from the Department of Defense and Veterans Affairs facilities. Immunization Series Date Given Administered By Site Reaction Lot Number CVX Code Drug Egyptologist Status Comments Source TDAP 2 2016 115 complet ed HISTORICA L INFORMATI ON - FROM OTHER REGISTRY, [place] [facility] TD (ADULT), 2 LF TETANUS TOXOID, PRESERVATIVE FREE, ADSORBED 1 1996 09 complet ed HISTORICA L INFORMATI ON - FROM OTHER REGISTRY, [place] [facility] Results Combined list of recent chemistry, hematology and other laboratory results from Department of Defense and Veterans Affairs, ranging from 15 months to all on record, depending upon the facility. Order Name Results Value Reference Range Date Interpretation Specimen Comments Source GLYCOHEMO GLOBIN HEMOGLOBIN A1C/HEMOGLO BIN.TOTAL IN BLOOD BY HPLC 4.4 4.4 - 6.4 10/19 Specimen Type: BLOOD Comment: [place] guidelines for A1c interpretat ion: Glycemic control targets are based on Shared Decision Making between clinicians and patients. Criteria used to establish an A1c target recommendat ion can be found at https://www .[place].gov/blue nixyandpati entsafety/ and include the use of result [...] 9.27. Ref: https://ngs p.org/CAPda ta.asp. The in-house [employer] D-100 analyzer has a historical CV <= 2%. Contact the laboratory for further performance characteris tics of this assay. Ordering Provider: Jorje BRANHAM Report Released Date/Time: Oct 19, 2024 09:50 AM Reporting Lab: JESSICA GIL [address] [address] Performing Lab: JESSICA [address] [address] [facility] LIPID PROFILE CHOLESTEROL [MASS/VOLUM E] IN SERUM [...] 2024 09:50 AM Reporting Lab: [facility] [address] [address] Performing Lab: [facility] [address] [address] [facility] LIPID PROFILE TRIGLYCERID E [MASS/VOLUM E] IN [...] 2024 09:50 AM Reporting Lab: [facility] [address] [address] Performing Lab: [facility] [address] [address] [facility] LIPID PROFILE CHOLESTEROL IN HDL [MASS/VOLUM E] [...] 2024 09:50 AM Reporting Lab: [facility] [address] [address] Performing Lab: [facility] [address] [address] [facility] LIPID PROFILE CHOLESTEROL IN LDL [MASS/VOLUM E] [...] 2024 09:50 AM Reporting Lab: [facility] [address] [address] Performing Lab: J[facility]ICA [facility] [address] [address] [facility] 25-OH VITAMIN D 25-HYDROXYV ITAMIN D3 [MASS/VOLUM [...] 2024 09:50 AM Reporting Lab: [facility]ICA [facility] [address] [address] Performing Lab: J[facility]ICA [facility] [address] [address] [facility] B12 VITAMIN COBALAMIN (VITAMIN B12) [MASS/VOLUM E] [...] 2024 09:50 AM Reporting Lab: [facility]ICA [facility] [address] [address] Performing Lab: [facility]ICA [facility] [address] [address] [facility] TSH THYROTROPIN [UNITS/VOLU ME] IN SERUM OR [...] 2024 09:50 AM Reporting Lab: [facility] [address] [address] Performing Lab: [facility]ICA [facility] [address] [address] [facility] PANEL 5 CREATININE [MASS/VOLUM E] IN SERUM [...] 2024 09:50 AM Reporting Lab: [facility] [address] [address] Performing Lab: [facility]ICA [facility] [address] [address] [facility] PANEL 5 UREA NITROGEN [MASS/VOLUM E] IN SERUM OR PLASMA 9 mg/dL 9 - 10/19 Specimen Type: PLASMA Comment: Vitamin [...] 2024 09:50 AM Reporting Lab: [facility] [address] [address] Performing Lab: [facility]ICA [facility] [address] [address] [facility] PANEL 5 GLUCOSE [MASS/VOLUM E] IN SERUM [...] 2024 09:50 AM Reporting Lab: [facility] [address] [address] Performing Lab: J[facility]ICA [facility] [address] [address] [facility] PANEL 5 SODIUM [MOLES/VOLU ME] IN SERUM [...] 2024 09:50 AM Reporting Lab: [facility] [address] [facility] [address] Performing Lab: JESSICA G[facility] [address] [address] [facility] PANEL 5 POTASSIUM [MOLES/VOLU ME] IN SERUM [...] 2024 09:50 AM Reporting Lab: [facility] [address] [address] Performing Lab: [facility] [address] [address] [facility] PANEL 5 CHLORIDE [MOLES/VOLU ME] IN SERUM [...] 2024 09:50 AM Reporting Lab: [facility] [address] [address] Performing Lab: [facility] [address] [address] [facility] PANEL 5 CARBON DIOXIDE, TOTAL [MOLES/VOLU ME] IN SERUM OR PLASMA 27 mmol/L 22 - 10/19 Specimen Type: PLASMA Comment: Vitamin [...] 2024 09:50 AM Reporting Lab: [facility]ICA [facility] [address] [address] Performing Lab: [facility] [address] [address] [facility] PANEL 5 CALCIUM [MASS/VOLUM E] IN SERUM [...] 2024 09:50 AM Reporting Lab: [facility] [address] [address] Performing Lab: [facility] [address] [address] [facility] PANEL 5 PROTEIN [MASS/VOLUM E] IN SERUM [...] 2024 09:50 AM Reporting Lab: [facility] [address] [address] Performing Lab: [facility] [address] [address] [facility] PANEL 5 ALBUMIN [MASS/VOLUM E] IN SERUM [...] 2024 09:50 AM Reporting Lab: [facility] [address] [address] Performing Lab: JESSICA [facility] [address] [address] [facility] PANEL 5 BILIRUBIN.T OTAL [MASS/VOLUM E] IN [...] 2024 09:50 AM Reporting Lab: [facility] [address] [address] Performing Lab: J[facility]ICA [facility] [address] [address] [facility] PANEL 5 ASPARTATE AMINOTRANSF ERASE [ENZYMATIC ACTIVITY/VO [...] 2024 09:50 AM Reporting Lab: [facility] [address] [facility] [address] Performing Lab: J[facility] G[facility] [address] [facility] [address] [facility] PANEL 5 ALANINE AMINOTRANSF ERASE [ENZYMATIC ACTIVITY/VO [...] 2024 09:50 AM Reporting Lab: [facility] [address] [facility] [address] Performing Lab: [facility] [address] [facility] [address] [facility] PANEL 5 ANION GAP 3 IN SERUM [...] Oct 19, 2024 09:50 AM Reporting Lab: [address] [address] Performing Lab: [address] [address] [facility] PANEL 5 ALKALINE PHOSPHATASE [ENZYMATIC ACTIVITY/VO LUME] [...] 2024 09:50 AM Reporting Lab: [facility] [address] [address] Performing Lab: JESSICA [facility] [address] [address] [facility] 5 GLOMERULAR FILTRATION RATE/1.73 SQ M.PREDICTED [VOLUME [...] Oct 19, 2024 09:50 AM Reporting Lab: [place] [id number] Performing Lab: [address] CBC/PLT LEUKOCYTES [#/VOLUME] IN BLOOD BY AUTOMATED COUNT 9.4 10*3/u L 5.0 - 10.0 10/19 Specimen Type: BLOOD No comment entered. Ordering Provider: Jorje BRANHAM Report Released Date/Time: Oct 19, 2024 09:50 AM Reporting Lab: [place] [id number] Performing Lab: [place] [id number] CBC/PLT ERYTHROCYTE S [#/VOLUME] IN BLOOD BY AUTOMATED COUNT 4.78 10*6/u L 4.6 - 6.2 10/19 Specimen Type: BLOOD No comment entered. Ordering Provider: Jorje BRANHAM Report Released Date/Time: Oct 19, 2024 09:50 AM Reporting Lab: [address] [address] Performing Lab: [address] [phone] [place] [address] CBC/PLT HEMOGLOBIN [MASS/VOLUM E] IN BLOOD 14.6 g/dL 14.0 - 18.0 10/19 Specimen Type: BLOOD No comment entered. Ordering Provider: Jorje BRANHAM Report Released Date/Time: Oct 19, 2024 09:50 AM Reporting Lab: [address] [address] Performing Lab: [place] [id number] [facility] CBC/PLT HEMATOCRIT [VOLUME FRACTION] OF BLOOD BY AUTOMATED COUNT 45.0 42.0 - 52.0 10/19 Specimen Type: BLOOD No comment entered. Ordering Provider: Jorje BRANHAM Report Released Date/Time: Oct 19, 2024 09:50 AM Reporting Lab: [place] [id number] Performing Lab: [place] [phone] [facility] CBC/PLT MCV [ENTITIC VOLUME] BY AUTOMATED COUNT 94.1 fL 80.0 - 94.0 10/19 H Specimen Type: BLOOD No comment entered. Ordering Provider: Jorje BRANHAM Report Released Date/Time: Oct 19, 2024 09:50 AM Reporting Lab: [address] [address] Performing Lab: [address] [address] [facility] CBC/PLT MCH [ENTITIC MASS] BY AUTOMATED COUNT 30.5 pg 27.0 - 31.0 10/19 Specimen Type: BLOOD No comment entered. Ordering Provider: Jorje BRANHAM Report Released Date/Time: Oct 19, 2024 09:50 AM Reporting Lab: [address] [address] Performing Lab: [place] [address] [place] [address] CBC/PLT MCHC [MASS/VOLUM E] BY AUTOMATED COUNT 32.4 g/dL 32.0 - 36.0 10/19 Specimen Type: BLOOD No comment entered. Ordering Provider: Jorje BRANHAM Report Released Date/Time: Oct 19, 2024 09:50 AM Reporting Lab: [place] [address] Performing Lab: [place] [id number] CBC/PLT PLATELETS [#/VOLUME] IN BLOOD 391 10*3/u L 150 - 450 10/19 Specimen Type: BLOOD No comment entered. Ordering Provider: Jorje BRANHAM Report Released Date/Time: Oct 19, 2024 09:50 AM Reporting Lab: [place] [phone] Performing Lab: [place] [phone] CBC/PLT PLATELET MEAN VOLUME [ENTITIC VOLUME] IN BLOOD 9.9 fL 9.0 - 13.1 10/19 Specimen Type: BLOOD No comment entered. Ordering Provider: Jorje BRANHAM Report Released Date/Time: Oct 19, 2024 09:50 AM Reporting Lab: [place] [phone] Performing Lab: [place] [id number] [place] [address] CBC/PLT ERYTHROCYTE DISTRIBUTIO N WIDTH [ENTITIC VOLUME] BY AUTOMATED COUNT 15.2 11.0 - 16.0 10/19 Specimen Type: BLOOD No comment entered. Ordering Provider: Jorje BRANHAM Report Released Date/Time: Oct 19, 2024 09:50 AM Reporting Lab: [place] [phone] Performing Lab: [place] [id number] [place] [address] CBC/PLT NUCLEATED ERYTHROCYTE S/100 ERYTHROCYTE S IN BLOOD 0.0 0.0 - 0.0 10/19 Specimen Type: BLOOD No comment entered. Ordering Provider: Jorje BRANHAM Report Released Date/Time: Oct 19, 2024 09:50 AM Reporting Lab: [facility] [address] [facility] [address] Performing Lab: [facility] [address] [facility] [address] [facility] Vital Signs Combined list of inpatient and outpatient Vital Signs from Department of Defense and Veterans Affairs, ranging from 12 months to all on record, depending upon the facility. Vital Sign Value Date Comments Source SYSTOLIC BLOOD PRESSURE 116 10/25/2024 13:24:00 [facility] DIASTOLIC BLOOD PRESSURE 77 10/25/2024 13:24:00 [facility] WEIGHT 250.0 10/25/2024 13:24:00 [place] [facility] BMI 31 kg/m2 10/25/2024 13:24:00 [place] [facility] PAIN 8 10/25/2024 13:24:00 [place] [facility] TEMPERATURE 97.7 10/25/2024 13:24:00 [place] NGTON [facility] PULSE 73 10/25/2024 13:24:00 [place] [facility] SYSTOLIC BLOOD PRESSURE 118 10/19/2024 09:11:36 [facility] DIASTOLIC BLOOD PRESSURE 73 10/19/2024 09:11:36 [facility] PULSE OXIMETRY 95 10/19/2024 09:11:36 [facility] WEIGHT 256 10/19/2024 09:11:36 [place] [facility] BMI 32 kg/m2 10/19/2024 09:11:36 [place] [facility] PAIN 7 10/19/2024 09:11:36 [place] [facility] TEMPERATURE 96.9 10/19/2024 09:11:36 [place] NGT[place] [facility] PULSE 91 10/19/2024 09:11:36 [place] [facility] Encounters Combined list of: 1) Encounters from Department of [facility] Affairs facilities going backup to the last 18 months, not all [place] inpatient encounters are included; 2) Encounters from the Department of Defense facilities going backup to 280 months. Location Location Details Encounter Type Encounter Number Reason For Visit Attending Provider ADM Date DC Date Status Disposition Source [facility] Outpatient Encounter [id number] 11/09 [place] [facility] Outpatient Encounter [id number] 11/17 [place] [facility] Outpatient Encounter [id number] 12/03 [place] [facility] O[facility]P EST MOD 30 MIN [id number] Diagnos is: ICD-10- CM M25.561 Pain in right knee FADY,RI CK A 12/17 [place] Outpatient Encounter [id number] 12/17 [place] [facility] Outpatient Encounter [id number] 04/01 [place] [facility] OFFICE O/P EST MOD 30 MIN [id number] Diagnos is: ICD-10- CM M25.562 Pain in left knee FADYRI CK A 04/22 [place] [facility] Outpatient Encounter [id number] 07/18 [place] Outpatient Encounter [id number] 07/22 [place] [facility] OFFICE O/P EST MOD 30 MIN [id number] Diagnos is: ICD-10- CM M17.11 Unilate ral primary osteoar thritis , right knee PELLANT,RI CK A 08/23 [place] [facility] OFFICE O/P EST MOD 30 MIN [id number] Diagnos is: ICD-10- CM M54.50 Low back pain, unspeci fied CHARLOTTE BRANHAM H 10/19 [place] [facility] Outpatient Encounter [id number] 10/19 [place] [facility] Outpatient Encounter [id number] 10/24 [place] [facility] OFFICE O/P EST LOW 20 MIN [id number] Diagnos is: ICD-10- CM M17.11 Unilate ral primary osteoar thritis , right knee KARINA HOOPER E 10/25 [place] [facility] Outpatient Encounter [id number] 10/27 [place] [facility] Outpatient Encounter [id number] 10/27 [place] [facility] Outpatient Encounter [id number] 10/28 [place] [facility] Outpatient Encounter [id number] 11/08 [place] [facility] Outpatient Encounter [id number] 11/15 [place] [facility] Outpatient Encounter [id number] 12/07 [place] [facility] PH1 ASSMT&MGMT NQHP 5-10 [id number] Diagnos is: ICD-10- CM M54.50 Low back pain, unspeci fied COSME TOPETE M 12/07 [place] [facility] OFF[facility] O/P EST MOD 30 MIN [id number] Diagnos is: ICD-10- CM M25.569 Pain in unspeci fied knee PELLANT,RI CK A 12/20 [place] [facility] Outpatient Encounter [id number] 12/20 [place] [facility] Outpatient Encounter [id number] 01/25 [place] [facility] PH1 ASSMT&MGMT NQHP 5-10 [id number] Diagnos is: ICD-10- CM Z13.39 Encntr screen exam for other mental hlth and behavrl disord ERICK PASTOR S 01/26 [place] [facility] Outpatient Encounter [id number] 01/26 [place] [facility] PSYTX W PT 30 MINUTES [id number] Diagnos is: ICD-10- CM F33.2 Major depress v disorde r, recurre nt severe w/o psych feature s BADERICK ZAMUDIONI S 01/30 [place] [facility] Outpatient Encounter [id number] 01/30 [place] [facility] Outpatient Encounter [id number] 01/31 [place] [facility] PSYCH DIAG EVAL W/MED SRVCS [id number] Diagnos is: ICD-10- CM F41.9 Anxiety disorde r, unspeci fiMIA Uriostegui 02/15 [place] [facility] Outpatient Encounter [id number] 02/20 [place] [facility] Outpatient Encounter [id number] 02/22 [place] [facility] PSYTX W PT 30 MINUTES [id number] Diagnos is: ICD-10- CM F33.2 Major depress v disorde r, recurre nt severe w/o psych feature s BADERICK ZAMUDIO S 03/10 [place] [facility] Outpatient Encounter [id number] 03/14 [place] Outpatient Encounter [id number] 04/06 [place] [facility] Outpatient Encounter [id number] 04/06 [place] [facility] Outpatient Encounter [id number] 04/06 [place] [facility] Outpatient Encounter [id number] 04/10 [place] [facility] PH1 ASSMT&MGMT NQHP 5-10 [id number] Diagnos is: ICD-10- CM M43.16 Spondyl olisthe sis, lumbar region LITTLE,CAR L E 04/18 [place] [facility] Outpatient Encounter [id number] 04[facility] Outpatient Encounter [id number] 04/24 [facility] Social History Combined list of available smoking, tobacco, and other social history from [facility] and [facility] facilities. Social History Type Response Date Comment Sour e Tobacco smoking status [place] FORMER CIGARETTES 10/19/2024 [facility] of [facility] History of tobacco use [place] FORMER US[place] 12/19/2022 [facility] Plan of Care List of future care activities from Department of [facility] facilities. Additional future care activities may be listed in the Assessment and Plan section. Date/Time Care Activity Care Activity Detail Facili ty 05/08/2025 AMBULATORY - NONE AMBULATORY - NONE [facility]
--- NOTE | 2025-05-08 | MR_ITS ---
FINAL REPORT TECHNIQUE: Multiplanar and multisequence imaging of the lumbar spine was obtained without contrast. CLINICAL HISTORY: pain numbness tingling radiates down both legs chronic pain COMPARISON: Report only 03/29/2024 FINDINGS: There is mild retrolisthesis of L5 on S1. Otherwise, alignment is normal in the sagittal plane. Vertebral body height is preserved. The spinal cord ends at the level of L1. There is normal signal intensity within the substance of the distal spinal cord. No acute bone marrow edema or pathologic marrow replacement. No acute paraspinal abnormality is identified. L1-2: There is no focal disc herniation, central canal stenosis or neuroforaminal narrowing. Mild facet osteoarthropathy is present. L2-3: An annular bulge is present, with mild central canal stenosis. No significant foraminal narrowing is identified. L3-4: An annular bulge is present, with endplate degenerative change and facet osteoarthropathy. There is mild central canal stenosis as well as mild bilateral neural foraminal narrowing. L4-5: An annular bulge is present with endplate degenerative change and facet osteoarthropathy. There is no central canal stenosis, however there is moderate to severe bilateral neural foraminal narrowing. L5-S1: An annular bulge is present with endplate degenerative change and facet osteoarthropathy. There is no central canal stenosis, however there is severe bilateral neural foraminal narrowing. IMPRESSION: Multilevel degenerative changes are present, most pronounced at the L4-5 and L5-S1 levels as described. Reviewed, Interpreted and Dictated by Kasandra Salter MD Transcribed by Thelma Bhat Authenticated and [facility]
--- OUTSIDE RECORDS SUMMARY | 2025-05-08 07:06 | XMS_ITS | Data Portability ---
Author Organization [facility] [place] Anabel alarcon, [facility] Address [address] [facility] [address] [place] [address] Care Team Providers Care Lithographers Printer Name Role Phone AMINTA GAMEZ Grounds Maintenance Supervisor SANDRITA MALDONADO Primary Care Provider Assessment Encounter [...] Details Appointments FOLLOW UP DAK 2024 09:30A Eber BRAVO MD Not available Not available Not available Lab CBC w/ auto diff 2024 025 [place], [address], [address], 01/26/2025 11:05:57 CMP, serum or plasma 2024 025 [place] [facility], [address] [facility] [address], [place], [address], 01/26/2025 11:05:57 CMP, serum or plasma 2023 024 [facility], [address] [place] [address], [address], 08/08/2024 10:29:43 CBC w/ diff 2023 024 [facility], [address] [place], [address], 07/29/2024 09:22:22 CMP, serum or plasma 2023 024 [facility], [address] [place], [address], 01/28/2024 09:08:27 Referral None recorded . Procedures None recorded . Surgeries None recorded . Imaging None recorded . Medication Orders None recorded . Patient TargetsNo targets recorded. Patient Instructions Encounter Date Encounter Id Patient Instructions Last Modified By Organization Details Last Modified Time 05/02/2019 [id number] We reviewed the EMG, which showed the [...] months. API-51 Not available 05/02/2019 10:26:16 01/25/2025 [id number] Recommended returning to clinic in 4 months for fu Not available 01/25/2025 08:54:47 Reason for Referral None Reported. Results Created Date Observation Date Name Description Value Unit Range Abnormal Flag Note LastModifiedBy Organization Detail LastModifiedTime 04/24/2004/22/2019 nerve condu ction study /EMG, upper extre mity (PROC ) No observ ation record ed. [email or web address] Margarita Marquez MD [address] [place], [address], 04/27/2019 11:51:26 Result Notes None recorded. Procedures Surgical History Date Name Laterality Status Provider Name and Address Organization Details Recorded Time 01/27/20 24 DAK - Cryo AK completed Casandra Myers [facility] 01/27/2024 11:27:29 04/22/20 19 Electromyography (EMG) with Nerve Conduction Study (NCV) completed Kelly Lerner (Nicky) [facility] 04/22/2019 10:47:27 Imaging Results None recorded. Procedure Notes None recorded. Medical Equipment None Reported. Allergies Allergen ID Allergen Name Allergen Category Reaction Reaction Severity Criticality Documentation Date Start Date Code Code System Note Provider Name and Address Organization Details Recorded Time 391360 acetamino phen / oxycodone medicatio n headache Not available Not available 04/18/2019 95135 3 RxNorm Camillesadi Franklin [facility] 9 13:35:06 Medications Name Sig Start Date Stop Date Status Note LastModified by Organization Details LastModified Time Medrol (Epifanio) 4 mg tablets in a dose pack use as directed 05/02 completed Not Available Not Available Not Available dapsone 25 mg tablet Take 1 tablet every day by oral route. 2024 active Not Available Not Available Not Avai [...] Updated DateTime 01/27/2024 190.5 cm 32.5 kg/m2 623159.02 g Jody Anthony [facility] 01/27/2024 11:13:21 Date Recorded Body height Body mass index (BMI) Body weight Systolic And Diastolic Provider Name and Address Organization Details Last Updated DateTime 05/02/2019 190.5 cm 32.5 kg/m2 124196.02 g 140/82 mm[Hg] Camillesadi Franklin [facility] 05/02/2019 08:25:58 Social History Question Answer Notes LastModified by Organizat ion Details LastModified Time Tobacco Smoking Status Former Smoker Camillesadi Franklin [facility] 04/18/2019 13:39:56 What Was The Date Of Your Most Recent Tobacco Screening? 05/02/2019 Information n ot available 11/29/2019 Sex: Unknown Functional Status Question Answer Note LastModified by Organizat ion Details LastModified Time What is your level of alcohol consumption? Occasional [email or web address] Information not available 01/27/2024 Mental Status None recorded. Family History Nothing [...] SNOMED-CT Code Diagnosis ICD10 Code Diagnosis Note [id number] W ALISSON LEE MD [facility] [address] [place] [address] 04/18/2019 13:07:02 04/18/2019 16:36:14 Long thoracic nerve injury 543538729 S24.3XXA [id number] MARGARITA MARQUEZ MD NEUROLOGY [facility] [address] [place] [address] 04/22/2019 09:20:51 04/22/2019 11:07:58 Long thoracic nerve injury 353836431 S24.3XXA Pain of ri ght shoulder joint 9179694117 8549101 M25.069 [id number] W ALISSON LEE MD [facility] [address] [place] [address] 05/02/2019 08:20:47 05/02/2019 08:58:03 Long thoracic nerve injury 850779166 S24.3XXA [id number] AMINTA BRAVO MD [place] [address] [place] [address] 01/27/2024 10:34:00 01/29/2024 14:00:07 Dermatitis herpetiformis 223036282 L13.0 Z79.899 Nature of the dx was [...] regarding labs Melanocyti c nevus of face 776977284 D22.39 Benign appearing nevi noted on exam. [...] types of skin cancers. Seborrheic keratosis 394 089573 L82.1 Seborrheic keratosis are benign but may be cosmetical ly bothersome . Cosmetic removal with liquid nitrogen is an option. This may leave discolorat ion, or the SK may persist or recur at the treatment site. Solar lentigo 67768119 L 81.4 - Benign brown spots - Sun-induce d Actinic keratosis 601101 007 L57.0 Actinic keratoses are precancero us lesions that may progress to squamous cell carcinoma if untreated. UV light and genetics may increase risk. Treated lesions should blister, scab over, and heal within a few weeks. If treated lesion(s) does not resolve within 1-2 months, patient agrees to follow up for re-evaluat ion. [id number] AMINTA BRAVO MD [address] [address] 07/27/2024 09:59:56 07/27/2024 11:42:17 Dermatitis herpetiformis 263726965 L13.0 Z79.899 Nature of the dx was [...] 1 week if not hearing regarding labs [id number] AMINTA BRAVO MD [address] [address] 01/25/2025 08:13:06 01/25/2025 09:00:38 Dermatitis herpetiformis 295494492 L13.0 Z79.899 Nature of the dx was [...] Recorded Advance Directives Directive None Recorded Payers Insurance Date Sequence Insurance Name Policy Number Policy Clarke Covered Member ID Clarke Member ID Guarantor Name 03/07/2025 1 [facility] [id number] Nadia Cobian [id number] Floyd Cobian
--- OUTSIDE RECORDS SUMMARY | 2025-05-08 07:06 | XMS_ITS | Patient Health Record ---
Author Organization [facility] Address [address] [place] [id number] Care Team Providers Care Roughener Name Role Phone Pedro Jeff Primary Care [...] [phone] Reason For Referral No Information Medications Medication SIG (Take, Route, Frequency, Duration) Notes Start Date End Date Status PriLOSEC OTC 20 MG 1 cap(s) orally once daily Active Gabapentin 300 MG 1 capsule Orally Two times a day; Duration: 30 day(s) 05/26/2024 Not-Taking Rosuvastatin Calcium 20 MG 1 tab(s) orally once a day Active amLODIPine Benzoate 1 MG/ML 5 mL Orally Once a day; Duration: 30 day(s) Active Dapsone 25 MG 1 tab(s) orally once a day Active Vitamin D3 50 MCG (2000 UT) as directed orally once a day Active levoFLOXacin 500 MG 1 tablet Orally Once a day; Duration: 10 day(s) 08/30/2024 Not-Taking Vitamin B-12 1000 MCG 1 tab(s) orally on ce a day Active Altace 10 MG 2 cap(s) orally once daily Active Norvasc 5 MG 1 tab(s) orally once a day Active Immunizations Vaccine Route Administration Date Status Comme nts Tetanus Tdap-Adacel (over 7yrs) IM Intramuscular 09/23/2017 Administered Fluzone Intradermal Quad private(18-64yrs) IM Intramuscular 07/11/2016 Administered DT, 7 YEARS OR OLDER Unknown 12/14/1996 Administered Problems Problem Type SNOMED Code ICD Code Onset Dates Problem Status W/U Status Risk Notes Problem Vitamin D deficiency (74926682) Vitamin D deficiency (E55.9) Active confirmed Problem Essential hypertension (86562885) Essential hypertension (I10) Active confirmed Problem Generalized anxiety disorder (82816493) Generalized anxiety disorder (F41.1) Active confirmed Problem Sciatica (51425116) Lumbago with sciatica, left side (M54.42) Active confirmed Problem Chronic pain (97012130) Other chronic pain (G89.29) Active confirmed Problem Gastroesophageal reflux disease without esophagitis (952304213) Gastroesophageal reflux disease without esophagitis (K21.9) Active confirmed Problem Osteoarthritis of knee (577014863) Primary osteoarthritis of both knees (M17.0) Active confirmed Problem Sciatica (51217009) Left sided sciatica (M54.32) Active confirmed Problem Dyslipidemia (645821154) Dyslipidemia (E78.5) Active confirmed Problem Degenerative disc disease (58762655) DDD (degenerative disc disease), lumbar (M51.36) Active confirmed Vital Signs Heart Rate 65 /min 11/17/2024 Blood pressure diastolic 78 mm Hg 11/17/2024 Height 75 in 11/17/2024 Blood pressure systolic 126 mm Hg 11/17/2024 Weight 261.8 lbs 11/17/2024 BMI 32.72 kg/m2 11/17/2024 Encounters Encounter Location Date Provider Diagnosis [facility] [address] [place] [id number] 05/26/2024 R Glen Jeff Left sided sciatica M54.32 ; Lumbago with sciatica, left side M54.42 ; Other chronic pain G89.29 ; DDD (degenerative disc disease), lumbar M51.36 ; Essential hypertension I10 ; Dyslipidemia E78.5 ; Gastroesophageal reflux disease without esophagitis K21.9 ; Vitamin D deficiency E55.9 and Vitamin B12 deficiency E53.8 [facility] [address] [facility] [address] [place] [id number] 08/30/2024 Pedro Jeff Acute bronchitis J20 .9 [facility] [address] [facility] [address] [place] [id number] 11/17/2024 Pedro Glen Jeff Essential hypertensi on I10 ; Dyslipidemia E78.5 ; Gastroesophageal reflux disease without esophagitis K21.9 ; Vitamin D deficiency E55.9 and Vitamin B12 deficiency E53.8 Assessments Encounter Date Diagnosis (ICD Code) Assessment Notes Treatment Notes Treatment Clinical Notes Section Notes 05/26/2024 Lumbago with sciatica, left side (ICD-10 - M54.42) 05/26/2024 Left sided sciatica (ICD-10 - M54.32) 11/17/2024 Essential hypertension (ICD-10 - I10) 11/17/2024 Dyslipidemia (ICD-10 - E78.5) 08/30/2024 Acute bronchitis (ICD-10 - J20.9) 11/17/2024 Gastroesophageal reflux disease without esophagitis (ICD-10 - K21.9) 05/26/2024 Other chronic pain (ICD-10 - G89.29) 05/26/2024 DDD (degenerative disc disease), lumbar (ICD-10 - M51.36) 11/17/2024 Vitamin D deficiency (ICD-10 - E55.9) 11/17/2024 Vitamin B12 deficiency (ICD-10 - E53.8) 05/26/2024 Essential hypertension (ICD-10 - I10) 05/26/2024 Dyslipidemia (ICD-10 - E78.5) 05/26/2024 Gastroesophageal reflux disease without esophagitis (ICD-10 - K21.9) 05/26/2024 Vitamin D deficiency (ICD-10 - E55.9) 05/26/2024 Vitamin B12 deficiency (ICD-10 - E53.8) 11/17/2024 Other He will drop off a copy of his labs for review. Plan Of Treatment Pending Test Test Name Order Date CMP 12/24/2020 Next Appt Details Provider Name:Pedro Carrasquillo apoorva, 05/09/2025 09:45:00 AM, [address], [address], [place], [id number], Insurance Providers Payer Name Payer Address Payer Phone Subscriber Number Group Number Insured Name Patient Relationship to Insured Coverage Start Date Coverage End Date [facility] [address] [address] [place] [address] [phone] [id number] CUONG MCHUGH Self - patient is the insured Medications Administered Medication Instructions Date of Administration Dosage Notes Dexamethasone 08/13/2006 1 mL Medical (General) History Medical History History ICD Code allergic rhinitis GERD HLP HBP Dermatitis Herpetiformis Normal Cardiolyte GXT - 08/2014; 11/2021 PVC's Knee arthritis Surgical History Surgery Date(Month/Year) LT Shoulder Arthoscopy 967304 Colonoscopy, Normal- Dr. Anderson 2016 Hospitalization History Reason Date(Month/Year) Back Injury- [facility] 11/2008 Chest Pain- [facility] ER 08/2014
--- OUTSIDE RECORDS SUMMARY | 2025-05-08 07:07 | XMS_ITS | Clinical Summary ---
Author Organization [facility] Address [address], [address] [place] [address] Care Team Providers Care Bath Solution Maker Name Role Phone Gregory Jeff MD Primary Care Provider [phone] Social History Tobacco Use Types Packs/Day Years Used Date Smoking Tobacco: Never Assessed Sex and Gender Information Value Date Recorded Sex Assigned at Not on file Legal Sex Male 10:00 AM EDT Gender Identity Not on file Sexual Orientation Not on file Plan of Treatment Health Maintenance Due Date Last Done Comments Depression Screen 1975 HIV screen 1978 Hepatitis C screen 1981 DTaP/Tdap/Td vaccine (1 - Tdap) 1982 Lipids 2003 Colonoscopy 2008 Colorectal Cancer Screen 2008 FIT/FOBT: Average risk 2008 Fecal-DNA (Cologuard): Average risk 2008 Sigmoidoscopy/CT colonography 2008 Pneumococcal 50+ years Vacci ne (1 of 1 - PCV) 2013 Shingles vaccine (1 of 2) 2013 COVID-19 Vaccine ( - 2023-2 5 season) 2024 Flu vaccine (#1) 05/12/2025 Respiratory Syncytial Virus (RSV) or age 60 yrs+ (1 - 1-dose 75+ series) 2038 Hepatitis A vaccine Aged Out No longe r eligible based on patient's age to complete this topic Hepatitis B vaccine Aged Out No longe r eligible based on patient's age to complete this topic Hib vaccine Aged Out No longer eligi ble based on patient's age to complete this topic Meningococcal (ACWY) vaccine Aged Out No longer eligible based on patient's age to complete this topic Meningococcal B vaccine Aged Out No l onger eligible based on patient's age to complete this topic Polio vaccine Aged Out No longer elig ible based on patient's age to complete this topic Insurance [employer] Member Subscriber Plan / Payer (Ef fective 2022-Present) Name:Luis Cobiany .1.1 Relation to Subscriber:Self Name:Luis Cobiany .1.1 Payer ID:Not on file Group ID:Not on file Type:Indemnity Address: [address] [place] [address] Care Teams Bath Solution Maker Relationship Specialty Start Date End Date Gregory Jeff MD [address] [facility] [address] [place] [address] PCP - General 06/02/22
== END 2025-05-08 23:59 | disposition home or self-care (01) ==
LOC: RAD 07:04
PROVIDERS: PCP Family Medicine; Visit Provider Internal Medicine
DX: M47.816 Spondylosis without myelopathy or radiculopathy, lumbar region (principal); M47.817 Spondylosis without myelopathy or radiculopathy, lumbosacral region
CPT/HCPCS: 72148

== ENCOUNTER 2025-08-16 07:26 | Outpatient (CLI) | payer OTHER, SELFPAY ==
--- OUTSIDE RECORDS SUMMARY | 2024-03-18 04:15 | XMS_ITS ---
Author Organization [facility] Address [address] [place] [id number] Care Team Providers Care Mid Wife Name Role Phone Pedro Jeff Primary Care Provider Satnam Hunter Unavailable [phone] Allergies No Known Allergies Results Component Value Reference Range Notes MRI : Spine, Lumbosacral, wi thout contrast Reviewed date:03/30/2024 08:57:54 AM Interpretation:Moderate degenerative changes with significant lateral recess stenosis and neuroforaminal narrowing L5-S1 Performing Lab: Notes/Report: Moderate degenerative changes with significant lateral recess stenosis and neuroforaminal narrowing L5-S1 REASON FOR VISIT left hip pain Medications Medication SIG (Take, Route, Frequency, Duration) Notes Start Date End Date Status Dapsone 25 MG 1 tab(s) orally once a day Active Altace 10 MG 2 cap(s) orally once daily Active Norvasc 5 MG 1 tab(s) orally once a day Active Vitamin D3 50 MCG (1999 UT) as directed orally once a day Active Vitamin B-12 1000 MCG 1 tab(s) orally on ce a day Active Rosuvastatin Calcium 20 MG 1 tab(s) oral ly once a day Active PriLOSEC OTC 20 MG 1 cap(s) orally once daily Active Gabapentin 300 MG 1 capsule Orally Two times a day; Duration: 30 day(s) 03/18/2024 Active Problems Problem Type SNOMED Code ICD Code Onset Dates Problem Status W/U Status Risk Notes Problem Sciatica (12346962) Left sided sciatica (M54.32) Active confirmed Problem Sciatica (58932738) Lumbago with sciatica, left side (M54.42) Active confirmed Problem Chronic pain (50018204) Other chronic pain (G89.29) Active confirmed Problem Degenerative disc disease (68173006) DDD (degenerative disc disease), lumbar (M51.36) Active confirmed Vital Signs Weight 251 lbs 03/18/2024 Blood pressure systolic 122 mm Hg 03/18/20 24 Blood pressure diastolic 78 mm Hg 024 Heart Rate 80 /min 03/18/2024 Height 75 in 03/18/2024 BMI 31.37 kg/m2 03/18/2024 Encounters Encounter Location Date Provider Diagnosis [facility] [address] [place] [id number] 03/18/2024 Satnam Hunter Left sided sciatica M54.32 ; Lumbago with sciatica, left side M54.42 ; Other chronic pain G89.29 and DDD (degenerative disc disease), lumbar M51.36 Assessments Encounter Date Diagnosis (ICD Code) Assessment Notes Treatment Notes Treatment Clinical Notes Section Notes 03/18/2024 Left sided sciatica (ICD-10 - M54.32) 03/18/2024 Lumbago with sciatica, left side (ICD-10 - M54.42) 03/18/2024 Other chronic pain (ICD-10 - G89.29) 03/18/2024 DDD (degenerative disc disease), lumbar (ICD-10 - M51.36) Plan Of Treatment Medication Medication Name Sig Start Date Stop Date Notes Gabapentin 300 MG 1 capsule Orally Two times a day; Duration: 30 day(s) 03/18/2024 Next Appt Details Follow Up: via phone to repo rt progress,via phone to report test results, Reason: Provider Name:Pedro Johnson, 11/09/2025 09:30:00 AM, [address], [address], [place], [phone], Progress Notes * YOHAN MCHUGHOB:1965 (60 yo M)Acc No.[id number]:03/18/2024 Progress Notes Patient: CUONG PRAJAPATI Provider: Johann Hunter M.D. :1965 A ge:58 Y S ex:Male Date:03/18/2024 Address:[address], [id number] Pcp:Pedro Jeff Subjective: * Chief Complaints: * 1 . Left hip pain. * HPI: H ip/Thigh: 58 year old male presents with c/o hip pain P t complains of Lt hip for about a month. States nothing has helped with pain and climbing makes pain worse. Pt states he has been going [facility] in [place], [place] but has not had any relief from that either. He has had xrays of his hip and spine and was told he has degenerative disc disease.? * ROS: D ERMATOLOGY: no R sherwin. n o H waldemar. G ASTROENTEROLOGY: no N ausea. n o V omiting. U ROLOGY: no D ifficulty urinating. n o B lood in urine. * Medical History: A llergic rhinitis, GERD, HLP, HBP, Dermatitis Herpetiformis, Normal Cardiolyte GXT - 08/2014; 11/2021, PVC's, Knee arthritis. * Surgical History: L T Shoulder Arthoscopy [id number], Colonoscopy, Normal- Dr. Anderson 2016. * Hospitalization/Major Diagno stic Procedure: B ack Injury- [facility] 11/2008, Chest Pain- [facility] 08/2014. * Family History: F ather: . M other: , diabetes. C hildren: alive. P aternal Grand Father: diagnosed with Heart Disease. P aternal Grand Mother: diagnosed with Heart Disease. M aternal Grand Father: diagnosed with Heart Disease. M aternal Grand Mother: diagnosed with Heart Disease. S iblings: diagnosed with Cancer. 2 brother(s) , 5 sister(s) . . 2 sisters. * Social History: C URRENT TOBACCO USE S moking Status: Patient does NOT smoke. C affeine: yes, frequency:. Past smoking status: no, Smoking status: Does not smoke. * Medications: T aking PriLOSEC OTC 20 MG Tablet Delayed Release 1 cap(s) orally once daily , Taking Altace 10 MG Capsule 2 cap(s) orally once daily , Taking Norvasc 5 MG Tablet 1 tab(s) orally once a day , Taking Vitamin D3 50 MCG (2000 UT) Capsule as directed orally once a day , Taking Vitamin B-12 1000 MCG Tablet 1 tab(s) orally once a day , Taking Rosuvastatin Calcium 20 MG Tablet 1 tab(s) orally once a day , Taking Dapsone 25 MG Tablet 1 tab(s) orally once a day , Discontinued levoFLOXacin 500 MG Tablet 1 tablet Orally Once a day , Discontinued methylPREDNISolone 4 MG Tablet Therapy Pack as directed Orally , Discontinued Meclizine HCl 25 MG Tablet 1 tab(s) orally 3 times a day, prn , Discontinued Tylenol 325 MG Tablet 1 cap(s) orally every 4 hours , Medication List reviewed and reconciled with the patient * Allergies: N .K.D.A. Objective: * Vitals: W t:251, Temp:98.1, BP:122/78, HR:80, Nurse:sidney, Ht: 75, BMI:31.37. * Examination: G eneral Examination: General Appearance: N AD. L ower back: Inspection: n ormal curvature of spine. S traight leg raising test: n egative bilaterally. G ait: s tands and walks slowly due to pain, has a limp. Assessment: * Assessment: 1. L eft sided sciatica - M54.32 (Primary) 2 . L umbago with sciatica, left side - M54.42 3 . O ther chronic pain - G89.29 4 . D DD (degenerative disc disease), lumbar - M51.36 Plan: * Treatment: 2.?Lumbago with sciatica, left side?Imaging: MRI : Spine, Lumbosacral, without contrast (Performed Date - 03/29/2024)?Moderate degenerative changes with significant lateral recess stenosis and neuroforaminal narrowingL5-S1* Nunu Lawrence 03/18/2024 10:50: 54 AM > [facility] 03/29/2024 at 07:30am; pt informed; faxed Pushpa Fletcher 03/30/2024 8:57:46 AM > See phone encounter 3.?Other chronic pain?Imaging: MRI : Spine, Lumbosacral, without contrast (Performed Date - 03/29/2024)?Moderate degenerative changes with significant lateral recess stenosis and neuroforaminal narrowingL5-S1* MelindaNunu 03/18/2024 10:50: 54 AM > [facility] 03/29/2024 at 07:30am; pt informed; Pushpa Reyna 03/30/2024 8:57:46 AM > See phone encounter 4.?DDD (degenerative disc disease), lumbar?Imaging: MRI : Spine, Lumbosacral, without contrast (Performed Date - 03/29/2024)?Moderate degenerative changes with significant lateral recess stenosis and neuroforaminal narrowingL5-S1* Nunu Lawrence 03/18/2024 10:50: 54 AM > [facility] 03/29/2024 at 07:30am; pt informed; radhaxed Pushpa Fletcher 03/30/2024 8:57:46 AM > See phone encounter * Follow Up: v ia phone to report progress,via phone to report test results * Images: Billing Information: * Visit Code: 11921 Office Visit, Est Pt., Level 3. * Procedure Codes: * Electronic signature of Candace Hunter MD on 08/16/2025 at 07:30 AM EST Sign off status: Pending * Provider: Johann Hunter M.D. Date: 0 03/18/2024 Generated for Gurpreet hood/Oswaldo/Diannitting on: 1 10/16/2024 07:30 AM EST History and Physical Notes * HPI (History of Present Illness) Category Sub-Category Detail Notes Category Not es Hip/Thigh hip pain Pt complains of Lt hip for about a month. States nothing has helped with pain and climbing makes pain worse. Pt states he has been going to [facility] in [place], [place] but has not had any relief from that either. He has had xrays of his hip and spine and was told he has degenerative disc disease Examination Category Sub-Category Detail Notes Category Not es General Examination General Appearance: NAD Lower back Straight leg raising test: negative bilaterally Gait: stands and walks slo wly due to pain, has a limp Inspection: normal curvature of spine
--- OUTSIDE RECORDS SUMMARY | 2024-05-26 08:30 | XMS_ITS ---
Author Organization [facility] Address [address] [facility] [address] [place] [id number] Care Team Providers Care Tractor Operator Helper Name Role Phone Pedro Jeff Primary Care Provider Allergies No Known Allergies REASON FOR VISIT 6 months, Needs shingles vaccine Medications Medication SIG (Take, Route, Frequency, Duration) Notes Start Date End Date Status Norvasc 5 MG 1 tab(s) orally once a day Active Rosuvastatin Calcium 20 MG 1 tab(s) oral ly once a day Active Vitamin B-12 1000 MCG 1 tab(s) orally on ce a day Active Dapsone 25 MG 1 tab(s) orally once a day Active Vitamin D3 50 MCG (2000 UT) as directed orally once a day Active Altace 10 MG 2 cap(s) orally once daily Active PriLOSEC OTC 20 MG 1 cap(s) orally once daily Active Gabapentin 300 MG 1 capsule Orally Two times a day; Duration: 30 day(s) 05/26/2024 Active Vital Signs Weight 260.8 lbs 05/26/2024 Blood pressure systolic 114 mm Hg 05/26/20 24 Blood pressure diastolic 64 mm Hg 024 Heart Rate 62 /min 05/26/2024 Height 75 in 05/26/2024 BMI 32.59 kg/m2 05/26/2024 Encounters Encounter Location Date Provider Diagnosis [facility] [address] [facility] [address] [place] [phone] 05/26/2024 Pedro Jeff Left sided sciatica M54.32 ; Lumbago with sciatica, left side M54.42 ; Other chronic pain G89.29 ; DDD (degenerative disc disease), lumbar M51.36 ; Essential hypertension I10 ; Dyslipidemia E78.5 ; Gastroesophageal reflux disease without esophagitis K21.9 ; Vitamin D deficiency E55.9 and Vitamin B12 deficiency E53.8 Assessments Encounter Date Diagnosis (ICD Code) Assessment Notes Treatment Notes Treatment Clinical Notes Section Notes 05/26/2024 Left sided sciatica (ICD-10 - M54.32) 05/26/2024 Lumbago with sciatica, left side (ICD-10 - M54.42) 05/26/2024 Other chronic pain (ICD-10 - G89.29) 05/26/2024 DDD (degenerative disc disease), lumbar (ICD-10 - M51.36) 05/26/2024 Essential hypertension (ICD-10 - I10) 05/26/2024 Dyslipidemia (ICD-10 - E78.5) 05/26/2024 Gastroesophageal reflux disease without esophagitis (ICD-10 - K21.9) 05/26/2024 Vitamin D deficiency (ICD-10 - E55.9) 05/26/2024 Vitamin B12 deficiency (ICD-10 - E53.8) Plan Of Treatment Medication Medication Name Sig Start Date Stop Date Notes Norvasc 5 MG 1 tab(s) orally once a day Rosuvastatin Calcium 20 MG 1 tab(s) orally once a day Vitamin B-12 1000 MCG 1 tab(s) orally once a day Vitamin D3 50 MCG (2000 UT) as directed orally once a day Altace 10 MG 2 cap(s) orally once daily PriLOSEC OTC 20 MG 1 cap(s) orally once daily Gabapentin 300 MG 1 capsule Orally Two times a day; Duration: 30 day(s) 05/26/2024 Next Appt Details Follow Up: 6 Months, Reason: Provider Name:Pedro Johnson, 11/09/2025 09:30:00 AM, [address] [facility], [address] , [place], [place], [id number], Progress Notes * YOHAN MCHUGHOB:1965 (60 yo M)Acc No.[id number]:05/26/2024 Progress Notes Patient: CUONG PRAJAPATI Provider: Pedro Jeff M.D. :1965 A ge:58 Y S ex:Male Date:05/26/2024 Address:[address], [place], [id number] Subjective: * Chief Complaints: * 1 . 6 months. 2. Needs shingles vaccine. * HPI: H PI: He comes in today for scheduled checkup and refills. [facility]. He was started on gabapentin by Dr. Hunter 2 months ago and this has afforded some relief. He is primarily taking the gabapentin at night to help with sleep. * ROS: D ERMATOLOGY: no R sherwin. n o H waldemar. G ASTROENTEROLOGY: no N ausea. n o V omiting. U ROLOGY: no D ifficulty urinating. n o B lood in urine. * Medical History: A llergic rhinitis, GERD, HLP, HBP, Dermatitis Herpetiformis, Normal Cardiolyte GXT - 08/2014; 11/2021, PVC's, Knee arthritis. * Surgical History: L T Shoulder Arthoscopy [id number], Colonoscopy, Normal- Dr. Anderson 2016. * Hospitalization/Major Diagno stic Procedure: B ack Injury- [facility] 11/2008, Chest Pain- [facility] 08/2014. * Family History: F ather: [...] day , Taking Vitamin D3 50 MCG (1999) Capsule as directed orally once a day , Taking Vitamin B-12 1000 MCG Tablet 1 tab(s) orally once a day , Taking Rosuvastatin Calcium 20 MG Tablet 1 tab(s) orally once a day , Taking Dapsone 25 MG Tablet 1 tab(s) orally once a day , Taking Gabapentin 300 MG Capsule 1 capsule Orally Two times a day , Medication List reviewed and reconciled with the patient * Allergies: N .K.D.A. Objective: * Vitals: W t:260.8, Temp:98.0, BP:114/64, HR:62, Nurse:ARIANA, Ht: 75, BMI:32.59. * Examination: C ardiology: General Appearance: N AD. Weight loss noted. H EENT: sclera and conjunctiva clear, PERRLA, TM's normal, translucent. C arotid upstroke:?normal, no bruits. H eart sounds: R RR,? faint systolic murmur at RUSB. M urmur, click , gallop: n one. L ungs: c lear, no rales or wheezes. A bdomen: p ositive BS, soft, nontender. E xtremities: n o leg edema. Assessment: * Assessment: 1. L eft sided sciatica - M54.32 (Primary) 2 . L umbago with sciatica, left side - M54.42 3 . O ther chronic pain - G89.29 4 . D DD (degenerative disc disease), lumbar - M51.36 5 . E ssential hypertension - I10 6 . D yslipidemia - E78.5 7 . G astroesophageal reflux disease without esophagitis - K21.9 8 . V itamin D deficiency - E55.9 9 .?Vitamin B12 deficiency - E53.8 Plan: * Treatment: 2. E ssential hypertension Refill Altace Capsule, 10 MG, 2 cap(s), orally, once daily, 180, Refills 1; R efill Norvasc Tablet, 5 MG, 1 tab(s), orally, once a day, 90, Refills 1. 3. D yslipidemia Refill Rosuvastatin Calcium Tablet, 20 MG, 1 tab(s), orally, once a day, 90, Refills 1. 4. G astroesophageal reflux disease without esophagitis Continue PriLOSEC OTC Tablet Delayed Release, 20 MG, 1 cap(s), orally, once daily. 5. V itamin D deficiency Continue Vitamin D3 Capsule, 50 MCG (2000 UT), as directed, orally, once a day. 6. V itamin B12 deficiency Continue Vitamin B-12 Tablet, 1000 MCG, 1 tab(s), orally, once a day. * Follow Up: 6 Months * Images: Billing Information: * Visit Code: 64394 Office Visit, Est Pt., Level 3. * Procedure Codes: * Electronic signature of Pedro Jeff MD on 08/16/2025 at 07:30 AM EST Sign off status: Pending * Provider: Pedro Jeff M.D. Date: 0 05/26/2024 Generated for Gurpreet hood/Oswaldo/Diannitting on: 1 10/16/2024 07:30 AM EST History and Physical Notes * Examination Category Sub-Category Detail Notes Category Not es Cardiology Lungs: clear, no rales or wheezes HEENT: sclera and conjuncti va clear, PERRLA, TM's normal, translucent Heart sounds: RRR, ? faint systoli c murmur at RUSB Abdomen: positive BS, soft, n ontender Carotid upstroke: normal, no bruits Extremities: no leg edema Murmur, click , gallop: none General Appearance: NAD. Weight loss not ed
--- OUTSIDE RECORDS SUMMARY | 2024-08-30 08:45 | XMS_ITS ---
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 Name Role Phone Pedro Jeff Primary Care Provider Allergies No Known Allergies Results Component Value Reference Range Notes CBC Fingerstick (in house) Reviewed date:08/30/2024 02:37:17 PM Interpretation:wbc 14.8, gran 10.1 Performing Lab: Notes/Report: wbc 14.8, gran 10.1 wbc 14.8 3.5 - 10 lym 25.8 15 - 50 mid 5.9 2 - 15 gran 68.3 35 - 80 rbc 5.27 3.5 - 5.5 hgb 15.9 11.5 - 16.5 hct 49.5 35 - 55 mcv 93.8 75 - 100 mch 30.2 25 - 35 mchc 32.2 31 - 38 plat 294 100 - 400 REASON FOR VISIT chills tightness in chest no voice Medications Medication SIG (Take, Route, Frequency, Duration) Notes Start Date End Date Status Altace 10 MG 2 cap(s) orally once daily Active Norvasc 5 MG 1 tab(s) orally once a day Active Vitamin D3 50 MCG (2000 UT) as directed orally once a day Active Vitamin B-12 1000 MCG 1 tab(s) orally on ce a day Active Rosuvastatin Calcium 20 MG 1 tab(s) oral ly once a day Active Dapsone 25 MG 1 tab(s) orally once a day Active Gabapentin 300 MG 1 capsule Orally Two times a day; Duration: 30 day(s) 05/26/2024 Active PriLOSEC OTC 20 MG 1 cap(s) orally once daily Active levoFLOXacin 500 MG 1 tablet Orally Once a day; Duration: 10 day(s) 08/30/2024 Active Vital Signs Weight 263.4 lbs 08/30/2024 Blood pressure systolic 108 mm Hg 08/30/20 24 Blood pressure diastolic 62 mm Hg 024 Heart Rate 76 /min 08/30/2024 Height 75 in 08/30/2024 BMI 32.92 kg/m2 08/30/2024 Encounters Encounter Location Date Provider Diagnosis [facility] [address] [facility] [address] [facility] [address] [place] [phone] 08/30/2024 Pedro Jeff Acute bronchitis J20 .9 Assessments Encounter Date Diagnosis (ICD Code) Assessment Notes Treatment Notes Treatment Clinical Notes Section Notes 08/30/2024 Acute bronchitis (ICD-10 - J20.9) Plan Of Treatment Medication Medication Name Sig Start Date Stop Date Notes levoFLOXacin 500 MG 1 tablet Orally Once a day; Duration: 10 day(s) 08/30/2024 Next Appt Details Follow Up: 1 Week, prn, Reas on: Provider Name:Pedro Johnson, 11/09/2025 09:30:00 AM, [address] [facility] [address] [facility], [address], [place], [id number], Progress Notes * YOHAN MCHUGHOB:1965 (60 yo M)Acc No.[id number]:08/30/2024 Progress Notes Patient: CUONG PRAJAPATI Provider: Pedro Jeff M.D. :1965 A ge:59 Y S ex:Male Date:08/30/2024 Address:[address] [place] [address], [place], [id number] Subjective: * Chief Complaints: * 1 . Chills tightness in chest no voice. * HPI: E NT/respiratory: 59 year old male presents with c/o cough P t presents today with c/o cough with some sputum production. Pt sts that he has some SOB, tightness in the chest, chills, shaking that started 3 weeks ago. Pt sts that he has been sick for 3 weeks and just cannot seem to get over whatever this is. c/o Short of Breath. * ROS: D ERMATOLOGY: no R sherwin. n o H waldemar. G ASTROENTEROLOGY: no N ausea. n o V omiting. U ROLOGY: no D ifficulty urinating. n o B lood in urine. * Medical History: A llergic rhinitis, GERD, HLP, HBP, Dermatitis Herpetiformis, Normal Cardiolyte GXT - 08/2014; 11/2021, PVC's, Knee arthritis. * Surgical History: L T Shoulder Arthoscopy [id number], Colonoscopy, Normal- Dr. Anderson 2016. * Hospitalization/Major Diagno stic Procedure: B ack Injury- [facility] ER 11/2008, Chest Pain- [facility] ER 08/2014. * Family History: F [...] Does not smoke. * Medications: T aking Dapsone 25 MG Tablet 1 tab(s) orally once a day , Taking Gabapentin 300 MG Capsule 1 capsule Orally Two times a day , Taking PriLOSEC OTC 20 MG Tablet Delayed Release [...] 1 tab(s) orally once a day , Medication List reviewed and reconciled with the patient * Allergies: N .K.D.A. Objective: * Vitals: W t:263.4, Temp:97.9, BP:108/62, HR:76, O2 Sat:97% on RA, Nurse:WMG, Ht: 75, BMI:32.92. * Examination: E NT/Respiratory: General Appearance: N AD. E yes: P ERRLA, sclera clear. E ars: a uditory canals normal bilaterally, TM's WNL. N ose : mild congestion. O ral cavity : n o erythema or exudate seen on pharynx. N phoenix : n o cervical lymphadenopathy. H eart : R RR, normal S1 S2, no murmurs. L ungs: O ccasional rhonchi.? Assessment: * Assessment: 1. A cute bronchitis - J20.9 (Primary) Plan: * Treatment: Value Reference Range w bc 14.8 3.5 - 10 * l ym 25.8 15 - 50 * m id 5.9 2 - 15 * g ran 68.3 35 - 80 * r bc 5.27 3.5 - 5.5 * h gb 15.9 11.5 - 16.5 * h ct 49.5 35 - 55 * m cv 93.8 75 - 100 * m ch 30.2 25 - 35 * m chc 32.2 31 - 38 * p lat 294 100 - 400 * Arline Vasquez 08/30/2024 2:3 6:59 PM > * Procedure Codes: 9 [address] [place], [address] CAPILLARY BLOOD DRAW, 27805 CBC WITH AUTO DIFF * Follow Up: 1 Week, prn * Images: Billing Information: * Visit Code: 11723 Office Visit, Est Pt., Level 3. * Procedure Codes: [address] [place]. [address] CAPILLARY BLOOD DRAW. 35519 CBC WITH AUTO DIFF. * Electronic signature of Pedro Jeff MD on 08/16/2025 at 07:30 AM EST Sign off status: Pending * Provider: Pedro Jeff M.D. Date: 10/30/2023 Generated for Gurpreet hood/Oswaldo/Avi on: 10/16/2024 07:30 AM EST History and Physical Notes * HPI (History of Present Illness) Category Sub-Category Detail Notes Category Not es ENT/respiratory Short of Breath cough Pt presents today wi th c/o cough with some sputum production. Pt sts that he has some SOB, tightness in the chest, chills, shaking that started 3 weeks ago. Pt sts that he has been sick for 3 weeks and just cannot seem to get over whatever this is Examination Category Sub-Category Detail Notes Category Not es ENT/Respiratory Oral cavity : no erythema or exudate s een on pharynx Ears: auditory canals norm al bilaterally, TM's WNL Neck : no cervical lymphade nopathy Heart : RRR, normal S1 S2, n o murmurs Lungs: Occasional rhonchi General Appearance: NAD Nose : mild congestion Eyes: PERRLA, sclera clear
--- OUTSIDE RECORDS SUMMARY | 2024-11-17 08:30 | XMS_ITS ---
Author Organization [facility] Address [address] [facility] [address] [place] [id number] Care Team Providers Care Rate Clerk Name Role Phone Pedro Jeff Primary Care Provider Allergies No Known Allergies REASON FOR VISIT 6 months Medications Medication SIG (Take, Route, Frequency, Duration) Notes Start Date End Date Status PriLOSEC OTC 20 MG 1 cap(s) orally once daily Active Gabapentin 300 MG 1 capsule Orally Two times a day; Duration: 30 day(s) 05/26/2024 Not-Taking levoFLOXacin 500 MG 1 tablet Orally Once a day; Duration: 10 day(s) 08/30/2024 Not-Taking Altace 10 MG 2 cap(s) orally once daily Active Norvasc 5 MG 1 tab(s) orally once a day Active Rosuvastatin Calcium 20 MG 1 tab(s) orally once a day Active amLODIPine Benzoate 1 MG/ML 5 mL Orally Once a day; Duration: 30 day(s) Active Dapsone 25 MG 1 tab(s) orally once a day Active Vitamin D3 50 MCG (1999 UT) as directed orally once a day Active Vitamin B-12 1000 MCG 1 tab(s) orally on ce a day Active Vital Signs Weight 261.8 lbs 11/17/2024 Blood pressure systolic 126 mm Hg 11/17/19 25 Blood pressure diastolic 78 mm Hg 025 Heart Rate 65 /min 11/17/2024 Height 75 in 11/17/2024 BMI 32.72 kg/m2 11/17/2024 Encounters Encounter Location Date Provider Diagnosis [facility] [address] [facility] [address] [place] [id number] 11/17/2024 Pedro Jeff Essential hypertensi on I10 ; Dyslipidemia E78.5 ; Gastroesophageal reflux disease without esophagitis K21.9 ; Vitamin D deficiency E55.9 and Vitamin B12 deficiency E53.8 Assessments Encounter Date Diagnosis (ICD Code) Assessment Notes Treatment Notes Treatment Clinical Notes Section Notes 11/17/2024 Essential hypertension (ICD-10 - I10) 11/17/2024 Dyslipidemia (ICD-10 - E78.5) 11/17/2024 Gastroesophageal reflux disease without esophagitis (ICD-10 - K21.9) 11/17/2024 Vitamin D deficiency (ICD-10 - E55.9) 11/17/2024 Vitamin B12 deficiency (ICD-10 - E53.8) 11/17/2024 Other He will drop off a copy of his labs for review. Plan Of Treatment Medication Medication Name Sig Start Date Stop Date Notes PriLOSEC OTC 20 MG 1 cap(s) orally once daily Altace 10 MG 2 cap(s) orally once daily Norvasc 5 MG 1 tab(s) orally once a day Rosuvastatin Calcium 20 MG 1 tab(s) orally once a day Vitamin D3 50 MCG (2000 UT) as directed orally once a day Vitamin B-12 1000 MCG 1 tab(s) orally once a day Treatment Notes Assessment Notes Other He will drop off a c opy of his labs for review. Next Appt Details Follow Up: 6 Months, Reason: Provider Name:Pedro Johnson, 11/09/2025 09:30:00 AM, [address], [address], [place], [place], [id number], Progress Notes * YOHAN MCHUGHOB:1965 (60 yo M)Acc No.[id number]:11/17/2024 Progress Notes Patient: CUONG PRAJAPATI Provider: Pedro Jeff M.D. :1965 A ge:59 Y S ex:Male Date:11/17/2024 Address:[address] [place] [address], [id number] Subjective: * Chief Complaints: * 1 . 6 months. * HPI: H PI: 59 year old male presents with c/o Patient is here today for?Pt is here today for a scheduled 6 month check up. Pt sts he is doing well and has no new concerns or complaints this time. [facility] for [facility] and [facility] pain and states his primary care physician ordered labs last month. He will bring a copy to the office. He thinks his cholesterol was a little high. He is only able to take his rosuvastatin once or twice a week because of muscle pain. C ardiology: Blood pressure at home are consistently normal. Denies : Chest Pain. D enies : Short of Breath. D enies : Palpitations. D enies : Leg Edema. * ROS: D ERMATOLOGY: no R sherwin. n o H waldemar. G ASTROENTEROLOGY: no N ausea. n o V omiting. U ROLOGY: no D ifficulty urinating. n o B lood in urine. * Medical History: A llergic rhinitis, GERD, HLP, HBP, Dermatitis Herpetiformis, Normal Cardiolyte GXT - 08/2014; 11/2021, PVC's, Knee arthritis. * Surgical History: L T Shoulder Arthoscopy [id number], Colonoscopy, Normal- Dr. Anderson 2016. * Hospitalization/Major Diagno stic Procedure: B ack Injury- [facility] 11/2008, Chest Pain- [facility] ER 08/2014. * Family History: F ather: [...] Does not smoke. * Medications: T aking amLODIPine Benzoate 1 MG/ML Suspension 5 mL Orally Once a day , Taking Dapsone 25 MG Tablet 1 tab(s) orally once a day , Taking Altace 10 MG Capsule 2 [...] 1 tab(s) orally once a day , Not-Taking Gabapentin 300 MG Capsule 1 capsule Orally Two times a day , Not-Taking PriLOSEC OTC 20 MG Tablet Delayed Release 1 cap(s) orally once daily , Not-Taking levoFLOXacin 500 MG Tablet 1 tablet Orally Once a day , Medication List reviewed and reconciled with the patient * Allergies: N .K.D.A. Objective: * Vitals: W t:261.8, Temp:97.9, BP:126/78, HR:65, O2 Sat:97% on RA, Nurse:MARILUZ, Ht: 75, BMI:32.72. * Examination: C ardiology: General Appearance: N AD. . H EENT: sclera and conjunctiva clear, PERRLA, TM's normal, translucent. C arotid upstroke: n ormal, no bruits. H eart sounds: R RR,? faint systolic murmur at RUSB. M urmur, click , gallop: n one. L ungs: c lear, no rales or wheezes. A bdomen: p ositive BS, soft, nontender. E xtremities: n o leg edema. Assessment: * Assessment: 1. E ssential hypertension - I10 (Primary) 2 . D yslipidemia - E78.5 ? 3 . G astroesophageal reflux disease without esophagitis - K21.9 4 .?Vitamin D deficiency - E55.9 5 . V itamin B12 deficiency - E53.8 ? Plan: * Treatment: 2. D yslipidemia Refill Rosuvastatin Calcium Tablet, 20 MG, 1 tab(s), orally, once a day, 90, Refills 1. 3. G astroesophageal reflux disease without esophagitis Continue PriLOSEC OTC Tablet Delayed Release, 20 MG, 1 cap(s), orally, once daily. 4. V itamin D deficiency Continue Vitamin D3 Capsule, 50 MCG (2000 UT), as directed, orally, once a day. 5. V itamin B12 deficiency Continue Vitamin B-12 Tablet, 1000 MCG, 1 tab(s), orally, once a day. 6. O thers Notes: He will drop off a copy of his labs for review. * Procedure Codes: 3 074F SYST BP LT 130 MM HG, 3078F DIAST BP < 80 MM HG * Follow Up: 6 Months * Images: Billing Information: * Visit Code: 20262 Office Visit, Est Pt., Level 3. * Procedure Codes: 3074F SYST BP LT 130 MM HG. 3078F DIAST BP < 80 MM HG. * Electronic signature of Pedro Jeff MD on 08/16/2025 at 07:29 AM EST Sign off status: Pending * Provider: Pedro Jeff M.D. Date: 0 11/17/2024 Generated for Gurpreet hood/Oswaldo/Avi on: 10/16/2024 07:29 AM EST History and Physical Notes * HPI (History of Present Illness) Category Sub-Category Detail Notes Category Not es Cardiology Short of Breath Chest Pain Palpitations Leg Edema HPI Patient is here today for Pt is here today for a scheduled 6 month check up. Pt sts he is doing well and has no new concerns or complaints this time [facility] and states his primary care physician ordered labs last month. He will bring a copy to the office. He thinks his cholesterol was a little high. He is only able to take his rosuvastatin once or twice a week because of muscle pain. Examination Category Sub-Category Detail Notes Category Not [...]
--- OUTSIDE RECORDS SUMMARY | 2025-05-09 04:45 | XMS_ITS ---
Author Organization [facility] Address [address] [place] [id number] Care Team Providers Care Dividing Machine Operator Helper Name Role Phone Pedro Jeff Primary Care Provider Allergies No Known Allergies Results Component Value Reference Range Notes P-Comprehensive Metabolic Pa drew (CMP) Reviewed date:05/16/2025 08:52:12 AM Interpretation:Normal Performing Lab: Notes/Report: CLIA: [id number] Pranav Shelby MD, Grinding And Spraying Supervisor [facility] , [address], [place] [address] Test performed by [employer], [facility] Sodium 139 135-145 mmol/L Potassium 4.5 3.5-5.3 mmol/L Chloride 104 97-108 mmol/L CO2 26 20-32 mmol/L Glucose 92 65-99 mg/dL BUN 12 8-23 mg/dL Creatinine 0.97 0.70-1.30 mg/dL Calcium 9.5 8.6-10.4 mg/dL eGFR by Creatinine 88 >59 mL/min/1.73m2 Protein 6.8 6.0-8.3 g/dL Albumin 4.2 3.5-5.3 g/dL Alkaline Phosphatase 84 40-129 IU/L ALT (SGPT) 18 <5-55 IU/L AST (SGOT) 19 <5-46 IU/L Bilirubin, Total 0.7 <0.2-1.2 mg/dL A/G Ratio 1.6 1.1-2.5 P-Lipid Panel Reviewed date:05/16/2025 08:52:12 AM Interpretation:LDL 145 Performing Lab: Notes/Report: Test performed by [facility] [address] [facility] , [address], [place] [address] Pranav Shelby MD, Grinding And Spraying Supervisor CLIA: [id number] Cholesterol 213 <200 mg/dL Triglycerides 165 <150 mg/dL HDL Cholesterol 35 >39 mg/dL Cholesterol / HDL Ratio 6.09 0.00-4.99 Ratio Non-HDL Cholesterol 178 <130 mg/dL LDL Cholesterol (Calculation) 145 <130 mg/dL LDL Cholesterol Levels* Less than 100 mg/dL Optimal 100 to 129 mg/dL Near Optimal/ Above Optimal 130 to 159 mg/dL Borderline High 160 to 189 mg/dL High 190 mg/dL and above Very High * Categories as recommended by the 2004 ATPIII guidelines LDL/HDL Ratio 4.1 <3.3 Ratio LDL Cholesterol Patient History Test Date: 05/09/2025 LDL Results: 145 Units: mg/dL % Change: - P-PSA Reviewed date:05/16/2025 08:52:12 AM Interpretation:0.14 Performing Lab: Notes/Report: Test performed by [facility] [address] [facility] [address], [place] [address] Pranav Shelby MD, Grinding And Spraying Supervisor CLIA: [id number] PSA 0.14 <4.00 ng/mL Please note this is an ultrasensitive PSA assay with a lower limit of detection of 0.014 ng/mL. This test is performed by the Alicia ECLIA methodology. Values obtained with different assay methods or kits cannot be directly compared. P-Vitamin D, 1, 25 Dihydroxy Reviewed date:05/16/2025 08:52:12 AM Interpretation:54 Performing Lab: Notes/Report: Test performed by [facility] [address] [place] [address] , [address], [place] [address] Pranav Shelby MD, Grinding And Spraying Supervisor CLIA: [id number] Vitamin D, 1, 25 Dihydroxy 54.0 19.9-79.3 pg/m L REASON FOR VISIT 6 month f/u, Needs labs with PSA & shingles vaccine Medications Medication SIG (Take, Route, Frequency, Duration) Notes Start Date End Date Status levoFLOXacin 500 MG 1 tablet Orally Once a day; Duration: 10 day(s) 08/30/2024 Not-Taking amLODIPine Benzoate 1 MG/ML 5 mL Orally Once a day; Duration: 30 day(s) Not-Taking amLODIPine Besylate 5 MG 1 tablet Orally Once a day Active Rosuvastatin Calcium 20 MG 1 tab(s) orally once a day Active Vitamin B-12 1000 MCG 1 tab(s) orally on ce a day Active Gabapentin 300 MG 1 capsule Orally Two times a day; Duration: 30 day(s) 05/26/2024 Not-Taking PriLOSEC OTC 20 MG 1 cap(s) orally once daily Active Norvasc 5 MG 1 tab(s) orally once a day Active Altace 10 MG 2 cap(s) orally once daily Active Vitamin D3 50 MCG (1999 UT) as directed orally once a day Active Dapsone 25 MG 1 tab(s) orally once a day Active Vital Signs Weight 258.2 lbs 05/09/2025 Blood pressure systolic 132 mm Hg 05/09/20 25 Blood pressure diastolic 80 mm Hg 025 Heart Rate 69 /min 05/09/2025 Height 75 in 05/09/2025 BMI 32.27 kg/m2 05/09/2025 Encounters Encounter Location Date Provider Diagnosis [facility] [address] [place], [place] [id number] 05/09/2025 Pedro Jeff Essential hypertensi on I10 ; Dyslipidemia E78.5 ; Gastroesophageal reflux disease without esophagitis K21.9 ; Vitamin D deficiency E55.9 ; Vitamin B12 deficiency E53.8 and Screening for prostate cancer Z12.5 Assessments Encounter Date Diagnosis (ICD Code) Assessment Notes Treatment Notes Treatment Clinical Notes Section Notes 05/09/2025 Essential hypertension (ICD-10 - I10) 05/09/2025 Dyslipidemia (ICD-10 - E78.5) 05/09/2025 Gastroesophageal reflux disease without esophagitis (ICD-10 - K21.9) 05/09/2025 Vitamin D deficiency (ICD-10 - E55.9) 05/09/2025 Vitamin B12 deficiency (ICD-10 - E53.8) 05/09/2025 Screening for prostate cancer (ICD-10 - Z12.5) Plan Of Treatment Medication Medication Name Sig Start Date Stop Date Notes Rosuvastatin Calcium 20 MG 1 tab(s) orally once a day Vitamin B-12 1000 MCG 1 tab(s) orally once a day PriLOSEC OTC 20 MG 1 cap(s) orally once daily Norvasc 5 MG 1 tab(s) orally once a day Altace 10 MG 2 cap(s) orally once daily Vitamin D3 50 MCG (1999 MD) as directed orally once a day Next Appt Details Follow Up: 6 Months, Reason: Provider Name:Pedro Johnson, 11/09/2025 09:30:00 AM, [address] [facility], [address] [place] [address], [phone], Progress Notes * YOHAN MCHUGHOB:1965 (60 yo M)Acc No.[id number]:05/09/2025 Progress Notes Patient: CUONG PRAJAPATI Provider: Pedro Jeff M.D. :1965 A ge:59 Y S ex:Male Date:05/09/2025 Address:[address] , [place], [id number] Subjective: * Chief Complaints: * 1 . 6 month f/u. 2. Needs labs with PSA & shingles vaccine. * HPI: C ardiology: The patient is here for a check up on Hypertension and Hyperlipidemia. The pt does check his BP at home and he states it is running in the 120's/80's. Pt states he is doing well. Pt states he is fasting. Denies : Chest Pain. D enies : Short of Breath. D enies : Dizziness. D enies : Palpitations. R heumatology: [facility] app[facility] this [facility] for [facility]. * ROS: D ERMATOLOGY: no R sherwin. n o H waldemar. G ASTROENTEROLOGY: no N ausea. n o V omiting. n o D iarrhea.? U ROLOGY: no D ifficulty urinating. n o B lood in urine. * Medical History: A llergic rhinitis, GERD, HLP, HBP, Dermatitis Herpetiformis, Normal Cardiolyte GXT - 08/2014; 11/2021, PVC's, Knee arthritis. * Surgical History: L T Shoulder Arthoscopy [id number], Colonoscopy, Normal- Dr. Anderson 2016. * Hospitalization/Major Diagno stic Procedure: B ack Injury- [facility] 11/2008, Chest Pain- [facility] 08/2014. * Family History: F ather: [...] not smoke. * Medications: T aking amLODIPine Besylate 5 MG Tablet 1 tablet Orally Once a day , Taking Dapsone 25 MG Tablet 1 tab(s) orally once a day , Taking PriLOSEC OTC 20 [...] tab(s) orally once a day , Not-Taking amLODIPine Benzoate 1 MG/ML Suspension 5 mL Orally Once a day , Not-Taking Rosuvastatin Calcium 20 MG Tablet 1 tab(s) orally once a day , Not-Taking Gabapentin 300 MG Capsule 1 capsule Orally Two times a day , Not-Taking levoFLOXacin 500 MG Tablet 1 tablet Orally Once a day , Medication List reviewed and reconciled with the patient * Allergies: N .K.D.A. Objective: * Vitals: W t: 258.2, Temp: 98.0, BP: 132/80, HR: 69, O2 Sat: 98% on RA, Nurse: ANA, Ht: 75, BMI:32.27. * Examination: C ardiology: General Appearance: N [...] nontender. E xtremities: n o leg edema. Right knee brace in place. Assessment: * Assessment: 1. E ssential hypertension - I10 (Primary) 2 . D yslipidemia - E78.5 ? 3 . G astroesophageal reflux disease without esophagitis - K21.9 4 .?Vitamin D deficiency - E55.9 5 . V itamin B12 deficiency - E53.8 6. S creening for prostate cancer - Z12.5 Plan: * Treatment: Value Reference Range A /G Ratio 1.6 1.1-2.5 - * A lbumin 4.2 3.5-5.3 - g/dL * A lkaline Phosphatase 84 40-129 - IU/L * A LT (SGPT) 18 <5-55 - IU/L * A ST (SGOT) 19 <5-46 - IU/L * B ilirubin, Total 0.7 <0.2-1.2 - mg/dL * B UN 12 8-23 - mg/dL * C alcium 9.5 8.6-10.4 - mg/dL * C hloride 104 97-108 - mmol/L * C O2 26 20-32 - mmol/L * C reatinine 0.97 0.70-1.30 - mg/dL * G lucose 92 65-99 - mg/dL * P otassium 4.5 3.5-5.3 - mmol/L * S odium 139 135-145 - mmol/L * P rotein 6.8 6.0-8.3 - g/dL * e GFR by Creatinine 88 >59 - mL/min/1.73m2 * Pedro Jeff 05/16/2025 0 8:52:02 AM EDT > See phone encounter 2.?Dyslipidemia? Refill Rosuvastatin Calcium Tablet, 20 MG, 1 tab(s), orally, once a day, 90, Refills 1.?LAB: P-Lipid Panel (Collection Date & Time - 05/09/2025 09:10 AM)?LDL 145* Value Reference Range C holesterol / HDL Ratio 6.09 H 0.00-4.99 - Ratio * C holesterol 213 H <200 - mg/dL * H DL Cholesterol 35 L >39 - mg/dL * L DL Cholesterol (Calculation) 145 H <130 - mg/d L * L DL/HDL Ratio 4.1 H <3.3 - Ratio * N on-HDL Cholesterol 178 H <130 - mg/dL * T riglycerides 165 H <150 - mg/dL * Pedro Jeff 05/16/2025 0 8:52:02 AM EDT > See phone encounter 3.?Gastroesophageal reflux disease without esophagitis? Continue PriLOSEC OTC Tablet Delayed Release, 20 MG, 1 cap(s), orally, once daily.??4.?Vitamin D deficiency? Continue Vitamin D3 Capsule, 50 MCG (1999 UT), as directed, orally, once a day.?LAB: P-Vitamin D, 1, 25 Dihydroxy (Collection Date & Time - 05/09/2025 09:10 AM)?54* Value Reference Range V itamin D, 1, 25 Dihydroxy 54.0 19.9-79.3 - pg /mL * Pedro Jeff 05/16/2025 0 8:52:02 AM EDT > See phone encounter 5.?Vitamin B12 deficiency? Continue Vitamin B-12 Tablet, 1000 MCG, 1 tab(s), orally, once a day.?? 6.?Screening for prostate cancer?LAB: P-PSA (Collection Date & Time - 05/09/2025 09:10 AM)?0.14* Value Reference Range P SA 0.14 <4.00 - ng/mL * Pedro Jeff 05/16/2025 0 8:52:02 AM EDT > See phone encounter * Procedure Codes: 1 036F TOBACCO NON-USER, 3075F SYST BP GE 130 - 139MM HG, 3079F DIAST BP 80-89 MM HG * Follow Up: 6 Months * Images: Billing Information: * Visit Code: 23543 Office Visit, Est Pt., Level 3. * Procedure Codes: 1036F TOBACCO NON-USER. 3075F SYST BP GE 130 - 139MM HG. 3079F DIAST BP 80-89 MM HG. * Electronic signature of Pedro Jeff MD on 08/16/2025 at 07:30 AM EST Sign off status: Pending * Provider: Pedro Jeff M.D. Date: 0 05/09/2025 Generated for Gurpreet hood/Oswaldo/Diannitting on: 1 10/16/2024 07:30 AM EST History and Physical Notes * HPI (History of Present Illness) Category Sub-Category Detail Notes Category Not es Cardiology Short of Breath Chest Pain Palpitations Dizziness [facility]umatology [facility]. Examination Category Sub-Category Detail Notes Category Not es Cardiology Lungs: clear, no rales or wheezes HEENT: sclera and conjuncti va clear, PERRLA, TM's normal, translucent Heart sounds: RRR, ? faint systoli c murmur at RUSB Abdomen: positive BS, soft, n ontender Carotid upstroke: normal, no bruits Extremities: no leg edema. Right knee brace in place Murmur, click , gallop: none General Appearance: NAD.
--- OUTSIDE RECORDS SUMMARY | 2025-08-16 07:30 | XMS_ITS | Data Portability ---
Author Organization [facility] Address [address] [facility] [address] [place] [address] Care Team Providers Care Supervisor Specialty Plant Name Role Phone AMINTA GAMEZ Process Project Engineer SANDRITA MALDONADO Primary Care Provider Assessment Encounter [...] Organization Details Last Modified Time Details Appointments DERM ESTABLISH ED 2025 08:40A Eber BRAVO MD Not available Not available Not available Lab CBC w/ diff 2024 025 [facility], [address] [place], [address], 08/15/2025 16:50:58 CMP, serum or plasma 2024 025 [facility], [address], [place], [address], 08/15/2025 16:50:58 CBC w/ auto diff 2024 025 [place] [facility], [address] [address], [place], [address], 01/26/2025 11:05:57 CMP, serum or plasma 2024 025 [place] [facility], [address] [facility] [address], [address], 01/26/2025 11:05:57 CMP, serum or plasma 2023 024 [facility], [address] [place] [address], [phone], 08/08/2024 10:29:43 CBC w/ diff 2023 024 [facility], [address] [place] [address], [phone], 07/29/2024 09:22:22 CMP, serum or plasma 2023 024 [facility], [address] [place] [address], [phone], 01/28/2024 09:08:27 Referral None recorded. Procedures None recorded. Surgeries None recorded. Imaging None recorded. Medication Orders None recorded. Patient TargetsNo targets recorded. Patient Instructions Encounter Date Encounter Id Patient Instructions Last Modified By Organization Details Last Modified Time 05/02/2019 [id number] We reviewed the EMG, which showed the [...] months. [email or web address] Not available 05/02/2019 10:26:16 01/25/2025 [id number] Recommended returning to clinic in 4 months for fu [email or web address] Not available 01/25/2025 08:54:47 08/15/2025 [id number] Recommended returning to clinic in 6 months for FBSE Not available 08/15/2025 16:37:28 Reason for Referral None Reported. Results Created Date Observation Date Name Description Value Unit Range Abnormal Flag Note LastModifiedBy Organization Detail LastModifiedTime 04/24/20 19 04/22/2019 nerve condu ction study /EMG, upper extre mity (PROC ) No observ ation record ed. [email or web address] Margarita Marquez MD [address] [place], [address], 04/27/2019 11:51:26 Result Notes None recorded. Procedures Surgical History Date Name Laterality Status Provider Name and Address Organization Details Recorded Time 01/27/20 24 DAK - Cryo AK completed Casandra Myers [facility] 01/27/2024 11:27:29 04/22/20 19 Electromyography (EMG) with Nerve Conduction Study (NCV) completed Kelly Lerner (Nicky) [facility] 04/22/2019 10:47:27 Imaging Results None recorded. Procedure Notes None recorded. Medical Equipment None Reported. Allergies Allergen ID Allergen Name Allergen Category Reaction Reaction Severity Criticality Documentation Date Start Date Code Code System Note Provider Name and Address Organization Details Recorded Time 138248 acetamino phen / oxycodone medicatio n headache Not available Not available 04/18/2019 02723 3 RxNorm [facility] 13:[facility]06 Medications Name Sig Start Date [...] Updated DateTime 01/27/2024 190.5 cm 32.5 kg/m2 395538.02 g Jody Anthony [facility] 01/27/2024 11:13:21 Date Recorded Body height Body mass index (BMI) Body weight Systolic And Diastolic Provider Name and Address Organization Details Last Updated DateTime 05/02/2019 190.5 cm 32.5 kg/m2 610171.02 g 140/82 mm[Hg] Camille [place] [facility] 05/02/2019 08:25:58 Social History Question Answer Notes LastModified by Zillow Details LastModified Time Tobacco Smoking Status Former Smoker Camille [place] [facility] 04/18/2019 13:39:56 What Was The Date Of Your Most Recent Tobacco Screening? 08/15/2025 [email or web address] Information not available 08/15/2025 Sex: Unknown Functional Status Question Answer Note LastModified by Organizat ion Details LastModified Time What is your level of alcohol consumption? Occasional [email or web address] Information not available 01/27/2024 Mental Status None [...] Diagnosis SNOMED-CT Code Diagnosis ICD10 Code Diagnosis IMO Codes Diagnosis Note [id number] Talat LEE MD [facility] [address] [facility] [place] [address] 04/18/2019 13:07:02 04/18/2019 16:36:14 Long thoracic nerve injury 388176651 S24.3XXA [id number] MARGARITA MARQUEZ MD NEUROLOGY [facility] [address] [place] [address] 04/22/2019 09:20:51 04/22/2019 11:07:58 Long thoracic nerve injury 789540191 S24.3XXA Pain of ri ght shoulder joint 6571647461 1671684 M25.783 [id number] Talat LEE MD [facility] [address] [address] 05/02/2019 08:20:47 05/02/2019 08:58:03 Long thoracic nerve injury 394345268 S24.3XXA [id number] AMINTA BRAVO MD [place] [address] [place] [address] 01/27/2024 10:34:00 01/29/2024 14:00:07 Dermatitis herpetiformis 097414036 L13.0 Z79.899 Nature of the dx was [...] regarding labs Melanocyti c nevus of face 469552191 D22.39 Benign appearing nevi noted on exam. [...] types of skin cancers. Seborrheic keratosis 394 664095 L82.1 Seborrheic keratosis are benign but may be cosmetical ly bothersome . Cosmetic removal with liquid nitrogen is an option. This may leave discolorat ion, or the SK may persist or recur at the treatment site. Solar lentigo 79065704 L 81.4 - Benign brown spots - Sun-induce d Actinic keratosis 865445 007 L57.0 Actinic keratoses are precancero us lesions that may progress to squamous cell carcinoma if untreated. UV light and genetics may increase risk. Treated lesions should blister, scab over, and heal within a few weeks. If treated lesion(s) does not resolve within 1-2 months, patient agrees to follow up for re-evaluat ion. [id number] AMINTA BRAVO MD [address] [address] 07/27/2024 09:59:56 07/27/2024 11:42:17 Dermatitis herpetiformis 754595962 L13.0 Z79.899 Nature of the dx was [...] 1 week if not hearing regarding labs [id number] AMINTA BRAVO MD [address] [address] 01/25/2025 08:13:06 01/25/2025 09:00:38 Dermatitis herpetiformis 295059470 L13.0 Z79.899 Nature of the dx was [...] 1 week if not hearing regarding labs [id number] AMINTA BRAVO MD [address] [address] 08/15/2025 16:01:48 08/15/2025 16:43:23 Dermatitis herpetiformis 203853288 L13.0 Z79.899 Nature of the dx was explainedD oing well. Pt reports flares when not on medication s. Pt reports last colonoscop y was clear (2023) and celiac labs were negative. Reports that he is on q10 year colonoscop ies Discussed gluten free diet. Pt reports that he is not eating a gluten free diet - tries but is difficult Dapsoneis a systemic medication that is used [...] have trouble walking but has lower back/knee issues. [facility] E 800 IU daily. Cimetidine 400 mg TID can help with side effects as well, but often has medication interactio ns. Labs have been WNL, will continue monitoring Will send in Dapsone 25 mg qd [...] Member ID Clarke Member ID Guarantor Name 08/12/2025 1 [facility] [id number] Nadia Cobian [id number] Floyd Cobian Notes Date Note Type Note [...] in the overhead positioning. Talat LEE MD [address] [place] [address], [phone], [facility] 05/02/2019 12:35:03 01/27/2024 text/html ROS as noted in the [facility] Patient is here for a refill of Dapsone 25mg. Dapsone still keeps pt clear, happy with results AMINTA BRAVO MD [address] [place] [address], [phone], [facility] 01/27/2024 12:35:30 07/27/2024 text/html ROS as noted in the [facility] Patient is here for dermatitis herpetiformis f/u Location: face and armsDuration: 6 mo f/uTreatments: dapsone 25 mgReports: no flare ups, dapsone working well AMINTA BRAVO MD [address] [place] [address], [phone], [facility] 07/27/2024 12:29:26 01/25/2025 text/html ROS as noted in the [facility] Patient is here for dermatitis herpetiformis f/u Location: face and armsDuration: 6 mo f/uTreatments: dapsone 25 mgReports: working well, no flare ups AMINTA BRAVO MD [address] [place] [address], [phone], [facility] 01/25/2025 12:32:41 08/15/2025 text/html ROS as noted in the [facility] Patient is here for dermatitis herpetiformis f/u Location: no affected areas nowDuration: 6 mo f/uTreatments: dapsone 25 mgReports: tx working well AMINTA BRAVO MD [address] [place] [address], [phone], [facility] 08/15/2025 16:44:54
--- OUTSIDE RECORDS SUMMARY | 2025-08-16 07:30 | XMS_ITS ---
Author Organization Unknown ENCOUNTERS Encounter Performer Location Date Diagnosis Diagnosis Status Emergency [address] [place] [id number] RAYMUNDO *Note: Encounters from your own facility or health system may be excluded. Allergies, Adverse Reactions, Alerts Allergen Type Severity Identification Date Medications Name Date Quantity Days Supplied GPI Number
--- OUTSIDE RECORDS SUMMARY | 2025-08-16 07:31 | XMS_ITS | Clinical Summary ---
Author Organization [facility] Address [address], [address] [place] [address] Care Team Providers Care Chain Saw Driver Name Role Phone Gregory Jeff MD Primary Care Provider [phone]- [phone] Social History Tobacco Use Types Packs/Day Years Used Date Smoking Tobacco: Never Assessed Sex and Gender Information Value Date Recorded Sex Assigned at Not on file Legal Sex Male 10:00 AM EDT Gender Identity Not on file Sexual Orientation Not on file Plan of Treatment Not on [place] [id number] [employer] Member Subscriber Plan / Payer (Ef fective 2022-Present) Name:Cobian Floyd .1.1 Relation to Subscriber:Self Name:Floyd Cobian .1.1 Payer ID:Not on file Group ID:Not on file Type:Indemnity Address: [address] [place] [address] Care Teams Chain Saw Driver Relationship Specialty Start Date End Date Gregory Jeff MD [address] [place] [address] PCP - General 06/02/22
--- OUTSIDE RECORDS SUMMARY | 2025-08-16 07:31 | XMS_ITS | Patient Health Record ---
Author Organization [facility] Address [address] [place] [id number] Care Team Providers Care Cylinder Tester Name Role Phone Pedro Jeff Primary Care [...] - 38 plat 294 100 - 400 P-Comprehensive Metabolic Pa drew (CMP) Reviewed date:05/16/2025 08:52:12 AM Interpretation:Normal Performing Lab: Notes/Report: Test performed by [facility] [address] [place] [address] , [address], [place] [address] Pranav Shelby MD, Documentation Clerk CLIA: [id number] Sodium 139 135-145 mmol/L Potassium 4.5 3.5-5.3 [...] 145 Performing Lab: Notes/Report: Test performed by [facility], [address] , [address], [place] [address] Pranav Shelby MD, Documentation Clerk CLIA: [id number] Cholesterol 213 <200 mg/dL Triglycerides 165 <150 [...] Interpretation:0.14 Performing Lab: Notes/Report: Test performed by [email or web address] [address] [place] [address] Pranav Shelby MD, Documentation Clerk CLIA: [id number] PSA 0.14 <4.00 ng/mL Please note this is an ultrasensitive PSA assay with a lower limit of detection of 0.014 ng/mL. This test is performed by the [employer] ECLIA methodology. Values obtained with different assay methods or kits cannot be directly compared. P-Vitamin D, 1, 25 Dihydroxy Reviewed date:05/16/2025 08:52:12 AM Interpretation:54 Performing Lab: Notes/Report: Test performed by [email or web address] [address] [place] [address] Pranav Shelby MD, Documentation Clerk CLIA: [id number] Vitamin D, 1, 25 Dihydroxy 54.0 19.9-79.3 pg/m L Reason For Referral No Information Medications Medication SIG (Take, Route, Frequency, Duration) Notes Start Date End Date Status levoFLOXacin 500 MG 1 tablet Orally Once a day; Duration: 10 day(s) 08/30/2024 Not-Taking Gabapentin 300 MG 1 capsule Orally Two times a day; Duration: 30 day(s) 05/26/2024 Not-Taking PriLOSEC OTC 20 MG 1 cap(s) orally once daily Active Ramipril 10 mg TAKE TWO CAPSULES BY MOUTH ONCE DAILY; Duration: 90 Active Norvasc 5 MG 1 tab(s) orally once a day Active amLODIPine Besylate 5 MG 1 tablet Orally Once a day; Duration: 90 days Active Vitamin D3 50 MCG (2000 UT) as directed orally once a day Active amLODIPine Benzoate 1 MG/ML 5 mL Orally Once a day; Duration: 30 day(s) Not-Taking Rosuvastatin Calcium 20 MG 1 tab(s) [...] Status Risk Notes Problem Vitamin D deficiency (37609856) Vitamin D deficiency (E55.9) Active confirmed Problem Essential hypertension (59121684) Essential hypertension (I10) Active confirmed Problem Generalized anxiety disorder (88304882) Generalized anxiety disorder (F41.1) Active confirmed Problem Sciatica (89438860) Lumbago with sciatica, left side (M54.42) Active confirmed Problem Chronic pain (15944917) Other chronic pain (G89.29) Active confirmed Problem Gastroesophageal reflux disease without esophagitis (301451338) Gastroesophageal reflux disease without esophagitis (K21.9) Active confirmed Problem Osteoarthritis of knee (219436590) Primary osteoarthritis of both knees (M17.0) Active confirmed Problem Sciatica (16708492) Left sided sciatica (M54.32) Active confirmed Problem Dyslipidemia (415041266) Dyslipidemia (E78.5) Active confirmed Problem Degenerative disc disease (72178264) DDD (degenerative disc disease), lumbar (M51.36) Active confirmed Vital Signs Heart Rate 69 /min 05/09/2025 Blood pressure diastolic 80 mm Hg 05/09/2025 Height 75 in 05/09/2025 Blood pressure systolic 132 mm Hg 05/09/2025 Weight 258.2 lbs 05/09/2025 BMI 32.27 kg/m2 05/09/2025 Encounters Encounter Location Date Provider Diagnosis [facility] [address] [facility] [address] [place] [id number] 08/30/2024 Pedro Jeff Acute bronchitis J20 .9 [facility] [facility] [address] [place] [id number] 11/17/2024 Pedro Jeff Essential hypertensi on I10 ; Dyslipidemia E78.5 ; Gastroesophageal reflux disease without esophagitis K21.9 ; Vitamin D deficiency E55.9 and Vitamin B12 deficiency E53.8 [facility] [address] [facility] [address] [place] [id number] 05/09/2025 Pedro Jeff Essential hypertensi on I10 ; Dyslipidemia E78.5 ; Gastroesophageal reflux disease without esophagitis K21.9 ; Vitamin D deficiency E55.9 ; Vitamin B12 deficiency E53.8 and Screening for prostate cancer Z12.5 [facility] [address] [facility] [address] [place] [id number] 05/16/2025 [facility] [address] [facility] [address] [place] [id number] 06/15/2025 Pedro Jeff Assessments Encounter Date Diagnosis (ICD Code) Assessment Notes Treatment Notes Treatment Clinical Notes Section Notes 08/30/2024 Acute bronchitis (ICD-10 - J20.9) 11/17/2024 Essential hypertension (ICD-10 - I10) 11/17/2024 Dyslipidemia (ICD-10 - E78.5) 05/09/2025 Essential hypertension (ICD-10 - I10) 05/09/2025 Dyslipidemia (ICD-10 - E78.5) 05/09/2025 Gastroesophageal reflux disease without esophagitis (ICD-10 - K21.9) 11/17/2024 Gastroesophageal reflux disease without esophagitis (ICD-10 - K21.9) 11/17/2024 Vitamin D deficiency (ICD-10 - E55.9) 05/09/2025 Vitamin D deficiency (ICD-10 - E55.9) 05/09/2025 Vitamin B12 deficiency (ICD-10 - E53.8) 11/17/2024 Vitamin B12 deficiency (ICD-10 - E53.8) 05/09/2025 Screening for prostate cancer (ICD-10 - Z12.5) 11/17/2024 Other He will drop off a copy of his labs for review. Plan Of Treatment Pending Test Test Name Order Date CMP 12/24/2020 Next Appt Details Provider Name:Pedro Carroll Leilanidiane guerin, 11/09/2025 09:30:00 AM, [facility] [facility] [address] [facility], [address], [place], [id number], Insurance Providers Payer Name Payer Address Payer Phone Subscriber Number Group Number Insured Name Patient Relationship to Insured Coverage Start Date Coverage End Date [facility] [address] [address] [place] [phone] [id number] Self - patient is the insured Medications Administered Medication Instructions Date of Administration Dosage Notes Dexamethasone 08/13/2006 1 mL Medical (General) History Medical History History ICD Code allergic rhinitis GERD HLP HBP Dermatitis Herpetiformis Normal Cardiolyte GXT - 08/2014; 11/2021 PVC's Knee arthritis Surgical History Surgery Date(Month/Year) LT Shoulder Arthoscopy 910757 Colonoscopy, Normal- Dr. Anderson 2016 Hospitalization History Reason Date(Month/Year) Chest Pain- [facility] 08/2014 Back Injury- [facility] ER 11/2008
--- OUTSIDE RECORDS SUMMARY | 2025-08-16 07:31 | XMS_ITS | Continuity of Care Document ---
Author Organization [facility] [place] Address [address] [place] [address] Care Team Providers Care Screen Print Operator Name Role Phone AMINTA GAMEZ Continuous Drier Operator SANDRITA MALDONADO Primary Care Provider Assessment No assessment recorded. Plan of Treatment Reminders Order Date Submit Date Provider Last Modified By Organization Details Last Modified Time Details Appointments DERM ESTABLISH ED 2025 08:40A M AMINTA BRAVO MD Not available Not available Not available Lab CBC w/ diff 2024 025 [facility], [address] , [place], [address], 08/15/2025 16:50:58 CMP, serum or plasma 2024 025 [facility], [address] , [place], [address], 08/15/2025 16:50:58 Referral None recorded. Procedures None recorded. Surgeries None recorded. Imaging None recorded. Medication Orders None recorded. Patient TargetsNo targets recorded. Patient Instructions Encounter Date Encounter Id Patient Instructions Last Modified By Organization Details Last Modified Time 08/15/2025 [id number] Recommended returning to clinic in 6 months for FBSE [email or web address] Not available 08/15/2025 16:37:28 Reason for Referral None Reported. Procedures Surgical History Date Name Laterality Status Provider Name and Address Organization Details Recorded Time 01/27/20 24 DAK - Cryo AK completed Casandra Myers [facility] 01/27/2024 11:27:29 04/22/20 19 Electromyography (EMG) with Nerve Conduction Study (NCV) completed Kelly Lerner [facility] 04/22/2019 10:47:27 Imaging Results None recorded. Procedure Notes None recorded. Medical Equipment None Reported. Allergies Allergen ID Allergen Name Allergen Category Reaction Reaction Severity Criticality Documentation Date Start Date Code Code System Note Provider Name and Address Organization Details Recorded Time 837313 acetamino phen / oxycodone medicatio n headache Not available Not available 04/18/2019 31102 3 RxNorm Camille [facility] 9 13:35:06 Medications Name Sig Start Date [...] Available Not Availa ble Not Available Vitals None Recorded Social History Question Answer Notes LastModified by Organizat ion Details LastModified Time Tobacco Smoking Status Former Smoker Camille [facility] 04/18/2019 13:39:56 What Was The Date Of Your Most Recent Tobacco Screening? 08/15/2025 [email or web address] Information not available 08/15/2025 Sex: Unknown Functional Status Question Answer Note LastModified by Organizat ion Details LastModified Time What is your level of alcohol consumption? Occasional [email or web address] Information not available 01/27/2024 Mental Status None recorded. Family History Nothing Reported. Medical History Condition Response Allergies/Hayfever N Anxiety/Depression N Thyroid Disease N Squamous Cell Carcinoma N Heart Conditions Y Migraines N COPD N Pneumonia Y Anesthesia Complications N Diabetes N Rheumatic Fever N Seizures/Epilepsy N Arthritis N Tuberculosis N Cancer N Melanoma N Stroke N Asthma N Blood Thinners N Basal Cell Carcinoma N Sleep Apnea N High Cholesterol N Skin Cancer N Liver Disease N Hypertension N Osteoporosis N Kidney Disease N Past Encounters Encounter ID Performer Location Encounter Start Date Encounter Closed Date Diagnosis/Indication Diagnosis SNOMED-CT Code Diagnosis ICD10 Code Diagnosis IMO Codes Diagnosis Note [id number] AMINTA BRAVO MD [address] [id number] 08/15/2025 16:01:48 08/15/2025 16:43:23 Dermatitis herpetiformis 416734036 L13.0 Z79.899 Nature of the dx was [...] by Organization Details LastModified Time None Recorded Payers Encounter Date Sequence Insurance Name Policy Number Policy Clarke Covered Member ID Clarke Member ID Guarantor Name 08/15/2025 1 [facility] [id number] Nadia Cobian [id number] Floyd Cobian Notes Date Note Type Note Provider Name and Address Organization Details Recorded Time 08/15/2025 text/html ROS as noted in the HPI Patient is here for dermatitis herpetiformis f/u Location: no affected areas nowDuration: 6 mo f/uTreatments: dapsone 25 mgReports: tx working well AMINTA BRAVO MD [address] [place], [address], [facility] 08/15/2025 16:44:54
[2025-08-16 07:46] LABS: Hematocrit 44.1 % (42.0-52.0); Hemoglobin 14.5 g/dL (14.1-18.0); Immature Granulocytes % 0.3 %; Mean Corpuscular HGB Conc 32.9 g/dL (31.8-35.4); Mean Corpuscular Hemoglobin 30.6 pg (27.0-31.2); Mean Corpuscular Volume 93.0 fl (80-94); Nucleated Red Blood Cells % 0 %; Platelet Count 306 K/mm3 (142-424); Red Blood Count 4.74 M/mm3 (4.60-6.20); Red Cell Distribution Width-SD 49.2 fL; White Blood Count 6.8 K/mm3 (4.8-10.8)
[2025-08-16 09:28] LABS: Alanine Aminotransferase 22 U/L (12-78); Albumin Level 4.0 g/dl (3.5-5.0); Albumin/Globulin Ratio 1.3 (1.1-1.8); Alkaline Phosphatase 84 U/L (38-126); Anion Gap 10.6 mEq/L (5-15); Aspartate Amino Transferase 24 U/L (17-59); Bilirubin,Total 1.0 mg/dl (0.2-1.3); Blood Urea Nitrogen 13 mg/dl (9-20); Calcium 9.3 mg/dl (8.4-10.2); Carbon Dioxide 28 mmol/L (22.0-30.0); Chloride 104 mmol/L (98-107); Creatinine,Serum 1.00 mg/dl (0.66-1.25); Estimated Glomerular Filt Rate 76 ml/min (>60); GFR (African American) 92 ML/MIN (>60); Globulin 3.1 g/dL (1.3-3.2); Glucose 92 mg/dl (74-100); Potassium 4.6 mmoL/L (3.5-5.1); Sodium 138 mmol/L (136-145); Total Protein,Serum 7.1 g/dl (6.3-8.2)
== END 2025-08-16 23:59 | disposition home or self-care (01) ==
LOC: LAB 07:27
PROVIDERS: PCP Family Medicine; Visit Provider Dermatology
DX: L13.9 Bullous disorder, unspecified (principal); Z79.899 Other long term (current) drug therapy
CPT/HCPCS: 36415; 80053; 85025